=== PATIENT | female | born 1965 | race Caucasian/White ===

== ENCOUNTER 2024-03-03 12:58 | Outpatient (REF) | payer OTHER, SELFPAY ==
[2024-03-03 16:16] LABS: Urine Cytology See Pathology rpt
== END 2024-03-03 12:59 | disposition home or self-care (01) ==
LOC: HO.LNP 12:58
PROVIDERS: PCP Internal Medicine; Visit Provider Nurse Practitioner Family
DX: N20.0 Calculus of kidney (principal); R35.1 Nocturia; R31.29 Other microscopic hematuria; N18.30 Chronic kidney disease, stage 3 unspecified; R06.83 Snoring; F17.200 Nicotine dependence, unspecified, uncomplicated
CPT/HCPCS: 81003; 88112; 99202

== ENCOUNTER 2024-03-03 12:58 | Outpatient (AMB) | payer OTHER, SELFPAY ==
--- NOTE | 2024-03-03 13:00 | MHC.OFFVIS ---
Intake Visit Reasons: hx nephrolithiasis Intake Note: New Patient presents today for initial visit to establish treatment for : kidney stone Urology Medications: none Allergies to Antibiotic: none Blood Thinner: aspirin Electrical Fitter Required: No Accompanied by: Self / Same As Patient Allergies No Known Allergies Allergy (Verified 03/03/24 15:52) Medication List - Last Reconciled 03/03/24 by EULALIO DiazP- apixaban (Eliquis) 5 mg PO BID bupropion HCl SR 150 mg PO BID gabapentin 300 mg PO TID HPI Comments Details: Yane is a pleasant 59-year-old female patient of Dr. Robison. She has a past medical history of cervical radiculopathy, depression, hyperlipidemia, recurrent dislocation of shoulder, nephrolithiasis, stage 3 chronic kidney disease, systolic hypertension, vaginal cancer, and lung nodule. She presents to the office today as a new patient for nephrolithiasis. In discussion with the patient today she reports a longstanding history of nephrolithiasis however never requiring surgical intervention. She reports previously following up with providers through [facility] however would like to establish urology care here. She does report noting ongoing left-sided lateral pain however is unsure if this is related to nephrolithiasis or recent VATS procedure she had. She also reports noting nocturia up to 4 times per night. She reports throughout the day she has no bothersome urinary issues however feels at night she is up every 2 hours to urinate. In office urinalysis results reviewed with the patient today. Microscopic hematuria noted. She does report a longstanding history of nicotine dependence for over 40 years however has switch to vaping more recently. She otherwise denies any known workplace chemical exposure. I discussed reasons for blood in the urine may include but are not limited to kidney stones, cancer in the urinary tract, kidney stone disease or inflammatory conditions of the urinary tract. Discussed workup to include cystoscopy evaluation. She denies urinary urgency, urinary frequency, incontinence, hematuria, dysuria, foul smelling urine, changes to urinary stream, fever, and or chills. She offers no other issues or concerns at this time. Review of Systems Const Reports no additional complaints Eyes Reports no additional complaints ENT Reports no additional complaints Card Reports as per HPI Resp Reports as per HPI GI Reports no additional complaints Reports as per HPI Musc Reports as per HPI Neuro Reports no additional complaints Psych Reports as per HPI Endo Reports no additional complaints Yusuf/Lymph Reports no additional complaints Aller/Immun Reports no additional complaints Physical Exam Const General: cooperative, comfortable, no acute distress, well developed, alert and awake Orientation/consciousness: patient oriented x3 HEENT Head: Yes normal to inspection, Yes normocephalic and Yes atraumatic Ears: hearing grossly normal bilaterally Eyes General: appearance normal, both eyes and all related structures Neck Neck: Yes normal visual inspection and Yes trachea midline Chest Chest palpation & inspection: normal inspection of the chest Resp Effort & Inspection: normal respiratory effort and able to speak in complete sentences Cardio Rate: regular rate GI Inspection: Yes normal to inspection General: Yes no CVA tenderness Back/Spine/Pelvis Back: no CVA tenderness Skin General skin exam: no rashes or lesions noted Neuro General: patient oriented x3 Extrem General: Yes normal to inspection Psych Appearance: grossly normal and well kempt Mental Status: mental status grossly normal Speech and movement: Normal speech and movement present and Clear speech present Affect: normal affect Attitude: cooperative Thought process: Normal thought process present Thought content: Normal thought content present Insight: Fair insight present (Psych) Judgement: Fair judgement present (Psych) Results AMB Urinalysis, Automated UA Leukoctes 70 Shady/uL Last Edit by [employer] on 03/03/24 13:28 UA Nitrite Negative Last Edit by [employer] on 03/03/24 13:28 UA Urobilinogen 0.2 mg/dL Last Edit by [employer] on 03/03/24 13:28 UA Protein 30 mg/dL Last Edit by [employer] on 03/03/24 13:28 UA pH 6.0 Last Edit by [employer] on 03/03/24 13:28 UA Blood 80 Chava/uL Last Edit by [employer] on 03/03/24 13:28 UA Specific [place] 1.020 Last Edit by [employer] on 03/03/24 13:28 UA Ketone Negative Last Edit by [employer] on 03/03/24 13:28 UA Bilirubin 0 mg/dL Last Edit by [employer] on 03/03/24 13:28 UA Glucose 0 mg/dL Last Edit by [employer] on 03/03/24 13:28 Results Reviewed Results Reviewed: Laboratory Last Values Urine pH (Auto) 6.0 03/03/24 13:08 Specific [place] (Auto) 1.020 03/03/24 13:08 Urine Protein (Auto) 30 mg/dL 03/03/24 13:08 Glucose (UA)(Auto) 0 mg/dL 03/03/24 13:08 Urine Ketones (Auto) Negative 03/03/24 13:08 Urine Blood (Auto) 80 Chava/uL 03/03/24 13:08 Urine Nitrite (Auto) Negative 03/03/24 13:08 Urine Bilirubin (Auto) 0 mg/dL 03/03/24 13:08 Urine Urobilinogen (Auto) 0.2 mg/dL 03/03/24 13:08 Leukocyte Esterase (Auto) 70 Shady/uL 03/03/24 13:08 Assessment & Plan Assessment & Plan (1) Nocturia: Code(s): R35.1 - Nocturia Category: Medical (2) Nephrolithiasis: Code(s): N20.0 - Calculus of kidney Category: Medical (3) Microscopic hematuria: Code(s): R31.29 - Other microscopic hematuria Category: Medical (4) Nicotine dependence: Code(s): F17.200 - Nicotine dependence, unspecified, uncomplicated Category: Medical Plan In office urinalysis results reviewed with the patient today; as noted above; will send for urine cytology. Will obtain renal ultrasound for further assessment evaluation Discussed at length potential causes of microscopic hematuria; discussed further workup to include CT urogram as well as in office cystoscopy as patient with a longstanding history of nicotine dependence. Will obtain sleep study for further assessment evaluation as patient reporting nocturia and believes she has been diagnosis sleep apnea in the past. Discussed, educated, and stressed the importance of limiting fluids 2-3 hours prior to bed to decrease episodes of nocturia. Discussed importance of hydration in relation to nephrolithiasis as well as overall health and well-being. Follow-up in 1-3 months with imaging to be completed prior; or sooner with any issues, concerns, and or questions. Orders: Orders AMB Urinalysis Automated Today Z13.9 - Encounter for screening, unspecified Urine Cytology Today Z13.9 - Encounter for screening, unspecified US retroperitoneal comp Today N20.0 - Calculus of kidney RT home sleep study Today R06.83 - Snoring, R35.1 - Nocturia Patient Instructions: The patient had an opportunity to ask questions regarding the treatment plan. All questions were answered. Physical exam, labs, and imaging were discussed and reviewed in detail. As well as risks, benefits, and discussion of treatment choices. No major barriers to understanding were identified. The patient expressed understanding and agreement with the above treatment plan. The patient was made aware they should contact our office by phone for worsening of their current condition, the appearance of new symptoms, or with any questions or concerns. Compliance is encouraged with any medications and follow up testing that is ordered. It is a privilege to be allowed the opportunity to participate in? your urological care.? Again, if you have any questions or concerns If you have any questions or concerns please do not hesitate to contact me. The office is [phone]. This note is constructed using voice recognition software. While every effort has been made to ensure accuracy doorperson or luggage porter errors may have been included. Yours sincerely, JOSSE Diaz Coding Level of Care Code New Pt Level 3 (72627) Diagnoses Nocturia R35.1 Nephrolithiasis N20.0 Microscopic hematuria R31.29 Nicotine dependence F17.200
== END 2024-03-03 13:31 | disposition home or self-care (01) ==
PROVIDERS: PCP Internal Medicine; Visit Provider Nurse Practitioner Family
DX: R35.1 Nocturia (principal); N20.0 Calculus of kidney; R31.29 Other microscopic hematuria; F17.200 Nicotine dependence, unspecified, uncomplicated; Z13.9 Encounter for screening, unspecified
CPT/HCPCS: 99203

== ENCOUNTER 2024-04-15 09:43 | Outpatient (REF) | payer OTHER, SELFPAY ==
--- NOTE | ~2024-04-15 | US_ITS ---
EXAMINATION: US RETROPERITONEAL COMPLETE (RENAL) CLINICAL INFORMATION: Calculus of kidney. COMPARISON: None available. TECHNIQUE: Real-time imaging of the kidneys and bladder. FINDINGS: RIGHT KIDNEY: 6.6 x 3.1 x 2.9 cm (SAG x AP x TRV). The kidney is atrophic in size, contour, and echogenicity. Renal cortical thickness is normal. No calculi or focal parenchymal lesions. No hydronephrosis. LEFT KIDNEY: 9.0 x 5.5 x 4.6 cm (SAG x AP x TRV). The kidney is normal in size, contour, and echogenicity. There is a hypertrophic column of Benedicto. Renal cortical thickness is normal. No calculi or focal parenchymal lesions. No hydronephrosis. BLADDER: Partially distended. Bilateral ureteral jets are demonstrated. Prevoid bladder volume is 84 mL. Postvoid bladder volume was not obtained. US/US retroperitoneal comp IMPRESSION: The right kidney is atrophic. The examination is otherwise unremarkable, without renal mass, calculus or hydronephrosis seen bilaterally. Electronically signed by: Gil Paul MD 05/14/2024 07:51 PM EDT
== END 2024-04-15 09:44 | disposition home or self-care (01) ==
LOC: HO.US 09:43
PROVIDERS: PCP Internal Medicine; Visit Provider Nurse Practitioner Family
DX: N20.0 Calculus of kidney (principal)
CPT/HCPCS: 76770

== ENCOUNTER → 2024-04-28 10:48 | Outpatient (REF) | payer OTHER, SELFPAY | LOC: HO.SL 10:48 | PROVIDERS: PCP Internal Medicine; Visit Provider Nurse Practitioner Family | DX: R35.1 Nocturia (principal); R06.83 Snoring | CPT/HCPCS: 95806 ==

== ENCOUNTER → 2024-04-29 12:46 | Outpatient (BNV) | payer OTHER, SELFPAY | PROVIDERS: PCP Internal Medicine; Visit Provider Internal Medicine | DX: G47.33 Obstructive sleep apnea (adult) (pediatric) (principal) | CPT/HCPCS: 95806 ==

== ENCOUNTER 2024-04-29 15:43 | Outpatient (REF) | payer OTHER, SELFPAY ==
[2024-04-29 16:47] LABS: Urine Cytology See Pathology rpt
== END 2024-04-29 15:44 | disposition home or self-care (01) ==
LOC: HO.LNP 15:43
PROVIDERS: PCP Internal Medicine; Visit Provider Nurse Practitioner Family
DX: R31.29 Other microscopic hematuria (principal); N20.0 Calculus of kidney; R35.1 Nocturia; F17.200 Nicotine dependence, unspecified, uncomplicated
CPT/HCPCS: 51798; 81003; 88112; 99212

== ENCOUNTER 2024-04-29 15:43 | Outpatient (AMB) | payer OTHER, SELFPAY ==
--- NOTE | 2024-04-29 15:48 | MHC.OFFVIS ---
Intake Visit Reasons: 2m/US(set) Intake Note: Patient presents today for follow up visit on: microscopic hematuria, nocturia, and nephrolithiasis Imaging Completed: 04/15/24 Urology Medications: Tamsulosin Allergies to Antibiotic: none Blood Thinner: aspirin PVR: 0ml's Orthotist Required: No Accompanied by: Self / Same As Patient Allergies No Known Allergies Allergy (Verified 04/29/24 18:51) Medication List - Last Reconciled 04/29/24 by RAMBO Diaz- apixaban (Eliquis) 5 mg PO BID bupropion HCl SR 150 mg PO BID gabapentin 300 mg PO TID tamsulosin (Flomax) 0.4 mg PO BEDTIME 30 days HPI Comments Details: Yane is a pleasant 59-year-old female patient of Dr. Robison. She has a past medical history of cervical radiculopathy, depression, hyperlipidemia, recurrent dislocation of shoulder, nephrolithiasis, stage 3 chronic kidney disease, systolic hypertension, vaginal cancer, and lung nodule. She presents to the office today for follow-up of her nephrolithiasis. Of note, patient was seen approximately 2 months ago as a new patient for nephrolithiasis at which time a retroperitoneal ultrasound was ordered for further assessment evaluation. These results were reviewed with the patient today. Right kidney atropic in size however no calculi, lesions, and or hydronephrosis. Left kidney with no lesions, calculi and or hydronephrosis. The bladder is partially distended. Bilateral ureteral jets are demonstrated. Prevoid bladder volume is 84 mL. Postvoid bladder volume was not obtained. She reports since her last office visit here she has had no bothersome urinary issues or concerns. In office urinalysis results reviewed with the patient today. Discussed microscopic hematuria this was also noted on previous in office urinalysis and urine was sent for cytology. These results reviewed with the patient today. 03/24 Negative for high-grade urothelial carcinoma. She does report a longstanding history of nicotine dependence for over 40 years however has since quit given her diagnosis of lung cancer. She otherwise denies any known workplace chemical exposure. I discussed reasons for blood in the urine may include but are not limited to kidney stones, cancer in the urinary tract, kidney stone disease or inflammatory conditions of the urinary tract. Discussed workup to include cystoscopy evaluation. She denies urinary urgency, urinary frequency, incontinence, hematuria, dysuria, foul smelling urine, changes to urinary stream, fever, and or chills. She offers no other issues or concerns at this time. Review of Systems Const Reports no additional complaints Eyes Reports no additional complaints ENT Reports no additional complaints Card Reports as per [facility] Resp Reports as per [facility] GI Reports no additional complaints Reports as per [facility] Musc Reports as per [facility] Neuro Reports no additional complaints Psych Reports as per HPI Endo Reports no additional complaints Yusuf/Lymph Reports no additional complaints Aller/Immun Reports no additional complaints Physical Exam Const General: cooperative, comfortable, no acute distress, well developed, alert and awake Orientation/consciousness: patient oriented x3 HEENT Head: Yes normal to inspection, Yes normocephalic and Yes atraumatic Ears: hearing grossly normal bilaterally Eyes General: appearance normal, both eyes and all related structures Neck Neck: Yes normal visual inspection and Yes trachea midline Chest Chest palpation & inspection: normal inspection of the chest Resp Effort & Inspection: normal respiratory effort and able to speak in complete sentences Cardio Rate: regular rate GI Inspection: Yes normal to inspection General: Yes no CVA tenderness Back/Spine/Pelvis Back: no CVA tenderness Skin General skin exam: no rashes or lesions noted Neuro General: patient oriented x3 Extrem General: Yes normal to inspection Psych Appearance: grossly normal and well kempt Mental Status: mental status grossly normal Speech and movement: Normal speech and movement present and Clear speech present Affect: normal affect Attitude: cooperative Thought process: Normal thought process present Thought content: Normal thought content present Insight: Fair insight present (Psych) Judgement: Fair judgement present (Psych) Office Procedures Post Void Residual Post Residual Void Post Void Residual (PVR): 0 11814-Cjkg Void Residual by ultrasound Results AMB Urinalysis, Automated UA Leukoctes 125 Shady/uL Last Edit by [employer] Medina on 04/29/24 16:07 UA Nitrite Last Edit by [employer] Medina on 04/29/24 16:07 UA Urobilinogen 0.2 mg/dL Last Edit by [employer] Medina on 04/29/24 16:07 UA Protein 30 mg/dL Last Edit by Kari Medina on 04/29/24 16:07 UA pH 6.0 Last Edit by [employer] Medina on 04/29/24 16:07 UA Blood 200 Chava/uL Last Edit by Kari Medina on 04/29/24 16:07 UA Specific [place] 1.025 Last Edit by Kari Medina on 04/29/24 16:07 UA Ketone Negative Last Edit by Kari Medina on 04/29/24 16:07 UA Bilirubin 0 mg/dL Last Edit by Kari Medina on 04/29/24 16:07 UA Glucose 0 mg/dL Last Edit by Kari Medina on 04/29/24 16:07 Results Reviewed Results Reviewed: Laboratory Last Values Urine pH (Auto) 6.0 04/29/24 16:05 Specific [place] (Auto) 1.025 04/29/24 16:05 Urine Protein (Auto) 30 mg/dL 04/29/24 16:05 Glucose (UA)(Auto) 0 mg/dL 04/29/24 16:05 Urine Ketones (Auto) Negative 04/29/24 16:05 Urine Blood (Auto) 200 Chava/uL 04/29/24 16:05 Urine Bilirubin (Auto) 0 mg/dL 04/29/24 16:05 Urine Urobilinogen (Auto) 0.2 mg/dL 04/29/24 16:05 Leukocyte Esterase (Auto) 125 Shady/uL 04/29/24 16:05 Date of Service: 04/15/24 EXAMINATION: US RETROPERITONEAL COMPLETE (RENAL) FINDINGS: RIGHT KIDNEY: 6.6 x 3.1 x 2.9 cm (SAG x AP x TRV). The kidney is atrophic in size, contour, and echogenicity. Renal cortical thickness is normal. No calculi or focal parenchymal lesions. No hydronephrosis. LEFT KIDNEY: 9.0 x 5.5 x 4.6 cm (SAG x AP x TRV). The kidney is normal in size, contour, and echogenicity. There is a hypertrophic column of Benedicto. Renal cortical thickness is normal. No calculi or focal parenchymal lesions. No hydronephrosis. BLADDER: Partially distended. Bilateral ureteral jets are demonstrated. Prevoid bladder volume is 84 mL. Postvoid bladder volume was not obtained. IMPRESSION: The right kidney is atrophic. The examination is otherwise unremarkable, without renal mass, calculus or hydronephrosis seen bilaterally. Assessment & Plan Assessment & Plan (1) Nocturia: Code(s): R35.1 - Nocturia Category: Medical (2) Nephrolithiasis: Code(s): N20.0 - Calculus of kidney Category: Medical (3) Microscopic hematuria: Code(s): R31.29 - Other microscopic hematuria Category: Medical (4) Nicotine dependence: Code(s): F17.200 - Nicotine dependence, unspecified, uncomplicated Category: Medical Plan In office urinalysis results reviewed with the patient today; as noted above; will send for urine cytology. Recent renal imaging results reviewed with the patient today; as noted above. Discussed at length potential causes of microscopic hematuria as well as workup to include CT urogram as well as in office cystoscopy; risks and benefits of these interventions were discussed. Will continue with surveillance monitoring at this time. Previous urine cytology results reviewed with the patient today. Sleep study remains pending Continue Flomax as patient feels this has been helpful. Discussed importance of hydration in relation to nephrolithiasis as well as overall health and well-being. Patient currently denies any bothersome urinary issues or concerns She reports be happy with current voiding parameters. Will obtain renal ultrasound in 6 months Follow-up in 6 months with imaging to be completed prior; or sooner with any issues, concerns, and or questions. Orders: Orders Urine Cytology 04/29/24 R31.29 - Other microscopic hematuria US renal BI 6 Months N20.0 - Calculus of kidney AMB Urinalysis Automated 04/29/24 Z13.9 - Encounter for screening, unspecified AMB Post Void Residual by ultrasound 04/29/24 R35.1 - Nocturia Patient Instructions: The patient had an opportunity to ask questions regarding the treatment plan. All questions were answered. Physical exam, labs, and imaging were discussed and reviewed in detail. As well as risks, benefits, and discussion of treatment choices. No major barriers to understanding were identified. The patient expressed understanding and agreement with the above treatment plan. The patient was made aware they should contact our office by phone for worsening of their current condition, the appearance of new symptoms, or with any questions or concerns. Compliance is encouraged with any medications and follow up testing that is ordered. It is a privilege to be allowed the opportunity to participate in? your urological care.? Again, if you have any questions or concerns If you have any questions or concerns please do not hesitate to contact me. The office is [phone]. This note is constructed using voice recognition software. While every effort has been made to ensure accuracy oncology registrar errors may have been included. Yours sincerely, RAMBO Diaz-BC Coding Level of Care Code Est Pt Level 3 (29636) Diagnoses Nocturia R35.1 Nephrolithiasis N20.0 Microscopic hematuria R31.29 Nicotine dependence F17.200 CPT Codes Post Residual Void - PVR CPT Code: 53782-Mxtu Void Residual by ultrasound ([id number])
== END 2024-04-29 16:29 | disposition home or self-care (01) ==
PROVIDERS: PCP Internal Medicine; Visit Provider Nurse Practitioner Family
DX: R35.1 Nocturia (principal); N20.0 Calculus of kidney; R31.29 Other microscopic hematuria; F17.200 Nicotine dependence, unspecified, uncomplicated
CPT/HCPCS: 99213

== ENCOUNTER 2024-10-14 11:24 | Outpatient (REF) | payer OTHER, SELFPAY ==
--- NOTE | ~2024-10-14 | US_ITS ---
CLINICAL HISTORY: N20.0 - Calculus of kidney US Renal Comparison: 04/15/2024 Findings: Right kidney is atrophic measuring 6.5 cm in length and exhibits cortical thinning. Left kidney normal size and echotexture, 10.2 cm length. No hydronephrosis of either kidney. Normal color Doppler IMPRESSION: No current calculus identified. Chronic atrophy of the right kidney. This document has been electronically signed by: Marquis Barker MD on 10/14/2024 13:32:29
--- OUTSIDE RECORDS SUMMARY | 2024-10-14 12:02 | XMS_ITS | Continuity of Care Document ---
Author Organization [facility] Thor[facility] Address [address] [place], [place] [address]jsesie steven, [address] [place] [address]- Care Team Providers Care Block Sawyer Name Role Phone Ricki BEY, Tiffani Kyle Primary Care Physician Encounter [facility] ACCT R [id number] Date(s): 09/15/24 - 09/22/24 [facility] Thor[facility] Surgery [address] [place] [address] Drive [address] [place], [place] [address] Attending Physician: Not on Staff, Attending MD Encounter Type: Office Visit Allergies, Adverse Reactions, Alerts No Known Allergies Immunizations Given and Recorded Vaccine Date Status Refusal Reason SARS-CoV-2 (COVID-19) mRNA BNT-162b2 vac 05/17/21 Recorded SARS-CoV-2 (COVID-19) mRNA BNT-162b2 vac 04/23/21 Recorded tetanus-diphtheria toxoids (Td) 1 06/21/10 Given 1Admin Note: [employer] vim 07/19/08 Medications aspirin 81 mg oral capsule 1 capsule = 81 mg, By Mouth, Daily, do not exceed 48 capsules in 24 hours, # 90 capsule, 0 Refills,Maintenance, 09/16/23 5:32:00 PM EST, Capsule, [facility], Partial fill upon patient request if the prescription is for a schedule II opioid drug., 157, cm, 09/16/23 14:41:00 EST, Height, 67, kg, 09/16/23 14:41:00 EST, Dry Weight Start Date: 09/16/23 Status: Ordered Quantity: 90.0 Unit: capsule Repeat number: 1 BuPROPion (Eqv-Wellbutrin SR) 150 mg/12 hours oral tablet, extended release 1 tablet, By Mouth, 2 times a day, # 180 tablet, 0 Refills, Maintenance, 08/19/24 10:30:00 AM [facility], 157, cm, 04/20/24 13:25:00 EDT, Height, 70.2, kg, 03/15/24 15:56:00 EDT, Dry Weight Start Date: 08/19/24 Status: Ordered Quantity: 180.0 Unit: tablet Repeat number: 1 Eliquis 5 mg oral tablet 1 tablet, By Mouth, 2 times a day, # 60 tablet, 0 Refills, Maintenance, 08/02/24 8:30:00 AM [facility], 157, cm, 04/20/24 13:25:00 EDT, Height, 70.2, kg, 03/15/24 15:56:00 EDT, Dry Weight Start Date: 08/02/24 Status: Ordered Quantity: 60.0 Unit: tablet Repeat number: 1 fluticasone 50 mcg/inh nasal spray See Instructions, SPRAY 1 SPRAY INTO EACH NOSTRIL TWICE A DAY, # 48 mL, 1 Refills, Maintenance, 08/23/23 6:55:00 [facility] [address], 90, SPRAY 1 SPRAY INTO EACH NOSTRIL TWICE A DAY, 158, cm, 07/03/23 10:20:00 EDT, Height, 66, kg, 06/20/23 7:56:00 EDT, Dry Weight Start Date: 08/23/23 Status: Ordered Quantity: 48.0 Unit: mL Repeat number: 1 gabapentin 800 mg oral tablet 1 tablet, By Mouth, 3 times a day, # 90 tablet, 0 Refills, Maintenance, 08/19/24 2:08:00 PM [facility], 157, cm, 04/20/24 13:25:00 EDT, Height, 70.2, kg, 03/15/24 15:56:00 EDT, Dry Weight Start Date: 08/19/24 Status: Ordered Quantity: 90.0 Unit: tablet Repeat number: 1 rosuvastatin 10 mg oral tablet See Instructions, Take 1 tablet by mouth once daily, # 90 tablet, 1 Refills, Maintenance, 01/13/24 2:31:00 PM EDT, [facility], 158, cm, 01/07/24 14:41:00 EDT, Height, 72.6, kg, 01/07/24 14:41:00 EDT, Dry Weight Start Date: 01/13/24 Status: Ordered Quantity: 90.0 Unit: tablet Repeat number: 1 Problem List Condition Confirmation Course Effective Dates Status H ealth Status Informant Abnormal cervical Papanicolaou smear Confirmed Active Cervical radiculopathy Confirmed Active Stage 3a chronic kidney disease (CKD) Confirmed Active S/P lobectomy of lung Confirmed Active History of lung cancer in adulthood Confirmed Active History of cancer of vagina in adulthood Confirmed Active Hyperlipidemia Confirmed Active Elevated creatine kinase Confirmed Active Renal stone Confirmed Active Left subclavian artery occlusion Confirmed Active Depression, recurrent Confirmed Active Recurrent dislocation of shoulder Confirmed Active Shoulder pain left Confirmed 04/02/06 Active Exogenous obesity Confirmed Active Systolic hypertension Confirmed Active Social History Social History Type Response Smoking Status Former smoker, quit more than 30 days ago entered on: 12/16/23 Sex Sex Representation Female (finding) Patient Care team information Care Team Personnel Name: Lisa Armstrong RN Position: [facility] AMB Nurse Member Role: Primary Care Nurse Name: Aida Ward RN Position: [facility] RN Member Role: Primary Care Nurse Name: Tiffani Robison MD Position: [facility] Physician - Primary Care Member Role: PCP Address: [address] [place], [place] [address] Telecom: Name: Ana Brown RN Position: [facility] RN Member Role: Primary Care Nurse Name: Marie Linton RN Position: [facility] RN Member Role: Primary Care Nurse Care Team Related Persons Name: JACI OCONNOR Name: JACI OCONNOR Name: JACI OCONNOR Name: NOAM CARNES Insurance Providers Guarantor name: MIKAYLA JOYNER Health Plan Information #: 1 Payer: [facility] Member Number: [id number] Policy Number: NA Group Number: [id number] Health Plan Information #: 2 Payer: [facility] Member Number: [id number] Policy Number: NA Group Number: [id number]
--- OUTSIDE RECORDS SUMMARY | 2024-10-14 12:02 | XMS_ITS | Continuity of Care Document ---
Author Organization [facility] CIVIL ESTIMATOR Oncolog y Address [address] [place] [id number]- Care Team Providers Care Soap Drier Tender Name Role Phone Ricki BEY, Tiffani Kyle Primary Care Physician [place] [facility]): 09/08/24 - 10/08/24 [facility] CIVIL ESTIMATOR Oncology [address] [place] [address] Attending Physician: Admtr, Ar8 Admitting Physician: AdmtrRick Referring Physician: Admtr, Ar8 Encounter Type: Triage Allergies, Adverse Reactions, Alerts No Known Allergies [...] 0 Refills,Maintenance, 09/16/23 5:32:00 PM EST, Capsule, [facility], Partial fill upon patient request [...] tablet, 0 Refills, Maintenance, 08/19/24 10:30:00 AM [facility], 157, cm, 04/20/24 13:25:00 EDT, Height, 70.2, kg, 03/15/24 15:56:00 EDT, Dry Weight Start Date: 08/19/24 Status: Ordered Quantity: 180.0 Unit: tablet Repeat number: 1 Eliquis 5 mg oral tablet 1 tablet, By Mouth, 2 times a day, # 60 tablet, 0 Refills, Maintenance, 08/02/24 8:30:00 AM [facility]01, 157, cm, 04/20/24 13:25:00 EDT, Height, 70.2, kg, 03/15/24 15:56:00 EDT, Dry Weight Start Date: 08/02/24 Status: Ordered Quantity: 60.0 Unit: tablet Repeat number: 1 fluticasone 50 mcg/inh nasal spray See Instructions, SPRAY 1 SPRAY INTO EACH NOSTRIL TWICE A DAY, # 48 mL, 1 Refills, Maintenance, 08/23/23 6:55:00 AM [facility] [address], 90, SPRAY 1 SPRAY INTO EACH NOSTRIL TWICE A DAY, 158, cm, 07/03/23 10:20:00 EDT, Height, 66, kg, 06/20/23 7:56:00 EDT, Dry Weight Start Date: 08/23/23 Status: Ordered Quantity: 48.0 Unit: mL Repeat number: 1 gabapentin 800 mg oral tablet 1 tablet, By Mouth, 3 times a day, # 90 tablet, 0 Refills, Maintenance, 08/19/24 2:08:00 PM [facility], 157, cm, 04/20/24 13:25:00 EDT, Height, 70.2, kg, 03/15/24 15:56:00 EDT, Dry Weight Start Date: 08/19/24 Status: Ordered Quantity: 90.0 Unit: tablet Repeat number: 1 ondansetron 4 mg oral tablet, disintegrating 1 tablet, By Mouth, Every 6 hours, PRN NEEDED FOR NAUSEA AND VOMITING, # 20 tablet, 0 Refills, Maintenance, 09/23/24 8:29:00 AM EST, [facility], 157, cm, 09/08/24 10:05:00 EST, Height, 70.2, kg, 03/15/24 15:56:00 EDT, Dry Weight Start Date: 09/23/24 Status: Ordered Quantity: 20.0 Unit: tablet Repeat number: 1 prochlorperazine 10 mg oral tablet See Instructions, TAKE 1 TABLET BY MOUTH EVERY 6 HOURS NEEDED FOR NAUSEA, # 20 tablet, 0 Refills, Maintenance, 09/23/24 8:29:00 AM EST, [facility], 157, cm, 09/08/24 10:05:00 EST, Height, 70.2, kg, 03/15/24 15:56:00 EDT, Dry Weight Start Date: 09/23/24 Status: Ordered Quantity: 20.0 Unit: tablet Repeat number: 1 rosuvastatin 10 mg oral tablet See Instructions, Take 1 tablet by mouth once daily, # 90 tablet, 1 Refills, Maintenance, 01/13/24 2:31:00 PM EDT, [facility], 158, cm, 01/07/24 14:41:00 EDT, [...] on: 12/16/23 Sex Sex Representation Female (finding) CT Abdomen * Event Display: CT Scan Abdomen Authored Date: Patient Care team information Care Team Personnel Name: Lisa Armstrong RN Position: [facility] AMB Nurse Member Role: Primary Care Nurse Name: Aida Ward RN Position: [facility] RN Member Role: Primary Care Nurse Name: Ricki BEY, Tiffani Kyle Position: [facility] Physician - Primary Care Member Role: PCP Address: [address] [place] [address] Telecom: Name: Ana Brown RN Position: [facility] RN Member Role: Primary Care Nurse Name: Marie Linton RN Position: [facility] RN Member Role: Primary Care Nurse Care Team Related Persons Name: JACI OCONNOR Name: JACI OCONNOR Name: JACI OCONNOR Name: NOAM CARNES Insurance Providers [facility] Information #: 1 Payer: [facility] Member Number: NA Policy Number: NA Group Number: NA
--- OUTSIDE RECORDS SUMMARY | 2024-10-14 12:02 | XMS_ITS | Continuity of Care Document ---
Author Organization [facility] Address [address] [facility] [place] [address]- Care Team Providers Care Ring Rolling Machine Operator Name Role Phone Ricki BEY, Tiffani Kyle Primary Care Physician [phone] Encounter 09/09/24 - 09/16/24 [facility] [address] [facility], [address] [place] [address]- Attending Physician: Ada Mckoy MD Admitting Physician: Ada Mckoy MD Referring Physician: Ada Mckoy MD Encounter Type: OutPatient One Time Allergies, Adverse Reactions, Alerts No Known Allergies [...] 0 Refills,Maintenance, 09/16/23 5:32:00 PM EST, Capsule, [facility], Partial fill upon patient [...] tablet, 0 Refills, Maintenance, 08/19/24 10:30:[address] [facility], 157, cm, 04/20/24 13:25:00 EDT, Height, 70.2, kg, 03/15/24 15:56:00 EDT, Dry Weight Start Date: 08/19/24 Status: Ordered Quantity: 180.0 Unit: tablet Repeat number: 1 Eliquis 5 mg oral tablet 1 tablet, By Mouth, 2 times a day, # 60 tablet, 0 Refills, Maintenance, 08/02/24 8:30:00 AM [facility]01, 157, cm, 04/20/24 13:25:00 EDT, Height, 70.2, kg, 03/15/24 15:56:00 EDT, Dry Weight Start Date: 08/02/24 Status: Ordered Quantity: 60.0 Unit: tablet Repeat number: 1 fluticasone 50 mcg/inh nasal spray See Instructions, SPRAY 1 SPRAY INTO EACH NOSTRIL TWICE A DAY, # 48 mL, 1 Refills, Maintenance, 08/23/23 6:55:00 AM [facility] [address], 90, SPRAY 1 SPRAY INTO EACH NOSTRIL TWICE A DAY, 158, cm, 07/03/23 10:20:00 EDT, Height, 66, kg, 06/20/23 7:56:00 EDT, Dry Weight Start Date: 08/23/23 Status: Ordered Quantity: 48.0 Unit: mL Repeat number: 1 gabapentin 800 mg oral tablet 1 tablet, By Mouth, 3 times a day, # 90 tablet, 0 Refills, Maintenance, 08/19/24 2:08:[address] [facility], 157, cm, 04/20/24 13:25:00 EDT, Height, 70.2, kg, 03/15/24 15:56:00 EDT, Dry Weight Start Date: 08/19/24 Status: Ordered Quantity: 90.0 Unit: tablet Repeat number: 1 rosuvastatin 10 mg oral tablet See Instructions, Take 1 tablet by mouth once daily, # 90 tablet, 1 Refills, Maintenance, 01/13/24 2:31:00 PM EDT, [facility], 158, cm, 01/07/24 14:41:00 EDT, [...] obesity Confirmed Active Systolic hypertension Confirmed Active Results Radiology Reports * Exam Date Time Procedure Performing Provider Status 09/09/24 2:[address] Chest W/O Contrast Dejuan Haas; Au th (Verified) Notes: (CT Chest W/O Contrast) Reason For Exam: Lung Cancer Surveillance;Other: RESULT: CT Chest W/O Contrast CT Chest W/O Contrast INDICATION: Lung Cancer Surveillance TECHNIQUE: Helical CT scan of the chest without IV contrast, formatted in 3 planes. Weight-based protocol was performed using automatic exposure control. CTDIvol Body: 11.96 mGy, DLP Body: 405 mGy*cm. COMPARISON: 10/27/2023 FINDINGS: Subeditor view findings, lines and tubes: None. Trachea and airways: Patent without evidence of tracheal or endobronchial lesion. Lungs and pleura: Mild emphysematous changes. Status post left upper lobe lumpectomy. Clustered nodules in the posterior right upper lobe with ill-defined margins, with the largest discrete nodule measuring 4 mm (series 3 images 34 and 35), new from prior and suggesting mild infectious/inflammatoryprocess. A few additional stable perifissural nodules are noted, unchanged from priors and likely benign. No overtly suspicious nodule. No nodular opacity along the surgical margin in the left lung. No effusion or pneumothorax. Mediastinum and chela: No mass or hematoma. No mediastinal or hilar lymphadenopathy. No esophageal abnormality. Normal thyroid. Heart: Heart is normal in size. No pericardial effusion. Aorta: No aortic aneurysm. Pulmonary arteries: Normal caliber. Chest wall soft tissues: No acute abnormality. Diaphragm: Intact. Upper abdomen: No significant upper abdominal findings. No adrenal nodule. Status post cholecystectomy with mild prominence of the biliary tree likely representing postcholecystectomy reservoir effect. Mild right renal atrophy at the edge of the field of view. Bones: Healing fracture of the left sixth and seventh ribs. IMPRESSION: Status post left upper lobectomy with expected postsurgical changes. No evidence of residual, recurrent, or metastatic disease. Small clustered nodules in the posterior right upper lobe, likely a mild infectious/inflammatory process. Correlation with symptoms and attention on follow-up is recommended. I have personally reviewed the images and I agree with this report. WSN: [id number] Ordering Physician: Ada Mckoy Dictated By: Gilberto Mcneal MD Dictated Date/Time: 09/09/24 5:43 pm Reviewed By: Petar Kumari MD Signed By: Petar Kumari MD Signed Date/Time: 09/09/24 5:48 pm Transcribed By: BRIGITTE Transcribed Date/Time: 09/09/24 5:01 pm Social History Social History Type Response Smoking Status Former smoker, quit more than 30 days ago entered on: 12/16/23 Sex Sex Representation Female (finding) Patient Care team information Care Team Personnel Name: Lisa Armstrong RN Position: [facility] AMB Nurse Member Role: Primary Care Nurse Name: Aida Ward RN Position: [facility] RN Member Role: Primary Care Nurse Name: Tiffani Robison MD Position: [facility] Physician - Primary Care Member Role: PCP Address: [address] [place] [address] - Telecom: Name: Ana Brown RN Position: [facility] RN Member Role: Primary Care Nurse Name: Marie Linton RN Position: [facility] RN Member Role: Primary Care Nurse Name: Ada Mckoy MD Position: [facility] Physician - General Surgery Med Service: Cardiothoracic Surgery Member Role: Referring Physician Address: [address] [place] [address] [address] [facility] [place] [address]- Telecom: Care Team Related Persons Name: JACI OCONNOR Name: JACI OCONNOR Name: JACI OCONNOR Name: NOAM CARNES Insurance Providers Guarantor name: MIKAYLA JOYNER [facility] Information #: 1 Payer: [facility] Member Number: [id number] Policy Number: NA Group Number: [id number] Health Plan Information #: 2 Payer: [facility] Member Number: [id number] Policy Number: NA Group Number: NA
--- OUTSIDE RECORDS SUMMARY | 2024-10-14 12:02 | XMS_ITS | Continuity of Care Document ---
Author Organization [facility] Address [address] [place] [address]- Care Team Providers Care Equip Maint Eng Name Role Phone Ricki BEY, Tiffani Kyle Primary Care Physician Encounter [facility] [id number] Date(s): 09/14/24 - 09/21/24 [facility] [address] [place], [place] [address] Encounter Diagnosis COVID-19(Discharge Diagnosis) - 09/14/24 Attending Physician: Kelly Rojo MD Referring Physician: Tiffani Robison MD Encounter Type: Office Visit Allergies, Adverse [...] 0 Refills,Maintenance, 09/16/23 5:32:00 PM EST, Capsule, [facility], Partial fill upon patient request if the [...] tablet, 0 Refills, Maintenance, 08/19/24 10:30:00 AM [facility]01, 157, cm, [...] mL, 1 Refills, Maintenance, 08/23/23 6:55:00 AM [facility] [address], 90, SPRAY 1 SPRAY INTO EACH NOSTRIL TWICE A DAY, 158, cm, 07/03/23 10:20:00 EDT, Height, 66, kg, 06/20/23 7:56:00 EDT, Dry Weight Start Date: 08/23/23 Status: Ordered Quantity: 48.0 Unit: mL Repeat number: 1 gabapentin 800 mg oral tablet 1 tablet, By Mouth, 3 times a day, # 90 tablet, 0 Refills, Maintenance, 08/19/24 2:08:00 PM [facility], 157, cm, 04/20/24 13:25:00 EDT, Height, 70.2, kg, 03/15/24 15:56:00 EDT, Dry Weight Start Date: 08/19/24 Status: Ordered Quantity: 90.0 Unit: tablet Repeat number: 1 rosuvastatin 10 mg oral tablet See Instructions, Take 1 tablet by mouth once daily, # 90 tablet, 1 Refills, Maintenance, 01/13/24 2:31:00 PM EDT, [facility], 158, cm, 01/07/24 14:41:00 EDT, [...] obesity Confirmed Active Systolic hypertension Confirmed Active Diagnosis Diagnosis Type Effective Dates Health Status Clini kasie Service Informant COVID-19 Discharge Diagnosis 09/14/24 Social History Social History Type Response Smoking Status Former smoker, quit more than 30 days ago entered on: 12/16/23 Sex Sex Representation Female (finding) Patient Care team information Care Team Personnel Name: Lisa Armstrong RN Position: [facility] AMB Nurse Member Role: Primary Care Nurse Name: Aida Ward RN Position: [facility] RN Member Role: Primary Care Nurse Name: Tiffani Robison MD Position: [facility] Physician - Primary Care Member Role: PCP Address: [address] [place] [address] Telecom: Name: Ana Brown RN Position: [facility] RN Member Role: Primary Care Nurse Name: Marie Linton RN Position: [facility] RN Member Role: Primary Care Nurse Care Team Related Persons Name: JACI OCONNOR Name: JACI OCONNOR Name: JACI OCONNOR Name: NOAM CARNES Insurance Providers Guarantor name: MIKAYLA JOYNER Health Plan Information #: 1 Payer: [employer] [facility] [employer] [facility] [employer] Member Number: [id number] Policy Number: NA Group Number: [id number] Health Plan Information #: 2 Payer: [facility] Member Number: [id number] Policy Number: NA Group Number: NA
== END 2024-10-14 11:25 | disposition home or self-care (01) ==
LOC: HO.US 11:24
PROVIDERS: PCP Internal Medicine; Visit Provider Nurse Practitioner Family
DX: N20.0 Calculus of kidney (principal)
CPT/HCPCS: 76775

== ENCOUNTER → 2024-10-14 11:25 | Outpatient (BNV) | payer OTHER, SELFPAY | PROVIDERS: PCP Internal Medicine; Visit Provider Radiology Vascular & Interventional Radiology | DX: N26.1 Atrophy of kidney (terminal) (principal) | CPT/HCPCS: 76775 ==

== ENCOUNTER 2024-10-27 10:28 | Outpatient (AMB) | payer OTHER, SELFPAY ==
--- NOTE | 2024-10-27 10:29 | MHC.OFFVIS ---
Intake Visit Reasons: 6M US(set) Intake Note: Patient presents today for follow up visit on: ultrasound and nephrolithiasis Imaging Completed: 10/14/24 Urology Medications: none Allergies to Antibiotic: none Blood Thinner: aspirin Anesthesiologist Assistant Required: No Accompanied by: Self / Same As Patient Allergies No Known Allergies Allergy (Verified 10/27/24 10:42) Medication List - Last Reconciled 10/27/24 by RAMBO Diaz- apixaban (Eliquis) 5 mg PO BID bupropion HCl SR 150 mg PO BID ciprofloxacin HCl 500 mg PO BID gabapentin 300 mg PO TID HPI Comments Details: Yane is a pleasant 59-year-old female patient of Dr. Robison. She has a past medical history of cervical radiculopathy, depression, hyperlipidemia, recurrent dislocation of shoulder, nephrolithiasis, stage 3 chronic kidney disease, systolic hypertension, vaginal cancer, and lung nodule. She presents to the office today for follow-up of her nephrolithiasis. Recent renal imaging results reviewed with the patient today. 10/26 bilateral kidneys with no hydronephrosis and or nephrolithiasis. Right kidney remains atrophic left kidney is normal. When asked she denies any bothersome urinary issues or concerns since her last office visit here. She does have a previous history of microscopic hematuria. Previous urine cytology 03/24 and 04/24 Negative for high-grade urothelial carcinoma. She discusses having had recent surgery for removal of cancerous nodule to her lung and has been recovering well. She does continue to have pain related to fractured ribs she otherwise denies any bothersome urinary issues or concerns. She denies urinary urgency, urinary frequency, incontinence, nocturia, gross/visible hematuria, dysuria, foul smelling urine, changes to urinary stream, flank pain, fever, and or chills. She is happy with her current voiding parameters. In office urinalysis results reviewed with the patient today no microscopic hematuria noted. We discussed importance of adequate hydration relation to longstanding history of nephrolithiasis. She otherwise denies any other issues or concerns at this time. Results - Imaging: Ultrasound in April & current visit shows no kidney stones or urinary tract obstructions; right kidney slightly smaller than left. - Urinalysis: No blood present. - Cytology: Negative findings. Plan Current management involves ongoing surveillance of renal health, focusing on preventing the recurrence of kidney stones. Despite past episodes, no current stones or blood in the urine were detected through recent imaging and urinalysis. An annual ultrasound has been ordered to ensure no developments arise over the next year. The patient understands the significance of maintaining adequate hydration to mitigate stone formation risks. Discussion about recurrent kidney stone concerns was conducted in detail with guidance provided on symptom recognition. Patient was informed and verbally consented to the use of an ambient scribe for clinic note documentation during this visit. Discussion Notes During the visit, I briefed the patient thoroughly regarding nephrolithiasis. I confirmed the continuity of our annual or sooner if needed ultrasound screenings to prevent or address kidney stones, highlighting the likelihood of recurrence in some patients. I expressed the importance of adequate hydration and acknowledged her compliance. The patient was informed on warning signs to monitor that correspond with renal complications, including hematuria recurrence or new calculi development. I instructed her to report any significant symptoms or new discomforts between visits, and I underscored our availability to address such concerns. I confirmed a follow-up arrangement contingent on emerging issues or annually. Review of Systems Const Reports no additional complaints Eyes Reports no additional complaints ENT Reports no additional complaints Card Reports as per HPI Resp Reports as per HPI GI Reports no additional complaints Reports as per HPI Musc Reports as per HPI Neuro Reports no additional complaints Psych Reports as per HPI Endo Reports no additional complaints Yusuf/Lymph Reports no additional complaints Aller/Immun Reports no additional complaints Physical Exam Const General: cooperative, comfortable, no acute distress, well developed, alert and awake Orientation/consciousness: patient oriented x3 HEENT Head: Yes normal to inspection, Yes normocephalic and Yes atraumatic Ears: hearing grossly normal bilaterally Eyes General: appearance normal, both eyes and all related structures Neck Neck: Yes normal visual inspection and Yes trachea midline Chest Chest palpation & inspection: normal inspection of the chest Resp Effort & Inspection: normal respiratory effort and able to speak in complete sentences Cardio Rate: regular rate GI Inspection: Yes normal to inspection General: Yes no CVA tenderness Back/Spine/Pelvis Back: no CVA tenderness Skin General skin exam: no rashes or lesions noted Neuro General: patient oriented x3 Extrem General: Yes normal to inspection Psych Appearance: grossly normal and well kempt Mental Status: mental status grossly normal Speech and movement: Normal speech and movement present and Clear speech present Affect: normal affect Attitude: cooperative Thought process: Normal thought process present Thought content: Normal thought content present Insight: Fair insight present (Psych) Judgement: Fair judgement present (Psych) Results AMB Urinalysis, Automated UA Leukoctes 0 Shady/uL Last Edit by Annabelle Longtiz on 10/27/24 10:42 UA Nitrite Negative Last Edit by Crystal Izquierdo on 10/27/24 10:42 UA Urobilinogen 0.2 mg/dL Last Edit by Crystal Izquierdo on 10/27/24 10:42 UA Protein 30 mg/dL Last Edit by Crystal Izquierdo on 10/27/24 10:42 UA pH 6.0 Last Edit by Crystal Izquierdo on 10/27/24 10:42 UA Blood 0 Chava/uL Last Edit by Crystal Izquierdo on 10/27/24 10:42 UA Specific [place] 1.025 Last Edit by Crystal Izquierdo on 10/27/24 10:42 UA Ketone Negative Last Edit by Crystal Izquierdo on 10/27/24 10:42 UA Bilirubin 0 mg/dL Last Edit by Annabelle Izquierdo on 10/27/24 10:42 UA Glucose 0 mg/dL Last Edit by Crystal Izquierdo on 10/27/24 10:42 Results Reviewed Results Reviewed: Date of Service: 10/14/24 Procedure(s): US renal BI US Renal Comparison: 04/15/2024 Findings: Right kidney is atrophic measuring 6.5 cm in length and exhibits cortical thinning. Left kidney normal size and echotexture, 10.2 cm length. No hydronephrosis of either kidney. Normal color Doppler IMPRESSION: No current calculus identified. Chronic atrophy of the right kidney. Assessment & Plan Assessment & Plan (1) Nicotine dependence: Code(s): F17.200 - Nicotine dependence, unspecified, uncomplicated Category: Medical (2) Microscopic hematuria: Code(s): R31.29 - Other microscopic hematuria Category: Medical (3) Nephrolithiasis: Code(s): N20.0 - Calculus of kidney Category: Medical Plan In office urinalysis results reviewed with the patient today; as noted above. Recent renal imaging results reviewed with the patient today; as noted above. Patient currently denies any bothersome urinary issues or concerns. She reports be happy with current voiding parameters. We discussed: - Continue drinking adequate water daily to prevent kidney stones. - Be vigilant and report any signs of kidney stones or blood in the urine promptly. - Follow up with an ultrasound annually to monitor kidney health. - Contact us if any kidney or bladder related issues arise before the next scheduled follow-up. Will obtain renal ultrasound in 1 year. Follow-up in 1 year with imaging to be completed prior; or sooner with any issues, concerns, and or questions. Orders: Orders AMB Urinalysis Automated Today Z13.9 - Encounter for screening, unspecified US renal BI 1 Year N20.0 - Calculus of kidney Patient Instructions: The patient had an opportunity to ask questions regarding the treatment plan. All questions were answered. Physical exam, labs, and imaging were discussed and reviewed in detail. As well as risks, benefits, and discussion of treatment choices. No major barriers to understanding were identified. The patient expressed understanding and agreement with the above treatment plan. The patient was made aware they should contact our office by phone for worsening of their current condition, the appearance of new symptoms, or with any questions or concerns. Compliance is encouraged with any medications and follow up testing that is ordered. It is a privilege to be allowed the opportunity to participate in? your urological care.? Again, if you have any questions or concerns If you have any questions or concerns please do not hesitate to contact me. The office is [phone]. This note is constructed using voice recognition software. While every effort has been made to ensure accuracy rigger apprentice errors may have been included. Yours sincerely, JOSSE Diaz Coding Level of Care Code Est Pt Level 3 (56053) Diagnoses Nicotine dependence F17.200 Microscopic hematuria R31.29 Nephrolithiasis N20.0
--- OUTSIDE RECORDS SUMMARY | 2024-10-27 12:51 | XMS_ITS | Continuity of Care Document ---
Author Organization [facility] AUTOMATIC COIN MACHINE MECHANIC Oncolog y Address [address] [place] [address]- Care Team Providers Care Senior Medical Director Name Role Phone Ricki BEY, Tiffani Kyle Primary Care Physician [phone] Encounter [facility] Date(s): 09/22/24 - 10/22/24 [facility] AUTOMATIC COIN MACHINE MECHANIC Oncology [address] [place] [id number] Encounter Type: Triage Allergies, Adverse Reactions, Alerts [...] 0 Refills,Maintenance, 09/16/23 5:32:00 PM EST, Capsule, [facility], Partial fill upon patient [...] tablet, 0 Refills, Maintenance, 08/19/24 10:30:00 AM [facility] 2901, 157, cm, 04/20/24 13:25:00 EDT, Height, 70.2, kg, 03/15/24 15:56:00 EDT, Dry Weight Start Date: 08/19/24 Status: Ordered Quantity: 180.0 Unit: tablet Repeat number: 1 Eliquis 5 mg oral tablet 1 tablet, By Mouth, 2 times a day, # 60 tablet, 0 Refills, Maintenance, 08/02/24 8:30:00 AM [facility] 2901, 157, cm, 04/20/24 13:25:00 EDT, Height, 70.2, kg, 03/15/24 15:56:00 EDT, Dry Weight Start Date: 08/02/24 Status: Ordered Quantity: 60.0 Unit: tablet Repeat number: 1 fluticasone 50 mcg/inh nasal spray See Instructions, SPRAY 1 SPRAY INTO EACH NOSTRIL TWICE A DAY, # 48 mL, 1 Refills, Maintenance, 08/23/23 6:55:00 AM [facility] [address], 90, SPRAY 1 SPRAY INTO EACH NOSTRIL TWICE A DAY, 158, cm, 07/03/23 10:20:00 EDT, Height, 66, kg, 06/20/23 7:56:00 EDT, Dry Weight Start Date: 08/23/23 Status: Ordered Quantity: 48.0 Unit: mL Repeat number: 1 gabapentin 800 mg oral tablet 1 tablet, By Mouth, 3 times a day, # 90 tablet, 0 Refills, Maintenance, 08/19/24 2:08:00 PM [facility]01, 157, cm, 04/20/24 13:25:00 EDT, Height, 70.2, kg, 03/15/24 15:56:00 EDT, Dry Weight Start Date: 08/19/24 Status: Ordered Quantity: 90.0 Unit: tablet Repeat number: 1 ondansetron 4 mg oral tablet, disintegrating 1 tablet, By Mouth, Every 6 hours, PRN NEEDED FOR NAUSEA AND VOMITING, # 20 tablet, 0 Refills, Maintenance, 09/23/24 8:29:00 AM EST, [facility], 157, cm, 09/08/24 10:05:00 EST, Height, 70.2, kg, 03/15/24 15:56:00 EDT, Dry Weight Start Date: 09/23/24 Status: Ordered Quantity: 20.0 Unit: tablet Repeat number: 1 prochlorperazine 10 mg oral tablet See Instructions, TAKE 1 TABLET BY MOUTH EVERY 6 HOURS NEEDED FOR NAUSEA, # 20 tablet, 0 Refills, Maintenance, 09/23/24 8:29:00 AM EST, [facility]01, 157, cm, 09/08/24 10:05:00 EST, Height, 70.2, kg, 03/15/24 15:56:00 EDT, Dry Weight Start Date: 09/23/24 Status: Ordered Quantity: 20.0 Unit: tablet Repeat number: 1 rosuvastatin 10 mg oral tablet See Instructions, Take 1 tablet by mouth once daily, # 90 tablet, 1 Refills, Maintenance, 01/13/24 2:31:00 PM EDT, [facility], 158, cm, 01/07/24 14:41:00 [...] Team Personnel Name: Lisa Armstrong RN Position: [facility] [place] Nurse Member Role: Primary Care Nurse Name: Aida Ward RN Position: [facility] RN Member Role: Primary Care Nurse Name: Ricki BEY, Tiffani Kyle Position: [facility] Physician - Primary Care Member Role: PCP Address: [address] [place] [address] Telecom: Name: Ana Brown RN Position: [facility] RN Member Role: Primary Care Nurse Name: Marie Linton RN Position: [facility] RN Member Role: Primary Care Nurse Care Team Related Persons Name: JACI OCONNOR Name: JACI OCONNOR Name: JACI OCONNOR Name: NOAM CARNES Insurance Providers Guarantor name: [facility] Information #: 1 Payer: [facility] Member Number: NA Policy Number: NA Group Number: NA
--- OUTSIDE RECORDS SUMMARY | 2024-10-27 12:51 | XMS_ITS | Continuity of Care Document ---
Author Organization [facility] FIELD MECHANIC/SITE LEAD Oncolog y Address [address] [place] [address]- Care Team Providers Care Medical Record Librarian Name Role Phone Ricki BEY, Tiffani Kyle Primary Care Physician Encounter [facility] Date(s): 09/23/24 - 10/23/24 [facility] FIELD MECHANIC/SITE LEAD Oncology [address] [place] [id number] Encounter Type: Triage Allergies, Adverse Reactions, Alerts [...] 0 Refills,Maintenance, 09/16/23 5:32:00 PM EST, Capsule, [facility]01, Partial fill upon patient [...] tablet, 0 Refills, Maintenance, 08/19/24 10:30:00 AM [facility] 2901, 157, cm, 04/20/24 13:25:00 EDT, Height, 70.2, kg, 03/15/24 15:56:00 EDT, Dry Weight Start Date: 08/19/24 Status: Ordered Quantity: 180.0 Unit: tablet Repeat number: 1 Eliquis 5 mg oral tablet 1 tablet, By Mouth, 2 times a day, # 60 tablet, 0 Refills, Maintenance, 08/02/24 8:30:00 AM [facility] 2901, 157, cm, 04/20/24 13:25:00 EDT, Height, 70.2, kg, 03/15/24 15:56:00 EDT, Dry Weight Start Date: 08/02/24 Status: Ordered Quantity: 60.0 Unit: tablet Repeat number: 1 fluticasone 50 mcg/inh nasal spray See Instructions, SPRAY 1 SPRAY INTO EACH NOSTRIL TWICE A DAY, # 48 mL, 1 Refills, Maintenance, 08/23/23 6:55:00 AM [facility], [facility] [address], 90, SPRAY 1 SPRAY INTO EACH NOSTRIL TWICE A DAY, 158, cm, 07/03/23 10:20:00 EDT, Height, 66, kg, 06/20/23 7:56:00 EDT, Dry Weight Start Date: 08/23/23 Status: Ordered Quantity: 48.0 Unit: mL Repeat number: 1 gabapentin 800 mg oral tablet 1 tablet, By Mouth, 3 times a day, # 90 tablet, 0 Refills, Maintenance, 08/19/24 2:08:00 PM [facility] 2901, 157, cm, 04/20/24 13:25:00 EDT, Height, 70.2, kg, 03/15/24 15:56:00 EDT, Dry Weight Start Date: 08/19/24 Status: Ordered Quantity: 90.0 Unit: tablet Repeat number: 1 ondansetron 4 mg oral tablet, disintegrating 1 tablet, By Mouth, Every 6 hours, PRN NEEDED FOR NAUSEA AND VOMITING, # 20 tablet, 0 Refills, Maintenance, 09/23/24 8:29:00 AM EST, [facility]01, 157, cm, 09/08/24 10:05:00 EST, Height, 70.2, kg, 03/15/24 15:56:00 EDT, Dry Weight Start Date: 09/23/24 Status: Ordered Quantity: 20.0 Unit: tablet Repeat number: 1 prochlorperazine 10 mg oral tablet See Instructions, TAKE 1 TABLET BY MOUTH EVERY 6 HOURS NEEDED FOR NAUSEA, # 20 tablet, 0 Refills, Maintenance, 09/23/24 8:29:00 AM EST, [facility]01, 157, cm, 09/08/24 10:05:00 EST, Height, 70.2, kg, 03/15/24 15:56:00 EDT, Dry Weight Start Date: 09/23/24 Status: Ordered Quantity: 20.0 Unit: tablet Repeat number: 1 rosuvastatin 10 mg oral tablet See Instructions, Take 1 tablet by mouth once daily, # 90 tablet, 1 Refills, Maintenance, 01/13/24 2:31:00 PM EDT, [facility], 158, cm, 01/07/24 14:41:00 EDT, [...] Team Personnel Name: Lisa Armstrong RN Position: [facility] [place] Nurse Member Role: Primary Care Nurse Name: Aida Ward RN Position: [facility] RN Member Role: Primary Care Nurse Name: Ricki BEY, Tiffani Kyle Position: [facility] Physician - Primary Care Member Role: PCP Address: [address] [place] [address] Telecom: Name: Ana Brown RN Position: [facility] RN Member Role: Primary Care Nurse Name: Marie Linton RN Position: [facility] RN Member Role: Primary Care Nurse Care Team Related Persons Name: JACI OCONNOR Name: JACI OCONNOR Name: JACI OCONNOR Name: NOAM CARNES Insurance Providers [facility] Information #: 1 Payer: [facility] Member Number: NA Policy Number: NA Group Number: NA
--- OUTSIDE RECORDS SUMMARY | 2024-10-27 12:51 | XMS_ITS | Continuity of Care Document ---
Author Organization [facility] METAL WEIGHER Oncolog y Address [address] [place] [address]- Care Team Providers Care Home Builder Name Role Phone Ricki BEY, Tiffani Kyle Primary Care Physician En[place] [facility] Date(s): 09/22/24 - 10/22/24 [facility] METAL WEIGHER Oncology [address] [place] [id number] Encounter Type: Triage Allergies, Adverse Reactions, Alerts [...] 0 Refills,Maintenance, 09/16/23 5:32:00 PM EST, Capsule, [facility]01, Partial fill upon patient request [...] tablet, 0 Refills, Maintenance, 08/19/24 10:30:00 AM [facility] 2901, 157, cm, 04/20/24 13:25:00 EDT, Height, 70.2, kg, 03/15/24 15:56:00 EDT, Dry Weight Start Date: 08/19/24 Status: Ordered Quantity: 180.0 Unit: tablet Repeat number: 1 Eliquis 5 mg oral tablet 1 tablet, By Mouth, 2 times a day, # 60 tablet, 0 Refills, Maintenance, 08/02/24 8:30:00 AM [facility] 2901, 157, cm, 04/20/24 13:25:00 EDT, Height, 70.2, kg, 03/15/24 15:56:00 EDT, Dry Weight Start Date: 08/02/24 Status: Ordered Quantity: 60.0 Unit: tablet Repeat number: 1 fluticasone 50 mcg/inh nasal spray See Instructions, SPRAY 1 SPRAY INTO EACH NOSTRIL TWICE A DAY, # 48 mL, 1 Refills, Maintenance, 08/23/23 6:55:00 AM [facility] [address], 90, SPRAY 1 SPRAY INTO EACH NOSTRIL [...] 0 Refills, Maintenance, 09/23/24 8:29:00 AM EST, [facility]01, 157, cm, 09/08/24 10:05:00 EST, Height, 70.2, kg, 03/15/24 15:56:00 EDT, Dry Weight Start Date: 09/23/24 Status: Ordered Quantity: 20.0 Unit: tablet Repeat number: 1 prochlorperazine 10 mg oral tablet See Instructions, TAKE 1 TABLET BY MOUTH EVERY 6 HOURS NEEDED FOR NAUSEA, # 20 tablet, 0 Refills, Maintenance, 09/23/24 8:29:00 AM EST, [facility]01, 157, cm, 09/08/24 10:05:00 EST, Height, 70.2, kg, 03/15/24 15:56:00 EDT, Dry Weight Start Date: 09/23/24 Status: Ordered Quantity: 20.0 Unit: tablet Repeat number: 1 rosuvastatin 10 mg oral tablet See Instructions, Take 1 tablet by mouth once daily, # 90 tablet, 1 Refills, Maintenance, 01/13/24 2:31:00 PM EDT, [facility], 158, cm, 01/07/24 14:41:00 EDT, [...] Team Personnel Name: Lisa Armstrong RN Position: [facility] [place] Nurse Member Role: Primary Care Nurse Name: Aida Ward RN Position: [facility] RN Member Role: Primary Care Nurse Name: Ricki BEY, Tiffani Kyle Position: [facility] Physician - Primary Care Member Role: PCP Address: [address] [place] [address] Telecom: Name: Ana Brown RN Position: [facility] RN Member Role: Primary Care Nurse Name: Marie Linton RN Position: [facility] RN Member Role: Primary Care Nurse Care Team Related Persons Name: JACI OCONNOR Name: JACI OCONNOR Name: JACI OCONNOR Name: NOAM CARNES Insurance Providers Guarantor name: [facility] Information #: 1 Payer: [facility] Member Number: NA Policy Number: NA Group Number: NA
--- OUTSIDE RECORDS SUMMARY | 2024-10-27 12:51 | XMS_ITS | Encounter Summary ---
Author Organization [facility] Address [address] [place] [address] Phone Care Team Providers Care Boot Trimmer Name Role Phone Tiffani Robison MD Primary Care Provider [phone] Encounter Details Date Type Department Care Team (Late st Contact Info) Description 05/09/2023 Documentation Only [facility], [address] [place] [address] Tiffani Robison MD [address] [place] [address] Social History Tobacco Use Types Packs/Day Years Used Date Smoking Tobacco: Never Assessed Comments Unknown Sex and Gender Information Value Date Recorded Sex Assigned at Not on file Legal Sex Female 1:49 PM EDT Gender Identity Not on file Sexual Orientation Not on file documented as of this encounter Plan of Treatment Not on file documented as of this encounter Visit Diagnoses Not on filedocumented in this encounter Care Teams Boot Trimmer Relationship Specialty Start Date End Date Tiffani Robison MD [address] [place] [address] PCP - General Internal Medicine 05/09/23 documented as of this encounter
--- OUTSIDE RECORDS SUMMARY | 2024-10-27 12:51 | XMS_ITS | Clinical Summary ---
Author Organization [facility] Address [address] [place] [address] [place] [phone] Phone Care Team Providers Care E M Assembler Name Role Phone Tiffani Robison MD Primary Care Provider Social History Tobacco Use Types Packs/Day Years Used Date Smoking Tobacco: Never Assessed Comments Unknown Sex and Gender Information Value Date Recorded Sex Assigned at Not on file Legal Sex Female 1:49 PM EDT Gender Identity Not on file Sexual Orientation Not on file Plan of Treatment Health Maintenance Due Date Last Done Comments Breast Cancer Screening 1966 Hepatitis B Vaccine (1 of 3 - 19+ 3-dose series) 1985 Colorectal Cancer Screening: Annual FOBT 2015 Colorectal Cancer Screening: Colonoscopy 2015 Colorectal Cancer Screening: Sigmoidoscopy 2015 Influenza Vaccine (#1) 2024 Pneumococcal Vaccine: Pediat rics (0 to 5 Years) and At-Risk Patients (6 to 64 Years) Aged Out No longer eligible b ased on patient's age to complete this topic Insurance [facility] MEDICAID Care Teams E M Assembler Relationship Specialty Start Date End Date Tiffani Robison MD [address] [place] [address] PCP - General Internal Medicine 05/09/23
--- OUTSIDE RECORDS SUMMARY | 2024-10-27 12:51 | XMS_ITS | Continuity of Care Document ---
Author Organization [facility] Address [address] [place] [address]- Care Team Providers Care Certified Phlebotomy Technician Name Role Phone Ricki BEY, Tiffani Kyle Primary Care Physician [phone] Encounter [facility] Date(s): 09/14/24 - 10/14/24 [facility] [address] [place], [place] [address] Attending Physician: AdmSebastian [id number] Admitting Physician: AdmtrRick Referring Physician: Admtr, Ar8 [...] 0 Refills,Maintenance, 09/16/23 5:32:00 PM EST, Capsule, [facility], Partial fill upon patient [...] tablet, 0 Refills, Maintenance, 08/19/24 10:30:00 AM [facility] 2901, 157, cm, 04/20/24 13:25:00 EDT, Height, 70.2, kg, 03/15/24 15:56:00 EDT, Dry Weight Start Date: 08/19/24 Status: Ordered Quantity: 180.0 Unit: tablet Repeat number: 1 Eliquis 5 mg oral tablet 1 tablet, By Mouth, 2 times a day, # 60 tablet, 0 Refills, Maintenance, 08/02/24 8:30:00 AM [facility] 2901, 157, cm, 04/20/24 13:25:00 EDT, Height, 70.2, kg, 03/15/24 15:56:00 EDT, Dry Weight Start Date: 08/02/24 Status: Ordered Quantity: 60.0 Unit: tablet Repeat number: 1 fluticasone 50 mcg/inh nasal spray See Instructions, SPRAY 1 SPRAY INTO EACH NOSTRIL TWICE A DAY, # 48 mL, 1 Refills, Maintenance, 08/23/23 6:55:00 AM [facility] [address], 90, SPRAY 1 SPRAY INTO EACH NOSTRIL TWICE A DAY, 158, cm, 07/03/23 10:20:00 EDT, Height, 66, kg, 06/20/23 7:56:00 EDT, Dry Weight Start Date: 08/23/23 Status: Ordered Quantity: 48.0 Unit: mL Repeat number: 1 gabapentin 800 mg oral tablet 1 tablet, By Mouth, 3 times a day, # 90 tablet, 0 Refills, Maintenance, 08/19/24 2:08:00 PM [facility]01, 157, cm, 04/20/24 13:25:00 EDT, Height, 70.2, kg, 03/15/24 15:56:00 EDT, Dry Weight Start Date: 08/19/24 Status: Ordered Quantity: 90.0 Unit: tablet Repeat number: 1 ondansetron 4 mg oral tablet, disintegrating 1 tablet, By Mouth, Every 6 hours, PRN NEEDED FOR NAUSEA AND VOMITING, # 20 tablet, 0 Refills, Maintenance, 09/23/24 8:29:00 AM EST, [facility], 157, cm, 09/08/24 10:05:00 EST, Height, 70.2, kg, 03/15/24 15:56:00 EDT, Dry Weight Start Date: 09/23/24 Status: Ordered Quantity: 20.0 Unit: tablet Repeat number: 1 prochlorperazine 10 mg oral tablet See Instructions, TAKE 1 TABLET BY MOUTH EVERY 6 HOURS NEEDED FOR NAUSEA, # 20 tablet, 0 Refills, Maintenance, 09/23/24 8:29:00 AM EST, [facility], 157, cm, 09/08/24 10:05:00 EST, Height, 70.2, kg, 03/15/24 15:56:00 EDT, Dry Weight Start Date: 09/23/24 Status: Ordered Quantity: 20.0 Unit: tablet Repeat number: 1 rosuvastatin 10 mg oral tablet See Instructions, Take 1 tablet by mouth once daily, # 90 tablet, 1 Refills, Maintenance, 01/13/24 2:31:00 PM EDT, [facility], 158, cm, 01/07/24 14:41:00 [...] Team Personnel Name: Lisa Armstrong RN Position: [facility]B Nurse Member Role: Primary Care Nurse Name: Aida Ward RN Position: [facility] RN Member Role: Primary Care Nurse Name: Tiffani Robison MD Position: [facility] Physician - Primary Care Member Role: PCP Address: [address] [place] [address] Telecom: Name: Ana Brown RN Position: [facility] RN Member Role: Primary Care Nurse Name: Marie Linton RN Position: [facility] RN Member Role: Primary Care Nurse Care Team Related Persons Name: JACI OCONNOR Name: JACI OCONNOR Name: JACI OCONNOR Name: NOAM CARNES Insurance Providers [facility] Information #: 1 Payer: [facility] Member Number: NA Policy Number: NA Group Number: NA
== END 2024-10-27 10:52 | disposition home or self-care (01) ==
PROVIDERS: PCP Internal Medicine; Visit Provider Nurse Practitioner Family
DX: F17.200 Nicotine dependence, unspecified, uncomplicated (principal); R31.29 Other microscopic hematuria; N20.0 Calculus of kidney; Z13.9 Encounter for screening, unspecified
CPT/HCPCS: 99213

== ENCOUNTER → 2024-10-27 10:28 | Outpatient (BNVA) | payer OTHER, SELFPAY | PROVIDERS: PCP Internal Medicine; Visit Provider Nurse Practitioner Family | DX: R31.29 Other microscopic hematuria (principal); N20.0 Calculus of kidney; F17.200 Nicotine dependence, unspecified, uncomplicated | CPT/HCPCS: 81003; 99212 ==

== ENCOUNTER 2025-03-28 14:40 | Outpatient (REF) | payer SELFPAY ==
--- OUTSIDE RECORDS SUMMARY | 2025-03-28 15:14 | XMS_ITS | Clinical Summary ---
Author Organization [facility] Address [address] [place], [place] [id number] Phone Care Team Providers Care Product Trainer Name Role Phone Abraham Martins CNP Unavailable [phone] Unknown, Unknown Primary Care Provider Elvis shahid Medications buPROPion (WELLBUTRIN SR) 200 MG SR 12 hr tablet TAKE 1 TABLET BY MOUTH TWICE A DAY 60 tablet 11/03/2017 Active Family History Medical History Relation Comments Diabetes mellitus Daughter 2 CV disease Father 2 Hypertension Father 2 Cancer Maternal Grandmother 2 Relation Status Comments Daughter 1 Daughter 2 Father 1 Alive Father 2 Maternal Grandmother 1 Maternal Grandmother 2 Social History Tobacco Use Types Packs/Day Years Used Date Smoking Tobacco: Never Assessed Education Answer Date Recorded Are you interested in more education? Not on angi e 12/27/2022 Are you concerned about learning? Not on file 12/27/2022 No 12/27/2022 No 12/27/2022 Digital Access Answer Date Recorded No 01/27/2023 No 01/27/2023 Reliable internet access at home? Not on file 01/27/2023 Device with a working camera? Not on file Comments Unknown Sex and Gender Information Value Date Recorded Sex Assigned at Not on file Legal Sex Female 2:05 PM EDT Gender Identity Not on file Sexual Orientation Not on file Last Filed Vital Signs Vital Sign Reading Time Taken Comments Blood Pressure 132/78 01/31/2017 2:54 AM EDT Pulse 112 01/31/2017 2:54 AM EDT Temperature 36.6 C (97.9 F) 01/31/2017 2:54 AM EDT Respiratory Rate - - Oxygen Saturation - - Inhaled Oxygen Concentration - - Weight 83.5 kg (184 lb) 01/31/2017 2:54 AM EDT Height 159.4 cm (5' 2.75 ) 01/31/2017 2:54 AM ED T Body Mass Index 32.85 01/31/2017 2:54 AM EDT Plan of Treatment Health Maintenance Due Date Last Done Comments LIPID PANEL 1966 DEPRESSION SCREENING 1978 SMOKING Hx and SMOKELESS TOBACCO SCREENING 1979 HEPATITIS C SCREENING 02/23/1984 HIV ONE-TIME SCREENING (18-6 5 YEARS) 02/23/1984 PAP SMEAR 1987 MAMMOGRAM 2006 COLOGUARD 2011 COLONOSCOPY 2011 COLORECTAL CANCER SCREENING 2011 FIT TEST 2011 FOBT 2011 SIGMOIDOSCOPY 2011 VIRTUAL COLONOSCOPY 2011 PNEUMOCOCCAL VACCINES (50+ years) (1 of 1 - PCV) 02/23/2016 ZOSTER VACCINES (1 of 2) 02/23/2016 COVID-19 VACCINE (3 - 2023-2 5 season) 2024 05/17/2021, 04/23/2021 Adult Td,Tdap Booster 12/14/2024 12/14/2014 , 06/21/2010 HEPATITIS A VACCINES Aged Out No long er eligible based on patient's age to complete this topic HIB VACCINES Aged Out No longer eligi ble based on patient's age to complete this topic MENINGOCOCCAL VACCINES (ACWY) Aged Out No longer eligible based on patient's age to complete this topic MENINGOCOCCAL VACCINES (B) Aged Out N o longer eligible based on patient's age to complete this topic Medical Devices Not on file Care Teams Product Trainer Relationship Specialty Start Date End Date Unknown, Unknown, [address] [facility] [place] [address] PCP - General 02/14/20 Abraham Martins CNP [address] [facility] [place], [place] [id number] Historical LMR Provider 06/22/17 Additional Source Comments The information contained in this document represents components of the legal health record. It is not the complete legal health record.[facility]
--- OUTSIDE RECORDS SUMMARY | 2025-03-28 15:14 | XMS_ITS | Encounter Summary ---
Author Organization [facility] Address [address] [place] [address] Phone Care Team Providers Care Sole Layer Name Role Phone Tiffani Robison MD Primary Care Provider Encounter Details Date Type Department Care Team (Late st Contact Info) Description 05/09/2023 Documentation Only [facility], [address] [place] [address] Tiffani Robison MD [address] [place] [address] Social History Tobacco Use Types Packs/Day Years [...] on filedocumented in this encounter Care Teams Sole Layer Relationship Specialty Start Date End Date Tiffani Robison MD [address] [place] [address] PCP - General Internal Medicine 05/09/23 documented as of this encounter
[2025-03-28 15:19] LABS: Appearance Urine Cloudy; Glucose Urine UA Negative (Negative); PH 6.0 (5.0-9.0); Specific Gravity - Urine 1.015 (1.005-1.025); UMIC TRIGGER UA YES
== END 2025-03-28 14:41 | disposition home or self-care (01) ==
LOC: HO.LAB 14:40
PROVIDERS: Visit Provider Nurse Practitioner Family
DX: R31.29 Other microscopic hematuria (principal)
CPT/HCPCS: 81001; 87086; 87088; 87186

== ENCOUNTER 2025-04-11 20:10 | Emergency (ER) | payer SELFPAY ==
[2025-04-11] VITALS (12 sets, daily range): BP systolic 60–137; BP diastolic 38–75; PULSE 93–111; RESP 17–22; TEMP 36.9–37.1; O2SAT 91–97; BMI 31.1
--- NOTE | ~2025-04-11 | XR_ITS ---
CLINICAL HISTORY: unexplained shock 1 view chest x-ray Comparison: None provided Findings: No consolidation or effusion. Normal size heart. No acute fracture. IMPRESSION: 1. No acute findings. This document has been electronically signed by: Eduardo Zapata MD on 04/11/2025 22:03:08
--- NOTE | ~2025-04-11 | CT_ITS ---
CLINICAL HISTORY: undifferentiated shock, possible sepsis CT abdomen and pelvis without contrast Comparison: CT/SR - CT CHEST WO IV CON - 04/11/25 23:23 EDT Findings: Chest findings are discussed on the comparison exam. The right kidney is atrophic. Cholecystectomy. Abdominal solid organs otherwise unremarkable. Small amount of fluid in the left paracolic gutter. The descending and sigmoid colon are relatively featureless with slight pericolonic fat stranding. Uterus and ovaries unremarkable. Normal appendix. Mild distal colonic diverticulosis without diverticulitis. Tinajero catheter decompresses urinary bladder. No acute fracture. IMPRESSION: Indeterminate appearance of the descending and sigmoid colon. Possible colitis. No abscesses. This document has been electronically signed by: Eduardo Zapata MD on 04/12/2025 00:35:56
--- NOTE | ~2025-04-11 | CT_ITS ---
CLINICAL HISTORY: undifferentiated shock, possible sepsis CT chest without contrast Comparison: CT/SR - CT ABDOMEN PELVIS WO IV CON - 04/11/25 23:23 EDT Findings: The heart size is normal. The visualized thyroid and mediastinum are unremarkable. Right internal jugular central venous catheter in the SVC. Mild dependent atelectasis at the lung bases. No consolidation or effusion. Abdominal findings are discussed on the comparison exam. No acute fractures. IMPRESSION: Mild dependent atelectasis both lungs. No consolidation. This document has been electronically signed by: Eduardo Zapata MD on 04/12/2025 00:32:29
--- NOTE | ~2025-04-11 | XR_ITS ---
CLINICAL HISTORY: s p R IJ 1 view chest x-ray Comparison: CR - XR CHEST 1V - 04/11/25 21:10 EDT Findings: The lungs are clear. Normal size heart. No acute fracture. IMPRESSION: Right internal jugular central venous catheter in the distal SVC. No pneumothorax. This document has been electronically signed by: Eduardo Zapata MD on 04/11/2025 23:33:28
--- NOTE | 2025-04-11 20:45 | PC.NURSE ---
BP low, provider Rupa Saavedra made aware and at bedside with ultrasound.
--- NOTE | 2025-04-11 20:49 | ED_ITS ---
HPI - Nausea/Vomiting/Diarrhea General Chief complaint: Nausea/Vomiting/Diarrhea Stated complaint: DIARRHEA, WEAKNESS, DIZZINESS Time Seen by Provider: 04/11/25 20:47 History of Present Illness ED Provider: Dylon Green MD HPI Narrative: 60-year-old female here with diarrhea, dizziness. The patient tells me she had 1 day of about 3 episodes of watery stool. About a week ago she was on Macrobid no other antibiotics or other treatment changes recently. She is on apixaban denies any gastrointestinal bleeding. To me she denied any abdominal pain chest pain difficulty breathing cough. She felt generally weak and mildly lightheaded that was how she described dizziness. No focal neurologic symptoms described. Denies rash insect or tick bite dysuria flank or abdominal pain Related Data Home Medications ?Medication ?Instructions ?Recorded ?Confirmed apixaban 5 mg tablet (Eliquis) 5 mg PO BID 03/03/24 bupropion HCl 150 mg tablet,12 hr 150 mg PO BID sustained-release gabapentin 300 mg capsule 300 mg PO TID 03/03/24 Previous Rx's ?Medication ?Instructions ?Recorded nitrofurantoin macrocrystal 100 mg 100 mg PO BID 7 day s #14 caps 03/29/25 capsule Allergies Allergy/AdvReac Type Severity Reaction Status Date / Time No Known Allergies Allergy Verified 04/11/25 20:41 [facility] Social History Social History Smoked in Last 30 Days: No Use of substances other than those prescribed or required for medical reasons: No Advance Directives: No Advance Directives Information Provided: Yes Patient : No Physical Exam 2 Exam: Exam: EXAM: Gen: Alert, drowsy, dry appearing, slightly pale does not look toxic or distressed Head: Atraumatic Eyes: Anicteric, Normal conjunctiva. ENT: Moist mucosa, no pallor. ? Neck: Supple. Skin: ?No observable rash or bruising on exposed or examined skin Respiratory: Breathing comfortably, No distress.Clear to auscultation bilaterally, symmetric chest expansion, No wheeze, rales, ronchi. Cardiovascular: Regular rate and rhythm. No murmurs or rub. Well perfused periphery, warm extremities. No edema. ? Abdominal: No focal tenderness. Soft, no objective distension. No palpable masses or obvious organomegaly. ?No guarding, no rebound tenderness or other peritoneal findings. : No flank tenderness. Neuro: Alert. Gross movement of all extremities intact. ? Psych: Calm. Cooperative. MSK: No grossly visible deformity. Vital signs: See flowsheet Vital Signs: Vital Signs: Last Vital Signs Temp 97.7 F 04/12/25 01:15 Pulse 115 H 04/12/25 01:15 Resp 22 H 04/12/25 01:15 BP 130/64 04/12/25 01:15 Pulse Ox 95 04/12/25 01:15 O2 Del Method Room Air 04/12/25 01:15 BMI result Body Mass Index 31.1 Course Reevaluation(s) Reevaluation #1: 22:00: The patient had already received 2 L of fluid antibiotics and I did a focused sepsis reexamination including IVC ultrasound. The patient's IVC was at this point plethoric and the decision was made to initiate vasopressors. Dylon Green MD Reevaluation #2: Discussed case with Dr. Greer, special effects makeup artist, [facility], [facility], [facility]. He has accepted the patient. We will print and send a disc and also send the images by [employer] to [facility]. Dylon Green MD Medications Administered Discontinued Medications Generic Name Dose Route Start Last Admin Trade Name Freq PRN Reason Stop Dose Admin Ceftriaxone Sodium 2 gm 04/11/25 21:39 04/11/25 22:06 Ceftriaxone Sodium 2 Gm Vial IVPUSH 04/11/25 21:40 2 gm ONCE ONE Administration Lactated Ringer's 1,000 mls @ 999 mls/hr 04/11/25 21:00 04/11/25 22:06 Lr IV 04/11/25 22:00 Infused .Q1H1M BIB Infusion Lactated Ringer's 1,000 mls @ 999 mls/hr 04/11/25 21:00 04/11/25 22:06 Lr IV 04/11/25 22:00 Infused .Q1H1M BIB Infusion Norepinephrine Bitartrate 8 mg in 250 mls @ 0 mls/hr 04/11/25 21:45 04/11/25 23:15 Levophed IVCONT 0.3 mcg/kg/min .Q0M BIB 43.38 mls/hr Protocol Titration Per Protocol Sodium Chloride 1,000 mls @ 999 mls/hr 04/11/25 22:00 04/12/25 00:14 Ns IV 04/11/25 23:00 Infused .Q1H1M BIB Infusion Lactated Ringer's 1,000 mls @ 999 mls/hr 04/11/25 22:15 04/11/25 23:21 Lr IV 04/11/25 23:15 Infused .Q1H1M BIB Infusion Lactated Ringer's 1,000 mls @ 999 mls/hr 04/11/25 22:15 04/11/25 23:22 Lr IV 04/11/25 23:15 Infused .Q1H1M BIB Infusion Sodium Bicarbonate 150 meq/ 1,000 mls @ 25 mls/hr 04/11/25 23:15 04/12/25 00:05 Dextrose IV 25 mls/hr .Q24H BIB Administration Vancomycin HCl 2,000 mg in 500 mls @ 250 mls/hr 04/12/25 00:44 04/12/25 00:49 Vancomycin/Ns IV 04/12/25 02:43 250 mls/hr ONCE ONE Administration Procedures Procedure Narrative Procedure Narrative: EMERGENCY ULTRASOUND INTERPRETATION-Limited Echocardiography This study was ordered, performed, and interpreted by myself. The study reveals: Impression: NORMAL LV FUNCTION, NO RV DYSFUNCTION, NO PERICARDIAL EFFUSION Emergent Cardiac for Indication: Views Used: PLAX, PSSA, A4, SX, IVC Pericardial Effusion/Tamponade Findings: NONE RV Dilation (> LV diam in 4ch apical): NONE Global LV Fxn: NORMAL IVC Dilation and Resp Variation: Initial IVC flat with exaggerated respiratory variation Performed by: MD Peter Images were stored CPT:07535 Septic focus reexamination 2 hours after sepsis recognition (presumption - arrival time) Repeat IVC after 2 L shows plethoric IVC vasopressors started __ EMERGENCY ULTRASOUND INTERPRETATION-Limited Retroperitoneal (Renal) This study was ordered, performed, and interpreted by myself. The study reveals: Impression: NO EVIDENCE OF UROLOGIC OBSTRUCTION Indication: FLANK PAIN Bladder: Nonvisualized bladder Right Kidney: NO HYDRONEPHROSIS Left Kidney: NO HYDRONEPHROSIS Performed by: Dylon Green MD Images were stored CPT: 52417 __ Procedure Note Procedure: Central Venous Catheter Insertion- Right Internal Jugular Indication: Unexplained shock persistent hypotension, severe acidosis Performed by: Dylon Green MD [place] Protocol: a time out was performed and the correct patient and site were verified ? The patient was placed in Trendelenburg. Anesthesia was obtained with local infiltration of 5 ml 1% lidocaine. Hand hygiene was performed prior to procedure. Chlorhexidine used to prep the skin and dried for 2 minutes prior to skin puncture. Traffic was limited during the procedure. Full barrier precaution utilized.? Dynamic ultrasound guidance used and the right internal jugular vein was cannulated. A 7 latvian triple lumen catheter was placed using the Seldinger technique. All lines flushed and mona nonpulsatile dark venous blood appropriately. The line was secured with sutures at 15? cm. A biopatch and dressing was placed over the site. The patient tolerated the procedure well. A post-line CXR was reviewed demonstrating the tip of the catheter in the SVC. ? Post-Procedure Diagnosis: same as indication Complications: none Estimated Blood Loss:? minimal Specimens Removed: no Prosthetic devices/implants: no Quality Supervisor(s): none CPT: 78940; 66945 ? Medical Decision Making Medical Decision Making MDM Narrative: Medical Decision Makin-year-old female on lung cancer in remission, vaginal cancer in remission care at [facility] apixaban, bupropion, gabapentin with 1 day of profuse watery diarrhea arrived with vague symptomatology found to be oliguric, acute kidney failure, acidosis. Persistent hypotension initially felt to be hypovolemic from diarrhea however despite aggressive fluid hydration and after 2 L crystalloid plethoric IVC we transitioned to vasopressors. No fever including rectal. No obvious clinical exam radiologic or other focal evidence of bacterial infection. Given the IVC improvement with crystalloid and persistent hypotension this is of unclear cause at this time. Daughter at bedside who is a nurse denies the possibility of toxic logic ingestion. Right central line placed without complication. Baig scan to exclude focal infection. Recheck CBC at 23:00 resulted slightly lower 7.5 hemoglobin I suspect this is delusional given the 4 L of crystalloid. The lab called me at this time also with a pH 7.16. I will initiate bicarbonate drip. I have called [facility] as we have no ICU beds this patient is critically ill and needs continue IV pressors, bicarbonate drip and urgent nephrology involvement. Preliminary Favored Differential Diagnosis: Diarrhea, hypovolemic shock, septic shock, distributive shock, hemorrhagic shock though no source and no rectal bleeding, acute renal failure, acute obstructive urologic pathology, among additional considered etiologies Testing Interpreted Independently: Point of care ultrasound see reports ECG sinus rhythm. Rate 104, QTC 436. No acute ischemic changes. Repeat chest x-ray reviewed by myself with adequate position of right internal jugular central venous catheter. No pneumothorax or other complications seen. 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 Creatinine clearance 46, BUN at that time 18. The patient per thoracic surgery documentation reports a history of CKD 3 Social Determinants of Health Impacting MDM/Planning: Not Applicable Lab Data MDM Lab Attestation statement: I reviewed the patient's lab results. 04/11/25 22:52 04/11/25 21:02 Labs: Lab Results 04/11/25 04/11/25 04/11/25 Range/Units 21:02 22:52 23:02 WBC 12.6 H 9.6 (4.8-10.8) X10*3/uL RBC 2.86 L 2.44 L (4.20-5.50) X10*6/uL Hgb 8.9 L 7.5 L (12.0-16.0) g/dl Hct 28.0 L 23.7 L (37.0-47.0) % MCV 97.9 97.1 (80.0-98.0) fL MCH 31.1 30.7 (27.0-33.0) pg MCHC 31.8 31.6 (31.0-35.0) g/dl RDW 16.6 H 16.4 H (11.0-16.0) % Plt Count 237 194 (160-400) X10*3/uL MPV 9.3 L 9.5 (9.4-12.3) fL Immature Gran % (Auto) Cancelled Cancelled Neut % (Auto) Cancelled Cancelled Lymph % (Auto) Cancelled Cancelled Barrow % (Auto) Cancelled Cancelled Eos % (Auto) Cancelled Cancelled Baso % (Auto) Cancelled Cancelled Lymph # (Auto) Cancelled Cancelled Barrow # (Auto) Cancelled Cancelled Eos # (Auto) Cancelled Cancelled Baso # (Auto) Cancelled Cancelled Abs Immat Gran (auto) Cancelled Cancelled Absolute Neuts (auto) Cancelled Cancelled Absolute Nucleated RBC 0.000 0.000 (0.0-0.012) X10*3/uL Nucleated RBC % (auto) 0.0 0.0 (0.0-0.2) /100WBC Neutrophils % (Manual) 67 59 (45-73) % Band Neutrophils % 1 L 26 H (3-5) % Lymphocytes % (Manual) 26 4 L (20-40) % Monocytes % (Manual) 6 3 (2-11) % Eosinophils % (Manual) 2 (0-4) % Metamyelocytes % 4 % Myelocytes % 2 % Abs Neuts (Manual) 8.6 H 8.2 (2.0-8.3) X10*3/uL Lymphocytes # (Manual) 3.3 0.4 L (1.2-4.9) X10*3/uL Monocytes # (Manual) 0.8 0.3 (0.1-1.2) X10*3/uL Eosinophils # (Manual) 0.2 (0.0-0.4) X10*3/uL Metamyelocytes # 0.4 X10*3/uL Myelocytes # 0.2 X10*/uL Toxic Granulation PRESENT Toxic Vacuolation PRESENT Dohle Bodies PRESENT Platelet Estimate NORMAL NORMAL (NORMAL) Plt Morphology Comment NORMAL NORMAL RBC Morphology NOTED NOTED Microcytosis 1+ (5-14) /OIF Macrocytosis 1+ (5-14) /OIF Ovalocytes 1+ (5-14) 1+ (5-14) /OIF [place] Cells 1+ (0-2) /OIF Schistocytes 1+ (0-2) /OIF VBG pH 7.16 L* (7.32-7.43) VBG pCO2 26 mmHg VBG pO2 81 mmHg VBG HCO3 9 L (22-26) mmol/L VBG O2 Saturation TNP VBG Base Excess -17.3 mmol/L Sodium 138 (135-145) mmol/L Potassium 4.9 (3.3-5.1) mmol/L Chloride 110 H (96-108) mmol/L Carbon Dioxide 9 L* (22-29) mmol/L Anion Gap 24 H (12-20) BUN 60 H (9-16) mg/dL Creatinine 5.47 H* (0.5-1.4) mg/dL Estim Creat Clear Calc 10.6 Estimated GFR 8 Random Glucose 87 (60-115) mg/dL Lactic Acid 3.3 H* (0.5-2.0) mmol/L Calcium 8.2 L (8.4-10.2) mg/dL Magnesium 2.0 (1.6-2.6) mg/dL Total Bilirubin 0.2 (0.0-1.0) mg/dL AST 126 H (5-31) U/L ALT 81 H (0-31) U/L Alkaline Phosphatase 113 (39-117) U/L Total Protein 5.7 L (6.5-8.0) g/dL Albumin 3.2 L (3.5-5.0) g/dL Procalcitonin 275.05 ng/mL Beta HCG, Quant 6 mIU/mL Influenza Type A (PCR) NEGATIVE (Negative) Influenza Type B (PCR) NEGATIVE (Negative) RSV RNA Qual (PCR) NEGATIVE (Negative) SARS-CoV-2 RNA (RT-PCR) NEGATIVE (Negative) 04/12/25 Range/Units 00:06 WBC (4.8-10.8) X10*3/uL RBC (4.20-5.50) X10*6/uL Hgb (12.0-16.0) g/dl Hct (37.0-47.0) % MCV (80.0-98.0) fL MCH (27.0-33.0) pg MCHC (31.0-35.0) g/dl RDW (11.0-16.0) % Plt Count (160-400) X10*3/uL MPV (9.4-12.3) fL Immature Gran % (Auto) Neut % (Auto) Lymph % (Auto) B[place] % (Auto) Eos % (Auto) Baso % (Auto) Lymph # (Auto) [place] # (Auto) Eos # (Auto) Baso # (Auto) Abs Immat Gran (auto) Absolute Neuts (auto) Absolute Nucleated RBC (0.0-0.012) X10*3/uL Nucleated RBC % (auto) (0.0-0.2) /100WBC Neutrophils % (Manual) (45-73) % Band Neutrophils % (3-5) % Lymphocytes % (Manual) (20-40) % Monocytes % (Manual) (2-11) % Eosinophils % (Manual) (0-4) % Metamyelocytes % % Myelocytes % % Abs Neuts (Manual) (2.0-8.3) X10*3/uL Lymphocytes # (Manual) (1.2-4.9) X10*3/uL Monocytes # (Manual) (0.1-1.2) X10*3/uL Eosinophils # (Manual) (0.0-0.4) X10*3/uL Metamyelocytes # X10*3/uL Myelocytes # X10*/uL Toxic Granulation Toxic Vacuolation Dohle Bodies Platelet Estimate (NORMAL) Plt Morphology Comment RBC Morphology Microcytosis /OIF Macrocytosis /OIF Ovalocytes /OIF Gos[place] Cells /OIF Schistocytes /OIF VBG pH (7.32-7.43) VBG pCO2 mmHg VBG pO2 mmHg VBG HCO3 (22-26) mmol/L VBG O2 Saturation VBG Base Excess mmol/L Sodium (135-145) mmol/L Potassium (3.3-5.1) mmol/L Chloride (96-108) mmol/L Carbon Dioxide (22-29) mmol/L Anion Gap (12-20) BUN (9-16) mg/dL Creatinine (0.5-1.4) mg/dL Estim Creat Clear Calc Estimated GFR Random Glucose (60-115) mg/dL Lactic Acid 2.5 H* (0.5-2.0) mmol/L Calcium (8.4-10.2) mg/dL Magnesium (1.6-2.6) mg/dL Total Bilirubin (0.0-1.0) mg/dL AST (5-31) U/L ALT (0-31) U/L Alkaline Phosphatase (39-117) U/L Total Protein (6.5-8.0) g/dL Albumin (3.5-5.0) g/dL Procalcitonin ng/mL Beta HCG, Quant mIU/mL Influenza Type A (PCR) (Negative) Influenza Type B (PCR) (Negative) RSV RNA Qual (PCR) (Negative) SARS-CoV-2 RNA (RT-PCR) (Negative) Independent Interpretation I performed an independent interpretation of an: EKG and Plain X-Ray Radiology Impression Discussion of test interpretation with radiology: I have reviewed the radiologist's reading. Independent Historian Clinical information obtained from an independent historian. History obtained from or confirmed by: Other (Daughter at bedside) Critical Care Time Critical Care Time Critical Care Time: Yes Total Critical Care Time: 130 Attestation: ED Critical Care: Profoundly ill, metabolically deranged, severe acidosis, acute kidney injury, persistent shock undifferentiated. Authorized and Performed by: Dylon Green MD Total critical care time: Approximately 130 Due to a high probability of clinically significant, life threatening deterioration, the patient required my highest level of preparedness to intervene emergently and I personally spent this critical care time directly and personally managing the patient. This critical care time included obtaining a history; examining the patient; pulse oximetry; ordering and review of studies; arranging urgent treatment with development of a management plan; evaluation of patient's response to treatment; frequent reassessment; and, discussions with other providers. This critical care time was performed to assess and manage the high probability of imminent, life-threatening deterioration that could result in multi-organ failure. It was exclusive of separately billable procedures and treating other patients and teaching time. Discharge Plan Discharge Clinical Impression: Acute renal failure, Dehydration Patient Disposition: [facility] Transfer Details: ICU accepted [facility] daughter where Prescriptions: No Action nitrofurantoin macrocrystal 100 mg capsule 100 mg PO BID 7 Days Qty: 14 0RF Rx Instructions: must administer with a meal/food. bupropion HCl 150 mg tablet sustained-release 12 hr 150 mg PO BID gabapentin 300 mg capsule 300 mg PO TID Eliquis 5 mg tablet 5 mg PO BID Interventions: Acute Care Transfer Worksheet (ED) Last Done: 04/12/25 01:15 Discharge Date/Time: 04/12/25 01:23 Print Language: German
[2025-04-11] MEDS: Lactated Ringers 1,000 ML 999 ML IV ×4 (20:54→22:21)
[2025-04-11 21:14] LABS: Hematocrit 28.0 % (37.0-47.0); Hemoglobin 8.9 g/dl (12.0-16.0); Mean Corpuscular HGB Conc 31.8 g/dl (31.0-35.0); Mean Corpuscular Hemoglobin 31.1 pg (27.0-33.0); Mean Corpuscular Volume 97.9 fL (80.0-98.0); NRBC Abs Auto 0.000 X10*3/uL (0.0-0.012); NRBC Pct Auto 0.0 /100WBC (0.0-0.2); Platelet Count 237 X10*3/uL (160-400); Red Blood Count 2.86 X10*6/uL (4.20-5.50)
[2025-04-11 21:24] LABS: WBC ABN SCTR FOR CBC 1
[2025-04-11 21:26] LABS: White Blood Count 12.6 X10*3/uL (4.8-10.8)
[2025-04-11 21:38] LABS: Band Neutrophils Percent 1 % (3-5); Lymphocytes Absolute Manual 3.3 X10*3/uL (1.2-4.9); Lymphocytes Percent Manual 26 % (20-40); Monocytes Absolute Manual 0.8 X10*3/uL (0.1-1.2); Monocytes Percent Manual 6 % (2-11); Neutrophils Absolute Manual 8.6 X10*3/uL (2.0-8.3); Neutrophils Percent Manual 67 % (45-73)
[2025-04-11 21:41] LABS: Alanine Aminotransferase 81 U/L (0-31); Albumin Level 3.2 g/dL (3.5-5.0); Alkaline Phosphatase 113 U/L (39-117); Anion Gap 24 (12-20); Aspartate Amino Transferase 126 U/L (5-31); Blood Urea Nitrogen 60 mg/dL (9-16); Calcium 8.2 mg/dL (8.4-10.2); Carbon Dioxide 9 mmol/L (22-29); Chloride 110 mmol/L (96-108); Creatinine Clr Calc Pharmacy 10.6; Estimated Glomerular Filt Rate 8; Magnesium 2.0 mg/dL (1.6-2.6); Potassium 4.9 mmol/L (3.3-5.1); Sodium 138 mmol/L (135-145); Total Protein 5.7 g/dL (6.5-8.0)
[2025-04-11 21:43] LABS: Burr Cells 1+ (0-2) /OIF; Ovalocytes 1+ (5-14) /OIF; RBC Morphology NOTED
[2025-04-11 21:50] LABS: Resp Syncy Virus RNA Qual PCR NEGATIVE (Negative); SARS COV2 PCR INHOUSE NEGATIVE (Negative)
--- NOTE | 2025-04-11 22:43 | PC.NURSE ---
provider Rupa Saavedra at the bedside placing central line
[2025-04-11 23:00] LABS: Hematocrit 23.7 % (37.0-47.0); Hemoglobin 7.5 g/dl (12.0-16.0); Mean Corpuscular HGB Conc 31.6 g/dl (31.0-35.0); Mean Corpuscular Hemoglobin 30.7 pg (27.0-33.0); Mean Corpuscular Volume 97.1 fL (80.0-98.0); NRBC Abs Auto 0.000 X10*3/uL (0.0-0.012); NRBC Pct Auto 0.0 /100WBC (0.0-0.2); Platelet Count 194 X10*3/uL (160-400); Red Blood Count 2.44 X10*6/uL (4.20-5.50)
--- NOTE | 2025-04-11 23:02 | ECG_ITS ---
Test Reason : ELECTROLYTE DERANGEMENT Blood Pressure : */* mmHG Vent. Rate : 104 BPM Atrial Rate : 104 BPM P-R Int : 128 ms QRS Dur : 82 ms QT Int : 332 ms P-R-T Axes : 72 51 84 degrees QTcB Int : 436 ms Sinus tachycardia Low voltage QRS Nonspecific ST and T wave abnormality Abnormal ECG No previous ECGs available Referred By: Dylon Green Electronically Signed By: Anthony Jewell
[2025-04-11 23:03] LABS: WBC ABN SCTR FOR CBC 1; White Blood Count 9.6 X10*3/uL (4.8-10.8)
[2025-04-11 23:09] LABS: VBG HCO3 9 mmol/L (22-26)
[2025-04-11 23:09] LABS: Venous Blood Gas Refer to POC result
--- NOTE | 2025-04-11 23:15 | PC.NURSE ---
per provider Rupa Saavedra increase Norepinephrine to 0.3 mcg/kg/min
[2025-04-11 23:29] LABS: Neutrophils Percent Manual 59 % (45-73)
[2025-04-11 23:32] LABS: Band Neutrophils Percent 26 % (3-5); Eosinophils Absolute Manual 0.2 X10*3/uL (0.0-0.4); Eosinophils Percent Manual 2 % (0-4); Lymphocytes Absolute Manual 0.4 X10*3/uL (1.2-4.9); Lymphocytes Percent Manual 4 % (20-40); Metamyelocytes Absolute 0.4 X10*3/uL; Metamyelocytes Percent 4 %; Monocytes Absolute Manual 0.3 X10*3/uL (0.1-1.2); Monocytes Percent Manual 3 % (2-11); Myelocytes Absolute 0.2 X10*/uL; Myelocytes Percent 2 %; Neutrophils Absolute Manual 8.2 X10*3/uL (2.0-8.3)
[2025-04-11 23:33] LABS: RBC Morphology NOTED
[2025-04-11 23:34] LABS: Macrocytosis 1+ (5-14) /OIF
[2025-04-11 23:35] LABS: Microcytosis 1+ (5-14) /OIF; Ovalocytes 1+ (5-14) /OIF
[2025-04-11 23:36] LABS: Dohle Bodies PRESENT; Toxic Granulation PRESENT; Toxic Vacuolation PRESENT
[2025-04-11 23:37] LABS: Schistocytes 1+ (0-2) /OIF
[2025-04-12 00:01] VITALS: BP 123/76; PULSE 116; RESP 20
[2025-04-12] MEDS: Sodium Bicarbonate 8.4% 150 MEQ in Dextrose 5 % 850 ML 25 MEQ IV (00:05)
--- NOTE | 2025-04-12 00:37 | PC.NURSE ---
N2N report given to CRISTIANO Yuan at [facility]
[2025-04-12 00:42] VITALS: BP 134/66; PULSE 113; RESP 20; TEMP 36.5; O2SAT 95
[2025-04-12] MEDS: vancomycin/NS 2,000 MG/500 ML PLAST..BAG 250 MG IV (00:49)
[2025-04-12 00:52] VITALS: BP 130/64; PULSE 115; RESP 22
[2025-04-12 00:57] LABS: Procalcitonin 275.05 ng/mL
[2025-04-12 00:57] LABS: Reflex Lactate? Lactic Acid Added
--- NOTE | 2025-04-12 01:03 | PC.NURSE ---
pt being transferred to [facility] ICU via [facility], approximately 90.6 mL of Levo, 39.8 mL of Vanco, and 22 mL of Sodium Bicarb infused at this time
[2025-04-12 01:15] VITALS: BP 130/64; PULSE 115; RESP 22; TEMP 36.5; O2SAT 95
[2025-04-12 02:09] LABS: Reflex Lactate? Lactic Acid Added
== END 2025-04-12 01:23 | disposition short-term general hospital (02) ==
PROVIDERS: Emergency Provider Emergency Medicine
DX: N17.9 Acute kidney failure, unspecified (principal); B96.89 Other specified bacterial agents as the cause of diseases classified elsewhere; E86.0 Dehydration; I95.9 Hypotension, unspecified; R34 Anuria and oliguria; E87.20 Acidosis, unspecified; R11.2 Nausea with vomiting, unspecified; R42 Dizziness and giddiness; R10.2 Pelvic and perineal pain; E87.8 Other disorders of electrolyte and fluid balance, not elsewhere classified; R00.0 Tachycardia, unspecified; R53.1 Weakness; R19.7 Diarrhea, unspecified; Z03.818 Encounter for observation for suspected exposure to other biological agents ruled out; Z79.899 Other long term (current) drug therapy
CPT/HCPCS: 36415; 36556; 71045; 71250; 74176; 76775; 76937; 80053; 82803; 83605; 83735; 84145; 84702; 85007; 85025; 85027; 87040; 87077; 87186; 87205; 87637; 93005; 93308; 96361; 96365; 96366; 96375; 99285; 99291; 99292; J0696; J3373; J7120

== ENCOUNTER → 2025-04-11 20:59 | Outpatient (BNV) | payer SELFPAY | PROVIDERS: Emergency Provider Emergency Medicine; Visit Provider Radiology Diagnostic Radiology | DX: R18.8 Other ascites (principal); J98.11 Atelectasis; Z95.9 Presence of cardiac and vascular implant and graft, unspecified | CPT/HCPCS: 71045; 71250; 74176 ==

== ENCOUNTER → 2025-04-11 23:02 | Outpatient (BNV) | payer SELFPAY | PROVIDERS: Emergency Provider Emergency Medicine; Visit Provider Internal Medicine Cardiovascular Disease | DX: R00.0 Tachycardia, unspecified (principal) | CPT/HCPCS: 93010 ==

== ENCOUNTER 2025-05-10 10:28 | Inpatient (IN) | payer MEDICAID, SELFPAY ==
[2025-05-10] VITALS (7 sets, daily range): BP systolic 125–145; BP diastolic 60–87; PULSE 98–117; RESP 16–18; TEMP 36.4–36.6; O2SAT 96–100; BMI 24.2
--- NOTE | 2025-05-10 11:02 | ED.GENADULT ---
HPI - General Adult General Chief complaint: Recheck/Abnormal Lab/Rx Stated complaint: Abnormal labs, renal failure Time Seen by Provider: 05/10/25 16:24 Related Data Home Medications ?Medication ?Instructions ?Recorded ?Confirmed apixaban 5 mg tablet (Eliquis) 5 mg PO BID 03/03/24 bupropion HCl 150 mg tablet,12 hr 150 mg PO BID 03/03/24 sustained-release gabapentin 300 mg capsule 300 mg PO TID 03/03/24 Previous Rx's ?Medication ?Instructions ?Recorded nitrofurantoin macrocrystal 100 mg 100 mg PO BID 7 days #14 caps 03/29/25 capsule Allergies Allergy/AdvReac Type Severity Reaction Status Date / Time No Known Allergies Allergy Verified 05/10/25 11:07 [facility] Past Medical History Medical History (Updated 05/10/25 @ 21:24 by Evette Carlos MD) Mood disorder History of cancer of vagina CKD (chronic kidney disease) stage 4, GFR 15-29 ml/min Social History Social History Patient Tobacco Use Status: Tobacco use Unknown Advance Directives: No Advance Directives Information Provided: No Nutrition Risks: No Nutritional Risk Physical Exam ED Vital Signs: Vital Signs - 24 hr 05/10/25 11:02 05/10/25 16:49 05/10/25 16:55 Temperature 97.8 F 97.6 F Pulse Rate 114 H 106 H 98 Respiratory Rate 18 16 Blood Pressure 125/65 145/76 H 142/75 H Pulse Oximetry 99 100 Oxygen Delivery Method Room Air Room Air 05/10/25 16:57 05/10/25 16:58 Temperature Pulse Rate 106 H 117 H Respiratory Rate Blood Pressure 138/87 140/81 H Pulse Oximetry Oxygen Delivery Method BMI result Body Mass Index 24.2 Course Course Course Narrative: This is an RME: Additional HPI, ROS, PE not included below will be deferred to primary provider. RME assessment and note performed by: Bree Carrasco PA-C This is a [id number] who presents to the ER with concerns of abnormal labs that were drawn on 05/05. Pt was seen here at [facility] and was ultimately transferred to [facility] due to sepsis bacteremia where she ended up intubated and received a blood transfusion. Creatinine was 2.8, BUN 27, H/H 7.2/23.1. Pt asymptomatic, feeling ok, no current complaints. Advised charge nurse to bring patient back given complex medical history. Plan: Labs, UA, EKG, further ER eval needed Medications Administered Discontinued Medications Generic Name Dose Route Start Last Admin Trade Name Karly PRN Reason Stop Dose Admin Ceftriaxone Sodium 1 gm 05/10/25 18:42 05/10/25 19:41 Ceftriaxone Sodium 1 Gm Vial IVPUSH 05/10/25 18:43 1 gm ONCE ONE Administration Sodium Chloride 1,000 mls @ 999 mls/hr 05/10/25 17:00 05/10/25 18:31 Ns IV 05/10/25 18:00 Infused .Q1H1M BIB Infusion Medical Decision Making Lab Data 05/10/25 11:30 05/10/25 11:30 Labs: Lab Results 05/10/25 05/10/25 05/10/25 Range/Units 11:30 16:53 16:54 WBC 10.0 (4.8-10.8) X10*3/uL RBC 2.64 L (4.20-5.50) X10*6/uL Hgb 8.0 L (12.0-16.0) g/dl Hct 26.0 L (37.0-47.0) % MCV 98.5 H (80.0-98.0) fL MCH 30.3 (27.0-33.0) pg MCHC 30.8 L (31.0-35.0) g/dl RDW 16.8 H (11.0-16.0) % Plt Count 549 H D (160-400) X10*3/uL MPV 8.5 L (9.4-12.3) fL Immature Gran % (Auto) 1.0 H (0.0-0.4) % Neut % (Auto) 77.4 H (45-73) % Lymph % (Auto) 9.4 L (20-40) % [place] % (Auto) 9.6 (2-11) % Eos % (Auto) 1.6 (0-4) % Baso % (Auto) 1.0 (0-2) % Lymph # (Auto) 0.9 L (1.2-4.9) X10*3/uL [place] # (Auto) 1.0 (0.1-1.2) X10*3/uL Eos # (Auto) 0.2 (0.0-0.4) X10*3/uL Baso # (Auto) 0.1 (0.0-0.2) X10*3/uL Abs Immat Gran (auto) 0.10 H (0.00-0.03) X10*3/uL Absolute Neuts (auto) 7.7 (2.0-8.3) x10*3/uL Absolute Nucleated RBC 0.000 (0.0-0.012) X10*3/uL Nucleated RBC % (auto) 0.0 (0.0-0.2) /100WBC Sodium 140 (135-145) mmol/L Potassium 3.9 D (3.3-5.1) mmol/L Chloride 111 H (96-108) mmol/L Carbon Dioxide 19 L (22-29) mmol/L Anion Gap 14 (12-20) BUN 19 H (9-16) mg/dL Creatinine 2.20 H (0.5-1.4) mg/dL Estim Creat Clear Calc 21.8 Estimated GFR 23 Random Glucose 98 (60-115) mg/dL Lactic Acid (0.5-2.0) mmol/L Calcium 9.5 D (8.4-10.2) mg/dL Magnesium 2.0 (1.6-2.6) mg/dL Total Bilirubin 0.3 (0.0-1.0) mg/dL Direct Bilirubin 0.1 (0.0-0.5) mg/dL AST 23 (5-31) U/L ALT 17 (0-31) U/L Alkaline Phosphatase 181 H (39-117) U/L Troponin I High Sens 4.4 (<3.5-17.0) ng/L Total Protein 7.8 (6.5-8.0) g/dL Albumin 3.6 (3.5-5.0) g/dL Urine Color Yellow Urine Appearance Cloudy Urine pH 6.0 (5.0-9.0) Ur Specific [place] 1.015 (1.005-1.025) Urine Protein 100 (2+) H (Neg-Trace) mg/dL Urine Glucose (UA) Negative (Negative) mg/dL Urine Ketones Negative (Negative) mg/dL Urine Blood Negative (Negative) Urine Nitrite Negative (Negative) Ur Leukocyte Esterase Trace H (Negative) Urine RBC 0-2 (0-2) /HPF Urine WBC 21-50 H (0-5) /HPF Ur Squamous Epith Cells 0-2 (0-2) /HPF Urine Bacteria 4+ (None Seen) Hyaline Casts 0-2 (0-2) /LPF Stool Occult Blood POSITIVE (NEGATIVE) COVID-19 (JACQUELYN) Negative (Negative) COVID-19 Clin Com See Note Influenza Type A (MULU) Negative (Negative) Influenza Type B (MULU) Negative (Negative) Influenza A & B Note See Note 05/10/25 Range/Units 19:49 WBC (4.8-10.8) X10*3/uL RBC (4.20-5.50) X10*6/uL Hgb (12.0-16.0) g/dl Hct (37.0-47.0) % MCV (80.0-98.0) fL MCH (27.0-33.0) pg MCHC (31.0-35.0) g/dl RDW (11.0-16.0) % Plt Count (160-400) X10*3/uL MPV (9.4-12.3) fL Immature Gran % (Auto) (0.0-0.4) % Neut % (Auto) (45-73) % Lymph % (Auto) (20-40) % [place] % (Auto) (2-11) % Eos % (Auto) (0-4) % Baso % (Auto) (0-2) % Lymph # (Auto) (1.2-4.9) X10*3/uL [place] # (Auto) (0.1-1.2) X10*3/uL Eos # (Auto) (0.0-0.4) X10*3/uL Baso # (Auto) (0.0-0.2) X10*3/uL Abs Immat Gran (auto) (0.00-0.03) X10*3/uL Absolute Neuts (auto) (2.0-8.3) x10*3/uL Absolute Nucleated RBC (0.0-0.012) X10*3/uL Nucleated RBC % (auto) (0.0-0.2) /100WBC Sodium (135-145) mmol/L Potassium (3.3-5.1) mmol/L Chloride (96-108) mmol/L Carbon Dioxide (22-29) mmol/L Anion Gap (12-20) BUN (9-16) mg/dL Creatinine (0.5-1.4) mg/dL Estim Creat Clear Calc Estimated GFR Random Glucose (60-115) mg/dL Lactic Acid 0.5 (0.5-2.0) mmol/L Calcium (8.4-10.2) mg/dL Magnesium (1.6-2.6) mg/dL Total Bilirubin (0.0-1.0) mg/dL Direct Bilirubin (0.0-0.5) mg/dL AST (5-31) U/L ALT (0-31) U/L Alkaline Phosphatase (39-117) U/L Troponin I High Sens (<3.5-17.0) ng/L Total Protein (6.5-8.0) g/dL Albumin (3.5-5.0) g/dL Urine Color Urine Appearance Urine pH (5.0-9.0) Ur Specific [place] (1.005-1.025) Urine Protein (Neg-Trace) mg/dL Urine Glucose (UA) (Negative) mg/dL Urine Ketones (Negative) mg/dL Urine Blood (Negative) Urine Nitrite (Negative) Ur Leukocyte Esterase (Negative) Urine RBC (0-2) /HPF Urine WBC (0-5) /HPF Ur Squamous Epith Cells (0-2) /HPF Urine Bacteria (None Seen) Hyaline Casts (0-2) /LPF Stool Occult Blood (NEGATIVE) COVID-19 (JACQUELYN) (Negative) COVID-19 Clin Com Influenza Type A (MULU) (Negative) Influenza Type B (MULU) (Negative) Influenza A & B Note Discharge Plan Discharge Clinical Impression: Urinary tract infection, Acute renal insufficiency Patient Disposition: Admitted As Inpatient
--- NOTE | 2025-05-10 11:08 | ECG_ITS ---
Test Reason : TACHYCARDIA Blood Pressure : */* mmHG Vent. Rate : 113 BPM Atrial Rate : 113 BPM P-R Int : 128 ms QRS Dur : 70 ms QT Int : 338 ms P-R-T Axes : 68 40 64 degrees QTcB Int : 463 ms Sinus tachycardia Otherwise normal ECG When compared with ECG of 11-Apr-2025 23:08, Nonspecific T wave abnormality no longer evident in Inferior leads Nonspecific T wave abnormality no longer evident in Lateral leads Referred By: Bree Carrasco Electronically Signed By: NEHEMIAH BROWN MD
[2025-05-10 11:35] LABS: MANUAL DIFF FLAG NO
[2025-05-10 11:39] LABS: Hematocrit 26.0 % (37.0-47.0); Hemoglobin 8.0 g/dl (12.0-16.0); Imm Gran Abs Auto 0.10 X10*3/uL (0.00-0.03); Imm Gran Pct Auto 1.0 % (0.0-0.4); Lymphocytes Absolute Auto 0.9 X10*3/uL (1.2-4.9); Mean Corpuscular HGB Conc 30.8 g/dl (31.0-35.0); Mean Corpuscular Hemoglobin 30.3 pg (27.0-33.0); Mean Corpuscular Volume 98.5 fL (80.0-98.0); NRBC Abs Auto 0.000 X10*3/uL (0.0-0.012); NRBC Pct Auto 0.0 /100WBC (0.0-0.2); Platelet Count 549 X10*3/uL (160-400); Red Blood Count 2.64 X10*6/uL (4.20-5.50); White Blood Count 10.0 X10*3/uL (4.8-10.8)
[2025-05-10 11:54] LABS: Alanine Aminotransferase 17 U/L (0-31); Albumin Level 3.6 g/dL (3.5-5.0); Alkaline Phosphatase 181 U/L (39-117); Anion Gap 14 (12-20); Aspartate Amino Transferase 23 U/L (5-31); Blood Urea Nitrogen 19 mg/dL (9-16); Calcium 9.5 mg/dL (8.4-10.2); Carbon Dioxide 19 mmol/L (22-29); Chloride 111 mmol/L (96-108); Creatinine Clr Calc Pharmacy 21.8; Estimated Glomerular Filt Rate 23; Magnesium 2.0 mg/dL (1.6-2.6); Potassium 3.9 mmol/L (3.3-5.1); Sodium 140 mmol/L (135-145); Total Protein 7.8 g/dL (6.5-8.0)
[2025-05-10 11:59] LABS: COVID-19 Test Negative (Negative); IDNOW Serial# 55D5AD1C; IDNOW Serial# 58CA691E; Influenza B2 Negative (Negative)
[2025-05-10 12:01] LABS: Troponin-I High Sensitivity 4.4 ng/L (<3.5-17.0)
--- NOTE | 2025-05-10 16:52 | ED.RECABL ---
HPI - Recheck/Abnormal Lab/Rx General Chief Complaint: Recheck/Abnormal Lab/Rx Stated Complaint: Abnormal labs, renal failure Time Seen by Provider: 05/10/25 16:24 History of Present Illness HPI narrative: Patient 60 years old with a history of vaginal cancer history of lung cancer. Currently in remission. Has a history of acute renal insufficiency along with sepsis. Was seen middle of last month. Was sent to the intensive care unit at [facility]. Patient got antibiotics got IV fluid. Was still somewhat confused was getting medication. Patient elected to sign out against medical advice at [facility]. Today had labs redrawn by her primary physician at [facility]. Was noted to have a hemoglobin of 7.2. Was noted to have a creatinine of 2. Patient was sent in for further evaluation. Positive generalized malaise not new since being discharged. No bloody stool. Patient is no longer on Eliquis. Patient has not been on antibiotics. No chest pain no shortness a breath feels weak all over. Not new. Related Data Home Medications ?Medication ?Instructions ?Recorded ?Confirmed apixaban 5 mg tablet (Eliquis) 5 mg PO BID 03/03/24 bupropion HCl 150 mg tablet,12 hr 150 mg PO BID 03/03/24 sustained-release gabapentin 300 mg capsule 300 mg PO TID 03/03/24 Previous Rx's ?Medication ?Instructions ?Recorded nitrofurantoin macrocrystal 100 mg 100 mg PO BID 7 days #14 caps 03/29/25 capsule Allergies Allergy/AdvReac Type Severity Reaction Status Date / Time No Known Allergies Allergy Verified 05/10/25 11:07 Review of Systems Review of Systems: No chest pain or bloody stool No focal weakness No nausea no vomiting Yes all other systems are reviewed and are negative [facility]LY [facility] Past Medical History Attestation statement: The following information was validated with the patient. Medical History (Updated 05/10/25 @ 21:24 by Evette Carlos MD) Mood disorder History of cancer of vagina CKD (chronic kidney disease) stage 4, GFR 15-29 ml/min Social History Social History Patient Tobacco Use Status: Tobacco use Unknown Advance Directives: No Advance Directives Information Provided: No Nutrition Risks: No Nutritional Risk Physical Exam Exam: Exam: Appearance: Alert. Oriented X3. No acute distress. Eyes: Pupils equal, round and reactive to light. ENT: Pharynx normal. Neck: Normal inspection. Neck supple. No lymph nodes noted. No crepitus CVS: Normal heart rate and rhythm. Pulses normal. Normal S1 and S2 Respiratory: No respiratory distress. Breath sounds normal. No Wheezing. No rales Abdomen: Soft and nontender. No rigidity. No distention. good BS x4 Skin: Skin warm and dry. Normal skin color. Normal skin turgor. Extremities: No lower extremity edema. Neurovascular intact to all extremities. No Lacerations. No Rash Neuro: Oriented X 3. No motor deficit. No sensory deficit. Moving all extermities. No slurred speech Vital Signs: Vital Signs: Last Vital Signs Temp 98 F 05/10/25 20:17 Pulse 98 05/10/25 20:17 Resp 16 05/10/25 20:17 BP 125/68 05/10/25 20:17 Pulse Ox 98 05/10/25 20:17 O2 Del Method Room Air 05/10/25 20:17 BMI result Body Mass Index 24.2 Medications Administered Discontinued Medications Generic Name Dose Route Start Last Admin Trade Name Freq PRN Reason Stop Dose Admin Ceftriaxone Sodium 1 gm 05/10/25 18:42 05/10/25 19:41 Ceftriaxone Sodium 1 Gm Vial IVPUSH 05/10/25 18:43 1 gm ONCE ONE Administration Sodium Chloride 1,000 mls @ 999 mls/hr 05/10/25 17:00 05/10/25 18:31 Ns IV 05/10/25 18:00 Infused .Q1H1M BIB Infusion Medical Decision Making Medical Decision Making [facility] Narrative: 60 years old presented today with having generalized malaise weakness. Ongoing since leaving [facility] at [facility]. The daughter was able to get access to patient's lab. Patient's lab at [place] showed a hemoglobin of 6.1. Patient is hemoglobin today at [facility] was 8. Patient's creatinine on discharge was 2. Today it is 2. I did a rectal exam that showed brown stool we sent it off for guaiac. Will check patient's urine for infection. Overall she appears weak. IV fluid was ordered. Will monitor. Orthostatics ordered. I reviewed patient's old chart from [facility]. Apparently patient got IV antibiotic got on pressors got additional IV fluid was in the intensive care unit gradually recover was on the floor she did not like the fact that she needed medication for sedation she subsequently signed out AMA with her daughter. She has been sitting at home for the last 10 days. Had not been on antibiotics. She claims her vaginal cancer is in remission. Has no leg swelling. Has no chest pain or shortness of breath no diaphoresis. No evidence for clot. She only came in because of the abnormal labs. My interpretation of her EKG showed a sinus rhythm heart rate is 110 [place] QRS QTC normal no acute ST segment elevation. The daughter was also able to pull up her old labs from [facility] from April of last year. At that time patient had a normal creatinine of 1.27. Her hemoglobin at that time was 11. Patient is troponin today was negative. COVID flu RSV were all negative. Will give IV fluids. Will monitor carefully. Lab Data 05/10/25 11:30 05/10/25 11:30 Labs: Lab Results 05/10/25 05/10/25 05/10/25 Range/Units 11:30 16:53 16:54 WBC 10.0 (4.8-10.8) X10*3/uL RBC 2.64 L (4.20-5.50) X10*6/uL Hgb 8.0 L (12.0-16.0) g/dl Hct 26.0 L (37.0-47.0) % MCV 98.5 H (80.0-98.0) fL MCH 30.3 (27.0-33.0) pg MCHC 30.8 L (31.0-35.0) g/dl RDW 16.8 H (11.0-16.0) % Plt Count 549 H D (160-400) X10*3/uL MPV 8.5 L (9.4-12.3) fL Immature Gran % (Auto) 1.0 H (0.0-0.4) % Neut % (Auto) 77.4 H (45-73) % Lymph % (Auto) 9.4 L (20-40) % [place] % (Auto) 9.6 (2-11) % Eos % (Auto) 1.6 (0-4) % Baso % (Auto) 1.0 (0-2) % Lymph # (Auto) 0.9 L (1.2-4.9) X10*3/uL [place] # (Auto) 1.0 (0.1-1.2) X10*3/uL Eos # (Auto) 0.2 (0.0-0.4) X10*3/uL Baso # (Auto) 0.1 (0.0-0.2) X10*3/uL Abs Immat Gran (auto) 0.10 H (0.00-0.03) X10*3/uL Absolute Neuts (auto) 7.7 (2.0-8.3) x10*3/uL Absolute Nucleated RBC 0.000 (0.0-0.012) X10*3/uL Nucleated RBC % (auto) 0.0 (0.0-0.2) /100WBC Sodium 140 (135-145) mmol/L Potassium 3.9 D (3.3-5.1) mmol/L Chloride 111 H (96-108) mmol/L Carbon Dioxide 19 L (22-29) mmol/L Anion Gap 14 (12-20) BUN 19 H (9-16) mg/dL Creatinine 2.20 H (0.5-1.4) mg/dL Estim Creat Clear Calc 21.8 Estimated GFR 23 Random Glucose 98 (60-115) mg/dL Lactic Acid (0.5-2.0) mmol/L Calcium 9.5 D (8.4-10.2) mg/dL Magnesium 2.0 (1.6-2.6) mg/dL Total Bilirubin 0.3 (0.0-1.0) mg/dL Direct Bilirubin 0.1 (0.0-0.5) mg/dL AST 23 (5-31) U/L ALT 17 (0-31) U/L Alkaline Phosphatase 181 H (39-117) U/L Troponin I High Sens 4.4 (<3.5-17.0) ng/L Total Protein 7.8 (6.5-8.0) g/dL Albumin 3.6 (3.5-5.0) g/dL Urine Color Yellow Urine Appearance Cloudy Urine pH 6.0 (5.0-9.0) Ur Specific [place] 1.015 (1.005-1.025) Urine Protein 100 (2+) H (Neg-Trace) mg/dL Urine Glucose (UA) Negative (Negative) mg/dL Urine Ketones Negative (Negative) mg/dL Urine Blood Negative (Negative) Urine Nitrite Negative (Negative) Ur Leukocyte Esterase Trace H (Negative) Urine RBC 0-2 (0-2) /HPF Urine WBC 21-50 H (0-5) /HPF Ur Squamous Epith Cells 0-2 (0-2) /HPF Urine Bacteria 4+ (None Seen) Hyaline Casts 0-2 (0-2) /LPF Stool Occult Blood POSITIVE (NEGATIVE) COVID-19 (JACQUELYN) Negative (Negative) COVID-19 Clin Com See Note Influenza Type A (MULU) Negative (Negative) Influenza Type B (MULU) Negative (Negative) Influenza A & B Note See Note 05/10/25 Range/Units 19:49 WBC (4.8-10.8) X10*3/uL RBC (4.20-5.50) X10*6/uL Hgb (12.0-16.0) g/dl Hct (37.0-47.0) % MCV (80.0-98.0) fL MCH (27.0-33.0) pg MCHC (31.0-35.0) g/dl RDW (11.0-16.0) % Plt Count (160-400) X10*3/uL MPV (9.4-12.3) fL Immature Gran % (Auto) (0.0-0.4) % Neut % (Auto) (45-73) % Lymph % (Auto) (20-40) % [place] % (Auto) (2-11) % Eos % (Auto) (0-4) % Baso % (Auto) (0-2) % Lymph # (Auto) (1.2-4.9) X10*3/uL [place] # (Auto) (0.1-1.2) X10*3/uL Eos # (Auto) (0.0-0.4) X10*3/uL Baso # (Auto) (0.0-0.2) X10*3/uL Abs Immat Gran (auto) (0.00-0.03) X10*3/uL Absolute Neuts (auto) (2.0-8.3) x10*3/uL Absolute Nucleated RBC (0.0-0.012) X10*3/uL Nucleated RBC % (auto) (0.0-0.2) /100WBC Sodium (135-145) mmol/L Potassium (3.3-5.1) mmol/L Chloride (96-108) mmol/L Carbon Dioxide (22-29) mmol/L Anion Gap (12-20) BUN (9-16) mg/dL Creatinine (0.5-1.4) mg/dL Estim Creat Clear Calc Estimated GFR Random Glucose (60-115) mg/dL Lactic Acid 0.5 (0.5-2.0) mmol/L Calcium (8.4-10.2) mg/dL Magnesium (1.6-2.6) mg/dL Total Bilirubin (0.0-1.0) mg/dL Direct Bilirubin (0.0-0.5) mg/dL AST (5-31) U/L ALT (0-31) U/L Alkaline Phosphatase (39-117) U/L Troponin I High Sens (<3.5-17.0) ng/L Total Protein (6.5-8.0) g/dL Albumin (3.5-5.0) g/dL Urine Color Urine Appearance Urine pH (5.0-9.0) Ur Specific [place] (1.005-1.025) Urine Protein (Neg-Trace) mg/dL Urine Glucose (UA) (Negative) mg/dL Urine Ketones (Negative) mg/dL Urine Blood (Negative) Urine Nitrite (Negative) Ur Leukocyte Esterase (Negative) Urine RBC (0-2) /HPF Urine WBC (0-5) /HPF Ur Squamous Epith Cells (0-2) /HPF Urine Bacteria (None Seen) Hyaline Casts (0-2) /LPF Stool Occult Blood (NEGATIVE) COVID-19 (JACQUELYN) (Negative) COVID-19 Clin Com Influenza Type A (MULU) (Negative) Influenza Type B (MULU) (Negative) Influenza A & B Note Discharge Plan Discharge Clinical Impression: Urinary tract infection, Acute renal insufficiency Patient Disposition: Admitted As Inpatient
[2025-05-10 17:10] LABS: OBS Int Ctl Valid YES; OBS1 POSITIVE (NEGATIVE)
[2025-05-10 17:14] LABS: Appearance Urine Cloudy; Glucose Urine UA Negative (Negative); PH 6.0 (5.0-9.0); Specific Gravity - Urine 1.015 (1.005-1.025); UMIC TRIGGER UACC YES
[2025-05-10 17:16] LABS: UACC Culture Trigger YES
--- OUTSIDE RECORDS SUMMARY | 2025-05-10 18:13 | XMS_ITS ---
Author Name [facility] Organization Unknown Results Test Name/Text Value Interpretation Date Range Source Hgb Bld-mCnc 6.2 g/dL Critically low 04/27/2025 11.7 - 15.7 [facility] MCHC RBC Auto-mCnc 30.0 g/dL 04/27/2025 30 - 36 [facility] PMV Bld Auto 10.6 fL 04/27/2025 7.5 - 12.5 [facility] RDW RBC Auto-Rto 16.7 % Above high normal 04/27/2025 11.5 - 14.5 [facility] Platelet num Bld Auto 247.0 Thou/uL 04/27/2025 150 - 450 [facility] MCV RBC Auto 98.0 fL 04/27/2025 80 - 100 [facility] MCH RBC Qn Auto 29.4 pg 04/27/2025 27 - [address] RBC num Bld Auto 2.11 Mil/uL Below low normal 04/27/2025 4 - 5.4 HHCCT Hct VFr Bld Auto 20.7 % Below low normal 04/27/2025 35 - 47 H[facility] WBC num Bld Auto 11.3 Thou/uL Above high normal 04/27/2025 4 - 11 [facility] Anion Gap Bld-sCnc 15.0 04/27/2025 4 - 16 H[facility]CT Potassium SerPl-sCnc 3.8 mmol/L 04/27/2025 3.4 - 5 .3 HHCCT Calcium SerPl-mCnc 8.9 mg/dL 04/27/2025 8.7 - 10.5 HHCCT GFR/BSA.pred SerPlBld [id number] 25.0 Below low normal 04/27/2025 59 - HHCCT BUN/Creat SerPl 8.0 Ratio Below low normal 04/27/2025 10 - 2 5 HHCCT Sodium SerPl-sCnc 142.0 mmol/L 04/27/2025 136 - 14 5 HHCCT Creat SerPl-mCnc 2.2 mg/dL Above high normal 04/27/2025 0.4 - 1.1 HHCCT CO2 SerPl-sCnc 17.0 mmol/L Below low normal 04/27/2025 22 - 33 H[facility]CT Glucose SerPl-mCnc 96.0 mg/dL 04/27/2025 65 - 99 HHCCT Chloride SerPl-sCnc 110.0 mmol/L Above high normal 5 98 - 107 H[facility]CT BUN SerPl-mCnc 18.0 mg/dL 04/27/2025 8 - [address] Magnesium SerPl-mCnc 1.7 mg/dL 04/27/2025 1.6 - 2. 7 HHCCT Hct VFr Bld Auto 20.9 % Below low normal 04/26/2025 35 - 47 HHCCT Hgb Bld-mCnc 6.4 g/dL Critically low 04/26/2025 11.7 - 15.7 HHCCT Anion Gap Bld-sCnc 14.0 04/26/2025 4 - 16 HHCCT Creat SerPl-mCnc 2.0 mg/dL Above high normal 04/26/2025 0.4 - 1.1 HHCCT Sodium SerPl-sCnc 142.0 mmol/L 04/26/2025 136 - 14 5 HHCCT Chloride SerPl-sCnc 111.0 mmol/L Above high normal 5 98 - 107 HHCCT Glucose SerPl-mCnc 82.0 mg/dL 04/26/2025 65 - 99 HHCCT Calcium SerPl-mCnc 8.5 mg/dL Below low normal 04/26/2025 8.7 - 10.5 HHCCT BUN/Creat SerPl 10.0 Ratio 04/26/2025 10 - 25 HH CCT BUN SerPl-mCnc 19.0 mg/dL 04/26/2025 8 - [address] GFR/BSA.pred SerPlBld [id number] 28.0 Below low normal 04/26/2025 59 - HHCCT CO2 SerPl-sCnc 17.0 mmol/L Below low normal 04/26/2025 22 - 33 HHCCT Potassium SerPl-sCnc 3.8 mmol/L 04/26/2025 3.4 - 5 .3 HHCCT MCH RBC Qn Auto 29.7 pg 04/26/2025 27 - [address] PMV Bld Auto 10.8 fL 04/26/2025 7.5 - 12.5 H[facility]CT RBC num Bld Auto 2.12 Mil/uL Below low normal 04/26/2025 4 - 5.4 [facility]CT Platelet num Bld Auto 222.0 Thou/uL 04/26/2025 150 - 450 HHCCT Hct VFr Bld Auto 20.6 % Below low normal 04/26/2025 35 - 47 HHCCT RDW RBC Auto-Rto 16.4 % Above high normal 04/26/2025 11.5 - 14.5 HHCCT WBC num Bld Auto 13.0 Thou/uL Above high normal 04/26/2025 4 - 11 HHCCT MCV RBC Auto 97.0 fL 04/26/2025 80 - 100 [facility]CT MCHC RBC Auto-mCnc 30.6 g/dL 04/26/2025 30 - 36 HHCCT Hgb Bld-mCnc 6.3 g/dL Critically low 04/26/2025 11.7 - 15.7 HHCCT POC Glucose 95.0 mg/dL 04/25/2025 65 - 99 [facility] POC Glucose 90.0 mg/dL 04/25/2025 65 - 99 HHCCT Magnesium SerPl-mCnc 1.6 mg/dL 04/25/2025 1.6 - 2. 7 HHCCT Anion Gap Bld-sCnc 13.0 04/25/2025 4 - 16 H[facility]CT BUN/Creat SerPl 11.0 Ratio 04/25/2025 10 - 25 HH CCT Calcium SerPl-mCnc 8.2 mg/dL Below low normal 04/25/2025 8.7 - 10.5 HHCCT GFR/BSA.pred SerPlBld [id number] 30.0 Below low normal 04/25/2025 59 - HHCCT Glucose SerPl-mCnc 89.0 mg/dL 04/25/2025 65 - 99 HHCCT Chloride SerPl-sCnc 110.0 mmol/L Above high normal 98 - 107 HHCCT CO2 SerPl-sCnc 18.0 mmol/L Below low normal 04/25/2025 22 - 33 HHCCT Sodium SerPl-sCnc 141.0 mmol/L 04/25/2025 136 - 14 5 HHCCT Potassium SerPl-sCnc 3.4 mmol/L 04/25/2025 3.4 - 5 .3 HHCCT Creat SerPl-mCnc 1.9 mg/dL Above high normal 04/25/2025 0.4 - 1.1 HHCCT BUN SerPl-mCnc 21.0 mg/dL 04/25/2025 8 - [address] MCV RBC Auto 97.0 fL 04/25/2025 80 - 100 HHCCT Hgb Bld-mCnc 7.0 g/dL Below low normal 04/25/2025 11.7 - 15 .7 HHCCT MCHC RBC Auto-mCnc 30.7 g/dL 04/25/2025 30 - 36 HHCCT MCH RBC Qn Auto 29.7 pg 04/25/2025 27 - [address] Platelet num Bld Auto 219.0 Thou/uL 04/25/2025 150 - 450 HHCCT Hct VFr Bld Auto 22.8 % Below low normal 04/25/2025 35 - 47 HHCCT WBC num Bld Auto 14.7 Thou/uL Above high normal 04/25/2025 4 - 11 HHCCT RBC num Bld Auto 2.36 Mil/uL Below low normal 04/25/2025 4 - 5.4 HHCCT RDW RBC Auto-Rto 16.5 % Above high normal 04/25/2025 11.5 - 14.5 HHCCT PMV Bld Auto 11.6 fL 04/25/2025 7.5 - 12.5 HHCCT POC Glucose 95.0 mg/dL 04/25/2025 65 - 99 HHCCT WBC num/area UrnS HPF >25.0 per hpf Above high normal 2024 0 - 4 HHCCT RBC num/area UrnS HPF 24.0 per hpf Above high normal 025 0 - 4 HHCCT Crystals UrnS Ql Micro Absent 04/25/2025 HHCCT Squamous num/area UrnS HPF 2.0 PER HPF 04/25/2025 HHCCT WBC clumps Ur Ql Auto Present Abnormal 04/25/2025 - CCT Sp Gr Ur Strip 1.012 04/25/2025 1.005 - 1.03 HHCCT Prot Ur Strip-mCnc Moderate (100 mg/dL) Abnormal 04/25/2025 - CCT Ketones Ur Strip-mCnc Negative 04/25/2025 - CCT Color Ur Yellow 04/25/2025 HHCCT Glucose Ur Strip-mCnc 50.0 mg/dL Abnormal 04/25/2025 - HHCCT Bilirub Ur Strip-mCnc Negative 04/25/2025 - CCT Hgb Ur Ql Strip Small Abnormal 04/25/2025 - [facility] CT pH Ur Strip 6.0 04/25/2025 5 - 8 HHCCT Leukocyte esterase Ur Ql Strip Large Abnormal 04/25/2025 - CCT Nitrite Ur Ql Strip Negative 04/25/2025 - CCT Clarity Ur Hazy 04/25/2025 HHCCT POC Glucose 86.0 mg/dL 04/24/2025 65 - 99 HHCCT POC Glucose 111.0 mg/dL Above high normal 04/24/2025 65 - 99 HHCCT POC Glucose 88.0 mg/dL 04/24/2025 65 - 99 HHCCT POC Glucose 128.0 mg/dL Above high normal 04/24/2025 65 - 99 HHCCT POC Glucose 112.0 mg/dL Above high normal 04/23/2025 65 - 99 HHCCT POC Glucose 112.0 mg/dL Above high normal 04/23/2025 65 - 99 HHCCT Chloride SerPl-sCnc 112.0 mmol/L Above high normal 98 - 107 HHCCT GFR/BSA.pred SerPlBld [id number] 28.0 Below low normal 04/23/2025 59 - HHCCT Potassium SerPl-sCnc 3.1 mmol/L Below low normal 04/23/2025 3.4 - 5.3 HHCCT Calcium SerPl-mCnc 7.6 mg/dL Below low normal 04/23/2025 8.7 - 10.5 HHCCT CO2 SerPl-sCnc 18.0 mmol/L Below low normal 04/23/2025 22 - 33 HHCCT BUN SerPl-mCnc 37.0 mg/dL Above high normal 04/23/2025 8 - 2 1 HHCCT Glucose SerPl-mCnc 112.0 mg/dL Above high normal 04/23/2025 65 - 99 HHCCT Creat SerPl-mCnc 2.0 mg/dL Above high normal 04/23/2025 0.4 - 1.1 HHCCT Sodium SerPl-sCnc 141.0 mmol/L 04/23/2025 136 - 14 5 HHCCT Anion Gap Bld-sCnc 11.0 04/23/2025 4 - 16 HHCCT BUN/Creat SerPl 19.0 Ratio 04/23/2025 10 - 25 HH CCT Hct VFr Bld Auto 24.5 % Below low normal 04/23/2025 35 - 47 HHCCT MCHC RBC Auto-mCnc 31.4 g/dL 04/23/2025 30 - 36 HHCCT MCV RBC Auto 95.0 fL 04/23/2025 80 - 100 HHCCT WBC num Bld Auto 13.6 Thou/uL Above high normal 04/23/2025 4 - 11 HHCCT RDW RBC Auto-Rto 16.4 % Above high normal 04/23/2025 11.5 - 14.5 HHCCT Hgb Bld-mCnc 7.7 g/dL Below low normal 04/23/2025 11.7 - 15 .7 HHCCT MCH RBC Qn Auto 30.0 pg 04/23/2025 27 - [address] PMV Bld Auto 12.5 fL 04/23/2025 7.5 - 12.5 HHCCT Platelet num Bld Auto 154.0 Thou/uL 04/23/2025 150 - 450 HHCCT RBC num Bld Auto 2.57 Mil/uL Below low normal 04/23/2025 4 - 5.4 HHCCT POC Glucose 108.0 mg/dL Above high normal 04/23/2025 65 - 99 HHCCT POC Glucose 119.0 mg/dL Above high normal 04/23/2025 65 - 99 HHCCT POC Glucose 107.0 mg/dL Above high normal 04/22/2025 65 - 99 HHCCT POC Glucose 131.0 mg/dL Above high normal 04/22/2025 65 - 99 HHCCT Albumin SerPl-mCnc 2.5 g/dL Below low normal 04/22/2025 3.5 - 5 HHCCT Albumin/Glob SerPl 0.9 Ratio Below low normal 04/22/2025 1 - 1.8 HHCCT Prot SerPl-mCnc 5.4 g/dL Below low normal 04/22/2025 6.3 - 8.3 HHCCT AST SerPl-cCnc 39.0 U/L 04/22/2025 10 - 50 [facility] T Bilirub SerPl-mCnc 0.7 mg/dL 04/22/2025 0.2 - 1 HHCCT ALP SerPl-cCnc 242.0 U/L Above high normal 04/22/2025 32 - 1 22 HHCCT ALT SerPl-cCnc 16.0 U/L 04/22/2025 10 - 50 [facility] T Globulin Ser Calc-mCnc 2.9 g/dL 04/22/2025 1.5 - 3.9 HHCCT Bilirub Direct SerPl-mCnc 0.4 mg/dL Above high normal 04/22/2025 0 - 0.2 HHCCT Sodium SerPl-sCnc 137.0 mmol/L 04/22/2025 136 - 14 5 HHCCT Glucose SerPl-mCnc 115.0 mg/dL Above high normal 04/22/2025 65 - 99 HHCCT Chloride SerPl-sCnc 104.0 mmol/L 04/22/2025 98 - 1 07 HHCCT CO2 SerPl-sCnc 19.0 mmol/L Below low normal 04/22/2025 22 - 33 HHCCT BUN SerPl-mCnc 52.0 mg/dL Above high normal 04/22/2025 8 - 2 1 HHCCT Anion Gap Bld-sCnc 14.0 04/22/2025 4 - 16 HHCCT BUN/Creat SerPl 26.0 Ratio Above high normal 04/22/2025 10 - 25 HHCCT GFR/BSA.pred SerPlBld [id number] 28.0 Below low normal 04/22/2025 59 - HHCCT Calcium SerPl-mCnc 7.9 mg/dL Below low normal 04/22/2025 8.7 - 10.5 HHCCT Creat SerPl-mCnc 2.0 mg/dL Above high normal 04/22/2025 0.4 - 1.1 HHCCT Potassium SerPl-sCnc 3.4 mmol/L 04/22/2025 3.4 - 5 .3 HHCCT Magnesium SerPl-mCnc 1.6 mg/dL 04/22/2025 1.6 - 2. 7 HHCCT RDW RBC Auto-Rto 16.3 % Above high normal 04/22/2025 11.5 - 14.5 HHCCT MCV RBC Auto 94.0 fL 04/22/2025 80 - 100 HHCCT RBC num Bld Auto 2.85 Mil/uL Below low normal 04/22/2025 4 - 5.4 HHCCT Immature Platelet Fraction 7.8 % 04/22/2025 1.2 - 8.6 HHCCT Hct VFr Bld Auto 26.7 % Below low normal 04/22/2025 35 - 47 HHCCT WBC num Bld Auto 14.5 Thou/uL Above high normal 04/22/2025 4 - 11 HHCCT MCHC RBC Auto-mCnc 31.5 g/dL 04/22/2025 30 - 36 HHCCT Platelet num Bld Auto 124.0 Thou/uL Below low normal 025 150 - 450 HHCCT PMV Bld Auto 13.1 fL Above high normal 04/22/2025 7.5 - 12 .5 HHCCT MCH RBC Qn Auto 29.5 pg 04/22/2025 27 - [address] Hgb Bld-mCnc 8.4 g/dL Below low normal 04/22/2025 11.7 - 15 .7 HHCCT POC Glucose 138.0 mg/dL Above high normal 04/22/2025 65 - 99 HHCCT POC Glucose 117.0 mg/dL Above high normal 04/22/2025 65 - 99 HHCCT POC Glucose 155.0 mg/dL Above high normal 04/21/2025 65 - 99 HHCCT POC Glucose 125.0 mg/dL Above high normal 04/21/2025 65 - 99 HHCCT Phosphate SerPl-mCnc 3.1 mg/dL 04/21/2025 2.7 - 4. 5 HHCCT BUN/Creat SerPl 30.0 Ratio Above high normal 04/21/2025 10 - 25 HHCCT Glucose SerPl-mCnc 154.0 mg/dL Above high normal 04/21/2025 65 - 99 HHCCT BUN SerPl-mCnc 67.0 mg/dL Above high normal 04/21/2025 8 - 2 1 HHCCT Creat SerPl-mCnc 2.2 mg/dL Above high normal 04/21/2025 0.4 - 1.1 HHCCT Chloride SerPl-sCnc 106.0 mmol/L 04/21/2025 98 - 1 07 HHCCT Anion Gap Bld-sCnc 13.0 04/21/2025 4 - 16 HHCCT GFR/BSA.pred SerPlBld [id number] 25.0 Below low normal 04/21/2025 59 - HHCCT Potassium SerPl-sCnc 3.3 mmol/L Below low normal 04/21/2025 3.4 - 5.3 HHCCT CO2 SerPl-sCnc 19.0 mmol/L Below low normal 04/21/2025 22 - 33 HHCCT Sodium SerPl-sCnc 138.0 mmol/L 04/21/2025 136 - 14 5 HHCCT Calcium SerPl-mCnc 7.9 mg/dL Below low normal 04/21/2025 8.7 - 10.5 HHCCT POC Glucose 117.0 mg/dL Above high normal 04/21/2025 65 - 99 HHCCT POC Glucose 139.0 mg/dL Above high normal 04/21/2025 65 - 99 HHCCT POC Glucose 161.0 mg/dL Above high normal 04/20/2025 65 - 99 HHCCT Potassium SerPl-sCnc 3.3 mmol/L Below low normal 04/20/2025 3.4 - 5.3 HHCCT Anion Gap Bld-sCnc 18.0 Above high normal 04/20/2025 4 - 16 HHCCT BUN/Creat SerPl 38.0 Ratio Above high normal 04/20/2025 10 - 25 HHCCT Chloride SerPl-sCnc 110.0 mmol/L Above high normal 98 - 107 HHCCT GFR/BSA.pred SerPlBld [id number] 21.0 Below low normal 04/20/2025 59 - HHCCT Sodium SerPl-sCnc 146.0 mmol/L Above high normal 04/20/2025 136 - 145 HHCCT Potassium SerPl-sCnc 3.1 mmol/L Below low normal 04/20/2025 3.4 - 5.3 HHCCT CO2 SerPl-sCnc 18.0 mmol/L Below low normal 04/20/2025 22 - 33 HHCCT Creat SerPl-mCnc 2.6 mg/dL Above high normal 04/20/2025 0.4 - 1.1 HHCCT Calcium SerPl-mCnc 8.0 mg/dL Below low normal 04/20/2025 8.7 - 10.5 HHCCT BUN SerPl-mCnc 98.0 mg/dL Above high normal 04/20/2025 8 - 2 1 HHCCT Glucose SerPl-mCnc 165.0 mg/dL Above high normal 04/20/2025 65 - 99 HHCCT POC Glucose 142.0 mg/dL Above high normal 04/20/2025 65 - 99 HHCCT Sodium Ur-sCnc 85.0 mmol/L 04/20/2025 HH CCT Chloride Ur-sCnc 67.0 mmol/L 04/20/2025 HHCCT Potassium Ur-sCnc 19.0 mmol/L 04/20/2025 HHCCT POC Glucose 198.0 mg/dL Above high normal 04/20/2025 65 - 99 HHCCT BUN/Creat SerPl 39.0 Ratio Above high normal 04/20/2025 10 - 25 HHCCT BUN SerPl-mCnc 114.0 mg/dL Critically high 04/20/2025 8 - 21 HHCCT Calcium SerPl-mCnc 7.8 mg/dL Below low normal 04/20/2025 8.7 - 10.5 HHCCT Glucose SerPl-mCnc 146.0 mg/dL Above high normal 04/20/2025 65 - 99 HHCCT Anion Gap Bld-sCnc 18.0 Above high normal 04/20/2025 4 - 16 HHCCT GFR/BSA.pred SerPlBld [id number] 18.0 Below low normal 04/20/2025 59 - HHCCT CO2 SerPl-sCnc 19.0 mmol/L Below low normal 04/20/2025 22 - 33 HHCCT Sodium SerPl-sCnc 150.0 mmol/L Above high normal 04/20/2025 136 - 145 HHCCT Chloride SerPl-sCnc 113.0 mmol/L Above high normal 98 - 107 HHCCT Creat SerPl-mCnc 2.9 mg/dL Above high normal 04/20/2025 0.4 - 1.1 HHCCT Potassium SerPl-sCnc 3.0 mmol/L Below low normal 04/20/2025 3.4 - 5.3 HHCCT Phosphate SerPl-mCnc 4.2 mg/dL 04/20/2025 2.7 - 4. 5 HHCCT Magnesium SerPl-mCnc 2.1 mg/dL 04/20/2025 1.6 - 2. 7 HHCCT MCHC RBC Auto-mCnc 32.9 g/dL 04/20/2025 30 - 36 HHCCT WBC num Bld Auto 16.7 Thou/uL Above high normal 04/20/2025 4 - 11 HHCCT MCH RBC Qn Auto 29.9 pg 04/20/2025 27 - [address] nRBC/100 WBC Bld Auto-Rto 0.1 /100 WBC 04/20/2025 0 - 0.1 HHCCT nRBC num Bld Auto 0.02 Thou/uL 04/20/2025 0 - 0.02 HHCCT RDW RBC Auto-Rto 15.4 % Above high normal 04/20/2025 11.5 - 14.5 HHCCT RBC num Bld Auto 2.68 Mil/uL Below low normal 04/20/2025 4 - 5.4 HHCCT MCV RBC Auto 91.0 fL 04/20/2025 80 - 100 HHCCT Platelet num Bld Auto 85.0 Thou/uL Below low normal 04/20/20 150 - 450 HHCCT Hgb Bld-mCnc 8.0 g/dL Below low normal 04/20/2025 11.7 - 15 .7 HHCCT Hct VFr Bld Auto 24.3 % Below low normal 04/20/2025 35 - 47 HHCCT PMV Bld Auto 12.8 fL Above high normal 04/20/2025 7.5 - 12 .5 HHCCT Immature Platelet Fraction 5.1 % 04/20/2025 1.2 - 8.6 [facility] Glucose 132.0 mg/dL Above high normal 04/20/2025 65 - 99 [facility] Glucose 150.0 mg/dL Above high normal 04/19/2025 65 - 99 [facility] Glucose 202.0 mg/dL Above high normal 04/19/2025 65 - 99 [facility] Blood Gas PEEP 6.0 04/19/2025 [facility] ISTAT Sample Type Arterial 04/19/2025 [facility] Gas Mode CPAP/PS 04/19/2025 [facility] T ISTAT Arterial FIO2 40.0 04/19/2025 [facility] Arterial PO2 145.0 mmHg Above high normal 04/19/2025 7 5 - 95 [facility] TOTAL RESPIRATION RATE 18.0 04/19/2025 [facility] Base Excess -6 04/19/2025 [facility] Arterial Total CO2 20.0 mmol/L Below low normal 04/19/2025 22 - 28 [facility] Test Positive 04/19/2025 [facility] Arterial HCO3 18.5 mmol/L Below low normal 04/19/2025 22 - 26 [facility] MDRN Aware Yes 04/19/2025 [facility] Blood Gas Draw Site Left radial artery 04/19/2025 [facility] Arterial PCO2 32.8 mmHg 04/19/2025 32 - 45 [facility] Number of Sticks 1.0 04/19/2025 [facility] Delivery System VENTILATOR 04/19/2025 [facility] Blood Gas Pressure Support 5.0 04/19/2025 [facility] O2 Saturation 99.0 % Above high normal 04/19/2025 9 4 - 97 [facility] Arterial pH 7.36 04/19/2025 7.35 - 7.45 [facility] Glucose 263.0 mg/dL Above high normal 04/19/2025 65 - 99 [facility] Hgb A1c MFr Bld 5.7 % Above high normal 04/20/2025 - 5.7 [facility] Est. average glucose Bld gHb Est-mCnc 117.0 mg/dL 04/20/2025 [facility] Lymphocytes/leuk NFr Bld Auto 3.0 % 04/19/2025 [facility] Segmented Neutrophil 95.0 % 04/19/2025 [facility] Monocytes/leuk NFr Bld Auto 2.0 % 04/19/2025 [facility] Neutrophils num Bld Auto 14.2 Thou/uL Above high normal 04/19/2025 2 - 7.5 HHCCT Normocytes Present 04/19/2025 [facility] Polychromasia Bld Ql Smear Occasional 04/19/2025 [facility] Macrocytes Bld Ql Smear Occasional 04/19/2025 [facility] Monocyte, Absolute 0.3 Thou/uL 04/19/2025 0.2 - 1. 5 [facility] Lymphocytes num Bld Auto 0.5 Thou/uL Below low normal 04/19/2025 1.5 - 4.5 HHCCT PMV Bld Auto 12.7 fL Above high normal 04/19/2025 7.5 - 12 .5 [facility]CT Hgb Bld-mCnc 8.2 g/dL Below low normal 04/19/2025 11.7 - 15 .7 [facility] RDW RBC Auto-Rto 15.9 % Above high normal 04/19/2025 11.5 - 14.5 HHCCT nRBC/100 WBC Bld Auto-Rto 0.2 /100 WBC Above high normal 04/19/2025 0 - 0.1 H[facility] MCH RBC Qn Auto 29.9 pg 04/19/2025 27 - [address] MCV RBC Auto 90.0 fL 04/19/2025 80 - 100 H[facility]CT WBC num Bld Auto 14.9 Thou/uL Above high normal 04/19/2025 4 - 11 H[facility]CT nRBC num Bld Auto 0.03 Thou/uL Above high normal 04/19/2025 0 - 0.02 H[facility]CT RBC num Bld Auto 2.74 Mil/uL Below low normal 04/19/2025 4 - 5.4 [facility] Immature Platelet Fraction 5.4 % 04/19/2025 1.2 - 8.6 H[facility] Hct VFr Bld Auto 24.6 % Below low normal 04/19/2025 35 - 47 [facility] Platelet num Bld Auto 56.0 Thou/uL Below low normal 04/19/20 25 150 - 450 H[facility]CT MCHC RBC Auto-mCnc 33.3 g/dL 04/19/2025 30 - 36 H[facility]CT BUN/Creat SerPl 39.0 Ratio Above high normal 04/19/2025 10 - 25 H[facility]CT BUN SerPl-mCnc 132.0 mg/dL Critically high 04/19/2025 8 - 21 HHCCT GFR/BSA.pred SerPlBld [id number]-HgEPgu 15.0 Below low normal 04/19/2025 59 - HHCCT Sodium SerPl-sCnc 148.0 mmol/L Above high normal 04/19/2025 136 - 145 HHCCT Chloride SerPl-sCnc 112.0 mmol/L Above high normal 98 - 107 HHCCT Potassium SerPl-sCnc 3.3 mmol/L Below low normal 04/19/2025 3.4 - 5.3 HHCCT CO2 SerPl-sCnc 17.0 mmol/L Below low normal 04/19/2025 22 - 33 HHCCT Calcium SerPl-mCnc 7.5 mg/dL Below low normal 04/19/2025 8.7 - 10.5 HHCCT Glucose SerPl-mCnc 186.0 mg/dL Above high normal 04/19/2025 65 - 99 HHCCT Creat SerPl-mCnc 3.4 mg/dL Above high normal 04/19/2025 0.4 - 1.1 HHCCT Anion Gap Bld-sCnc 19.0 Above high normal 04/19/2025 4 - 16 HHCCT Phosphate SerPl-mCnc 5.4 mg/dL Above high normal 04/19/2025 2.7 - 4.5 HHCCT Trigl SerPl-mCnc 547.0 mg/dL Above high normal 04/19/2025 - 150 HHCCT Magnesium SerPl-mCnc 2.2 mg/dL 04/19/2025 1.6 - 2. 7 HHC[facility] POC Glucose 159.0 mg/dL Above high normal 04/19/2025 65 - 99 [facility] POC Glucose 140.0 mg/dL Above high normal 04/18/2025 65 - 99 HHCCT BUN SerPl-mCnc 126.0 mg/dL Critically high 04/18/2025 8 - 21 HHCCT BUN/Creat SerPl 34.0 Ratio Above high normal 04/18/2025 10 - 25 HHCCT Chloride SerPl-sCnc 105.0 mmol/L 04/18/2025 98 - 1 07 HHCCT CO2 SerPl-sCnc 19.0 mmol/L Below low normal 04/18/2025 22 - 33 HHCCT Sodium SerPl-sCnc 145.0 mmol/L 04/18/2025 136 - 14 5 HHCCT Anion Gap Bld-sCnc 21.0 Above high normal 04/18/2025 4 - 16 HHCCT GFR/BSA.pred SerPlBld [id number] 14.0 Below low normal 04/18/2025 59 - HHCCT Creat SerPl-mCnc 3.7 mg/dL Above high normal 04/18/2025 0.4 - 1.1 HHCCT Potassium SerPl-sCnc 3.7 mmol/L 04/18/2025 3.4 - 5 .3 HHCCT Calcium SerPl-mCnc 7.5 mg/dL Below low normal 04/18/2025 8.7 - 10.5 HHCCT Glucose SerPl-mCnc 158.0 mg/dL Above high normal 04/18/2025 65 - 99 H[facility] POC Glucose 163.0 mg/dL Above high normal 04/18/2025 65 - 99 H[facility]CT POC Glucose 134.0 mg/dL Above high normal 04/18/2025 65 - 99 HHCCT ALT SerPl-cCnc <5.0 U/L Below low normal 04/18/2025 10 - 50 HHCCT Albumin SerPl-mCnc 2.5 g/dL Below low normal 04/18/2025 3.5 - 5 HHCCT Prot SerPl-mCnc 5.3 g/dL Below low normal 04/18/2025 6.3 - 8.3 HHCCT Bilirub SerPl-mCnc 0.5 mg/dL 04/18/2025 0.2 - 1 HHCCT AST SerPl-cCnc 12.0 U/L 04/18/2025 10 - 50 [facility] T Globulin Ser Calc-mCnc 2.8 g/dL 04/18/2025 1.5 - 3.9 [facility] Bilirub Direct SerPl-mCnc 0.3 mg/dL Above high normal 04/18/2025 0 - 0.2 [facility] Albumin/Glob SerPl 0.9 Ratio Below low normal 04/18/2025 1 - 1.8 [facility] ALP SerPl-cCnc 177.0 U/L Above high normal 04/18/2025 32 - 1 22 [facility] BUN SerPl-mCnc 121.0 mg/dL Critically high 04/18/2025 8 - 21 [facility] BUN/Creat SerPl 31.0 Ratio Above high normal 04/18/2025 10 - 25 [facility] Glucose SerPl-mCnc 132.0 mg/dL Above high normal 04/18/2025 65 - 99 [facility] Chloride SerPl-sCnc 103.0 mmol/L 04/18/2025 98 - 1 07 [facility] Sodium SerPl-sCnc 144.0 mmol/L 04/18/2025 136 - 14 5 [facility] Creat SerPl-mCnc 3.9 mg/dL Above high normal 04/18/2025 0.4 - 1.1 [facility] Potassium SerPl-sCnc 3.7 mmol/L 04/18/2025 3.4 - 5 .3 [facility] Calcium SerPl-mCnc 7.7 mg/dL Below low normal 04/18/2025 8.7 - 10.5 [facility] GFR/BSA.pred SerPlBld [id number] 13.0 Below low normal 04/18/2025 59 - H[facility]CT CO2 SerPl-sCnc 20.0 mmol/L Below low normal 04/18/2025 22 - 33 [facility] Anion Gap Bld-sCnc 21.0 Above high normal 04/18/2025 4 - 16 [facility] Magnesium SerPl-mCnc 2.2 mg/dL 04/18/2025 1.6 - 2. 7 [facility] Hct VFr Bld Auto 28.5 % Below low normal 04/18/2025 35 - 47 [facility] Hgb Bld-mCnc 9.8 g/dL Below low normal 04/18/2025 11.7 - 15 .7 [facility] MCHC RBC Auto-mCnc 34.4 g/dL 04/18/2025 30 - 36 [facility] RDW RBC Auto-Rto 15.7 % Above high normal 04/18/2025 11.5 - 14.5 [facility] MCH RBC Qn Auto 30.3 pg 04/18/2025 27 - [address] WBC num Bld Auto 30.7 Thou/uL Critically high 04/18/2025 4 - 11 [facility] nRBC/100 WBC Bld Auto-Rto 0.1 /100 WBC 04/18/2025 0 - 0.1 [facility] Immature Platelet Fraction 6.0 % 04/18/2025 1.2 - 8.6 [facility] PMV Bld Auto 11.6 fL 04/18/2025 7.5 - 12.5 [facility] RBC num Bld Auto 3.23 Mil/uL Below low normal 04/18/2025 4 - 5.4 [facility] Platelet num Bld Auto 51.0 Thou/uL Below low normal 04/18/20 25 150 - 450 [facility] nRBC num Bld Auto 0.04 Thou/uL Above high normal 04/18/2025 0 - 0.02 [facility] MCV RBC Auto 88.0 fL 04/18/2025 80 - 100 [facility] POC Glucose 138.0 mg/dL Above high normal 04/18/2025 65 - 99 CCT POC Glucose 169.0 mg/dL Above high normal 04/17/2025 65 - 99 CCT Potassium SerPl-sCnc 4.0 mmol/L 04/17/2025 3.4 - 5 .3 [facility] POC Glucose 171.0 mg/dL Above high normal 04/17/2025 65 - 99 [facility] PEEP 8.0 04/17/2025 [facility] T Delivery System VENTILATOR 04/17/2025 [facility] Suman Test NA 04/17/2025 [facility] Base Excess -5 04/17/2025 [facility] ISTAT Arterial PCO2 34.3 mmHg 04/17/2025 32 - 45 [facility] ISTAT Note PC 13.0 04/17/2025 [facility] Blood Gas Mode PCV 04/17/2025 [facility] T ISTAT Arterial pH 7.37 04/17/2025 7.35 - 7.45 [facility] Arterial HCO3 19.7 mmol/L Below low normal 04/17/2025 22 - 26 [facility] TOTAL RESPIRATION RATE 29.0 04/17/2025 [facility] Blood Gas Draw Site ARTERIAL LINE 04/17/2025 [facility] ISTAT O2 Saturation 98.0 % Above high normal 04/17/2025 9 4 - 97 [facility] Respiration Rate 23.0 04/17/2025 [facility] ISTAT Arterial PO2 107.0 mmHg Above high normal 04/17/2025 7 5 - 95 [facility] ISTAT Arterial Total CO2 21.0 mmol/L Below low normal 04/17/2025 22 - 28 [facility] ISTAT Sample Type Arterial 04/17/2025 [facility] Blood Gas Pressure Support 5.0 04/17/2025 [facility] Anion Gap Bld-sCnc 21.0 Above high normal 04/17/2025 4 - 16 [facility] Potassium SerPl-sCnc 3.3 mmol/L Below low normal 04/17/2025 3.4 - 5.3 [facility] BUN SerPl-mCnc 108.0 mg/dL Critically high 04/17/2025 8 - 21 [facility] Chloride SerPl-sCnc 102.0 mmol/L 04/17/2025 98 - 1 07 [facility] Glucose SerPl-mCnc 144.0 mg/dL Above high normal 04/17/2025 65 - 99 [facility] Calcium SerPl-mCnc 7.3 mg/dL Below low normal 04/17/2025 8.7 - 10.5 [facility] Sodium SerPl-sCnc 141.0 mmol/L 04/17/2025 136 - 14 5 [facility] GFR/BSA.pred SerPlBld [id number] 13.0 Below low normal 04/17/2025 59 - [facility]CT Creat SerPl-mCnc 3.9 mg/dL Above high normal 04/17/2025 0.4 - 1.1 [facility] BUN/Creat SerPl 28.0 Ratio Above high normal 04/17/2025 10 - 25 [facility] CO2 SerPl-sCnc 18.0 mmol/L Below low normal 04/17/2025 22 - 33 [facility] Immature Platelet Fraction 6.8 % 04/17/2025 1.2 - 8.6 [facility] RDW RBC Auto-Rto 15.4 % Above high normal 04/17/2025 11.5 - 14.5 [facility] Hgb Bld-mCnc 9.5 g/dL Below low normal 04/17/2025 11.7 - 15 .7 [facility] MCHC RBC Auto-mCnc 33.9 g/dL 04/17/2025 30 - 36 [facility] PMV Bld Auto 11.9 fL 04/17/2025 7.5 - 12.5 [facility] MCV RBC Auto 88.0 fL 04/17/2025 80 - 100 [facility] RBC num Bld Auto 3.19 Mil/uL Below low normal 04/17/2025 4 - 5.4 [facility] nRBC/100 WBC Bld Auto-Rto 0.2 /100 WBC Above high normal 04/17/2025 0 - 0.1 [facility] nRBC num Bld Auto 0.05 Thou/uL Above high normal 04/17/2025 0 - 0.02 [facility] WBC num Bld Auto 23.8 Thou/uL Above high normal 04/17/2025 4 - 11 [facility] Platelet num Bld Auto 40.0 Thou/uL Critically low 04/17/2025 150 - 450 [facility] MCH RBC Qn Auto 29.8 pg 04/17/2025 27 - [address] Hct VFr Bld Auto 28.0 % Below low normal 04/17/2025 35 - 47 [facility] POC Glucose 147.0 mg/dL Above high normal 04/17/2025 65 - 99 [facility] POC Glucose 143.0 mg/dL Above high normal 04/17/2025 65 - 99 [facility] POC Glucose 131.0 mg/dL Above high normal 04/16/2025 65 - 99 [facility] Potassium SerPl-sCnc 4.0 mmol/L 04/16/2025 3.4 - 5 .3 [facility] POC Glucose 122.0 mg/dL Above high normal 04/16/2025 65 - 99 [facility] nRBC num Bld Auto 0.11 Thou/uL Above high normal 04/16/2025 0 - 0.02 [facility] Eosinophil/leuk NFr Bld Auto 0.0 % 04/16/2025 [facility] Imm Granulocytes/leuk NFr Bld Auto 1.6 % 04/16/2025 [facility] Eosinophil num Bld Auto 0.0 Thou/uL 04/16/2025 0 - 0.7 [facility] Neutrophils num Bld Auto 17.96 Thou/uL Above high normal 04/16/2025 2 - 7.5 [facility] Neutrophils/leuk NFr Bld Auto 90.7 % 04/16/2025 [facility] Platelet num Bld Auto 34.0 Thou/uL Critically low 04/16/2025 150 - 450 [facility] Basophils num Bld Auto 0.02 Thou/uL 04/16/2025 0 - 0.2 [facility] MCH RBC Qn Auto 29.9 pg 04/16/2025 27 - [address] nRBC/100 WBC Bld Auto-Rto 0.6 /100 WBC Above high normal 04/16/2025 0 - 0.1 [facility] MCHC RBC Auto-mCnc 34.8 g/dL 04/16/2025 30 - 36 [facility] Monocytes num Bld Auto 1.05 Thou/uL 04/16/2025 0.2 - 1.5 [facility] WBC num Bld Auto 19.8 Thou/uL Above high normal 04/16/2025 4 - 11 [facility] Hct VFr Bld Auto 25.6 % Below low normal 04/16/2025 35 - 47 [facility] Basophils/leuk NFr Bld Auto 0.1 % 04/16/2025 [facility] Monocytes/leuk NFr Bld Auto 5.3 % 04/16/2025 [facility] RBC num Bld Auto 2.98 Mil/uL Below low normal 04/16/2025 4 - 5.4 [facility] RDW RBC Auto-Rto 15.1 % Above high normal 04/16/2025 11.5 - 14.5 [facility] PMV Bld Auto 12.3 fL 04/16/2025 7.5 - 12.5 [facility] Hgb Bld-mCnc 8.9 g/dL Below low normal 04/16/2025 11.7 - 15 .7 [facility] MCV RBC Auto 86.0 fL 04/16/2025 80 - 100 [facility] Lymphocytes/leuk NFr Bld Auto 2.3 % 04/16/2025 [facility] Lymphocytes num Bld Auto 0.46 Thou/uL Below low normal 04/16/2025 1.5 - 4.5 [facility] Imm Granulocytes num Bld Auto 0.32 Thou/uL Above high normal 04/16/2025 0 - 0.1 [facility] Immature Platelet Fraction 5.5 % 04/16/2025 1.2 - 8.6 [facility] POC Glucose 100.0 mg/dL Above high normal 04/16/2025 65 - 99 [facility] 25(OH)D3 SerPl-mCnc 17.0 ng/mL Below low normal 04/16/2025 3 0 - 100 [facility] PTH-Intact SerPl-mCnc 314.0 pg/mL Above high normal 04/16/20 25 15 - 65 [facility] GFR/BSA.pred SerPlBld [id number] 12.0 Below low normal 04/16/2025 59 - HHCCT Glucose SerPl-mCnc 119.0 mg/dL Above high normal 04/16/2025 65 - 99 [facility] Anion Gap Bld-sCnc 20.0 Above high normal 04/16/2025 4 - 16 [facility] Creat SerPl-mCnc 4.1 mg/dL Above high normal 04/16/2025 0.4 - 1.1 [facility]CT Calcium SerPl-mCnc 7.1 mg/dL Below low normal 04/16/2025 8.7 - 10.5 [facility]CT BUN SerPl-mCnc 83.0 mg/dL Above high normal 04/16/2025 8 - 2 1 [facility]CT Potassium SerPl-sCnc 3.2 mmol/L Below low normal 04/16/2025 3.4 - 5.3 [facility]CT BUN/Creat SerPl 20.0 Ratio 04/16/2025 10 - 25 HH CCT CO2 SerPl-sCnc 19.0 mmol/L Below low normal 04/16/2025 22 - 33 [facility]CT Sodium SerPl-sCnc 137.0 mmol/L 04/16/2025 136 - 14 5 [facility]CT Chloride SerPl-sCnc 98.0 mmol/L 04/16/2025 98 - 10 7 [facility] Blood Gas PEEP 6.0 04/16/2025 [facility] T Respiration Rate 26.0 04/16/2025 HH [facility] ISTAT Arterial PCO2 34.2 mmHg 04/16/2025 32 - 45 CCT ISTAT Sample Type Arterial 04/16/2025 H [facility] Tidal Volume 350.0 04/16/2025 [facility] ISTAT Arterial PO2 58.0 mmHg Below low normal 04/16/2025 75 - 95 [facility] Arterial HCO3 20.2 mmol/L Below low normal 04/16/2025 22 - 26 [facility] Minute Ventilation 12.8 04/16/2025 [facility] Delivery System VENTILATOR 04/16/2025 [facility] Blood Gas Draw Site ARTERIAL LINE 04/16/2025 [facility] Base Excess -4 04/16/2025 [facility] Arterial Total CO2 21.0 mmol/L Below low normal 04/16/2025 22 - 28 [facility] Suman Test NA 04/16/2025 [facility] Blood Gas Mode VAC 04/16/2025 [facility] ISTAT O2 Saturation 89.0 % Below low normal 04/16/2025 94 - 97 [facility] TOTAL RESPIRATION RATE 29.0 04/16/2025 [facility] Arterial pH 7.38 04/16/2025 7.35 - 7.45 [facility] POC Glucose 112.0 mg/dL Above high normal 04/16/2025 65 - 99 [facility] Trigl SerPl-mCnc 144.0 mg/dL 04/16/2025 - 150 [facility]CT Magnesium SerPl-mCnc 2.0 mg/dL 04/16/2025 1.6 - 2. 7 [facility] Sodium SerPl-sCnc 136.0 mmol/L 04/16/2025 136 - 14 5 [facility] Glucose SerPl-mCnc 110.0 mg/dL Above high normal 04/16/2025 65 - 99 [facility]CT Chloride SerPl-sCnc 98.0 mmol/L 04/16/2025 98 - 10 7 [facility]CT Potassium SerPl-sCnc 3.7 mmol/L 04/16/2025 3.4 - 5 .3 [facility]CT Calcium SerPl-mCnc 7.0 mg/dL Below low normal 04/16/2025 8.7 - 10.5 [facility]CT BUN SerPl-mCnc 72.0 mg/dL Above high normal 04/16/2025 8 - 2 1 [facility] Creat SerPl-mCnc 4.0 mg/dL Above high normal 04/16/2025 0.4 - 1.1 [facility] Anion Gap Bld-sCnc 19.0 Above high normal 04/16/2025 4 - 16 [facility] BUN/Creat SerPl 18.0 Ratio 04/16/2025 10 - 25 HH CCT GFR/BSA.pred SerPlBld [id number] 12.0 Below low normal 04/16/2025 59 - HHCCT CO2 SerPl-sCnc 19.0 mmol/L Below low normal 04/16/2025 22 - 33 [facility]CT INR PPP 2.1 04/16/2025 [facility]CT Prothrombin time 22.6 seconds Above high normal 04/16/2025 1 0 - 13.5 [facility]CT Anticoagulant NO ANTI COAGULANT MEDS 04/15/2025 [facility] Hgb Bld-mCnc 8.6 g/dL Below low normal 04/16/2025 11.7 - 15 .7 H[facility]CT Hct VFr Bld Auto 24.5 % Below low normal 04/16/2025 35 - 47 [facility] POC Glucose 114.0 mg/dL Above high normal 04/15/2025 65 - 99 [facility] ISTAT Arterial FIO2 40.0 04/15/2025 CCT Tidal Volume 350.0 04/15/2025 [facility] Minute Ventilation 11.5 04/15/2025 [facility] O2 Saturation 99.0 % Above high normal 04/15/2025 9 4 - 97 [facility] Sample Type Arterial 04/15/2025 H [facility] Suman Test Positive 04/15/2025 CCT Blood Gas PEEP 8.0 04/15/2025 [facility] T TOTAL RESPIRATION RATE 33.0 04/15/2025 CCT ISTAT Arterial PO2 119.0 mmHg Above high normal 04/15/2025 7 5 - 95 [facility] ISTAT Arterial PCO2 34.0 mmHg 04/15/2025 32 - 45 CCT ISTAT Arterial Total CO2 22.0 mmol/L 04/15/2025 22 - 28 [facility] ISTAT Arterial HCO3 21.0 mmol/L Below low normal 04/15/2025 22 - 26 [facility] ISTAT Arterial pH 7.4 04/15/2025 7.35 - 7.45 [facility] ISTAT Base Excess -3 04/15/2025 H [facility] Blood Gas Draw Site ARTERIAL LINE 04/15/2025 [facility] Delivery System VENTILATOR 04/15/2025 [facility] Blood Gas Mode VAC 04/15/2025 [facility] T Respiration Rate 30.0 04/15/2025 CCT POC Glucose 125.0 mg/dL Above high normal 04/15/2025 65 - 99 [facility] Fibrinogen PPP-mCnc 725.0 mg/dL Above high normal 04/15/2025 148 - 435 [facility]CT D dimer FEU PPP-mCnc 2330.0 ng/mL DDU Above high normal 04/01 - 230 [facility]CT Magnesium SerPl-mCnc 2.0 mg/dL 04/15/2025 1.6 - 2. 7 [facility]CT Glucose SerPl-mCnc 118.0 mg/dL Above high normal 04/15/2025 65 - 99 [facility]CT Calcium SerPl-mCnc 6.8 mg/dL Critically low 04/15/2025 8.7 - 10.5 H[facility]CT GFR/BSA.pred SerPlBld [id number] 11.0 Below low normal 04/15/2025 59 - HHCCT BUN SerPl-mCnc 65.0 mg/dL Above high normal 04/15/2025 8 - 2 1 [facility]CT Sodium SerPl-sCnc 134.0 mmol/L Below low normal 04/15/2025 1 36 - 145 [facility]CT Potassium SerPl-sCnc 3.3 mmol/L Below low normal 04/15/2025 3.4 - 5.3 H[facility]CT BUN/Creat SerPl 15.0 Ratio 04/15/2025 10 - 25 HH CCT CO2 SerPl-sCnc 22.0 mmol/L 04/15/2025 22 - 33 HH CCT Creat SerPl-mCnc 4.3 mg/dL Above high normal 04/15/2025 0.4 - 1.1 H[facility]CT Chloride SerPl-sCnc 95.0 mmol/L Below low normal 04/15/2025 98 - 107 [facility]CT Anion Gap Bld-sCnc 17.0 Above high normal 04/15/2025 4 - 16 [facility] nRBC/100 WBC Bld Auto-Rto 0.2 /100 WBC Above high normal 04/15/2025 0 - 0.1 H[facility]CT MCH RBC Qn Auto 30.1 pg 04/15/2025 27 - [address] MCV RBC Auto 89.0 fL 04/15/2025 80 - 100 [facility] RBC num Bld Auto 2.29 Mil/uL Below low normal 04/15/2025 4 - 5.4 [facility]CT Platelet num Bld Auto 24.0 Thou/uL Critically low 04/15/2025 150 - 450 [facility] nRBC num Bld Auto 0.04 Thou/uL Above high normal 04/15/2025 0 - 0.02 [facility]CT Immature Platelet Fraction 6.3 % 04/15/2025 1.2 - 8.6 H[facility]CT MCHC RBC Auto-mCnc 34.0 g/dL 04/15/2025 30 - 36 H[facility]CT WBC num Bld Auto 16.3 Thou/uL Above high normal 04/15/2025 4 - 11 H[facility]CT RDW RBC Auto-Rto 15.2 % Above high normal 04/15/2025 11.5 - 14.5 HHCCT PMV Bld Auto 13.2 fL Above high normal 04/15/2025 7.5 - 12 .5 H[facility]CT Hct VFr Bld Auto 20.3 % Below low normal 04/15/2025 35 - 47 [facility]CT Hgb Bld-mCnc 6.9 g/dL Critically low 04/15/2025 11.7 - 15.7 CCT POC Glucose 143.0 mg/dL Above high normal 04/15/2025 65 - 99 CCT Delivery System VENTILATOR 04/15/2025 [facility] ISTAT Arterial pH 7.33 Below low normal 04/15/2025 7.35 - 7.45 [facility] Sample Type Arterial 04/15/2025 [facility] Tidal Volume 350.0 04/15/2025 [facility] Suman Test NA 04/15/2025 [facility] ISTAT Arterial HCO3 22.2 mmol/L 04/15/2025 22 - 26 [facility] I[facility] Base Excess -3 04/15/2025 [facility] Blood Gas PEEP 12.0 04/15/2025 [facility] T TOTAL RESPIRATION RATE 35.0 04/15/2025 [facility] Respiration Rate 30.0 04/15/2025 [facility] Minute Ventilation 10.0 04/15/2025 [facility] Arterial PO2 116.0 mmHg Above high normal 04/15/2025 7 5 - 95 [facility] Blood Gas Draw Site ARTERIAL LINE 04/15/2025 [facility] Arterial Total CO2 24.0 mmol/L 04/15/2025 22 - 28 [facility] Blood Gas Mode VAC 04/15/2025 [facility] T ISTAT O2 Saturation 98.0 % Above high normal 04/15/2025 9 4 - 97 [facility] Arterial PCO2 42.4 mmHg 04/15/2025 32 - 45 H[facility] Vit B12 SerPl-mCnc >2000.0 pg/mL Above high normal 243 - 894 HHT Ferritin SerPl-mCnc 358.0 ug/L 04/15/2025 30 - 400 H[facility] Iron Satn MFr SerPl 7.0 % Below low normal 04/15/2025 20 - 50 [facility]CT UIBC SerPl-mCnc 118.0 ug/dL 04/15/2025 112 - 346 H [facility] Iron SerPl-mCnc 9.0 ug/dL Below low normal 04/15/2025 59 - 1 51 H[facility]CT TIBC SerPl-mCnc 127.0 ug/dL 04/15/2025 100 - 400 H [facility] Folate SerPl-mCnc 3.7 ng/mL Below low normal 04/15/2025 7.2 - [facility]CT Baso Stipl Bld Ql Smear Present 04/15/2025 [facility] Lymphocytes num Bld Auto 0.3 Thou/uL Below low normal 04/15/2025 1.5 - 4.5 [facility] Neutrophils num Bld Auto 14.8 Thou/uL Above high normal 04/15/2025 2 - 7.5 [facility] Monocytes/leuk NFr Bld Auto 6.0 % 04/15/2025 [facility] Lymphocytes/leuk NFr Bld Auto 2.0 % 04/15/2025 [facility] Microcytes Bld Ql Smear Occasional 04/15/2025 [facility] Neuts Band num Bld Manual 2.0 % 04/15/2025 [facility] Segmented Neutrophil 90.0 % 04/15/2025 [facility] Monocyte, Absolute 1.0 Thou/uL 04/15/2025 0.2 - 1. 5 [facility] Helmet Cells Bld Ql Smear Occasional 04/15/2025 [facility] MCH RBC Qn Auto 31.1 pg Above high normal 04/15/2025 27 - 31 [facility] Immature Platelet Fraction 7.5 % 04/15/2025 1.2 - 8.6 [facility]CT Hgb Bld-mCnc 7.4 g/dL Below low normal 04/15/2025 11.7 - 15 .7 H[facility]CT WBC num Bld Auto 16.1 Thou/uL Above high normal 04/15/2025 4 - 11 [facility] RBC num Bld Auto 2.38 Mil/uL Below low normal 04/15/2025 4 - 5.4 HHCCT Hct VFr Bld Auto 21.4 % Below low normal 04/15/2025 35 - 47 H[facility]CT MCV RBC Auto 90.0 fL 04/15/2025 80 - 100 H[facility]CT PMV Bld Auto 12.1 fL 04/15/2025 7.5 - 12.5 [facility]CT nRBC/100 WBC Bld Auto-Rto 0.2 /100 WBC Above high normal 04/15/2025 0 - 0.1 [facility]CT Platelet num Bld Auto 23.0 Thou/uL Critically low 04/15/2025 150 - 450 [facility]CT RDW RBC Auto-Rto 15.7 % Above high normal 04/15/2025 11.5 - 14.5 H[facility]CT MCHC RBC Auto-mCnc 34.6 g/dL 04/15/2025 30 - 36 H[facility]CT nRBC num Bld Auto 0.04 Thou/uL Above high normal 04/15/2025 0 - 0.02 H[facility]CT Retics/100 RBC NFr Auto 0.8 % 04/15/2025 0.7 - 2 H[facility]CT Immature Reticulocyte Fraction 7.8 % 04/15/2025 2.3 - 15.9 HHCCT Hgb Retic Qn Auto 18.6 pg Below low normal 04/15/2025 28 - 35 H[facility]CT Retics num Auto 19.0 Thou/uL Below low normal 04/15/2025 30 - 100 H[facility]CT Phosphate SerPl-mCnc 3.8 mg/dL 04/15/2025 2.7 - 4. 5 H[facility]CT Anion Gap Bld-sCnc 17.0 Above high normal 04/15/2025 4 - 16 H[facility]CT BUN/Creat SerPl 14.0 Ratio 04/15/2025 10 - 25 HH CCT AST SerPl-cCnc 45.0 U/L 04/15/2025 10 - 50 [facility] T Sodium SerPl-sCnc 131.0 mmol/L Below low normal 04/15/2025 1 36 - 145 HHCCT ALP SerPl-cCnc 247.0 U/L Above high normal 04/15/2025 32 - 1 22 HHCCT CO2 SerPl-sCnc 22.0 mmol/L 04/15/2025 22 - 33 HH CCT Bilirub SerPl-mCnc 0.2 mg/dL 04/15/2025 0.2 - 1 HHCCT BUN SerPl-mCnc 60.0 mg/dL Above high normal 04/15/2025 8 - 2 1 HHCCT Prot SerPl-mCnc 5.0 g/dL Below low normal 04/15/2025 6.3 - 8.3 HHCCT GFR/BSA.pred SerPlBld [id number] 11.0 Below low normal 04/15/2025 59 - HHCCT Globulin Ser Calc-mCnc 2.9 g/dL 04/15/2025 1.5 - 3.9 HHCCT Potassium SerPl-sCnc 3.1 mmol/L Below low normal 04/15/2025 3.4 - 5.3 HHCCT ALT SerPl-cCnc 53.0 U/L Above high normal 04/15/2025 10 - 5 0 HHCCT Chloride SerPl-sCnc 92.0 mmol/L Below low normal 04/15/2025 98 - 107 H[facility]CT Calcium SerPl-mCnc 6.9 mg/dL Critically low 04/15/2025 8.7 - 10.5 HHCCT Albumin SerPl-mCnc 2.1 g/dL Below low normal 04/15/2025 3.5 - 5 H[facility]CT Albumin/Glob SerPl 0.7 Ratio Below low normal 04/15/2025 1 - 1.8 HHCCT Glucose SerPl-mCnc 158.0 mg/dL Above high normal 04/15/2025 65 - 99 CCT Creat SerPl-mCnc 4.3 mg/dL Above high normal 04/15/2025 0.4 - 1.1 HHCCT Magnesium SerPl-mCnc 2.0 mg/dL 04/15/2025 1.6 - 2. 7 CCT POC Glucose 181.0 mg/dL Above high normal 04/15/2025 65 - 99 CCT TOTAL RESPIRATION RATE 32.0 04/15/2025 CCT Tidal Volume 350.0 04/15/2025 [facility] Respiration Rate 30.0 04/15/2025 CCT ISTAT Sample Type Arterial 04/15/2025 [facility] ISTAT Base Excess -7 04/15/2025 [facility] ISTAT Arterial pH 7.29 Below low normal 04/15/2025 7.35 - 7.45 [facility] Delivery System VENTILATOR 04/15/2025 [facility] Minute Ventilation 9.3 04/15/2025 [facility] Blood Gas PEEP 12.0 04/15/2025 [facility] T Blood Gas Draw Site ARTERIAL LINE 04/15/2025 [facility] Suman Test NA 04/15/2025 [facility] ISTAT Arterial PCO2 40.2 mmHg 04/15/2025 32 - 45 [facility] Blood Gas Mode VAC 04/15/2025 [facility] T ISTAT O2 Saturation 97.0 % 04/15/2025 94 - 97 [facility] I[facility] Arterial PO2 102.0 mmHg Above high normal 04/15/2025 7 5 - 95 CCT ISTAT Arterial HCO3 19.2 mmol/L Below low normal 04/15/2025 22 - 26 CCT ISTAT Arterial Total CO2 20.0 mmol/L Below low normal 04/15/2025 22 - 28 [facility]CT Sodium SerPl-sCnc 131.0 mmol/L Below low normal 04/15/2025 1 36 - 145 H[facility]CT Potassium SerPl-sCnc 3.6 mmol/L 04/15/2025 3.4 - 5 .3 CCT Anion Gap Bld-sCnc 18.0 Above high normal 04/15/2025 4 - 16 [facility]CT Chloride SerPl-sCnc 93.0 mmol/L Below low normal 04/15/2025 98 - 107 H[facility]CT CO2 SerPl-sCnc 20.0 mmol/L Below low normal 04/15/2025 22 - 33 H[facility]CT GFR/BSA.pred SerPlBld [id number] 11.0 Below low normal 04/15/2025 59 - HHCCT Glucose SerPl-mCnc 182.0 mg/dL Above high normal 04/15/2025 65 - 99 H[facility]CT Calcium SerPl-mCnc 6.9 mg/dL Critically low 04/15/2025 8.7 - 10.5 H[facility]CT Creat SerPl-mCnc 4.4 mg/dL Above high normal 04/15/2025 0.4 - 1.1 H[facility]CT BUN/Creat SerPl 13.0 Ratio 04/15/2025 10 - 25 HH CCT BUN SerPl-mCnc 58.0 mg/dL Above high normal 04/15/2025 8 - 2 1 H[facility]CT POC Glucose 188.0 mg/dL Above high normal 04/14/2025 65 - 99 H[facility]CT Prothrombin time 28.3 seconds Above high normal 04/14/2025 1 0 - 13.5 HHCCT INR PPP 2.6 04/14/2025 [facility] Anticoagulant OTHER AGENT OR UNKNOWN 04/14/2025 [facility] Blood Gas Draw Site ARTERIAL LINE 04/15/2025 [facility] Tidal Volume 350.0 04/15/2025 [facility] TOTAL RESPIRATION RATE 32.0 04/15/2025 [facility] I[facility] Arterial pH 7.28 Below low normal 04/15/2025 7.35 - 7.45 CCT ISTAT Sample Type Arterial 04/15/2025 [facility] Arterial PO2 95.0 mmHg 04/15/2025 75 - 95 [facility] Delivery System VENTILATOR 04/15/2025 [facility] ISTAT Base Excess -8 04/15/2025 [facility] Blood Gas Mode VAC 04/15/2025 [facility] T ISTAT O2 Saturation 96.0 % 04/15/2025 94 - 97 [facility] Arterial FIO2 80.0 04/15/2025 CCT Suman Test Positive 04/15/2025 [facility] Blood Gas PEEP 12.0 04/15/2025 [facility] T ISTAT Arterial Total CO2 19.0 mmol/L Below low normal 04/15/2025 22 - 28 [facility] Arterial HCO3 17.6 mmol/L Below low normal 04/15/2025 22 - 26 [facility] Respiration Rate 30.0 04/15/2025 [facility] Minute Ventilation 12.9 04/15/2025 [facility] ISTAT Arterial PCO2 37.2 mmHg 04/15/2025 32 - 45 [facility] Haptoglob SerPl-mCnc 264.0 mg/dL Above high normal 30 - 200 [facility] LDH SerPl L to P-cCnc 773.0 U/L Above high normal 04/14/2025 120 - 260 [facility] POC Glucose 129.0 mg/dL Above high normal 04/14/2025 65 - 99 [facility] ISTAT Arterial Total CO2 20.0 mmol/L Below low normal 04/14/2025 22 - 28 [facility] Blood Gas Draw Site Right radial artery 04/14/2025 [facility] Arterial pH 7.23 Below low normal 04/14/2025 7.35 - 7.45 [facility] Delivery System VENTILATOR 04/14/2025 [facility] Tidal Volume 350.0 04/14/2025 [facility] Arterial PCO2 44.9 mmHg 04/14/2025 32 - 45 [facility] Blood Gas PEEP 10.0 04/14/2025 [facility] T Number of Sticks 1.0 04/14/2025 [facility] ISTAT Arterial FIO2 80.0 04/14/2025 [facility] Suman Test Positive 04/14/2025 [facility] TOTAL RESPIRATION RATE 30.0 04/14/2025 [facility] ISTAT Base Excess -8 04/14/2025 [facility] Blood Gas Mode VAC 04/14/2025 [facility] ISTAT Sample Type Arterial 04/14/2025 [facility] Minute Ventilation 10.0 04/14/2025 [facility] Arterial PO2 102.0 mmHg Above high normal 04/14/2025 7 5 - 95 [facility] Respiration Rate 30.0 04/14/2025 [facility] ISTAT Arterial HCO3 18.9 mmol/L Below low normal 04/14/2025 22 - 26 CCT ISTAT O2 Saturation 97.0 % 04/14/2025 94 - 97 [facility] O2 Saturation 98.0 % Above high normal 04/14/2025 9 4 - 97 [facility] Blood Gas PEEP 10.0 04/14/2025 [facility] T ISTAT Base Excess -11 04/14/2025 H [facility] ISTAT Arterial PO2 127.0 mmHg Above high normal 04/14/2025 7 5 - 95 [facility] Sample Type Arterial 04/14/2025 [facility] Arterial PCO2 47.0 mmHg Above high normal 04/14/2025 3 2 - 45 [facility] Number of Sticks 1.0 04/14/2025 [facility] ISTAT Arterial Total CO2 19.0 mmol/L Below low normal 04/14/2025 22 - 28 [facility] Respiration Rate 24.0 04/14/2025 [facility] Blood Gas Draw Site Right radial artery 04/14/2025 [facility] Tidal Volume 350.0 04/14/2025 [facility] Minute Ventilation 8.2 04/14/2025 [facility] TOTAL RESPIRATION RATE 28.0 04/14/2025 [facility] Suman Test Positive 04/14/2025 [facility] ISTAT Arterial FIO2 90.0 04/14/2025 [facility] ISTAT Arterial HCO3 17.1 mmol/L Below low normal 04/14/2025 22 - [facility] Blood Gas Mode VAC 04/14/2025 [facility] T Delivery System VENTILATOR 04/14/2025 [facility] ISTAT Arterial pH 7.17 Below low normal 04/14/2025 7.35 - 7.45 [facility] Delta 18.0 Above high normal 04/14/2025 - 3 [facility] Troponin T SerPl-mCnc 147.0 ng/L Critically high 04/14/2025 - 15 [facility] POC Glucose 97.0 mg/dL 04/14/2025 65 - 99 [facility] ISTAT Arterial HCO3 16.5 mmol/L Below low normal 04/14/2025 22 - 26 [facility] TOTAL RESPIRATION RATE 24.0 04/14/2025 [facility] Blood Gas PEEP 6.0 04/14/2025 [facility] T MDRN Aware Yes 04/14/2025 [facility] Number of Sticks 1.0 04/14/2025 CCT Delivery System VENTILATOR 04/14/2025 [facility] ISTAT Arterial PO2 63.0 mmHg Below low normal 04/14/2025 75 - 95 [facility] Arterial FIO2 70.0 04/14/2025 [facility] Minute Ventilation 8.6 04/14/2025 [facility] ISTAT Base Excess -12 04/14/2025 [facility] ISTAT O2 Saturation 84.0 % Below low normal 04/14/2025 94 - 97 [facility] Arterial pH 7.14 Below low normal 04/14/2025 7.35 - 7.45 [facility] Arterial PCO2 48.3 mmHg Above high normal 04/14/2025 3 2 - 45 [facility] Respiration Rate 22.0 04/14/2025 [facility] ISTAT Arterial Total CO2 18.0 mmol/L Below low normal 04/14/2025 22 - 28 [facility] Suman Test Positive 04/14/2025 [facility] Sample Type Arterial 04/14/2025 [facility] Blood Gas Mode VAC 04/14/2025 [facility] T Blood Gas Draw Site Right radial artery 04/14/2025 [facility] Tidal Volume 400.0 04/14/2025 [facility] Lipase SerPl-cCnc 10.0 U/L Below low normal 04/14/2025 13 - 60 CCT Hgb Bld-mCnc 7.7 g/dL Below low normal 04/14/2025 11.7 - 15 .7 CCT WBC num Bld Auto 13.8 Thou/uL Above high normal 04/14/2025 4 - 11 [facility] nRBC/100 WBC Bld Auto-Rto 0.2 /100 WBC Above high normal 04/14/2025 0 - 0.1 [facility] nRBC num Bld Auto 0.03 Thou/uL Above high normal 04/14/2025 0 - 0.02 [facility] PMV Bld Auto 11.7 fL 04/14/2025 7.5 - 12.5 CCT RBC num Bld Auto 2.54 Mil/uL Below low normal 04/14/2025 4 - 5.4 [facility] RDW RBC Auto-Rto 16.0 % Above high normal 04/14/2025 11.5 - 14.5 [facility] Hct VFr Bld Auto 23.8 % Below low normal 04/14/2025 35 - 47 [facility] MCV RBC Auto 94.0 fL 04/14/2025 80 - 100 [facility] Platelet num Bld Auto 48.0 Thou/uL Critically low 04/14/2025 150 - 450 [facility] Immature Platelet Fraction 4.6 % 04/14/2025 1.2 - 8.6 [facility] MCH RBC Qn Auto 30.3 pg 04/14/2025 27 - [address] MCHC RBC Auto-mCnc 32.4 g/dL 04/14/2025 30 - 36 [facility] ALP SerPl-cCnc 260.0 U/L Above high normal 04/14/2025 32 - 1 22 [facility] Chloride SerPl-sCnc 92.0 mmol/L Below low normal 04/14/2025 98 - 107 [facility] Bilirub SerPl-mCnc 0.2 mg/dL 04/14/2025 0.2 - 1 [facility] Sodium SerPl-sCnc 127.0 mmol/L Below low normal 04/14/2025 1 36 - 145 [facility] CO2 SerPl-sCnc 17.0 mmol/L Below low normal 04/14/2025 22 - 33 [facility] ALT SerPl-cCnc 62.0 U/L Above high normal 04/14/2025 10 - 5 0 [facility] BUN SerPl-mCnc 60.0 mg/dL Above high normal 04/14/2025 8 - 2 1 [facility] AST SerPl-cCnc 61.0 U/L Above high normal 04/14/2025 10 - 5 0 [facility] Globulin Ser Calc-mCnc 2.6 g/dL 04/14/2025 1.5 - 3.9 [facility] Glucose SerPl-mCnc 99.0 mg/dL 04/14/2025 65 - 99 [facility] Potassium SerPl-sCnc 3.9 mmol/L 04/14/2025 3.4 - 5 .3 [facility] Albumin/Glob SerPl 0.8 Ratio Below low normal 04/14/2025 1 - 1.8 [facility] Albumin SerPl-mCnc 2.2 g/dL Below low normal 04/14/2025 3.5 - 5 [facility] Calcium SerPl-mCnc 6.8 mg/dL Critically low 04/14/2025 8.7 - 10.5 [facility] GFR/BSA.pred SerPlBld SEE-[id number] 10.0 Below low normal 04/14/2025 59 - HHCCT Creat SerPl-mCnc 4.6 mg/dL Above high normal 04/14/2025 0.4 - 1.1 [facility] Prot SerPl-mCnc 4.8 g/dL Below low normal 04/14/2025 6.3 - 8.3 [facility] BUN/Creat SerPl 13.0 Ratio 04/14/2025 10 - 25 HH CCT Anion Gap Bld-sCnc 18.0 Above high normal 04/14/2025 4 - 16 [facility] Magnesium SerPl-mCnc 1.9 mg/dL 04/14/2025 1.6 - 2. 7 [facility] Phosphate SerPl-mCnc 4.1 mg/dL 04/14/2025 2.7 - 4. 5 [facility] POC Glucose 104.0 mg/dL Above high normal 04/14/2025 65 - 99 [facility] MCV RBC Auto 95.0 fL 04/14/2025 80 - 100 [facility] WBC num Bld Auto 9.0 Thou/uL 04/14/2025 4 - 11 [facility] Lymphocytes num Bld Auto 0.5 Thou/uL Below low normal 04/14/2025 1.5 - 4.5 [facility] Hgb Bld-mCnc 7.9 g/dL Below low normal 04/14/2025 11.7 - 15 .7 H[facility] Hct VFr Bld Auto 24.5 % Below low normal 04/14/2025 35 - 47 [facility] PMV Bld Auto 10.9 fL 04/14/2025 7.5 - 12.5 [facility] Monocyte, Absolute 0.2 Thou/uL 04/14/2025 0.2 - 1. 5 [facility] Segmented Neutrophil 61.0 % 04/14/2025 [facility] MCH RBC Qn Auto 30.5 pg 04/14/2025 27 - [address] Myelocytes/leuk NFr Bld Manual 2.0 % 04/14/2025 [facility] Platelet num Bld Auto 64.0 Thou/uL Below low normal 04/14/20 25 150 - 450 [facility] Neutrophils num Bld Auto 7.9 Thou/uL Above high normal 04/14/2025 2 - 7.5 [facility] Monocytes/leuk NFr Bld Auto 2.0 % 04/14/2025 [facility] MCHC RBC Auto-mCnc 32.2 g/dL 04/14/2025 30 - 36 [facility]CT Metamyelocytes num Bld Manual 0.2 Thou/uL Above high normal 04/14/2025 - CCT Neuts Band num Bld Manual 27.0 % 04/14/2025 [facility] RBC num Bld Auto 2.59 Mil/uL Below low normal 04/14/2025 4 - 5.4 [facility] Myelocytes num Bld Manual 0.2 Thou/uL Above high normal 04/14/2025 - CCT RDW RBC Auto-Rto 16.2 % Above high normal 04/14/2025 11.5 - 14.5 [facility] Metamyelocytes/leuk NFr Bld Manual 2.0 % 04/14/2025 [facility] Lymphocytes/leuk NFr Bld Auto 6.0 % 04/14/2025 [facility] Phosphate SerPl-mCnc 4.5 mg/dL 04/14/2025 2.7 - 4. 5 [facility] BUN SerPl-mCnc 63.0 mg/dL Above high normal 04/14/2025 8 - 2 1 [facility]CT Potassium SerPl-sCnc 3.7 mmol/L 04/14/2025 3.4 - 5 .3 H[facility]CT BUN/Creat SerPl 13.0 Ratio 04/14/2025 10 - 25 HH CCT CO2 SerPl-sCnc 16.0 mmol/L Below low normal 04/14/2025 22 - 33 [facility] Anion Gap Bld-sCnc 18.0 Above high normal 04/14/2025 4 - 16 H[facility]CT Glucose SerPl-mCnc 89.0 mg/dL 04/14/2025 65 - 99 H[facility]CT Creat SerPl-mCnc 4.8 mg/dL Above high normal 04/14/2025 0.4 - 1.1 H[facility]CT Calcium SerPl-mCnc 6.5 mg/dL Critically low 04/14/2025 8.7 - 10.5 H[facility]CT GFR/BSA.pred SerPlBld [id number] 10.0 Below low normal 04/14/2025 59 - HHCCT Chloride SerPl-sCnc 94.0 mmol/L Below low normal 04/14/2025 98 - 107 [facility] Sodium SerPl-sCnc 128.0 mmol/L Below low normal 04/14/2025 1 36 - 145 [facility] Magnesium SerPl-mCnc 1.6 mg/dL 04/14/2025 1.6 - 2. 7 [facility] Delta NO CHANGE 04/14/2025 - 3 [facility] Troponin T SerPl-mCnc 165.0 ng/L Critically high 04/14/2025 - 15 [facility] Lactate SerPl-sCnc 1.4 mmol/L 04/14/2025 0.5 - 1.9 [facility] Tidal Volume 400.0 04/14/2025 [facility] Number of Sticks 1.0 04/14/2025 CCT Delivery System VENTILATOR 04/14/2025 CCT ISTAT Arterial FIO2 100.0 04/14/2025 [facility] Arterial PCO2 40.5 mmHg 04/14/2025 32 - 45 CCT ISTAT Arterial HCO3 15.0 mmol/L Below low normal 04/14/2025 22 - 26 CCT TOTAL RESPIRATION RATE 26.0 04/14/2025 [facility] Base Excess -13 04/14/2025 [facility] Blood Gas Draw Site Right radial artery 04/14/2025 [facility] Arterial pH 7.18 Below low normal 04/14/2025 7.35 - 7.45 CCT Respiration Rate 22.0 04/14/2025 CCT Suman Test Positive 04/14/2025 [facility] I[facility] Sample Type Arterial 04/14/2025 [facility] Minute Ventilation 9.2 04/14/2025 [facility] Blood Gas Mode VAC 04/14/2025 [facility] T Blood Gas PEEP 6.0 04/14/2025 [facility] T ISTAT Arterial PO2 185.0 mmHg Above high normal 04/14/2025 7 5 - 95 CCT ISTAT Arterial Total CO2 16.0 mmol/L Below low normal 04/14/2025 22 - 28 [facility] MDRN Aware Yes 04/14/2025 CCT ISTAT O2 Saturation 99.0 % Above high normal 04/14/2025 9 4 - 97 [facility] S pneum Ag Ur Ql Presumptive Negative 04/14/2025 - CCT L pneumo Ag Spec Ql Presumptive Negative 04/14/2025 - [facility] Glucose 102.0 mg/dL Above high normal 04/13/2025 65 - 99 CCT Troponin T SerPl-mCnc 165.0 ng/L Critically high 04/13/2025 - 15 [facility] Delta NO PREVIOUS RESULT 04/13/2025 - 3 [facility] Lactate SerPl-sCnc 2.0 mmol/L Above high normal 04/13/2025 0 .5 - 1.9 CCT POC Glucose 145.0 mg/dL Above high normal 04/13/2025 65 - 99 [facility] ISTAT Base Excess -13 04/13/2025 [facility] Respiration Rate 22.0 04/13/2025 CCT ISTAT Arterial PCO2 38.3 mmHg 04/13/2025 32 - 45 [facility] Tidal Volume 400.0 04/13/2025 [facility] Blood Gas Draw Site Right radial artery 04/13/2025 [facility] Minute Ventilation 8.1 04/13/2025 [facility] ISTAT O2 Saturation 95.0 % 04/13/2025 94 - 97 [facility] I[facility] Sample Type Arterial 04/13/2025 [facility] TOTAL RESPIRATION RATE 24.0 04/13/2025 [facility] ISTAT Arterial pH 7.19 Below low normal 04/13/2025 7.35 - 7.45 [facility] ISTAT Arterial PO2 95.0 mmHg 04/13/2025 75 - 95 [facility] Blood Gas Mode VAC 04/13/2025 [facility] T ISTAT Arterial Total CO2 16.0 mmol/L Below low normal 04/13/2025 22 - 28 [facility] Delivery System VENTILATOR 04/13/2025 [facility] Suman Test Positive 04/13/2025 [facility] Blood Gas PEEP 6.0 04/13/2025 [facility] T ISTAT Arterial HCO3 14.7 mmol/L Below low normal 04/13/2025 22 - 26 [facility] Glucose 153.0 mg/dL Above high normal 04/13/2025 65 - 99 [facility] Blood Gas Mode VAC 04/13/2025 [facility] T ISTAT Base Excess -11 04/13/2025 [facility] Blood Gas Draw Site Right radial artery 04/13/2025 [facility] Blood Gas PEEP 6.0 04/13/2025 [facility] T ISTAT Arterial FIO2 100.0 04/13/2025 [facility] I[facility] Sample Type Arterial 04/13/2025 H [facility] Respiration Rate 18.0 04/13/2025 [facility] ISTAT Arterial Total CO2 18.0 mmol/L Below low normal 04/13/2025 22 - [facility] Arterial pH 7.19 Below low normal 04/13/2025 7.35 - 7.45 [facility] TOTAL RESPIRATION RATE 18.0 04/13/2025 [facility] Minute Ventilation 6.4 04/13/2025 [facility] ISTAT Arterial HCO3 16.9 mmol/L Below low normal 04/13/2025 22 - 26 [facility] Tidal Volume 400.0 04/13/2025 [facility] ISTAT Arterial PCO2 44.2 mmHg 04/13/2025 32 - 45 [facility] Arterial PO2 326.0 mmHg Above high normal 04/13/2025 7 5 - 95 [facility] Delivery System VENTILATOR 04/13/2025 CCT Suman Test NA 04/13/2025 [facility] O2 Saturation 100.0 % Above high normal 04/13/2025 9 4 - 97 [facility] Monocyte, Absolute 0.5 Thou/uL 04/13/2025 0.2 - 1. 5 [facility] [place] Cells Bld Ql Smear Present 04/13/2025 [facility] Lymphocytes num Bld Auto 0.8 Thou/uL Below low normal 04/13/2025 1.5 - 4.5 [facility] Macrocytes Bld Ql Smear Occasional 04/13/2025 [facility] Lymphocytes/leuk NFr Bld Auto 5.0 % 04/13/2025 [facility] Neutrophils num Bld Auto 15.0 Thou/uL Above high normal 04/13/2025 2 - 7.5 [facility] Segmented Neutrophil 87.0 % 04/13/2025 [facility] Helmet Cells Bld Ql Smear Occasional 04/13/2025 [facility] Monocytes/leuk NFr Bld Auto 3.0 % 04/13/2025 [facility] Neuts Band num Bld Manual 5.0 % 04/13/2025 [facility] Hgb Bld-mCnc 8.1 g/dL Below low normal 04/13/2025 11.7 - 15 .7 [facility] PMV Bld Auto 10.1 fL 04/13/2025 7.5 - 12.5 [facility] WBC num Bld Auto 16.3 Thou/uL Above high normal 04/13/2025 4 - 11 [facility] nRBC num Bld Auto 0.02 Thou/uL 04/13/2025 0 - 0.02 [facility] Platelet num Bld Auto 113.0 Thou/uL Below low normal 025 150 - 450 [facility] MCHC RBC Auto-mCnc 32.0 g/dL 04/13/2025 30 - 36 [facility] Hct VFr Bld Auto 25.3 % Below low normal 04/13/2025 35 - 47 [facility] nRBC/100 WBC Bld Auto-Rto 0.1 /100 WBC 04/13/2025 0 - 0.1 [facility] RDW RBC Auto-Rto 16.6 % Above high normal 04/13/2025 11.5 - 14.5 [facility] RBC num Bld Auto 2.63 Mil/uL Below low normal 04/13/2025 4 - 5.4 [facility] MCV RBC Auto 96.0 fL 04/13/2025 80 - 100 [facility] MCH RBC Qn Auto 30.8 pg 04/13/2025 27 - [address] Trigl SerPl-mCnc 407.0 mg/dL Above high normal 04/13/2025 - 150 [facility] Phosphate SerPl-mCnc 4.4 mg/dL 04/13/2025 2.7 - 4. 5 [facility] Magnesium SerPl-mCnc 1.7 mg/dL 04/13/2025 1.6 - 2. 7 [facility] BUN SerPl-mCnc 62.0 mg/dL Above high normal 04/13/2025 8 - 2 1 [facility] Anion Gap Bld-sCnc 19.0 Above high normal 04/13/2025 4 - 16 [facility] Chloride SerPl-sCnc 98.0 mmol/L 04/13/2025 98 - 10 7 [facility] Calcium SerPl-mCnc 6.6 mg/dL Critically low 04/13/2025 8.7 - 10.5 [facility] Glucose SerPl-mCnc 132.0 mg/dL Above high normal 04/13/2025 65 - 99 [facility] Potassium SerPl-sCnc 4.4 mmol/L 04/13/2025 3.4 - 5 .3 [facility] CO2 SerPl-sCnc 14.0 mmol/L Below low normal 04/13/2025 22 - 33 [facility] Creat SerPl-mCnc 4.7 mg/dL Above high normal 04/13/2025 0.4 - 1.1 [facility] Sodium SerPl-sCnc 131.0 mmol/L Below low normal 04/13/2025 1 36 - 145 H[facility]CT GFR/BSA.pred SerPlBld TFR-FKN-BnXWsh 10.0 Below low normal 04/13/2025 59 - H[facility]CT BUN/Creat SerPl 13.0 Ratio 04/13/2025 10 - 25 HH CCT POC Glucose 107.0 mg/dL Above high normal 04/13/2025 65 - 99 H[facility]CT POC Glucose 66.0 mg/dL 04/13/2025 65 - 99 [facility] Ca-I SerPl-mCnc 0.8 mmol/L Below low normal 04/13/2025 1.17 - 1.33 H[facility]CT EAEC Damián plas aggR+aatA St JACQUELYN+non-prb Not Detected 04/13/2025 - CCT Cryptosp DNA XXX Ql PCR Not Detected 04/13/2025 - CCT Shigella sp+EIEC ipaH St JACQUELYN+non-probe Not Detected 04/13/2025 - CCT Campy sp DNA.diarrhea Stl Ql PCR Not Detected 04/13/2025 - CCT Yersinia DNA XXX PCR Not Detected 04/13/2025 - CCT EPEC eae gene Stl Ql JACQUELYN+non-probe Detected Abnormal 04/13/2025 - CCT V cholerae DNA XXX Ql PCR Not Detected 04/13/2025 - [facility] E histolyt DNA XXX Ql PCR Not Detected 04/13/2025 - [facility] G lamblia DNA XXX Ql PCR Not Detected 04/13/2025 - [facility] RV RNA XXX Ql PCR Not Detected 04/13/2025 - [facility] C cayetanensis DNA XXX Ql PCR Not Detected 04/13/2025 - [facility] Salmonella DNA XXX Ql PCR Not Detected 04/13/2025 - [facility] P shigelloides DNA Stl Ql PCR Not Detected 04/13/2025 - [facility] Sapovirus RNA XXX Ql PCR Not Detected 04/13/2025 - [facility] Norovirus RNA XXX Ql PCR Norovirus is no longer tested by the [facility] panel due to low specificity and a high false positive rate. Order the Norovirus PCR specifically if clinically indicated. 04/13/2025 [facility] ETEC ltA+st1a+st1b tox St JACQUELYN+non-probe Not Detected 04/13/2025 - [facility] EC stx1+stx2 genes Stl Ql JACQUELYN+non-probe Not Detected 04/13/2025 - [facility] HAdV DNA XXX Ql PCR Not Detected 04/13/2025 - [facility] HAstV RNA XXX Ql PCR Not Detected 04/13/2025 - [facility] Vibrio DNA XXX PCR Not Detected 04/13/2025 - [facility] C dif Tox gens Stl Ql PCR Presumptive Negative 04/13/2025 - [facility] POC Glucose 63.0 mg/dL Below low normal 04/13/2025 65 - 99 CCT ISTAT O2 Saturation 93.0 % Below low normal 04/13/2025 94 - 97 CCT ISTAT Arterial PCO2 30.2 mmHg Below low normal 04/13/2025 32 - 45 CCT ISTAT Base Excess -9 04/13/2025 H [facility] ISTAT Sample Type Arterial 04/13/2025 H [facility] ISTAT Arterial HCO3 15.7 mmol/L Below low normal 04/13/2025 22 - 26 [facility] Blood Gas Draw Site Right radial artery 04/13/2025 [facility] ISTAT Arterial FIO2 75.0 04/13/2025 CCT ISTAT Arterial Total CO2 17.0 mmol/L Below low normal 04/13/2025 22 - 28 [facility] ISTAT Arterial pH 7.32 Below low normal 04/13/2025 7.35 - 7.45 [facility] Delivery System High Flow NC 04/13/2025 CCT Liter Flow 25.0 04/13/2025 [facility] Number of Sticks 1.0 04/13/2025 CCT Suman Test Positive 04/13/2025 [facility] MDRN Aware Yes 04/13/2025 [facility] ISTAT Arterial PO2 73.0 mmHg Below low normal 04/13/2025 75 - 95 [facility] Delivery System ROOM AIR 04/13/[address] [facility] [address] Blood Gas Draw Site VENOUS 04/13/2025 [facility] ISTAT Venous PO2 35.0 mmHg 04/13/2025 0 - 60 HH CCT Suman Test NA 04/13/2025 [facility] ISTAT Base Excess -10 04/13/2025 [facility] VENOUS PCO2 33.9 mmHg Below low normal 04/13/2025 35 - 50 [facility] ISTAT Venous TCO2 17.0 mmol/L Below low normal 04/13/2025 23 - 29 [facility] ISTAT Sample Type VENOUS 04/13/2025 [facility] ISTAT Venous pH 7.28 Below low normal 04/13/2025 7.33 - 7.43 [facility] MDRN Aware Yes 04/13/2025 [facility] Venous O2 Saturation, POC 61.0 % 04/13/2025 60 - 75 CCT ISTAT Venous HCO3 15.9 mmol/L Below low normal 04/13/2025 23 - 28 [facility] I[facility] Venous FIO2 21.0 04/13/2025 [facility] GFR/BSA.pred SerPlBld NAR-TFW-MqTMss 10.0 Below low normal 04/13/2025 59 - [facility]CT Sodium SerPl-sCnc 136.0 mmol/L 04/13/2025 136 - 14 5 [facility] Creat SerPl-mCnc 4.7 mg/dL Above high normal 04/13/2025 0.4 - 1.1 [facility] Anion Gap Bld-sCnc 20.0 Above high normal 04/13/2025 4 - 16 [facility]CT Potassium SerPl-sCnc 4.0 mmol/L 04/13/2025 3.4 - 5 .3 [facility]CT BUN/Creat SerPl 13.0 Ratio 04/13/2025 10 - 25 HH CCT Glucose SerPl-mCnc 85.0 mg/dL 04/13/2025 65 - 99 [facility] Chloride SerPl-sCnc 101.0 mmol/L 04/13/2025 98 - 1 07 [facility] BUN SerPl-mCnc 60.0 mg/dL Above high normal 04/13/2025 8 - 2 1 [facility] Calcium SerPl-mCnc 6.6 mg/dL Critically low 04/13/2025 8.7 - 10.5 [facility]CT CO2 SerPl-sCnc 15.0 mmol/L Below low normal 04/13/2025 22 - 33 [facility] ISTAT VENOUS PCO2 31.6 mmHg Below low normal 04/12/2025 35 - 50 H[facility]CT Suman Test NA 04/12/2025 [facility] ISTAT Venous PO2 30.0 mmHg 04/12/2025 0 - 60 HH CCT Venous O2 Saturation, POC 45.0 % Below low normal 04/12/2025 60 - 75 [facility] ISTAT Sample Type VENOUS 04/12/2025 H [facility] ISTAT Base Excess -15 04/12/2025 [facility] Blood Gas Draw Site VENOUS 04/12/2025 [facility] ISTAT Venous HCO3 12.0 mmol/L Below low normal 04/12/2025 23 - 28 [facility] Delivery System Nasal can 04/12/[address] [facility] [address] Liter Flow 1.0 04/12/2025 H[facility]CT ISTAT Venous pH 7.19 Below low normal 04/12/2025 7.33 - 7.43 [facility] ISTAT Venous TCO2 13.0 mmol/L Below low normal 04/12/2025 23 - 29 H[facility]CT WBC num/area UrnS HPF >25.0 per hpf Above high normal 2024 0 - 4 [facility] Bacteria UrnS Ql Micro Present Abnormal 04/12/2025 - CCT WBC clumps Ur Ql Auto Present Abnormal 04/12/2025 - CCT RBC num/area UrnS HPF >25.0 per hpf Above high normal 2024 0 - 4 [facility] Squamous num/area UrnS HPF 1.0 PER HPF 04/12/2025 [facility] Crystals UrnS Ql Micro Absent 04/12/2025 [facility] Glucose Ur Strip-mCnc Negative 04/12/2025 - [facility] Bilirub Ur Strip-mCnc Negative 04/12/2025 - [facility] Leukocyte esterase Ur Ql Strip Large Abnormal 04/12/2025 - [facility] pH Ur Strip 7.0 04/12/2025 5 - 8 [facility] Prot Ur Strip-mCnc Large (>=500 mg/dL) Abnormal 04/12/2025 - CCT Hgb Ur Ql Strip Moderate Abnormal 04/12/2025 - [facility] CT Ketones Ur Strip-mCnc Negative 04/12/2025 - [facility] Sp Gr Ur Strip 1.011 04/12/2025 1.005 - 1.03 [facility] Clarity Ur Cloudy 04/12/2025 H[facility] Nitrite Ur Ql Strip Negative 04/12/2025 - [facility] Color Ur Dark yellow 04/12/2025 [facility] Troponin T SerPl-mCnc 78.0 ng/L Critically high 04/12/2025 - [facility] Delta 9.0 Above high normal 04/12/2025 - 3 H HCCT Vancomycin SerPl-mCnc 43.0 mg/L 04/12/2025 HHCCT Time of last dose Information not given 04/12/2025 H[facility] Delta NO PREVIOUS RESULT 04/12/2025 - 3 [facility] Troponin T SerPl-mCnc 69.0 ng/L Critically high 04/12/2025 - 15 [facility] ISTAT Venous HCO3 10.7 mmol/L Below low normal 04/12/2025 23 - 28 H[facility]CT MDRN Aware Yes 04/12/2025 H[facility]CT Suman Test NA 04/12/2025 HHCCT Venous O2 Saturation, POC 51.0 % Below low normal 04/12/2025 60 - 75 [facility]CT ISTAT Venous TCO2 12.0 mmol/L Below low normal 04/12/2025 23 - 29 [facility] ISTAT Venous FIO2 21.0 04/12/2025 H [facility] ISTAT Venous PO2 34.0 mmHg 04/12/2025 0 - 60 HH CCT ISTAT Venous pH 7.16 Below low normal 04/12/2025 7.33 - 7.43 [facility] Delivery System ROOM AIR 04/12/[address] ISTAT Sample Type VENOUS 04/12/2025 H [facility] ISTAT VENOUS PCO2 30.4 mmHg Below low normal 04/12/2025 35 - 50 [facility]CT Blood Gas Draw Site VENOUS 04/12/2025 H[facility]CT ISTAT Base Excess -17 04/12/2025 H [facility]CT Result Not Detected 04/12/2025 - [facility]CT BUN/Creat SerPl 11.0 Ratio 04/12/2025 10 - 25 HH CCT Calcium SerPl-mCnc 7.3 mg/dL Below low normal 04/12/2025 8.7 - 10.5 H[facility]CT Anion Gap Bld-sCnc 20.0 Above high normal 04/12/2025 4 - 16 H[facility]CT BUN SerPl-mCnc 46.0 mg/dL Above high normal 04/12/2025 8 - 2 1 H[facility]CT Prot SerPl-mCnc 5.3 g/dL Below low normal 04/12/2025 6.3 - 8.3 HHCCT ALT SerPl-cCnc 69.0 U/L Above high normal 04/12/2025 10 - 5 0 HHCCT ALP SerPl-cCnc 141.0 U/L Above high normal 04/12/2025 32 - 1 22 H[facility]CT CO2 SerPl-sCnc 11.0 mmol/L Below low normal 04/12/2025 22 - 33 H[facility]CT Potassium SerPl-sCnc 4.2 mmol/L 04/12/2025 3.4 - 5 .3 H[facility]CT Albumin SerPl-mCnc 2.9 g/dL Below low normal 04/12/2025 3.5 - 5 HHCCT GFR/BSA.pred SerPlBld QNU-[id number]-WeKZfe 11.0 Below low normal 04/12/2025 59 - HHCCT Glucose SerPl-mCnc 81.0 mg/dL 04/12/2025 65 - 99 HHCCT AST SerPl-cCnc 119.0 U/L Above high normal 04/12/2025 10 - 5 0 H[facility]CT Chloride SerPl-sCnc 103.0 mmol/L 04/12/2025 98 - 1 07 H[facility]CT Sodium SerPl-sCnc 134.0 mmol/L Below low normal 04/12/2025 1 36 - 145 H[facility]CT Albumin/Glob SerPl 1.2 Ratio 04/12/2025 1 - 1.8 HHCCT Bilirub SerPl-mCnc 0.2 mg/dL 04/12/2025 0.2 - 1 [facility]CT Globulin Ser Calc-mCnc 2.4 g/dL 04/12/2025 1.5 - 3.9 H[facility]CT Creat SerPl-mCnc 4.3 mg/dL Above high normal 04/12/2025 0.4 - 1.1 HHCCT Phosphate SerPl-mCnc 4.0 mg/dL 04/12/2025 2.7 - 4. 5 H[facility]CT Magnesium SerPl-mCnc 1.6 mg/dL 04/12/2025 1.6 - 2. 7 H[facility]CT Lactate SerPl-sCnc 2.0 mmol/L Above high normal 04/12/2025 0 .5 - 1.9 HHCCT MCV RBC Auto 96.0 fL 04/12/2025 80 - 100 H[facility]CT MCHC RBC Auto-mCnc 31.3 g/dL 04/12/2025 30 - 36 H[facility]CT MCH RBC Qn Auto 30.2 pg 04/12/2025 27 - [address] PMV Bld Auto 9.6 fL 04/12/2025 7.5 - 12.5 HHCCT Hgb Bld-mCnc 8.3 g/dL Below low normal 04/12/2025 11.7 - 15 .7 H[facility]CT RBC num Bld Auto 2.75 Mil/uL Below low normal 04/12/2025 4 - 5.4 HHCCT RDW RBC Auto-Rto 16.4 % Above high normal 04/12/2025 11.5 - 14.5 HHCCT Hct VFr Bld Auto 26.5 % Below low normal 04/12/2025 35 - 47 HHCCT WBC num Bld Auto 7.9 Thou/uL 04/12/2025 4 - 11 H[facility]CT Platelet num Bld Auto 207.0 Thou/uL 04/12/2025 150 - 450 H[facility]CT Encounters Encounter Type Encounter Reason Primary Diagnosis Location Date [facility] 04/16/2025 [facility] 04/15/2025 Inpatient Acidosis, unspecified Acidosis, unspecified [facility] III 04/12/2025 Ambulatory [facility] 04/12/2025 [facility] 04/12/2025 Ambulatory [facility] 04/12/2025 Care Team Organization Name Specialty Phone Email Start Date End [facility] 04/22/2025 [facility] III 04/15/2025 [facility]YM III [facility] MURPHY Primary Care 04/12/2025 [facility] 04/12/2025
--- OUTSIDE RECORDS SUMMARY | 2025-05-10 18:13 | XMS_ITS | Clinical Summary ---
Author Organization [facility] Address [address] [place], [place] [id number] Phone Care Team Providers Care Open Claims Representative Name Role Phone Abraham Martins CNP Unavailable [phone] Unknown, Unknown Primary Care Provider Elvis shahid [...] Adult Td,Tdap Booster 12/14/2024 12/14/2014 , 06/21/2010 INFLUENZA VACCINE (#1) 2025 HEPATITIS A VACCINES Aged Out No long [...] Medical Devices Not on file Care Teams Open Claims Representative Relationship Specialty Start Date End Date Unknown, Unknown, [address] [facility], [address] [place] [address] PCP - General 02/14/20 Abraham Martins CNP [address] [place] [address], [address] [place] [address] Historical LMR Provider 06/22/17 Additional Source Comments The information contained in this document represents components of the legal health record. It is not the complete legal health record.[facility]
--- NOTE | 2025-05-10 19:58 | PC.NURSE ---
labs drawn by diesel maintenance technician, daughter at bedside, medicated per OCT. Pt resting, respirations even and unlabored.
--- NOTE | 2025-05-10 20:28 | PM.IMHP ---
History of Present Illness Date of Service: 05/10/25 Attending physician on admission: Maury Cosby Chief Complaint: abnormal labs Patient is a 60-year-old female with a past medical history significant for history of vaginal cancer in remission, CKD, mood disorder and recent admission at [facility] ICU for OTTO and urosepsis. The patient left AMA about 2 weeks ago after receiving pressors and IV fluids and downgrading in the hospital. She was receiving IV antibiotics but was not prescribed any oral antibiotics when she left against medical advice. The patient followed up with her primary care doctor this week and was recommended to report to the emergency department due to abnormal labs. Her creatinine is still very elevated at 2.8, hemoglobin 7.2, hematocrit 23.1. On discharge from [facility] the patient did have a hemoglobin of 6.2 and creatinine was 2. Her baseline creatinine about 1 year ago was 1.2. The patient reports some generalized weakness and shortness of breath. No urinary symptoms or abdominal pain. No obvious melena or hematochezia. Review of Systems Constitutional: Constitutional: Denies body ache(s), Denies chills, Denies fatigue, Denies fever(s) and Denies headache(s) Eyes: Eyes: Denies change in vision ENT: Denies headache(s), Denies nasal congestion and Denies sore throat Cardiovascular: Cardiovascular: Denies chest pain, Denies rapid heart rate, Denies leg edema, Denies lightheadedness and Reports dyspnea Respiratory: Respiratory: Denies chest congestion, Denies cough, Reports dyspnea and Denies wheezing Gastrointestinal: Gastrointestinal: Denies abdominal pain, Denies nausea and Denies vomiting Genitourinary: Genitourinary: Denies dysuria and Denies urinary urgency Musculoskeletal: Musculoskeletal: Denies back pain and Denies myalgias Integumentary/Breasts: Skin/Breast: Denies rash Neurologic: Denies confusion and Denies headache(s) Psychiatric: Psychiatric: Denies confusion Endocrine: Endocrine: Denies fatigue Hematologic/Lymphatic: Hematologic/Lymphatic: Denies easy bleeding and Denies easy bruising Allergic/Immunologic: Allergic/Immunologic: Denies wheezing [facility] Medical History Mood disorder History of cancer of vagina CKD (chronic kidney disease) stage 4, GFR 15-29 ml/min Functional capacity: independent ambulation Social History Patient Tobacco Use Status: Tobacco use Unknown Advance Directives: No Advance Directives Information Provided: No Nutrition Risks: No Nutritional Risk Meds Allergies Allergy/AdvReac Type Severity Reaction Status Date / Time No Known Allergies Allergy Verified 05/10/25 11:07 Active Medications: Current Medications Acetaminophen (Acetaminophen 325 Mg Tablet) 975 mg PO Q6H PRN PRN Reason: Pain, Mild 1-3,fever,headache Calcium Carbonate (Calcium Carbonate 750 Mg Tab.Chew) 750 mg PO Q4H PRN PRN Reason: Heartburn Magnesium Hydroxide (Milk Of Magnesia 30 Ml Oral.Susp) 30 ml PO DAILY PRN PRN Reason: Constipation Melatonin (Melatonin 3 Mg Tablet) 6 mg PO BEDTIME PRN PRN Reason: Insomnia Ondansetron HCl (Ondansetron Hcl 4 Mg/2 Ml Vial) 4 mg IVPUSH Q8H PRN PRN Reason: Nausea and Vomiting Oxycodone HCl (Oxycodone Hcl Immed Release 5 Mg Tablet) 5 mg PO Q6H PRN PRN Reason: Pain, Severe (Pain Scale 7-10) Sodium Chloride (0.9 % Sodium Chloride Flush 3 Ml Syringe) 3 ml IVFLUSH QSHIFT [facility] Tramadol HCl (Tramadol Hcl 50 Mg Tablet) 50 mg PO Q6H PRN PRN Reason: Pain, Moderate(Pain Scale 4-6) Home Medications ?Medication ?Instructions ?Recorded ?Confirmed ?Last Taken ?Type apixaban 5 mg tablet (Eliquis) 5 mg PO BID 03/03/24 Unknown History bupropion HCl 150 mg tablet,12 hr 150 mg PO BID 03/03/24 Unknown History sustained-release gabapentin 300 mg capsule 300 mg PO TID 03/03/24 Unknown History Physical Exam Vital Signs and Narrative: Vital Signs: Last Vital Signs Temp 98 F 05/10/25 20:17 Pulse 98 05/10/25 20:17 Resp 16 05/10/25 20:17 BP 125/68 05/10/25 20:17 Pulse Ox 98 05/10/25 20:17 O2 Del Method Room Air 05/10/25 20:17 BMI result Body Mass Index 24.2 General: AOx3, no acute distress Resp: CTA bilaterally CVS: S1, S2, RRR GI: +BS, NT, no distention Skin: Warm, dry Neuro: Cranial nerves II-XII grossly intact bilaterally. Motor grossly intact bilaterally Extremities: No pitting edema Psych: Appropriate affect Const: General: No confusion Orientation/consciousness: No confusion Neuro: General: No confusion Results Labs 05/10/25 11:30 05/10/25 11:30 Labs: Laboratory Results - last 24 hr 05/10/25 05/10/25 05/10/25 11:30 16:53 16:54 MCV 98.5 H MCH 30.3 MCHC 30.8 L RDW 16.8 H Plt Count 549 H D MPV 8.5 L Immature Gran % (Auto) 1.0 H Neut % (Auto) 77.4 H Lymph % (Auto) 9.4 L [place] % (Auto) 9.6 Eos % (Auto) 1.6 Baso % (Auto) 1.0 Lymph # (Auto) 0.9 L [place] # (Auto) 1.0 Eos # (Auto) 0.2 Baso # (Auto) 0.1 Abs Immat Gran (auto) 0.10 H Absolute Neuts (auto) 7.7 Absolute Nucleated RBC 0.000 Nucleated RBC % (auto) 0.0 Anion Gap 14 Estim Creat Clear Calc 21.8 Estimated GFR 23 Random Glucose 98 Lactic Acid Calcium 9.5 D Magnesium 2.0 Total Bilirubin 0.3 Direct Bilirubin 0.1 AST 23 ALT 17 Alkaline Phosphatase 181 H Total Protein 7.8 Albumin 3.6 Urine Color Yellow Urine Appearance Cloudy Urine pH 6.0 Ur Specific [place] 1.015 Urine Protein 100 (2+) H Urine Glucose (UA) Negative Urine Ketones Negative Urine Blood Negative Urine Nitrite Negative Ur Leukocyte Esterase Trace H Urine RBC 0-2 Urine WBC 21-50 H Ur Squamous Epith Cells 0-2 Urine Bacteria 4+ Hyaline Casts 0-2 Stool Occult Blood POSITIVE COVID-19 (JACQUELYN) Negative COVID-19 Clin Com See Note Influenza Type A (MULU) Negative Influenza Type B (MULU) Negative Influenza A & B Note See Note 05/10/25 19:49 MCV MCH MCHC RDW Plt Count MPV Immature Gran % (Auto) Neut % (Auto) Lymph % (Auto) [place] % (Auto) Eos % (Auto) Baso % (Auto) Lymph # (Auto) [place] # (Auto) Eos # (Auto) Baso # (Auto) Abs Immat Gran (auto) Absolute Neuts (auto) Absolute Nucleated RBC Nucleated RBC % (auto) Anion Gap Estim Creat Clear Calc Estimated GFR Random Glucose Lactic Acid 0.5 Calcium Magnesium Total Bilirubin Direct Bilirubin AST ALT Alkaline Phosphatase Total Protein Albumin Urine Color Urine Appearance Urine pH Ur Specific [place] Urine Protein Urine Glucose (UA) Urine Ketones Urine Blood Urine Nitrite Ur Leukocyte Esterase Urine RBC Urine WBC Ur Squamous Epith Cells Urine Bacteria Hyaline Casts Stool Occult Blood COVID-19 (JACQUELYN) COVID-19 Clin Com Influenza Type A (MULU) Influenza Type B (MULU) Influenza A & B Note Assessment and Plan (1) UTI (urinary tract infection): Status: Acute (2) Acute kidney injury superimposed on CKD: Status: Acute (3) GI bleed: Status: Acute (4) Anemia: Status: Acute (5) Hyperchloremic metabolic acidosis: Status: Acute (6) Nicotine dependence: Status: Acute Plan Patient is a 60-year-old female with a past medical history significant for history of vaginal cancer in remission, CKD, mood disorder and recent admission at [facility] ICU for OTTO and urosepsis. Reported to ED by PCP due to abnormal labs including creatinine and hemoglobin. UTI - WBC 10.0, tachycardic, afebrile, no tachypnea, lactic acid normal, no sepsis, blood cultures x2 pending - UA positive, culture pending - started on ceftriaxone in ED, continue pending urine culture - given 1 L IV fluids, blood pressure maintaining - monitor CBC and BMP OTTO on CKD - creatinine 2.2, was 6 recently - baseline creatinine 1 year ago was 1.2 - given 1 L IV fluids in ED - monitor BMP - avoid nephrotoxins when possible GI bleed/anemia - hemoglobin 8.0, hematocrit 26.0, MCV 98.5 - guaiac-positive - check iron, B12, folate - GI consult - no need for blood transfusion at this time, continue to monitor CBC Hyperchloremic metabolic acidosis - bicarb 19, chloride 111 - patient given 1 L IV fluids in ED - monitor BMP Mood disorder - continue home meds Tobacco use disorder - smoking cessation encouraged - patient declines nicotine patch Full code VTE prophylaxis: Pneumoboots pending GI evaluation due to positive guaiac Patient with UTI complicated by OTTO on CKD and GI bleed, requiring admission for at least 2 midnight stay for IV antibiotics, monitoring and specialist consultation. Quality Stroke Does the patient have a stroke diagnosis?: No VTE Prior VTE?: No VTE Risk Level:: Medical - moderate - high VTE Device Contraindication: N/A - Device Ordered VTE Drug Contraindication: Treatment Not Indicated
--- NOTE | 2025-05-10 21:46 | MHC.EDTECH ---
Called [facility] service entered routine consult for AM [id number]
--- NOTE | 2025-05-10 22:31 | PHA.MEDREC ---
Pharmacy Consult ? Medication Reconciliation Pharmacy has completed the medication reconciliation.Med rec complete, spoke to patient and compared with pharmacy claim history
[2025-05-10] MEDS: 0.9 % Sodium Chloride Flush 3 ML SYRINGE IVFLUSH (23:54)
[2025-05-11 03:37] VITALS: BP 117/60; PULSE 98; RESP 16; TEMP 36.3; O2SAT 97
[2025-05-11 06:41] LABS: MANUAL DIFF FLAG NO
[2025-05-11 06:49] LABS: Hematocrit 22.5 % (37.0-47.0); Hemoglobin 7.1 g/dl (12.0-16.0); Imm Gran Abs Auto 0.07 X10*3/uL (0.00-0.03); Imm Gran Pct Auto 0.8 % (0.0-0.4); Lymphocytes Absolute Auto 0.9 X10*3/uL (1.2-4.9); Mean Corpuscular HGB Conc 31.6 g/dl (31.0-35.0); Mean Corpuscular Hemoglobin 30.5 pg (27.0-33.0); Mean Corpuscular Volume 96.6 fL (80.0-98.0); NRBC Abs Auto 0.000 X10*3/uL (0.0-0.012); NRBC Pct Auto 0.0 /100WBC (0.0-0.2); Platelet Count 477 X10*3/uL (160-400); Red Blood Count 2.33 X10*6/uL (4.20-5.50); White Blood Count 8.6 X10*3/uL (4.8-10.8)
[2025-05-11 06:53] VITALS: BP 117/67; PULSE 101; RESP 16; TEMP 35.9; O2SAT 98
[2025-05-11 07:07] LABS: Anion Gap 14 (12-20); Blood Urea Nitrogen 19 mg/dL (9-16); Calcium 9.1 mg/dL (8.4-10.2); Carbon Dioxide 18 mmol/L (22-29); Chloride 114 mmol/L (96-108); Creatinine Clr Calc Pharmacy 21.8; Estimated Glomerular Filt Rate 23; Iron 58 mcg/dL (30-160); Percent Iron Saturation 27 % (15-50); Potassium 3.6 mmol/L (3.3-5.1); Sodium 142 mmol/L (135-145); Total Iron Binding Capacity 212 mcg/dL (228-428); Unsaturated Iron Binding 154 ug/dL
--- NOTE | 2025-05-11 07:08 | PM.GICN ---
History of Present Illness Data of Consult Service Date: 05/11/25 Primary Care Provider: Tiffani Robison MD HPI Reason for consult: anemia 60 yr old f with hx of cervical radiculopathy, depression, hyperlipidemia, recurrent dislocation of shoulder, nephrolithiasis, stage 3 chronic kidney disease, systolic hypertension, vaginal cancer, and lung nodule who I m seeing for anemia assessment The patient saw her primary care doctor this week and was recommended to report to the emergency department due to abnormal labs. She was found to have hemoglobin 7.2, hematocrit 23.1 and raised creatinine, iron sat and folate/b12 were nml. She does admit to generalized weakness and shortness of breath but denies chest pain, cough, melena, rectal bleeding, epistaxis, hematuria. denies taking nsaids. of note had admission for sepsis a month ago and had CT with indeterminate colitis. HGB at that time was around 9 g/dl. Review of Systems Review of Systems: Constitutional : No Weight loss, No Fever, No Chills ENT/Mouth : No sore throat, No Rhinorrhea Eyes: No Swelling, No Redness Cardiovascular : No Chest Pain, No SOB, No Edema Respiratory : No Cough, No Sputum, No Wheezing Gastrointestinal : see HPI Genitourinary : NO Dysuria, No Urinary Frequency, No Hematuria, No Urgency Musculoskeletal : no joint pain, No Myalgias, No Joint Swelling Skin : No Skin Lesions, No rash Neuro : No Weakness, No Numbness, No Dizziness, No Headache Psych : No Anxiety/Panic, No Depression Heme/Lymph: No Bruising, No Lymphadenopathy Endocrine : No Polyuria, No Polydipsia All other systems reviewed and are negative. [facility] Past Medical History Medical History Mood disorder History of cancer of vagina CKD (chronic kidney disease) stage 4, GFR 15-29 ml/min Family History Pertinent family history: denies FH of CRC Social History Social History Household Members: Family Housing: House Do you presently have visiting nurse or other home services: No Patient Tobacco Use Status: Tobacco use Unknown Currently Displaying Signs/Symptoms of Drug Intoxication Withdrawal: No Have you been hit, kicked, punched, or otherwise hurt by someone within the past year? If so, by whom?: No Do you feel safe in your current relationship?: No Current Relationship Is there a partner from a previous relationship who is making you feel unsafe now?: No Are you made to feel afraid or neglected: No Advance Directives: No Advance Directives Information Provided: No Do you have a plan to hurt others: No Plan Recently lost weight without trying: Yes How much weight loss: 14-23 pounds Eating poorly because of decreased appetite: Yes Nutrition screen score: 5 Nutrition Risks: No Nutritional Risk Patient : No : No Poor oral hygiene: No service: No Meds Allergies Allergy/AdvReac Type Severity Reaction Status Date / Time No Known Allergies Allergy Verified 05/10/25 11:07 Active Medications: Current Medications Acetaminophen (Acetaminophen 325 Mg Tablet) 975 mg PO Q6H PRN PRN Reason: Pain, Mild 1-3,fever,headache Calcium Carbonate (Calcium Carbonate 750 Mg Tab.Chew) 750 mg PO Q4H PRN PRN Reason: Heartburn Ceftriaxone Sodium (Ceftriaxone Sodium 1 Gm Vial) 1 gm IVPUSH Q24H [facility] Magnesium Hydroxide (Milk Of Magnesia 30 Ml Oral.Susp) 30 ml PO DAILY PRN PRN Reason: Constipation Melatonin (Melatonin 3 Mg Tablet) 6 mg PO BEDTIME PRN PRN Reason: Insomnia Ondansetron HCl (Ondansetron Hcl 4 Mg/2 Ml Vial) 4 mg IVPUSH Q8H PRN PRN Reason: Nausea and Vomiting Oxycodone HCl (Oxycodone Hcl Immed Release 5 Mg Tablet) 5 mg PO Q6H PRN PRN Reason: Pain, Severe (Pain Scale 7-10) Sodium Chloride (0.9 % Sodium Chloride Flush 3 Ml Syringe) [facility] Last Admin: 05/10/25 23:54 Dose: 3 ml Tramadol HCl (Tramadol Hcl 50 Mg Tablet) 50 mg PO Q6H PRN PRN Reason: Pain, Moderate(Pain Scale 4-6) Home Medications ?Medication ?Instructions ?Recorded ?Confirmed ?Last Taken ?Type bupropion HCl 150 mg tablet,12 hr 150 mg PO BID 03/03/24 05/10/25 05/09/25 History sustained-release ascorbic acid (vitamin C) 500 mg 1,000 mg PO DAILY 05/10/25 05/10/25 05/09/25 History tablet ferrous sulfate 137 mg (45 mg 137 mg PO DAILY 05/10/25 05/10/25 05/09/25 History iron) tablet,extended release (Slow Fe) folic acid 400 mcg tablet 0.4 mg PO DAILY 05/10/25 05/10/25 05/09/25 History gabapentin 800 mg tablet 800 mg PO TID 05/10/25 05/10/25 05/09/25 History rosuvastatin 10 mg tablet 10 mg PO DAILY 05/10/25 05/10/25 05/02/25 History Physical Exam Exam: Exam: EXAM: GENERAL: The patient is relaxed VITAL SIGNS:see workflow HEENT: Nonicteric sclerae, PERRLA, EOMI. Oropharynx clear. Moist mucous membranes. Conjunctivae appear pale, No thyroid mass. CHEST: Chest wall is nontender. HEART: Regular rate and rhythm without murmurs. LUNGS: Clear to auscultation bilaterally. ABDOMEN: Soft, positive bowel sounds, nontender, no organomegaly.no flank tenderness SKIN: No rash, no excessive bruising, petechiae, or purpura. NEUROLOGIC: Cranial nerves II-XII intact without motor/sensory deficit. Psych: normal affect Vital Signs: Vital Signs: Last Vital Signs Temp 96.7 F L 05/11/25 06:53 Pulse 101 H 05/11/25 06:53 Resp 16 05/11/25 06:53 BP 117/67 05/11/25 06:53 Pulse Ox 98 05/11/25 06:53 O2 Del Method Room Air 05/11/25 06:53 BMI result Body Mass Index 24.2 Results Labs 05/11/25 06:09 05/11/25 06:08 Labs: Short CBC 05/10/25 05/11/25 Range/Units 11:30 06:09 WBC 10.0 8.6 (4.8-10.8) X10*3/uL Hgb 8.0 L 7.1 L (12.0-16.0) g/dl Hct 26.0 L 22.5 L (37.0-47.0) % Plt Count 549 H D 477 H (160-400) X10*3/uL BMP 05/10/25 05/11/25 11:30 06:08 Sodium 140 142 Potassium 3.9 D 3.6 Chloride 111 H 114 H Carbon Dioxide 19 L 18 L BUN 19 H 19 H Creatinine 2.20 H 2.20 H Calcium 9.5 D 9.1 Liver Function 05/10/25 Range/Units 11:30 Total Bilirubin 0.3 (0.0-1.0) mg/dL Direct Bilirubin 0.1 (0.0-0.5) mg/dL AST 23 (5-31) U/L ALT 17 (0-31) U/L Alkaline Phosphatase 181 H (39-117) U/L Albumin 3.6 (3.5-5.0) g/dL Urine 05/10/25 Range/Units 16:54 Urine Color Yellow Urine Appearance Cloudy Urine pH 6.0 (5.0-9.0) Ur Specific [place] 1.015 (1.005-1.025) Urine Protein 100 (2+) H (Neg-Trace) mg/dL Urine Glucose (UA) Negative (Negative) mg/dL Assessment and Plan (1) Acute on chronic anemia: Status: Acute Plan 1/ Normocytic anemia, no overt GI bleeding, never had colonoscopy or EGD. Uncertain etiology but need to r/o neoplasia mass, malabsorption, also has CKD which maybe playing a role PLAN: 1/ clear today, prep tonight 2/ EGD and colo tomorrow for further investigation 3/ trend HGB and tranfuse if HGB< 7 g/dl 4/ ok to use low dose PPI for the moment Procedures Date of Service Date of Service: 05/11/25
[2025-05-11 07:42] LABS: Folate 9.9 ng/mL (> or = 4.0); Vitamin B12 1181 pg/mL (200-900)
--- NOTE | 2025-05-11 09:52 | MHC.CM.PN ---
Patient lives at home w/ father and son. Functionally independent. Denies use of services or DME. PCP Tiffani Robison MD Reports she has an HCP naming her daughter, Mc, as HCA. Copy requested. Reports she does not have insurance. Financial services referral sent via email. DP: Goal is home self care. Daughter to transport. CM will continue to follow.
--- NOTE | 2025-05-11 10:31 | HO.PM.IMPN ---
Subjective Subjective Date of Service: 05/11/25 Interval History: Pt seen examined resting comfortably in bed Reports she feels well without any acute medical complaints Denies lightheadedness or dizziness No hematochezia or melena Denies nausea, vomiting, abdominal pain No diarrhea No polyuria or dysuria Review of Systems Review of Systems: Yes all other systems are reviewed and are negative Physical Exam Exam: Exam: General: AOx3, no acute distress Resp: CTA bilaterally CVS: S1, S2, RRR GI: soft, NT, no distention Skin: Warm, dry Neuro: Cranial nerves II-XII grossly intact bilaterally. Motor grossly intact bilaterally Extremities: No edema Psych: Appropriate affect Vital Signs: Vital Signs: Last Vital Signs Temp 96.7 F L 05/11/25 06:53 Pulse 101 H 05/11/25 06:53 Resp 16 05/11/25 06:53 BP 117/67 05/11/25 06:53 Pulse Ox 98 05/11/25 06:53 O2 Del Method Room Air 05/11/25 06:53 BMI result Body Mass Index 24.2 Objective Data Active Medications Acetaminophen (Acetaminophen 325 Mg Tablet) 975 mg PO Q6H PRN PRN Reason: Pain, Mild 1-3,fever,headache Calcium Carbonate (Calcium Carbonate 750 Mg Tab.Chew) 750 mg PO Q4H PRN PRN Reason: Heartburn Ceftriaxone Sodium (Ceftriaxone Sodium 1 Gm Vial) 1 gm IVPUSH Q24H [facility] Magnesium Hydroxide (Milk Of Magnesia 30 Ml Oral.Susp) 30 ml PO DAILY PRN PRN Reason: Constipation Melatonin (Melatonin 3 Mg Tablet) 6 mg PO BEDTIME PRN PRN Reason: Insomnia Ondansetron HCl (Ondansetron Hcl 4 Mg/2 Ml Vial) 4 mg IVPUSH Q8H PRN PRN Reason: Nausea and Vomiting Oxycodone HCl (Oxycodone Hcl Immed Release 5 Mg Tablet) 5 mg PO Q6H PRN PRN Reason: Pain, Severe (Pain Scale 7-10) Sodium Chloride (0.9 % Sodium Chloride Flush 3 Ml Syringe) 3 ml IVFLUSH QSHIFT [facility] Last Admin: 05/11/25 09:20 Dose: Not Given Documented By: POOJA Non-Admin Reason: Previously Administered Tramadol HCl (Tramadol Hcl 50 Mg Tablet) 50 mg PO Q6H PRN PRN Reason: Pain, Moderate(Pain Scale 4-6) Labs 05/11/25 06:09 05/11/25 06:08 Labs: Laboratory Results - last 24 hr 05/10/25 05/10/25 05/10/25 11:30 16:53 16:54 MCV 98.5 H MCH 30.3 MCHC 30.8 L RDW 16.8 H Plt Count 549 H D MPV 8.5 L Immature Gran % (Auto) 1.0 H Neut % (Auto) 77.4 H Lymph % (Auto) 9.4 L [place] % (Auto) 9.6 Eos % (Auto) 1.6 Baso % (Auto) 1.0 Lymph # (Auto) 0.9 L [place] # (Auto) 1.0 Eos # (Auto) 0.2 Baso # (Auto) 0.1 Abs Immat Gran (auto) 0.10 H Absolute Neuts (auto) 7.7 Absolute Nucleated RBC 0.000 Nucleated RBC % (auto) 0.0 Anion Gap 14 Estim Creat Clear Calc 21.8 Estimated GFR 23 Random Glucose 98 Lactic Acid Calcium 9.5 D Magnesium 2.0 Iron TIBC % Saturation Unsat Iron Binding Total Bilirubin 0.3 Direct Bilirubin 0.1 AST 23 ALT 17 Alkaline Phosphatase 181 H Total Protein 7.8 Albumin 3.6 Vitamin B12 Folate Urine Color Yellow Urine Appearance Cloudy Urine pH 6.0 Ur Specific [place] 1.015 Urine Protein 100 (2+) H Urine Glucose (UA) Negative Urine Ketones Negative Urine Blood Negative Urine Nitrite Negative Ur Leukocyte Esterase Trace H Urine RBC 0-2 Urine WBC 21-50 H Ur Squamous Epith Cells 0-2 Urine Bacteria 4+ Hyaline Casts 0-2 Stool Occult Blood POSITIVE COVID-19 (JACQUELYN) Negative COVID-19 Clin Com See Note Influenza Type A (MULU) Negative Influenza Type B (MULU) Negative Influenza A & B Note See Note 05/10/25 05/11/25 05/11/25 19:49 06:08 06:09 MCV 96.6 MCH 30.5 MCHC 31.6 RDW 16.5 H Plt Count 477 H MPV 8.8 L Immature Gran % (Auto) 0.8 H Neut % (Auto) 74.6 H Lymph % (Auto) 10.2 L [place] % (Auto) 11.6 H Eos % (Auto) 1.9 Baso % (Auto) 0.9 Lymph # (Auto) 0.9 L [place] # (Auto) 1.0 Eos # (Auto) 0.2 Baso # (Auto) 0.1 Abs Immat Gran (auto) 0.07 H Absolute Neuts (auto) 6.4 Absolute Nucleated RBC 0.000 Nucleated RBC % (auto) 0.0 Anion Gap 14 Estim Creat Clear Calc 21.8 Estimated GFR 23 Random Glucose 97 Lactic Acid 0.5 Calcium 9.1 Magnesium Iron 58 TIBC 212 L % Saturation 27 Unsat Iron Binding 154 Total Bilirubin Direct Bilirubin AST ALT Alkaline Phosphatase Total Protein Albumin Vitamin B12 1181 H Folate 9.9 Urine Color Urine Appearance Urine pH Ur Specific [place] Urine Protein Urine Glucose (UA) Urine Ketones Urine Blood Urine Nitrite Ur Leukocyte Esterase Urine RBC Urine WBC Ur Squamous Epith Cells Urine Bacteria Hyaline Casts Stool Occult Blood COVID-19 (JACQUELYN) COVID-19 Clin Com Influenza Type A (MULU) Influenza Type B (MULU) Influenza A & B Note Assessment and Plan (1) Acute on chronic anemia: Status: Acute Assessment and Plan: Patient is a 60-year-old female with a past medical history significant for history of vaginal cancer in remission, CKD, mood disorder and recent admission at [facility] ICU for OTTO and urosepsis. Reported to ED by PCP due to abnormal labs including creatinine and hemoglobin. Acute on chronic anemia - hemoglobin slight drop overnight, 8.0-->7.1 - guaiac-positive - concerning for GI bleed - iron, B12, & folate unremarkable - GI consulted, plan on EGD/colonoscopy tomorrow - clear liquid diet for now, bowel prep@6:00 - monitor CBC Question of UTI - did not complete full course of abx for previous UTI w/ mchugh sensitive E coli - no sepsis: tachycardia chronic, no white count; lactic acid WNL - UA equivocal, culture pending - continue empiric ceftriaxone, day 2 - given 1 L IV fluids, blood pressure maintaining - monitor CBC and BMP CKD3 - creatinine stable at 2.2, at new baseline - creatinine 2.0 when discharged from [facility] last month - monitor BMP - avoid nephrotoxins when possible Hyperchloremic metabolic acidosis - bicarb 19, chloride 111, around baseline - patient given 1 L IV fluids in ED - monitor BMP Mood disorder - continue home meds Tobacco use disorder - smoking cessation encouraged - patient declines nicotine patch Full code VTE prophylaxis: Pneumoboots pending GI evaluation due to positive guaiac Pt requires continued hospitalization for monitoring and workup for acute on chronic anemia concerning for possible GI bleed. Quality Stroke Does the patient have a stroke diagnosis?: No VTE Prior VTE?: No VTE Risk Level:: Medical - moderate - high VTE Device Contraindication: N/A - Device Ordered VTE Drug Contraindication: Treatment Not Indicated
[2025-05-11] MEDS: Ferrous Sulfate 324 MG TABLET.DR PO (10:46)
[2025-05-11] MEDS: buPROPion HCl XL 300 MG TAB.ER.24H PO (10:46)
[2025-05-11] MEDS: 0.9 % Sodium Chloride Flush 3 ML SYRINGE IVFLUSH ×2 (14:45→19:36)
[2025-05-11 15:53] VITALS: BP 132/63; PULSE 92; RESP 18; TEMP 36.8; O2SAT 98
[2025-05-11] MEDS: PEG 3350/Na Sulf,Bicarb,Cl/KCL 4,000 ML SOLN.RECON 4000 ML PO (17:18)
[2025-05-11 19:37] VITALS: BP 128/61; PULSE 93; RESP 18; TEMP 37.2; O2SAT 97
[2025-05-12] VITALS (8 sets, daily range): BP systolic 90–143; BP diastolic 45–71; PULSE 88–110; RESP 14–16; TEMP 36.1–37.1; O2SAT 95–100
[2025-05-12 05:54] LABS: MANUAL DIFF FLAG NO
[2025-05-12 06:06] LABS: Hematocrit 24.0 % (37.0-47.0); Hemoglobin 7.2 g/dl (12.0-16.0); Imm Gran Abs Auto 0.05 X10*3/uL (0.00-0.03); Imm Gran Pct Auto 0.7 % (0.0-0.4); Lymphocytes Absolute Auto 1.0 X10*3/uL (1.2-4.9); Mean Corpuscular HGB Conc 30.0 g/dl (31.0-35.0); Mean Corpuscular Hemoglobin 29.4 pg (27.0-33.0); Mean Corpuscular Volume 98.0 fL (80.0-98.0); NRBC Abs Auto 0.000 X10*3/uL (0.0-0.012); NRBC Pct Auto 0.0 /100WBC (0.0-0.2); Platelet Count 418 X10*3/uL (160-400); Red Blood Count 2.45 X10*6/uL (4.20-5.50); White Blood Count 7.6 X10*3/uL (4.8-10.8)
[2025-05-12 06:16] LABS: Anion Gap 13 (12-20); Blood Urea Nitrogen 14 mg/dL (9-16); Calcium 8.9 mg/dL (8.4-10.2); Carbon Dioxide 19 mmol/L (22-29); Chloride 112 mmol/L (96-108); Creatinine Clr Calc Pharmacy 22.7; Estimated Glomerular Filt Rate 24; Potassium 3.3 mmol/L (3.3-5.1); Sodium 141 mmol/L (135-145)
--- NOTE | 2025-05-12 08:03 | P.CDIM_ITS ---
PROVIDER RESPONSE TEXT: To clarify, the appropriate diagnosis supported by the clinical indicators: Chronic QUERY TEXT: PHYSICIAN'S DOCUMENTATION REQUEST Date of Query: 05/12/2025 07:32 AM EDT Patient Name: Yane Fong Admit Date: 05/11/2025 Dear Ena DAVILA, A review of the medical record indicates additional documentation may be needed. Please review below and update the documentation accordingly. Clinical Indicators: Progress note 05/11/25 - hyperchloremic metabolic acidosis IV fluids in Ed Monitor BMP Clarify which of the following accurately represents the acuity of the metabolic acidosis: Possible options might include: Acute Chronic Other specified Other (explain) Clinically unable to determine (explain) Thank you, Aruna Blood, CCS, CDIS Use of terms such as suspected, likely, concern for, or probable (associated with a specific diagnosis that is being evaluated, monitored, or treated as if it exists) are acceptable and can be coded in the inpatient setting, when documented at the time of discharge. Please use your independent medical judgment in providing your response. THIS QUERY IS PART OF THE PERMANENT MEDICAL RECORD
[2025-05-12] MEDS: buPROPion HCl XL 300 MG TAB.ER.24H PO (08:06)
[2025-05-12] MEDS: Ferrous Sulfate 324 MG TABLET.DR PO (08:06)
[2025-05-12] MEDS: 0.9 % Sodium Chloride Flush 3 ML SYRINGE IVFLUSH (08:08)
[2025-05-12] MEDS: Dextrose 5 % and Lactated Ring 1,000 ML 80 ML IVCONT (09:10)
--- NOTE | 2025-05-12 11:29 | HO.ANESPROP2 ---
Documented by User: Nevaeh Mckinley NP 05/11/25 11:59 HPI - Anesthesia Eval Consult details Narrative: 60 yr old female for upper endoscopy, colonoscopy Admitted 04/2025 to [facility] for OTTO, urosepsis, left AMA. No CP/SOB with light walking PMFSH Active Problems Active Problems: All Active Problems (Updated 05/10/25 @ 21:24 by Evette Carlos MD) Acute renal insufficiency (Acute) Urinary tract infection (Acute) Hyperchloremic metabolic acidosis (Acute) Anemia (Acute) GI bleed (Acute) Acute kidney injury superimposed on CKD (Acute) UTI (urinary tract infection) (Acute) Mood disorder (Acute) History of cancer of vagina (Acute) CKD (chronic kidney disease) stage 4, GFR 15-29 ml/min (Acute) Nicotine dependence (Acute) Microscopic hematuria (Acute) Nocturia (Acute) Nephrolithiasis (Acute) Past Medical History Medical History Mood disorder History of cancer of vagina CKD (chronic kidney disease) stage 4, GFR 15-29 ml/min Functional capacity: independent ambulation Family History Family history of problems with anesthesia: No Surgical History History of Problems with Anesthesia: No Social History Social History Household Members: Family Housing: House Do you presently have visiting nurse or other home services: No Patient Tobacco Use Status: Never used Tobacco Use of substances other than those prescribed or required for medical reasons: No Currently Displaying Signs/Symptoms of Drug Intoxication Withdrawal: No Have you been hit, kicked, punched, or otherwise hurt by someone within the past year? If so, by whom?: No Do you feel safe in your current relationship?: No Current Relationship Is there a partner from a previous relationship who is making you feel unsafe now?: No Are you made to feel afraid or neglected: No Advance Directives: No Advance Directives Information Provided: No Do you have a plan to hurt others: No Plan Recently lost weight without trying: Yes How much weight loss: 14-23 pounds Eating poorly because of decreased appetite: Yes Nutrition screen score: 5 Nutrition Risks: No Nutritional Risk Patient : No : No Poor oral hygiene: No service: No Meds Allergies Allergy/AdvReac Type Severity Reaction Status Date / Time No Known Allergies Allergy Verified 05/10/25 11:07 Active Medications: Current Medications Acetaminophen (Acetaminophen 325 Mg Tablet) 975 mg PO Q6H PRN PRN Reason: Pain, Mild 1-3,fever,headache Calcium Carbonate (Calcium Carbonate 750 Mg Tab.Chew) 750 mg PO Q4H PRN PRN Reason: Heartburn Ceftriaxone Sodium (Ceftriaxone Sodium 1 Gm Vial) 1 gm IVPUSH Q24H [facility] Magnesium Hydroxide (Milk Of Magnesia 30 Ml Oral.Susp) 30 ml PO DAILY PRN PRN Reason: Constipation Melatonin (Melatonin 3 Mg Tablet) 6 mg PO BEDTIME PRN PRN Reason: Insomnia Ondansetron HCl (Ondansetron Hcl 4 Mg/2 Ml Vial) 4 mg IVPUSH Q8H PRN PRN Reason: Nausea and Vomiting Oxycodone HCl (Oxycodone Hcl Immed Release 5 Mg Tablet) 5 mg PO Q6H PRN PRN Reason: Pain, Severe (Pain Scale 7-10) Sodium Chloride (0.9 % Sodium Chloride Flush 3 Ml Syringe) [address] [facility] Last Admin: 05/11/25 09:20 Dose: Not Given Tramadol HCl (Tramadol Hcl 50 Mg Tablet) 50 mg PO Q6H PRN PRN Reason: Pain, Moderate(Pain Scale 4-6) Home Medications ?Medication ?Instructions ?Recorded ?Confirmed ?Last Taken ?Type bupropion HCl 150 mg tablet,12 hr 150 mg PO BID 03/03/24 05/10/25 05/09/25 History sustained-release ascorbic acid (vitamin C) 500 mg 1,000 mg PO DAILY 05/10/25 05/10/25 05/09/25 History tablet ferrous sulfate 137 mg (45 mg 137 mg PO DAILY 05/10/25 05/10/25 05/09/25 History iron) tablet,extended release (Slow Fe) folic acid 400 mcg tablet 0.4 mg PO DAILY 05/10/25 05/10/25 05/09/25 History gabapentin 800 mg tablet 800 mg PO TID 05/10/25 05/10/25 05/09/25 History rosuvastatin 10 mg tablet 10 mg PO DAILY 05/10/25 05/10/25 05/02/25 History Exam Height,Weight and Vital Signs: Height 5 ft 2 in Weight 60 kg Last Vital Signs Temp 96.7 F L 05/11/25 06:53 Pulse 101 H 05/11/25 06:53 Resp 16 05/11/25 06:53 BP 117/67 05/11/25 06:53 Pulse Ox 98 05/11/25 06:53 O2 Del Method Room Air 05/11/25 06:53 Pertinent Lab Results Pertinent Lab Results: Laboratory Tests 05/10/25 05/10/25 05/10/25 11:30 16:53 16:54 WBC 10.0 RBC 2.64 L Hgb 8.0 L Hct 26.0 L MCV 98.5 H MCH 30.3 MCHC 30.8 L RDW 16.8 H Plt Count 549 H D MPV 8.5 L Immature Gran % (Auto) 1.0 H Neut % (Auto) 77.4 H Lymph % (Auto) 9.4 L [place] % (Auto) 9.6 Eos % (Auto) 1.6 Baso % (Auto) 1.0 Lymph # (Auto) 0.9 L [place] # (Auto) 1.0 Eos # (Auto) 0.2 Baso # (Auto) 0.1 Abs Immat Gran (auto) 0.10 H Absolute Neuts (auto) 7.7 Absolute Nucleated RBC 0.000 Nucleated RBC % (auto) 0.0 Sodium 140 Potassium 3.9 D Chloride 111 H Carbon Dioxide 19 L Anion Gap 14 BUN 19 H Creatinine 2.20 H Estim Creat Clear Calc 21.8 Estimated GFR 23 Random Glucose 98 Lactic Acid Calcium 9.5 D Magnesium 2.0 Iron TIBC % Saturation Unsat Iron Binding Total Bilirubin 0.3 Direct Bilirubin 0.1 AST 23 ALT 17 Alkaline Phosphatase 181 H Troponin I High Sens 4.4 Total Protein 7.8 Albumin 3.6 Vitamin B12 Folate Urine Color Yellow Urine Appearance Cloudy Urine pH 6.0 Ur Specific [place] 1.015 Urine Protein 100 (2+) H Urine Glucose (UA) Negative Urine Ketones Negative Urine Blood Negative Urine Nitrite Negative Ur Leukocyte Esterase Trace H Urine RBC 0-2 Urine WBC 21-50 H Ur Squamous Epith Cells 0-2 Urine Bacteria 4+ Hyaline Casts 0-2 Stool Occult Blood POSITIVE COVID-19 (JACQUELYN) Negative COVID-19 Clin Com See Note Influenza Type A (MULU) Negative Influenza Type B (MULU) Negative Influenza A & B Note See Note 05/10/25 05/11/25 05/11/25 19:49 06:08 06:09 WBC 8.6 RBC 2.33 L Hgb 7.1 L Hct 22.5 L MCV 96.6 MCH 30.5 MCHC 31.6 RDW 16.5 H Plt Count 477 H MPV 8.8 L Immature Gran % (Auto) 0.8 H Neut % (Auto) 74.6 H Lymph % (Auto) 10.2 L [place] % (Auto) 11.6 H Eos % (Auto) 1.9 Baso % (Auto) 0.9 Lymph # (Auto) 0.9 L [place] # (Auto) 1.0 Eos # (Auto) 0.2 Baso # (Auto) 0.1 Abs Immat Gran (auto) 0.07 H Absolute Neuts (auto) 6.4 Absolute Nucleated RBC 0.000 Nucleated RBC % (auto) 0.0 Sodium 142 Potassium 3.6 Chloride 114 H Carbon Dioxide 18 L Anion Gap 14 BUN 19 H Creatinine 2.20 H Estim Creat Clear Calc 21.8 Estimated GFR 23 Random Glucose 97 Lactic Acid 0.5 Calcium 9.1 Magnesium Iron 58 TIBC 212 L % Saturation 27 Unsat Iron Binding 154 Total Bilirubin Direct Bilirubin AST ALT Alkaline Phosphatase Troponin I High Sens Total Protein Albumin Vitamin B12 1181 H Folate 9.9 Urine Color Urine Appearance Urine pH Ur Specific [place] Urine Protein Urine Glucose (UA) Urine Ketones Urine Blood Urine Nitrite Ur Leukocyte Esterase Urine RBC Urine WBC Ur Squamous Epith Cells Urine Bacteria Hyaline Casts Stool Occult Blood COVID-19 (JACQUELYN) COVID-19 Clin Com Influenza Type A (MULU) Influenza Type B (MULU) Influenza A & B Note Narrative Narrative: EKG 05/10/25 Vent. Rate : 113 BPM Atrial Rate : 113 BPM P-R Int : 128 ms QRS Dur : 70 ms QT Int : 338 ms P-R-T Axes : 68 40 64 degrees QTcB Int : 463 ms Sinus tachycardia Otherwise normal ECG When compared with ECG of 11-Apr-2025 23:08, Nonspecific T wave abnormality no longer evident in Inferior leads Nonspecific T wave abnormality no longer evident in Lateral leads Airway Mallampati Class: II TM Dist: >3cm Neck ROM: Full Denture: Upper Loose/Missing/Broken Teeth: No Heart: RRR Lungs: CTAB Assessment and Plan Final Anesthetic Review Family History of Problems with Anesthesia: No History of Problems with Anesthesia: No Documented by User: Tami Sanz DO 05/12/25 11:31 PMFSH Past Medical History Medical History Mood disorder History of cancer of vagina CKD (chronic kidney disease) stage 4, GFR 15-29 ml/min Family History Family history of problems with anesthesia: No Surgical History History of Problems with Anesthesia: No Social History Social History Household Members: Family Housing: House Do you presently have visiting nurse or other home services: No Patient Tobacco Use Status: Never used Tobacco Use of substances other than those prescribed or required for medical reasons: No Currently Displaying Signs/Symptoms of Drug Intoxication Withdrawal: No Have you been hit, kicked, punched, or otherwise hurt by someone within the past year? If so, by whom?: No Do you feel safe in your current relationship?: No Current Relationship Is there a partner from a previous relationship who is making you feel unsafe now?: No Are you made to feel afraid or neglected: No Advance Directives: No Advance Directives Information Provided: No Do you have a plan to hurt others: No Plan Recently lost weight without trying: Yes How much weight loss: 14-23 pounds Eating poorly because of decreased appetite: Yes Nutrition screen score: 5 Nutrition Risks: No Nutritional Risk Patient : No : No Poor oral hygiene: No service: No Meds Allergies Allergy/AdvReac Type Severity Reaction Status Date / Time No Known Allergies Allergy Verified 05/10/25 11:07 Home Medications ?Medication ?Instructions ?Recorded ?Confirmed ?Last Taken ?Type bupropion HCl 150 mg tablet,12 hr 150 mg PO BID 03/03/24 05/10/25 05/09/25 History sustained-release ascorbic acid (vitamin C) 500 mg 1,000 mg PO DAILY 05/10/25 05/10/25 05/09/25 History tablet ferrous sulfate 137 mg (45 mg 137 mg PO DAILY 05/10/25 05/10/25 05/09/25 History iron) tablet,extended release (Slow Fe) folic acid 400 mcg tablet 0.4 mg PO DAILY 05/10/25 05/10/25 05/09/25 History gabapentin 800 mg tablet 800 mg PO TID 05/10/25 05/10/25 05/09/25 History rosuvastatin 10 mg tablet 10 mg PO DAILY 05/10/25 05/10/25 05/02/25 History Exam Exam Date and Time: 05/12/25 1130 Height,Weight and Vital Signs: Height 5 ft 2 in Weight 60 kg Last Vital Signs Temp 96.7 F L 05/11/25 06:53 Pulse 101 H 05/11/25 06:53 Resp 16 05/11/25 06:53 BP 117/67 05/11/25 06:53 Pulse Ox 98 05/11/25 06:53 O2 Del Method Room Air 05/11/25 06:53 Vital Signs Temperature 97.8 F 05/10/25 11:02 Pulse Rate 114 H 05/10/25 11:02 Respiratory Rate 18 05/10/25 11:02 Blood Pressure 125/65 05/10/25 11:02 Pulse Oximetry 99 05/10/25 11:02 Oxygen Delivery Method Room Air 05/10/25 11:02 Temperature 97.9 F 05/12/25 11:12 Pulse Rate 97 05/12/25 11:12 Respiratory Rate 16 05/12/25 11:12 Blood Pressure 120/50 L 05/12/25 11:12 Pulse Oximetry 100 05/12/25 11:12 Oxygen Delivery Method Room Air 05/12/25 11:12 Airway Mallampati Class: II TM Dist: <=3cm Neck ROM: Full Loose/Missing/Broken Teeth: Yes (poor dentition - broken #8) Heart: S1S2 Assessment and Plan Assessment Anesthesia Assessment: Anesthesia Plan Discussed and Chart Reviewed Final Anesthetic Review Family History of Problems with Anesthesia: No History of Problems with Anesthesia: No NPO: Yes ASA Class: III Final Preanesthetic Review: No Changes in Pt Med Stat, Meds/Allgs Chart Reviewed, Consent Obtained/Reviewed and Anes Risks/Benef Reviewed Patient Risk: Intermediate Procedure Risk: Low Anesthetic Plan Anesthetic Plan: MAC: and Agree w/ Assess. and Plan Disposition: Standard PACU
--- NOTE | 2025-05-12 11:40 | P.PNGI_ITS ---
Subjective Subjective Date of Service: 05/12/25 Interval History: no abdominal pain HGB stable no sob or chest pain no rectal bleeding or melena Critical Care Time (minutes): 0 Physical Exam 2 Exam: Exam: EXAM: GENERAL: The patient is relaxed VITAL SIGNS:see workflow HEENT: Nonicteric sclerae, PERRLA, EOMI. Oropharynx clear. Moist mucous membranes. Conjunctivae appear pale . No thyroid mass. CHEST: Chest wall is nontender. HEART: Regular rate and rhythm without murmurs. LUNGS: Clear to auscultation bilaterally. ABDOMEN: Soft, positive bowel sounds, nontender, no organomegaly.no flank tenderness SKIN: No rash, no excessive bruising, petechiae, or purpura. NEUROLOGIC: Cranial nerves II-XII intact without motor/sensory deficit. Psych: normal affect Vital Signs: Vital Signs: Last Vital Signs Temp 97.9 F 05/12/25 11:12 Pulse 97 05/12/25 11:12 Resp 16 05/12/25 11:12 BP 120/50 L 05/12/25 11:12 Pulse Ox 100 05/12/25 11:12 O2 Del Method Room Air 05/12/25 11:12 BMI result Body Mass Index 24.2 Objective Data Labs 05/12/25 05:32 05/12/25 05:32 Labs: Laboratory Results - last 24 hr 05/11/25 05/12/25 10:59 05:32 WBC 7.6 RBC 2.45 L Hgb 7.2 L Hct 24.0 L MCV 98.0 MCH 29.4 MCHC 30.0 L RDW 16.5 H Plt Count 418 H MPV 8.8 L Immature Gran % (Auto) 0.7 H Neut % (Auto) 71.6 Lymph % (Auto) 12.9 L [place] % (Auto) 12.2 H Eos % (Auto) 1.6 Baso % (Auto) 1.0 Lymph # (Auto) 1.0 L [place] # (Auto) 0.9 Eos # (Auto) 0.1 Baso # (Auto) 0.1 Abs Immat Gran (auto) 0.05 H Absolute Neuts (auto) 5.5 Absolute Nucleated RBC 0.000 Nucleated RBC % (auto) 0.0 Sodium 141 Potassium 3.3 Chloride 112 H Carbon Dioxide 19 L Anion Gap 13 BUN 14 Creatinine 2.11 H Estim Creat Clear Calc 22.7 Estimated GFR 24 Random Glucose 96 Calcium 8.9 Blood Type O Positive Antibody Screen NEGATIVE Microbiology Microbiology Results: Microbiology 05/10/25 17:22 Urine clean catch - Clean Catch Midstream Urine Culture - Preliminary Enterobacter cloacae complex 05/10/25 19:49 Blood - Venous Blood Culture - Preliminary No growth after 24 hours. 05/10/25 19:49 Blood - Venous Blood Culture - Preliminary No growth after 24 hours. Procedures Date of Service Date of Service: 05/12/25 Progress Note: A&P Assessment and plan (1) Acute on chronic anemia: Status: Acute Plan 1/ Acute on chronic anemia, multifactorial recent sepsis, and CKD, cant exclude GI lesion PLAN: 1/ EGD and colo today for further assessment 2/ can cont with PPI Time Spent With Patient Time: Total time managing care of this patient today ____ minutes. Quality Stroke Does the patient have a stroke diagnosis?: No VTE Prior VTE?: No VTE Risk Level:: Medical - moderate - high VTE Device Contraindication: N/A - Device Ordered VTE Drug Contraindication: Treatment Not Indicated
--- NOTE | 2025-05-12 12:58 | HO.OPN-COLON ---
Colonoscopy Operative Note Operative Note Date of Service: 05/12/25 Narrative: Operative Information Procedure Description: EGD, Colonoscopy Indication: Anemia Anesthesia: MAC FLEXIBLE TRANSORAL UPPER GASTROINTESTINAL ENDOSCOPY AND COLONOSCOPY PROCEDURE NOTE UPPER ENDOSCOPY Consent: Indications for the procedure and potential complications of bleeding, perforation, reaction to medications and missed diagnosis were discussed with the patient and informed consent was obtained. Instrument: Olympus GIF H 190 J mid size upper endoscope Monitoring: Vital signs and clinical assessment, continuous EKG monitoring, Pulse oximetry, Carbon Dioxide monitoring and blood pressure monitoring were done throughout the procedure. Procedure: The patient was placed in the left lateral decubitis position and pre-procedure medications were administered and a bite block was placed. The endoscope was inserted into the mouth and advanced under direct vision to the third part of duodenum. A careful inspection was made as the upper endoscope was withdrawn including a retroflexed examination of the proximal stomach; Findings and interventions are described below. Findings: Larynx:normal Esophagus: GE junction at 38 cm, diaphragm hiatus at 38 cm, possible short segment barretts, bx taken Stomach: patchy erythema and granularity. Biopsies were obtained. Grade 2 flap valve on retroflexed examination of the cardia. Duodenum: bulbar duodenitis - bx taken Intervention: Biopsies as noted above, COLONOSCOPY Instrument: Olympus variable stiffness pediatric scope 190L Colonoscopy Monitoring: Vital signs and clinical assessment, continuous EKG monitoring, Pulse oximetry, Carbon Dioxide monitoring and blood pressure monitoring were done throughout the procedure. Colon withdrawal time was 12 minutes. Procedure: The patient was placed in the left lateral decubitis position and pre-procedure medications were administered. After a digital rectal examination of the ano-rectum, the video colonoscope was inserted into the rectum and advanced through the colon to the cecum/TI. The colonoscope was slowly withdrawn in a retrograde panoramic fashion and the colon mucosa was carefully examined including a retroflexed view of the rectum. Findings and interventions are described below. Procedure Difficulty:moderate Findings: Terminal Ileum-normal Cecum:normal Ascending Colon: normal Transverse Colon -normal Descending Colon:normal Sigmoid Colon: moderate diverticulosis, x 3 shallow ulcerations noted in distal sigmoid with some slough which appeared to be healing, possibly ischemic Rectum: Retroflexion with small internal hemorrhoids, grade I Anorectum - normal Colon preparation: [place] Bowel Preparation Scale Right colon; 2 Transverse colon: 2 Left colon; 1-2 (0 = Unprepared colon segment with mucosa not seen due to solid stool that cannot be cleared. 1 = Portion of mucosa of the colon segment seen, but other areas of the colon segment not well seen due to staining, residual stool and/or opaque liquid. 2 = Minor amount of residual staining, small fragments of stool and/or opaque liquid, but mucosa of colon segment seen well. 3 = Entire mucosa of colon segment seen well with no residual staining, small fragments of stool or opaque liquid) Impression and Post Procedure Diagnosis: Endoscopy Findings: possible barretts gastritis duodenitis Colonoscopy Findings: diverticulosis internal hemorrhoids suspected ischemic ulcerations with healing Plan: Await Pathology results Repeat Colonoscopy in 5 years due to fair prep on left or earlier if clinically indicated High fiber diet leaflet avoid straining at stool, epsom salts and sitz bath, anusol supps or cream avoid constipation Above findings were reviewed with the patient and relevant handouts were provided if indicated.
[2025-05-12] MEDS: Lactated Ringers 1,000 ML 100 ML IVCONT ×2 (13:35→23:13)
--- NOTE | 2025-05-12 15:38 | P.PNIM_ITS ---
Subjective Subjective Date of Service: 05/12/25 Interval History: Pt seen and evaluated where she is resting comfortably in bed Denies any acute medical complaints No lightheadedness or dizziness Denies melena or hematochezia No fatigue No nausea, vomiting, diarrhea, or abdominal pain Review of Systems Review of Systems: Yes all other systems are reviewed and are negative Physical Exam 2 Exam: Exam: General: AOx3, no acute distress Resp: CTA bilaterally CVS: S1, S2, RRR GI: +BS, NT, no distention Skin: Warm, dry Neuro: Cranial nerves II-XII grossly intact bilaterally. Motor grossly intact bilaterally Extremities: No edema Psych: Appropriate affect Vital Signs: Vital Signs: Last Vital Signs Temp 97.6 F 05/12/25 13:38 Pulse 95 05/12/25 13:38 Resp 14 05/12/25 13:38 BP 127/71 05/12/25 13:38 Pulse Ox 95 05/12/25 13:38 O2 Del Method Room Air 05/12/25 13:38 BMI result Body Mass Index 24.2 Objective Data Active Medications Acetaminophen (Acetaminophen 325 Mg Tablet) 975 mg PO Q6H PRN PRN Reason: Pain, Mild 1-3,fever,headache Ascorbic Acid (Ascorbic Acid 500 Mg Tablet) 1,000 mg PO DAILY COUNTS INCLUDE 234 BEDS AT THE [facility] Last Admin: 05/12/25 08:06 Dose: 1,000 mg Documented By: LEE ANN Atorvastatin Calcium (Atorvastatin Calcium 40 Mg Tablet) 40 mg PO DAILY COUNTS INCLUDE 234 BEDS AT THE [facility] Last Admin: 05/12/25 08:06 Dose: 40 mg Documented By: LEE ANN Bupropion HCl (Bupropion Hcl Xl 300 Mg Tab.Er.24h) 300 mg PO DAILY COUNTS INCLUDE 234 BEDS AT THE [facility] Last Admin: 05/12/25 08:06 Dose: 300 mg Documented By: LEE ANN Calcium Carbonate (Calcium Carbonate 750 Mg Tab.Chew) 750 mg PO Q4H PRN PRN Reason: Heartburn Ferrous Sulfate (Ferrous Sulfate 324 Mg Tablet.) 324 mg PO DAILY COUNTS INCLUDE 234 BEDS AT THE [facility] Last Admin: 05/12/25 08:06 Dose: 324 mg Documented By: LEE ANN Gabapentin (Gabapentin 400 Mg Capsule) 800 mg PO TID COUNTS INCLUDE 234 BEDS AT THE [facility] Last Admin: 05/12/25 14:09 Dose: 800 mg Documented By: LEE ANN Dextrose/Lactated Ringer's (D5lr) 1,000 mls @ 80 mls/hr IVCONT .[id number] COUNTS INCLUDE 234 BEDS AT THE [facility] Stop: 05/12/25 21:29 Last Admin: 05/12/25 09:10 Dose: 80 mls/hr Documented By: LEE ANN Lactated Ringer's (Lr) 1,000 mls @ 100 mls/hr IVCONT .Q10H COUNTS INCLUDE 234 BEDS AT THE [facility] Last Admin: 05/12/25 13:35 Dose: 100 mls/hr Documented By: LEE ANN Levofloxacin (Levofloxacin 250 Mg Tablet) 250 mg PO Q24H COUNTS INCLUDE 234 BEDS AT THE [facility] Stop: 05/17/25 07:59 Last Admin: 05/12/25 09:09 Dose: 250 mg Documented By: LEE ANN Magnesium Hydroxide (Milk Of Magnesia 30 Ml Oral.Susp) 30 ml PO DAILY PRN PRN Reason: Constipation Melatonin (Melatonin 3 Mg Tablet) 6 mg PO BEDTIME PRN PRN Reason: Insomnia Ondansetron HCl (Ondansetron Hcl 4 Mg/2 Ml Vial) 4 mg IVPUSH Q8H PRN PRN Reason: Nausea and Vomiting Oxycodone HCl (Oxycodone Hcl Immed Release 5 Mg Tablet) 5 mg PO Q6H PRN PRN Reason: Pain, Severe (Pain Scale 7-10) Sodium Chloride (0.9 % Sodium Chloride Flush 3 Ml Syringe) 3 ml IVFLUSH QSHIFT COUNTS INCLUDE 234 BEDS AT THE [facility] Last Admin: 05/12/25 14:09 Dose: Not Given Documented By: LEE ANN Non-Admin Reason: IV Running Tramadol HCl (Tramadol Hcl 50 Mg Tablet) 50 mg PO Q6H PRN PRN Reason: Pain, Moderate(Pain Scale 4-6) Labs 05/12/25 05:32 05/12/25 05:32 Labs: Laboratory Results - last 24 hr 05/12/25 05:32 MCV 98.0 MCH 29.4 MCHC 30.0 L RDW 16.5 H Plt Count 418 H MPV 8.8 L Immature Gran % (Auto) 0.7 H Neut % (Auto) 71.6 Lymph % (Auto) 12.9 L [place] % (Auto) 12.2 H Eos % (Auto) 1.6 Baso % (Auto) 1.0 Lymph # (Auto) 1.0 L [place] # (Auto) 0.9 Eos # (Auto) 0.1 Baso # (Auto) 0.1 Abs Immat Gran (auto) 0.05 H Absolute Neuts (auto) 5.5 Absolute Nucleated RBC 0.000 Nucleated RBC % (auto) 0.0 Anion Gap 13 Estim Creat Clear Calc 22.7 Estimated GFR 24 Random Glucose 96 Calcium 8.9 Microbiology Microbiology Results: Microbiology 05/10/25 17:22 Urine Culture - Preliminary Urine clean catch - Clean Catch Midstream Enterobacter cloacae complex 05/10/25 19:49 Blood Culture - Preliminary Blood - Venous No growth after 24 hours. 05/10/25 19:49 Blood Culture - Preliminary Blood - Venous No growth after 24 hours. Assessment and Plan (1) Acute on chronic anemia: Status: Acute Plan Patient is a 60-year-old female with a past medical history significant for history of vaginal cancer in remission, CKD, mood disorder and recent admission at [facility] ICU for OTTO and urosepsis. Reported to ED by PCP due to abnormal labs including creatinine and hemoglobin. Acute on chronic anemia - hemoglobin stable but low: 8.0-->7.1 --> 7.2 - guaiac-positive - concerning for possible GI bleed - iron, B12, & folate unremarkable - GI consulted, plan on EGD/colonoscopy later today - NPO, completed bowel prep last night - monitor CBC Question of UTI - did not complete full course of abx for previous UTI w/ mchugh sensitive E coli - no sepsis: tachycardia chronic, no white count; lactic acid WNL - culture growing Enterobacter cloacae complex - empirically treated with ceftriaxone, switch to cipro x5 days, started 05/12 - given 1 L IV fluids, blood pressure maintaining - monitor CBC and BMP CKD3 - creatinine stable at 2.2, at new baseline - creatinine 2.0 when discharged from [facility] last month - monitor BMP - avoid nephrotoxins when possible Chronic hyperchloremic metabolic acidosis - at baseline Mood disorder - continue home meds Tobacco use disorder - smoking cessation encouraged - patient declines nicotine patch Full code VTE prophylaxis: Pneumoboots pending GI evaluation due to positive guaiac Pt requires continued hospitalization for monitoring and workup for acute on chronic anemia concerning for possible GI bleed. Quality Stroke Does the patient have a stroke diagnosis?: No VTE Prior VTE?: No VTE Risk Level:: Medical - moderate - high VTE Device Contraindication: N/A - Device Ordered VTE Drug Contraindication: Treatment Not Indicated
[2025-05-13] VITALS (10 sets, daily range): BP systolic 114–138; BP diastolic 55–73; PULSE 94–105; RESP 16–18; TEMP 36–37.1; O2SAT 97–99
[2025-05-13 05:55] LABS: MANUAL DIFF FLAG NO
[2025-05-13 06:12] LABS: Anion Gap 12 (12-20); Blood Urea Nitrogen 15 mg/dL (9-16); Calcium 8.4 mg/dL (8.4-10.2); Carbon Dioxide 19 mmol/L (22-29); Chloride 113 mmol/L (96-108); Creatinine Clr Calc Pharmacy 22.7; Estimated Glomerular Filt Rate 24; Potassium 3.2 mmol/L (3.3-5.1); Sodium 141 mmol/L (135-145)
[2025-05-13 06:17] LABS: Imm Gran Abs Auto 0.06 X10*3/uL (0.00-0.03); Imm Gran Pct Auto 0.7 % (0.0-0.4); Lymphocytes Absolute Auto 1.0 X10*3/uL (1.2-4.9); Mean Corpuscular HGB Conc 30.2 g/dl (31.0-35.0); Mean Corpuscular Hemoglobin 29.5 pg (27.0-33.0); Mean Corpuscular Volume 97.6 fL (80.0-98.0); NRBC Abs Auto 0.000 X10*3/uL (0.0-0.012); NRBC Pct Auto 0.0 /100WBC (0.0-0.2); Platelet Count 356 X10*3/uL (160-400); Red Blood Count 2.07 X10*6/uL (4.20-5.50); White Blood Count 8.7 X10*3/uL (4.8-10.8)
[2025-05-13 06:31] LABS: Ferritin 244 ng/mL (10-250)
[2025-05-13 06:32] LABS: Hemoglobin 6.1 g/dl (12.0-16.0)
[2025-05-13 06:33] LABS: Hematocrit 20.2 % (37.0-47.0)
[2025-05-13 07:14] LABS: MANUAL DIFF FLAG NO
[2025-05-13 07:19] LABS: Imm Gran Abs Auto 0.08 X10*3/uL (0.00-0.03); Imm Gran Pct Auto 0.9 % (0.0-0.4); Lymphocytes Absolute Auto 1.1 X10*3/uL (1.2-4.9); Mean Corpuscular HGB Conc 32.1 g/dl (31.0-35.0); Mean Corpuscular Hemoglobin 30.7 pg (27.0-33.0); Mean Corpuscular Volume 95.5 fL (80.0-98.0); NRBC Abs Auto 0.000 X10*3/uL (0.0-0.012); NRBC Pct Auto 0.0 /100WBC (0.0-0.2); Platelet Count 309 X10*3/uL (160-400); Red Blood Count 1.99 X10*6/uL (4.20-5.50); White Blood Count 8.7 X10*3/uL (4.8-10.8)
[2025-05-13 07:30] LABS: Hemoglobin 6.1 g/dl (12.0-16.0)
[2025-05-13 07:31] LABS: Hematocrit 19.0 % (37.0-47.0)
[2025-05-13 08:59] LABS: Reticulocytes Absolute 0.051 X10*6/uL (0.026-0.095)
[2025-05-13] MEDS: buPROPion HCl XL 300 MG TAB.ER.24H PO (09:04)
[2025-05-13] MEDS: Ferrous Sulfate 324 MG TABLET.DR PO (09:04)
[2025-05-13] MEDS: Potassium Chloride Packet 20 MEQ PACKET 40 MEQ PO (09:04)
--- NOTE | 2025-05-13 09:21 | PM.HEMONCCN ---
Subjective - Subjective Chief complaint: Weakness Patient: new to practice Consult date: 05/13/25 Primary Care Provider: Tiffani Robison MD Gun Repair Clerk Utilized?: No - South African Speaking HPI - Consult Narrative Reason for consult: Anemia Narrative: Yane Fong is a 60 year old female with past medical history significant for vaginal cancer in 2021, lung cancer in 2022, recent admission for sepsis and acute kidney injury at [facility]. She presented to the hospital at the direction of her PCP because of worsening anemia. She developed urosepsis and acute kidney injury in April 2025, she presented to [facility] with a serum creatinine of 5.47 and hemoglobin of 8.9 gram/dL. She has been told of anemia in the past. Patient underwent left lower lobectomy 2 years ago for lung cancer. She was treated in 2021 with chemo RT consisting of cisplatin, both cancers were treated at [facility]. Patient underwent EGD/colonoscopy on 05/12/2025 which revealed gastritis, possible Calle's, duodenitis. Diverticulosis with internal hemorrhoids, ischemic ulcerations that are healing. Patient feels weak but denies any acute complaints such as chest pain or shortness of breath. Her daughter was at the bedside. Review of Systems - Constitutional Reports as per HPI - Neurologic Denies confusion, Denies headache(s) Oncology Screenings - ECOG Performance Status ECOG Performance Status: 2 [facility] Medical History: Medical History (Last Updated 05/13/25 @ 17:46 by Deisy Gray MD) CKD (chronic kidney disease) stage 4, GFR 15-29 ml/min History of cancer of vagina Lung cancer Mood disorder Functional capacity: independent ambulation Social History: Social History (Last Reviewed 05/10/25 @ 16:56 by Evette Carlos MD) Living Situation History: Household Members: Family Housing: House Do you presently have visiting nurse or other home services: No Tobacco History: Patient Tobacco Use Status: Never used Tobacco Occupation Assessmet: service: No Home Medications and Allergies Current Medications: Current Medications Acetaminophen (Acetaminophen 325 Mg Tablet) 975 mg PO Q6H PRN PRN Reason: Pain, Mild 1-3,fever,headache Ascorbic Acid (Ascorbic Acid 500 Mg Tablet) 1,000 mg PO DAILY [facility] Last Admin: 05/13/25 09:04 Dose: 1,000 mg Atorvastatin Calcium (Atorvastatin Calcium 40 Mg Tablet) 40 mg PO DAILY [facility] Last Admin: 05/13/25 09:04 Dose: 40 mg Bupropion HCl (Bupropion Hcl Xl 300 Mg Tab.Er.24h) 300 mg PO DAILY [facility] Last Admin: 05/13/25 09:04 Dose: 300 mg Calcium Carbonate (Calcium Carbonate 750 Mg Tab.Chew) 750 mg PO Q4H PRN PRN Reason: Heartburn Ferrous Sulfate (Ferrous Sulfate 324 Mg Tablet.Dr) 324 mg PO DAILY [facility] Last Admin: 05/13/25 09:04 Dose: 324 mg Gabapentin (Gabapentin 400 Mg Capsule) 800 mg PO TID [facility] Last Admin: 05/13/25 09:04 Dose: 800 mg Lactated Ringer's (Lr) 1,000 mls @ 100 mls/hr IVCONT .Q10H [facility] Last Admin: 05/12/25 23:13 Dose: 100 mls/hr Levofloxacin (Levofloxacin 250 Mg Tablet) 250 mg PO Q24H [facility] Stop: 05/17/25 07:59 Last Admin: 05/13/25 09:04 Dose: 250 mg Magnesium Hydroxide (Milk Of Magnesia 30 Ml Oral.Susp) 30 ml PO DAILY PRN PRN Reason: Constipation Melatonin (Melatonin 3 Mg Tablet) 6 mg PO BEDTIME PRN PRN Reason: Insomnia Last Admin: 05/12/25 19:22 Dose: 6 mg Ondansetron HCl (Ondansetron Hcl 4 Mg/2 Ml Vial) 4 mg IVPUSH Q8H PRN PRN Reason: Nausea and Vomiting Oxycodone HCl (Oxycodone Hcl Immed Release 5 Mg Tablet) 5 mg PO Q6H PRN PRN Reason: Pain, Severe (Pain Scale 7-10) Sodium Chloride (0.9 % Sodium Chloride Flush 3 Ml Syringe) 3 ml IVFLUSH QSHIFT [facility] Last Admin: 05/13/25 09:08 Dose: Not Given Tramadol HCl (Tramadol Hcl 50 Mg Tablet) 50 mg PO Q6H PRN PRN Reason: Pain, Moderate(Pain Scale 4-6) Last Admin: 05/12/25 19:22 Dose: 50 mg Home Medications ?Medication ?Instructions ?Recorded ?Confirmed ?Type bupropion HCl 150 mg tablet,12 hr 150 mg PO BID 03/03/24 05/10/25 History sustained-release ascorbic acid (vitamin C) 500 mg 1,000 mg PO DAILY 05/10/25 05/10/25 History tablet ferrous sulfate 137 mg (45 mg 137 mg PO DAILY 05/10/25 05/10/25 History iron) tablet,extended release (Slow Fe) folic acid 400 mcg tablet 0.4 mg PO DAILY 05/10/25 05/10/25 History gabapentin 800 mg tablet 800 mg PO TID 05/10/25 05/10/25 History rosuvastatin 10 mg tablet 10 mg PO DAILY 05/10/25 05/10/25 History Allergies Allergy/AdvReac Type Severity Reaction Status Date / Time No Known Allergies Allergy Verified 05/10/25 11:07 Physical Exam Vital signs: Vital Signs Temp 98.4 F 05/13/25 07:10 Pulse 94 05/13/25 07:10 Resp 16 05/13/25 07:10 BP 123/63 05/13/25 07:10 Pulse Ox 97 05/13/25 07:10 O2 Del Method Room Air 05/13/25 07:10 Intake & Output 05/12/25 05/13/25 05/13/25 18:59 06:59 18:59 Intake Total 2083.333 / 2083.333 Balance 2083.333 / 2083.333 Intake: Intake, Oral Amount 120 / 120 Intake, IV Amount 1963.333 / 1963.333 Dextrose 5 % and Lactated Ring 1000 / 1000 1,000 ml @ 80 mls/hr IVCONT . [id number] BIB Rx#:[id number] Lactated Ringers 1,000 ml @ 100 963.333 / 963.333 mls/hr IVCONT .Q10H BIB Rx#: [id number] Other: NPO Yes Dinner % Eaten 25% Number of Unmeasured Voids 3 1 Number of Bowel Movements 0 Urine Bathroom Urine Color Yellow Weight 60 kg - Constitutional Present: no acute distress, chronically ill appearing - Routine HEENT Exam Head: Present: normal inspection Eye: Present: EOMI, conjunctivae pale - Routine Neck Exam Present: supple. Absent: lymphadenopathy - Routine Respiratory Exam Present: CTAB. Absent: wheezes - Routine Cardiovascular Exam Cardiovascular: Present: S1, S2 - Routine Abdominal Exam Present: soft - Routine Extremities Exam Present: normal inspection - Routine Skin Exam Present: intact - Routine Neurological Exam Present: alert, oriented X3 Hem/Onc Consult Result - Labs CBC & Chem 7: 05/13/25 06:57 05/13/25 05:01 Labs: Short CBC 05/13/25 05/13/25 Range/Units 05:01 06:57 WBC 8.7 8.7 (4.8-10.8) X10*3/uL Hgb 6.1 L* 6.1 L* (12.0-16.0) g/dl Hct 20.2 L* 19.0 L* (37.0-47.0) % Plt Count 356 309 (160-400) X10*3/uL BMP 05/13/25 05:01 Sodium 141 Potassium 3.2 L Chloride 113 H Carbon Dioxide 19 L BUN 15 Creatinine 2.11 H Calcium 8.4 Assessment and Plan Patient Active problem list reviewed?: Yes (1) Anemia Status: Acute Assessment and plan: 1. This is a 60-year-old woman with past medical history significant for vaginal cancer status post chemo RT in 2021, left lower lobectomy in 2022 for lung cancer who is presenting with acute worsening of chronic anemia. She was admitted for urosepsis and acute kidney injury in April 2025 to [facility] ICU where she was intubated and had a prolonged hospital course. Patient underwent EGD/colonoscopy which revealed gastritis/duodenitis and healing ischemic ulcerations but no evidence of acute bleed. Her anemia is related to kidney disease and possibly occult blood loss. No hematinic deficiencies, no evidence of hemolysis. Agree with blood transfusion. She would benefit from BARBARA therapy for kidney disease. Further management can be done upon discharge. Thank you for the consultation. - Time Spent With Patient Time Spent with Patient (in minutes): 20 Additional Coding: - Additional E/M codes Complex E/M visit Add On: CPT G2211
--- NOTE | 2025-05-13 11:18 | MHC.CM.PN ---
PER MD ROUNDS, PT NOT MEDICALLY CLEARED, PLAN FOR RBC TRANSFUSION X 2, AND NEPHRO CONSULT DCP: HOME VIA FAMILY TRANSPORT
--- NOTE | 2025-05-13 11:29 | P.CONNP_ITS ---
History of Present Illness Reason for Consult Consult date: 05/13/25 Chief Complaint Chief complaint: UTI, GI bleed History of Present Illness Narrative: 60 y/o female with CKD of unknown etiology, creatinine 1.2 1 year ago. She also has a history of vaginal cancer in remission, mood disorder. She presented 05/10 from PCP's recommendation due to abnormal labs including elevated creatinine around 2.2. Patient was at a hospital in [place] for about 2.5 weeks for OTTO/urosepsis, at that time creatinine was about 6, reporedly creatinien about 2 upon discharge. patient with hgb below 7, receiving blood transfusion today. EGD/colonoscopy yesterday with ischemic ulcerations with healing, internal hemorrhoids, possible ontiveros's, gastritis and duodenitis. patient reports she feels well and denies concerns/complaints. Says she feels fine but came in to the hospital at the direction of her PCP due to abnormal blood work results. She denies complaints/concerns. Review of Systems Review of Systems Yes all other systems are reviewed and are negative PMFSH Past Medical History Medical History Mood disorder History of cancer of vagina CKD (chronic kidney disease) stage 4, GFR 15-29 ml/min Social History Social History Household Members: Family Housing: House Do you presently have visiting nurse or other home services: No Patient Tobacco Use Status: Never used Tobacco Use of substances other than those prescribed or required for medical reasons: No Currently Displaying Signs/Symptoms of Drug Intoxication Withdrawal: No Have you been hit, kicked, punched, or otherwise hurt by someone within the past year? If so, by whom?: No Do you feel safe in your current relationship?: No Current Relationship Is there a partner from a previous relationship who is making you feel unsafe now?: No Are you made to feel afraid or neglected: No Advance Directives: No Advance Directives Information Provided: No Do you have a plan to hurt others: No Plan Recently lost weight without trying: Yes How much weight loss: 14-23 pounds Eating poorly because of decreased appetite: Yes Nutrition screen score: 5 Nutrition Risks: No Nutritional Risk Patient : No : No Poor oral hygiene: No service: No Meds Allergies Allergy/AdvReac Type Severity Reaction Status Date / Time No Known Allergies Allergy Verified 05/10/25 11:07 Active Medications: Current Medications Acetaminophen (Acetaminophen 325 Mg Tablet) 975 mg PO Q6H PRN PRN Reason: Pain, Mild 1-3,fever,headache Ascorbic Acid (Ascorbic Acid 500 Mg Tablet) 1,000 mg PO DAILY [facility] Last Admin: 05/13/25 09:04 Dose: 1,000 mg Atorvastatin Calcium (Atorvastatin Calcium 40 Mg Tablet) 40 mg PO DAILY [facility] Last Admin: 05/13/25 09:04 Dose: 40 mg Bupropion HCl (Bupropion Hcl Xl 300 Mg Tab.Er.24h) 300 mg PO DAILY [facility] Last Admin: 05/13/25 09:04 Dose: 300 mg Calcium Carbonate (Calcium Carbonate 750 Mg Tab.Chew) 750 mg PO Q4H PRN PRN Reason: Heartburn Ferrous Sulfate (Ferrous Sulfate 324 Mg Tablet.Dr) 324 mg PO DAILY [facility] Last Admin: 05/13/25 09:04 Dose: 324 mg Gabapentin (Gabapentin 400 Mg Capsule) 800 mg PO TID [facility] Last Admin: 05/13/25 09:04 Dose: 800 mg Lactated Ringer's (Lr) 1,000 mls @ 100 mls/hr IVCONT .Q10H [facility] Last Infusion: 05/13/25 09:59 Dose: Infused Levofloxacin (Levofloxacin 250 Mg Tablet) 250 mg PO Q24H [facility] Stop: 05/17/25 07:59 Last Admin: 05/13/25 09:04 Dose: 250 mg Magnesium Hydroxide (Milk Of Magnesia 30 Ml Oral.Susp) 30 ml PO DAILY PRN PRN Reason: Constipation Melatonin (Melatonin 3 Mg Tablet) 6 mg PO BEDTIME PRN PRN Reason: Insomnia Last Admin: 05/12/25 19:22 Dose: 6 mg Ondansetron HCl (Ondansetron Hcl 4 Mg/2 Ml Vial) 4 mg IVPUSH Q8H PRN PRN Reason: Nausea and Vomiting Oxycodone HCl (Oxycodone Hcl Immed Release 5 Mg Tablet) 5 mg PO Q6H PRN PRN Reason: Pain, Severe (Pain Scale 7-10) Sodium Chloride (0.9 % Sodium Chloride Flush 3 Ml Syringe) 3 ml IVFLUSH QSHIFT [facility] Last Admin: 05/13/25 09:08 Dose: Not Given Tramadol HCl (Tramadol Hcl 50 Mg Tablet) 50 mg PO Q6H PRN PRN Reason: Pain, Moderate(Pain Scale 4-6) Last Admin: 05/12/25 19:22 Dose: 50 mg Home Medications ?Medication ?Instructions ?Recorded ?Confirmed ?Last Taken ?Type bupropion HCl 150 mg tablet,12 hr 150 mg PO BID 05/10/25 05/09/25 History sustained-release ascorbic acid (vitamin C) 500 mg 1,000 mg PO DAILY 05/2605/10/25 05/09/25 History tablet ferrous sulfate 137 mg (45 mg 137 mg PO DAILY 05/10/25 05/10/25 05/09/25 History iron) tablet,extended release (Slow Fe) folic acid 400 mcg tablet 0.4 mg PO DAILY 05/10/2505/2605/09/25 History gabapentin 800 mg tablet 800 mg PO TID 05/10/2505/1005/09/25 History rosuvastatin 10 mg tablet 10 mg PO DAILY 05/10/2505/2605/02/25 History Physical Exam Vital Signs: Last Vital Signs Temp 98.1 F 05/13/25 10:52 Pulse 99 05/13/25 10:52 Resp 18 05/13/25 10:52 BP 118/59 L 05/13/25 10:52 Pulse Ox 97 05/13/25 07:10 O2 Del Method Room Air 05/13/25 07:10 BMI result Body Mass Index 24.2 Const General: no acute distress, alert and awake Resp Effort & Inspection: normal respiratory effort and able to speak in complete sentences Auscultation: clear to auscultation bilaterally Cardio Rate: regular rate Rhythm: regular rhythm Heart sounds: S1 normal heart sound present and S2 normal heart sound present GI Palpation (GI): Soft to palpation and nontender General: Yes no CVA tenderness Back/Spine/Pelvis Back: no CVA tenderness Skin Rashes: no rashes Extrem General: No edema Results Lab Results 05/13/25 06:57 05/13/25 05:01 Lab results: Chemistry 05/10/25 05/11/25 05/12/25 11:30 06:08 05:32 Sodium 140 142 141 Potassium 3.9 D 3.6 3.3 Carbon Dioxide 19 L 18 L 19 L BUN 19 H 19 H 14 Creatinine 2.20 H 2.20 H 2.11 H Calcium 9.5 D 9.1 8.9 05/13/25 05:01 Sodium 141 Potassium 3.2 L Carbon Dioxide 19 L BUN 15 Creatinine 2.11 H Calcium 8.4 Hematology 05/10/25 05/11/25 05/12/25 11:30 06:09 05:32 WBC 10.0 8.6 7.6 Hgb 8.0 L 7.1 L 7.2 L Plt Count 549 H D 477 H 418 H 05/13/25 05/13/25 05:01 06:57 WBC 8.7 8.7 Hgb 6.1 L* 6.1 L* Plt Count 356 309 Urinalysis 05/10/25 16:54 Urine Color Yellow Urine Appearance Cloudy Urine pH 6.0 Ur Specific [place] 1.015 Urine Protein 100 (2+) H Urine Glucose (UA) Negative Urine Ketones Negative Urine Blood Negative Urine Nitrite Negative Ur Leukocyte Esterase Trace H Urine RBC 0-2 Urine WBC 21-50 H Ur Squamous Epith Cells 0-2 Hyaline Casts 0-2 Assessment and Plan (1) Acute kidney injury superimposed on CKD: Status: Acute Plan OTTO on CKD likely residual ATN from previous injury from recent hospitalization given creatinine remains fairly stable from that time. she only has one functioning kidney so creatinine likely will not return to normal, though may gradually improve further over time Will quantify urine protein, check hepatitis panel, anca, serum/urine immunofixations given anemia (though blood loss anemia is contributing as well) HIV, hepatitis panel discussed with patient avoiding nsaids, hydrating well, smoking cessation. Given creatinine remains stable, will sign off. Will arrange outpatient follow up in nephrology clinic. Discussed [facility] patient the importance of ongoing renal care and follow up as outpatient. Discussed with Dr Hicks. Procedures Date of Service Date of Service: 05/13/25
[2025-05-13] MEDS: 0.9 % Sodium Chloride Flush 3 ML SYRINGE IVFLUSH (15:03)
--- NOTE | 2025-05-13 16:42 | P.DS_ITS ---
DS: Providers Provider Date of Service: 05/13/25 Date of admission: 05/10/25 20:11 Date of discharge: 05/13/25 Primary care physician: Tiffani Robison MD Consults: 05/10/25 20:25 Consult to Gastroenterology Routine Consulting Provider: Amadeo Hurst Reason for consultation: +guiac, anemia Has provider been notified: No 05/13/25 07:22 Consult to Hematology / Oncology Routine Consulting Provider: [facility] Oncology/Hematology Reason for consultation: Worsening acute on chronic anemia; neg for GIB Consult to Nephrology Routine Consulting Provider: [facility] Reason for consultation: CKD4 of unclear etiology; cr 1.2 baseline 1 year ago DS: Diagnosis Discharge Diagnosis (1) Acute kidney injury superimposed on CKD: Status: Acute DS: Summary Hospital Course Hospital Course: From admission HPI: Date of Service: 05/10/25 Attending physician on admission: Maury Cosby Chief Complaint: abnormal labs Patient is a 60-year-old female with a past medical history significant for history of vaginal cancer in remission, CKD, mood disorder and recent admission at [facility] ICU for OTTO and urosepsis. The patient left AMA about 2 weeks ago after receiving pressors and IV fluids and downgrading in the hospital. She was receiving IV antibiotics but was not prescribed any oral antibiotics when she left against medical advice. The patient followed up with her primary care doctor this week and was recommended to report to the emergency department due to abnormal labs. Her creatinine is still very elevated at 2.8, hemoglobin 7.2, hematocrit 23.1. On discharge from [facility] the patient did have a hemoglobin of 6.2 and creatinine was 2. Her baseline creatinine about 1 year ago was 1.2. The patient reports some generalized weakness and shortness of breath. No urinary symptoms or abdominal pain. No obvious melena or hematochezia. Hospital course: Pt admitted to the hospital for acute on chronic anemia with concerns of GI bleed. Was seen and evaluated by GI who performed EGD and colonoscopy on 05/12 which found possible ischemic ulcerations with healing, internal hemorrhoids, possible Calle's, gastritis, and duodenitis. No active bleeding noted. Recommendation was for a high-fiber diet, avoiding straining with bowel movements, Epson salts and Sitz baths, Anusol suppositories or cream, and avoiding constipation. Follow up with Dr. Hurst in GI in 1-2 weeks for pathology/biopsy results, and repeat colonoscopy in 5 years. Pt was also noted to have acute on chronic anemia with hemoglobin dropping to 6.1 earlier today. Pt was transfused 2 units of PRBCs and seen by both Hematology and Nephrology. Hematology thought anemia likely secondary to CKD 4. Nephrology thought OTTO on CKD likely residual ATN from previous injury from recent hospitalization. Labs were ordered, including urine protein, hepatitis panel, ANCA, serum/urine immunofixations, and HIV. Pt should follow up with Neurology for further management and lab results. Additional workup noted that pt continue to test positive for UTI and was started on levofloxacin based on sensitivities. Pt herself had no acute medical complaints and only came to the hospital at the recommendation of her PCP. She expressed desire to leave the hospital after transfusion, and given that pt has no signs of active bleeding will be discharged home. She should take levofloxacin 250 mg daily for the next 3 days. Pt is strongly encouraged to quit smoking. She should resume all of her other home medications. Time Attestation Discharge Coordination Time (in mins): 35 Quality: Safe Use of Opioids Does Pt have an Active Cancer Diagnosis on the Problem List?: No Quality: Stroke Does the patient have a stroke diagnosis?: No Physical Exam Exam: Exam: General: AOx3, no acute distress Resp: CTA bilaterally CVS: S1, S2, RRR GI: +BS, NT, no distention Skin: Warm, dry Neuro: Cranial nerves II-XII grossly intact bilaterally. Motor grossly intact bilaterally Extremities: No edema Psych: Appropriate affect Vital Signs: Vital Signs: Last Vital Signs Temp 98.4 F 05/13/25 15:16 Pulse 104 H 05/13/25 15:16 Resp 16 05/13/25 15:16 BP 115/55 L 05/13/25 15:16 Pulse Ox 97 05/13/25 07:10 O2 Del Method Room Air 05/13/25 07:10 BMI result Body Mass Index 24.2 DS: Data Data Completed and Pending Pending studies at discharge: Pending at discharge 05/12/25 12:32 Surgical [PTH] Routine Labs on day of discharge: Laboratory Results - last 24 hr 05/11/25 05/13/25 05/13/25 10:59 05:01 06:57 WBC 8.7 8.7 RBC 2.07 L 1.99 L Hgb 6.1 L* 6.1 L* Hct 20.2 L* 19.0 L* MCV 97.6 95.5 MCH 29.5 30.7 MCHC 30.2 L 32.1 RDW 16.6 H 16.8 H Plt Count 356 309 MPV 8.8 L 8.4 L Immature Gran % (Auto) 0.7 H 0.9 H Neut % (Auto) 73.6 H 72.2 Lymph % (Auto) 11.8 L 12.9 L [place] % (Auto) 11.7 H 11.7 H Eos % (Auto) 1.5 1.5 Baso % (Auto) 0.7 0.8 Lymph # (Auto) 1.0 L 1.1 L [place] # (Auto) 1.0 1.0 Eos # (Auto) 0.1 0.1 Baso # (Auto) 0.1 0.1 Abs Immat Gran (auto) 0.06 H 0.08 H Absolute Neuts (auto) 6.4 6.3 Absolute Nucleated RBC 0.000 0.000 Nucleated RBC % (auto) 0.0 0.0 Smear Path Review SEE NOTE Absolute Retic 0.051 Percent Retic 2.5 H Immature Retic Fraction 23.3 H Retic Hgb Equivalent 31.7 Sodium 141 Potassium 3.2 L Chloride 113 H Carbon Dioxide 19 L Anion Gap 12 BUN 15 Creatinine 2.11 H Estim Creat Clear Calc 22.7 Estimated GFR 24 Random Glucose 98 Calcium 8.4 Ferritin 244 Lactate Dehydrogenase 191 Blood Type O Positive Antibody Screen NEGATIVE Crossmatch See Detail Preliminary micro results at discharge 05/10/25 19:49 Blood Culture - Preliminary Blood - Venous No growth after 48 hours. 05/10/25 19:49 Blood Culture - Preliminary Blood - Venous No growth after 48 hours. Discharge Plan Discharge Anticipated Discharge Date/Time: 05/13/25 16:28 Patient Disposition: Home, Self-Care Discharge Diagnosis: Acute on chronic anemia Referrals: Sravan Hicks MD [Physician, Critical Care ([facility])] - 1 Week Referral Note: CKD4, anemia of chronic disease Tiffani Robison MD [Primary Care Provider, Internal Medicine] - 1 Week Amadeo Hurst MD [Physician, Gastroenterology] - 1 Week Referral Note: Inpatient EGD and colonoscopy Discharge Medications: New levofloxacin 250 mg Tablet 250 mg PO Q24H Qty: 3 0RF Rx Instructions: Take one tablet daily for the next three days, ending on 05/16 Continued gabapentin 800 mg Tablet 800 mg PO TID rosuvastatin 10 mg Tablet 10 mg PO DAILY ascorbic acid (vitamin C) 500 mg Tablet 1,000 mg PO DAILY folic acid 400 mcg Tablet 0.4 mg PO DAILY Slow Fe 137 mg (45 mg iron) Tablet Extended Release 137 mg PO DAILY bupropion HCl 150 mg tablet sustained-release 12 hr 150 mg PO BID Discharge Orders: Discharge Order (Routine); Ordered 05/13/25 Ordered By: Ena Mcginnis Activity on Discharge: As tolerated Stand Alone Forms: Patient Portal Discharge page Print Language: Stateless Care Plan Goals: See below Health Concerns: Acute on chronic anemia OTTO on CKD4 Acute blood loss anemia UTI Plan of Treatment: You were admitted to the hospital for acute on chronic anemia with concerns for a possible GI bleed. You were seen and evaluated by GI who performed an EGD and colonoscopy that was negative for acute bleeding, but showed internal hemorrhoids, ischemic ulcerations with healing, possible Calle's, gastritis, and duodenitis. Worsening anemia likely secondary to chronic kidney disease. Your also were noted to have positive UTI and started on levofloxacin based on sensitivities. You also had an acute drop in your H&H which require transfusion of 2 units of PRBCs. -- take levofloxacin 250 mg once daily for the next 3 days, ending 05/16 -- GI recommendations are for high-fiber diet, avoiding straining with bowel movements; Epson salts, Sitz baths, and Anusol suppositories or cream as necessary -- follow up with Dr. Hurst and GI 1-2 weeks for pathology/biopsy results -- repeat colonoscopy in 5 years -- follow up with Dr. Hicks and Nephrology for kidney monitoring, laboratory results, and monitoring of anemia -- you were strongly encouraged to quit smoking Assessment: See dishcarge summary
== END 2025-05-13 17:45 | disposition home or self-care (01) | DRG 463 ==
LOC: HO.ED 16:24 → HO.EDOVER 20:17 → HO.S3 21:54
PROVIDERS: Hospitalist; Internal Medicine; Internal Medicine Gastroenterology; Physician Assistant Medical; Admitting Provider Physician Assistant; Emergency Provider Emergency Medicine Emergency Medical Services; PCP Internal Medicine; Visit Provider Student in an Organized Health Care Education/Training Program
PROC: 0DB98ZX Excision of Duodenum, Via Natural or Artificial Opening Endoscopic, Diagnostic (ICD-10-PCS; principal; 2025-05-12 13:20)
DX: N39.0 Urinary tract infection, site not specified (principal); N17.0 Acute kidney failure with tubular necrosis; K57.31 Diverticulosis of large intestine without perforation or abscess with bleeding; K63.3 Ulcer of intestine; K29.71 Gastritis, unspecified, with bleeding; E87.22 Chronic metabolic acidosis; D63.1 Anemia in chronic kidney disease; D62 Acute posthemorrhagic anemia; K22.70 Barrett's esophagus without dysplasia; K29.81 Duodenitis with bleeding; K64.8 Other hemorrhoids; E87.8 Other disorders of electrolyte and fluid balance, not elsewhere classified; Z20.822 Contact with and (suspected) exposure to COVID-19; Z85.118 Personal history of other malignant neoplasm of bronchus and lung; Z85.44 Personal history of malignant neoplasm of other female genital organs; T36.96XA Underdosing of unspecified systemic antibiotic, initial encounter; Z87.440 Personal history of urinary (tract) infections; Z79.899 Other long term (current) drug therapy
CPT/HCPCS: 36415; 80048; 80076; 81001; 82272; 82607; 82728; 82746; 83540; 83605; 83615; 83735; 84484; 85025; 85045; 86850; 86900; 86901; 86923; 87040; 87086; 87088; 87186; 87502; 87635; 88305; 88313; 88342; 93005; 99285; J0696; J2704; J7120; P9016

== ENCOUNTER → 2025-05-10 11:08 | Outpatient (BNV) | payer MEDICAID, SELFPAY | PROVIDERS: PCP Internal Medicine; Visit Provider Internal Medicine Cardiovascular Disease | DX: R00.0 Tachycardia, unspecified (principal) | CPT/HCPCS: 93010 ==

== ENCOUNTER → 2025-05-10 20:11 | Outpatient (BNV) | payer MEDICAID, SELFPAY | PROVIDERS: Admitting Provider Physician Assistant; Emergency Provider Emergency Medicine Emergency Medical Services; PCP Internal Medicine; Visit Provider Student in an Organized Health Care Education/Training Program | DX: D64.9 Anemia, unspecified (principal) | CPT/HCPCS: 99223; 99233 ==

== ENCOUNTER → 2025-05-10 20:11 | Outpatient (BNV) | payer MEDICAID, SELFPAY | PROVIDERS: Admitting Provider Physician Assistant; Emergency Provider Emergency Medicine Emergency Medical Services; PCP Internal Medicine; Visit Provider Internal Medicine Gastroenterology | DX: D64.9 Anemia, unspecified (principal) | CPT/HCPCS: 99223 ==

== ENCOUNTER → 2025-05-10 20:11 | Outpatient (BNV) | payer MEDICAID, SELFPAY | PROVIDERS: Admitting Provider Physician Assistant; Emergency Provider Emergency Medicine Emergency Medical Services; PCP Internal Medicine; Visit Provider Internal Medicine | DX: D64.9 Anemia, unspecified (principal) | CPT/HCPCS: 99222 ==

== ENCOUNTER → 2025-05-10 20:11 | Outpatient (BNV) | payer MEDICAID, SELFPAY | PROVIDERS: Admitting Provider Physician Assistant; Emergency Provider Emergency Medicine Emergency Medical Services; PCP Internal Medicine; Visit Provider Nurse Practitioner Family | DX: N17.9 Acute kidney failure, unspecified (principal); N18.9 Chronic kidney disease, unspecified | CPT/HCPCS: 99222 ==

== ENCOUNTER 2025-05-30 13:20 | Outpatient (AMB) | payer MEDICAID, SELFPAY ==
[2025-05-30 13:27] VITALS: BP 92/54; PULSE 117; O2SAT 97; BMI 25.1
--- NOTE | 2025-05-30 13:27 | HO.NEPHOV_ITS ---
Vital Signs 05/30/25 13:27 05/30/25 13:42 05/30/25 13:42 Height 5 ft 2 in Weight 137 lb BMI 25.1 BP 92/54 L 90/60 90/60 Blood Pressure Location Rt brachial Rt brachial Rt brachial Position Sitting Sitting Standing Pulse 117 H Pulse Source Pulse Oximeter Pulse Oximetry (%) 97 Oxygen Delivery Method Room Air Intake Visit Reasons: C Discharge F/U Avionics Test Technician Required: No Accompanied by: Self / Same As Patient Allergies No Known Allergies Allergy (Verified 05/30/25 13:29) Medication List - Last Reconciled 05/30/25 by Zander Montano MD ascorbic acid (vitamin C) 1,000 mg PO DAILY ferrous sulfate ER (Slow Fe) 137 mg PO DAILY fluconazole 150 mg PO TID folic acid 0.4 mg PO DAILY gabapentin 800 mg PO TID levofloxacin 250 mg PO Q24H metronidazole 500 mg PO BID rosuvastatin 10 mg PO DAILY HPI Comments Details: - The patient is a 60-year-old female he is here for follow-up regarding CKD She was seen during recent hospitalization for OTTO. - in April , creatinine initially at 5, improved to 2.1 . - History of vaginal cancer treated with chemotherapy in 2021 lung cancer with lobectomy in 2022. - Severe anemia investigated with endoscopy, under hematology and gastroenterology care. - Chronic atrophy of right kidney, right kidney 6.5 cm, left kidney 10.2 cm. - Low blood pressure, recent reading 92/54 mmHg, history of normal BP. - Hip pain managed with gabapentin for two years. [facility] Medical History (Updated 05/21/25 @ 00:01 by Genaro Hogan) Lung cancer Hyperchloremic metabolic acidosis Anemia Mood disorder History of cancer of vagina CKD (chronic kidney disease) stage 4, GFR 15-29 ml/min Nicotine dependence Social History Household Members: Family Housing: House Do you presently have visiting nurse or other home services: No Patient Tobacco Use Status: Never used Tobacco service: No Physical Exam Vital Signs: Last Vital Signs Pulse 117 H 05/30/25 13:27 BP 90/60 05/30/25 13:42 Pulse Ox 97 05/30/25 13:27 Oxygen Delivery Method Room Air 05/30/25 13:27 BMI result Body Mass Index 25.1 Blood pressure 90/60 right upper extremity no orthostatic change. Physical Exam General: Awake. Comfortable. HENT: Neck supple. Mucosa moist. Pulmonary: Lungs aeration equal. No rales. Cardiology: Heart S1-S2 heard. No gallop. Abdomen: Soft. Non tender. Bowel sounds normal. Neurologic: No involuntary movements. No myoclonus. Extremities: No edema. No rash. Blood pressure 90/60 Results Reviewed Results Reviewed: 05/19/25 Cr 2.44 HgB 10.9 Nephrology Results: Hgb, (12.0-16.0) 6.1 g/dl L* 05/13/25 WBC, (4.8-10.8) 8.7 X10*3/uL 05/13/25 Plt Count, (160-400) 309 X10*3/uL 05/13/25 Sodium, (135-145) 141 mmol/L 05/13/25 Potassium, (3.3-5.1) 3.2 mmol/L L 05/13/25 Chloride, (96-108) 113 mmol/L H 05/13/25 Carbon Dioxide, (22-29) 19 mmol/L L 05/13/25 BUN, (9-16) 15 mg/dL 05/13/25 Creatinine, (0.5-1.4) 2.11 mg/dL H 05/13/25 Calcium, (8.4-10.2) 8.4 mg/dL 05/13/25 Urine Protein, (Neg-Trace) 100 (2+) mg/dL H 05/10/25 Renal US 10/14/24 Assessment & Plan Assessment & Plan (1) CKD (chronic kidney disease) stage 4, GFR 15-29 ml/min: Code(s): N18.4 - Chronic kidney disease, stage 4 (severe) Category: Medical Plan Acute Kidney Injury OTTO resolved creatinine decreased from 5 to 2.1. Underlying CKD with a recent creatinine of 2.4 EGFR has been 2923 mL/minute Chronic Atrophy Of Right Kidney Exact etiology is unclear. No history of nephrolithiasis. Workup initiated for CKD including basic serologies. Low Blood Pressure Asymptomatic - Monitor blood pressure regularly. - Increase fluid intake to address hypotension. Severe anemia. Being worked up by GI and Hematology - encouraged to increase fluid intake - Avoid taking NSAIDs like Aleve, Advil, and Motrin. - Monitor your blood pressure regularly and report any significant changes. Orders: Orders Parathyroid Hormone Intact 4 Weeks N18.4 - Chronic kidney disease, stage 4 (severe) UA and rflx microscopic 4 Weeks N18.4 - Chronic kidney disease, stage 4 (severe) Complete Blood Count no Diff 4 Weeks N18.4 - Chronic kidney disease, stage 4 (severe) TALA Reflex Titer and Pattern 4 Weeks N18.4 - Chronic kidney disease, stage 4 (severe) Neutrophil Cytoplasma Ab 4 Weeks N18.4 - Chronic kidney disease, stage 4 (severe) Anti Glomerular Basement Memb 4 Weeks N18.4 - Chronic kidney disease, stage 4 (severe) Complement C4 4 Weeks N18.4 - Chronic kidney disease, stage 4 (severe) Phospholipase A2 Receptor Pnl 4 Weeks N18.4 - Chronic kidney disease, stage 4 (severe) Basic Metabolic Panel 4 Weeks N18.4 - Chronic kidney disease, stage 4 (severe) Creatinine Urine 4 Weeks N18.4 - Chronic kidney disease, stage 4 (severe) Total Protein Urine Random 4 Weeks N18.4 - Chronic kidney disease, stage 4 (severe) Complement C3 4 Weeks N18.4 - Chronic kidney disease, stage 4 (severe) Protein Electrophoresis, Serum 4 Weeks N18.4 - Chronic kidney disease, stage 4 (severe) Coding Level of Care Code Est Pt Level 4 (61907) Diagnoses CKD (chronic kidney disease) stage 4, GFR 15-29 ml/min N18.4
[2025-05-30 13:42] VITALS: BP 90/60
--- OUTSIDE RECORDS SUMMARY | 2025-05-30 14:49 | XMS_ITS | Clinical Summary ---
Author Organization [facility] Address [address] [place], [place] [id number] Phone Care Team Providers Care Microchip Specialist Name Role Phone Abraham Martins CNP Unavailable [phone] Unknown, Unknown Primary Care Provider Elvis shahid [...] 02/23/2016 ZOSTER VACCINES (1 of 2) 02/23/2016 Adult Td,Tdap Booster 12/14/2024 12/14/2014 , 06/21/2010 INFLUENZA VACCINE (#1) 2025 COVID-19 VACCINE (3 - 2024-2 6 season) 2025 05/17/2021, 04/23/2021 HEPATITIS A VACCINES Aged Out No long [...] Medical Devices Not on file Care Teams Microchip Specialist Relationship Specialty Start Date End Date Unknown, Unknown, [address] [facility], [address] [place] [address] PCP - General 02/14/20 Abraham Martins CNP [address] [place] [address], [address] [place] [address] Historical LMR Provider 06/22/17 Additional Source Comments The information contained in this document represents components of the legal health record. It is not the complete legal health record.[facility]
== END 2025-05-30 13:47 | disposition home or self-care (01) ==
LOC: HO.HKA 13:20
PROVIDERS: PCP Internal Medicine; Visit Provider Internal Medicine Hypertension Specialist
DX: N18.4 Chronic kidney disease, stage 4 (severe) (principal)
CPT/HCPCS: 99214

== ENCOUNTER → 2025-05-30 13:20 | Outpatient (BNVA) | payer OTHER, SELFPAY | PROVIDERS: PCP Internal Medicine; Visit Provider Internal Medicine Hypertension Specialist | DX: N18.4 Chronic kidney disease, stage 4 (severe) (principal) | CPT/HCPCS: 99212 ==

== ENCOUNTER 2025-06-30 14:51 | Outpatient (REF) | payer OTHER, SELFPAY ==
--- OUTSIDE RECORDS SUMMARY | 2025-06-30 17:44 | XMS_ITS | Clinical Summary ---
Author Organization [facility] Address [address] [place] [id number] Care Team Providers Care Clinical Engineer Name Role Phone Tiffani Robison MD Primary Care Provider + [phone] Allergies No known active allergies Medications buPROPion (WELLBUTRIN SR) 150 MG 12 hr tablet Take 1 tablet (150 mg total) by mouth 2 (two) times a day. 4 Active ondansetron (ZOFRAN-ODT) 4 MG disintegrating tablet Take 1 tablet (4 mg total) by mouth 4 times daily (every 6 hours) as needed for nausea or vomiting. 5 Active proCHLORPERAZINE (COMPAZINE) 10 MG tablet Take 1 tablet (10 mg total) by mouth 4 times daily (every 6 hours) as needed for nausea or vomiting. 5 Active rosuvastatin (CRESTOR) 10 MG tablet Take 1 tablet (10 mg total) by mouth daily. Active Fexofenadine HCl (SCOT ALLERGY PO) Take 1 tablet by mouth daily. Active Pseudoephedrine HCl (SUDAFED PO) Take 1 tablet by mouth daily as needed. Active gabapentin (NEURONTIN) 300 MG capsuleIndications: Shock (HCC) Take 1 capsule (300 mg total) by mouth 2 (two) times a day. 60 capsule 5 Active folic acid (FOLVITE) 1 MG tabletIndications:S hock (HCC) Take 1 tablet (1 mg total) by mouth daily. 5 Active cholecalciferol (CHOLECALCIFEROL) 25 MCG (1000 UT) tabletIndications:S hock (HCC) Take 2 tablets (2,000 Units total) by mouth daily. Active Active Problems Problem Noted Date Diagnosed Date Anemia 04/27/2025 Assessment & Plan (04/27/2025 2:04 PM EDT): Chronic Now acute on chronic anemia Unclear what is etiology Hemoglobin is down to 6.2 Patient is refusing blood transfusion She is refusing further workup Explained to patient in detail about the consequences of worsening anemia She says she understands but she wants to take the risk and then she wants to go home Hypokalemia 04/21/2025 Assessment & Plan (04/23/2025 11:02 AM EDT): Repleted will repeat labs in a.m. Assessment & Plan (04/22/2025 5:02 PM EDT): Present on admission Replete aggressively Assessment & Plan (04/21/2025 3:24 PM EDT): Replaced Monitor Hypomagnesemia 04/21/2025 Assessment & Plan (04/22/2025 5:02 PM EDT): Present on admission Replete aggressively Assessment & Plan (04/21/2025 3:24 PM EDT): Replaced Resolved Thrombocytopenia 04/21/2025 Assessment & Plan (04/27/2025 2:04 PM EDT): Present on admission Mostly secondary to bone marrow suppression in the context of infection Assessment & Plan (04/24/2025 10:37 AM EDT): Platelets appears to be stable no active bleeding Assessment & Plan (04/23/2025 11:02 AM EDT): No active bleeding continue to monitor Assessment & Plan (04/22/2025 5:02 PM EDT): Present on admission Most likely secondary to sepsis Monitor Assessment & Plan (04/21/2025 3:24 PM EDT): Due to sepsis Resolved Shock 04/12/2025 Assessment & Plan (04/27/2025 2:04 PM EDT): Present on admission Septic shock Required 5 L normal sign bolus and then Levophed Due to E. coli bacteremia Critical illness with multiorgan dysfunction in the form of several electrolyte derangements, OTTO, thrombocytopenia, hypoalbuminemia, metabolic acidosis, metabolic encephalopathy, acute hypoxic respiratory failure requiring intubation Patient received and completed antibiotic course as per ID recommendations Repeat blood cultures from 04/12 no growth so far Patient was spiking fevers so ID recommended to start ceftriaxone but right now patient is refusing IV antibiotics She is refusing further workup CT thorax has also been refused Last fever was on 04/25 Assessment & Plan (04/24/2025 10:37 AM EDT): Septic shock resolved Secondary to E. coli bacteremia 3 out of 4 blood cultures bottles were positive for E. coli, repeat blood cultures are negative till date Her blood pressure is stable and is normotensive currently She has recurrent fever she spiked 102 temperature overnight We will repeat blood cultures 04/24/2025, Legionella and strep antigens negative MRSA PCR negative Renal ultrasound shows atrophic right kidney with compensatory hypertrophy of the left kidney no sonographic evidence of renal stones or hydronephrosis unremarkable bladder If she continues to spike consider CT scan Assessment & Plan (04/23/2025 11:02 AM EDT): Patient has E. coli bacteremia, completed antibiotics as per ID recommendations, repeat blood cultures does not show any growth till date, continues to spike temperatures monitor Tmax and WBC Assessment & Plan (04/22/2025 5:02 PM EDT): Present on admission Septic shock Required 5 L normal sign bolus and then Levophed Due to E. coli bacteremia Critical illness with multiorgan dysfunction in the form of several electrolyte derangements, OTTO, thrombocytopenia, hypoalbuminemia, metabolic acidosis, metabolic encephalopathy, acute hypoxic respiratory failure requiring intubation Patient received and completed antibiotic course as per ID recommendations Repeat blood cultures from 04/12 no growth so far Patient is spiking fevers again we will continue to monitor Assessment & Plan (04/21/2025 3:24 PM EDT): POA Required 5 L normal saline as well as Levophed at outside hospital Due to E. coli bacteremia 04/11 Critical illness further complicated by multiorgan failure with thrombocytopenia, hypoalbuminemia, severe electrolyte derangements, metabolic acidosis CT shows large due to sepsis Patient extubated 04/19 Day 8 of antibiotics (Rocephin converted to cefazolin) Repeat blood cultures 04/12 negative OTTO (acute kidney injury) 04/12/2025 Assessment & Plan (04/27/2025 2:04 PM EDT): Present on admission Baseline creatinine 1.3 Creatinine at presentation 4.6 Creatinine now back to baseline Monitor Assessment & Plan (04/24/2025 10:37 AM EDT): Monitor BUN and creatinine repeat labs in a.m. Assessment & Plan (04/23/2025 11:02 AM EDT): Appears to be stable avoid nephrotoxic agents trending down Assessment & Plan (04/22/2025 5:02 PM EDT): Present on admission Baseline creatinine 1.3 Creatinine at presentation 4.6 Creatinine now back to baseline Monitor Assessment & Plan (04/21/2025 3:24 PM EDT): Baseline creatinine 1.3 Admission creatinine 4.6 Resolved Lactic acidemia 04/12/2025 Assessment & Plan (04/22/2025 5:02 PM EDT): Present on admission Resolved Assessment & Plan (04/21/2025 3:24 PM EDT): POA Resolved Metabolic acidosis 04/12/2025 Assessment & Plan (04/22/2025 5:02 PM EDT): Metabolic acidosis is still persisting Monitor Appreciate nephrology recommendations Assessment & Plan (04/21/2025 3:24 PM EDT): Persists Transaminitis 04/12/2025 Assessment & Plan (04/23/2025 11:02 AM EDT): Present on admission likely secondary to shock liver improved Assessment & Plan (04/22/2025 5:02 PM EDT): Present on admission Most likely secondary to shock liver Improved Assessment & Plan (04/21/2025 3:24 PM EDT): Likely due to septic shock Improving Encounters Date Type Department Care Team Description 04/15/2025 Orders Only [facility] Infectious Disease [address] [phone] Provider, MD Gary 04/13/2025 4:07 AM EDT Anesthesia Event [facility] ICU [address] [place] [phone] Ron Duque MD 04/12/2025 1:20 PM EDT Ancillary Procedure [facility] [address] [place] [phone] Provider, File Room 04/12/2025 1:20 PM EDT Ancillary Procedure [facility] [address] [place] [phone] Provider, File Room 04/12/2025 1:15 PM EDT Ancillary Procedure [facility] [address] [place] [phone] Provider, File Room 04/12/2025 1:15 PM EDT Ancillary Procedure [facility] [address] [place] [phone] Provider, File Room 04/12/2025 6:40 AM EDT Ancillary Procedure [facility] [address] [place] [phone] Provider, File Room 04/12/2025 2:21 AM EDT - 04/27/2025 4:45 PM EDT Hospital Encounter [facility] E [address] [place] [phone] Cristina Greer MD Hemdan, Ali M, MD Khudayar, Humnah, MD Nyanin, Adwoa, MD Pratt, Timothy M, DO Chikoti, Shailaja, MD Madhusudana, MD Payam Whitlock Manjot, MD Metabolic acidosis (Primary Dx); Shock (HCC) Discharge Disposition: Left Against Medical Advice/ AMA 04/12/2025 12:50 AM EDT Ancillary Procedure [facility] [address] [facility] [place] [phone] Provider, File Room 04/12/2025 12:45 AM EDT Ancillary Procedure [facility] [address] [facility] [place] [phone] Provider, File Room 04/12/2025 12:45 AM EDT Ancillary Procedure [facility] [address] [facility] [place] [phone] Provider, File Room 04/12/2025 Travel 04/11/2025 Orders Only [facility] [address] [place] [place] [phone] Provider, File Room from Last 3 Months Social History Tobacco Use Types Packs/Day Years Used Date Smoking Tobacco: Former Cigarettes Tobacco Cessation:Counseling Given: Not Answered [facility] Utilities Answer Date Recorded In the past 12 months has [employer], gas, oil, or water abeo threatened to shut off services in your home? No 04/13/2025 AUDIT-C Answer Date Recorded Q1: How often do you have a drink containing alc ohol? Monthly or less 04/12/2025 Q2: How many drinks containi ng alcohol do you have on a typical day when you are drinking? 1 or 2 04/12/2025 Q3: How often do you have si x or more drinks on one occasion? Never 04/12/2025 Overall Financial Resource Strain (CARDIA) Answe r Date Recorded How hard is it for you to pa y for the very basics like food, housing, medical care, and heating? Not hard at all 04/13/2025 Hunger Vital Sign Answer Date Recorded Within the past 12 months, y ou worried that your food would run out before you got the money to buy more. Never true 04/13/20 25 Within the past 12 months, t he food you bought just didn't last and you didn't have money to get more. Never true 04/13/2025 PRAPARE - Transportation Answer Date Re corded In the past 12 months, has l ack of transportation kept you from medical appointments or from getting medications? No 04/01 In the past 12 months, has l ack of transportation kept you from meetings, work, or from getting things needed for daily living? No 04/13/2025 Housing Stability Vital Sign Answer Yuan e Recorded In the last 12 months, was t here a time when you were not able to pay the mortgage or rent on time? No 04/13/2025 In the past 12 months, how m any times have you moved where you were living? 0 04/13/2025 At any time in the past 12 m [facility], were you homeless or living in a half-way (including now)? No 04/13/2025 Comments Unknown Sex and Gender Information Value Date Recorded Sex Assigned at Female 04/12/2025 9:07 AM EDT Legal Sex Female 11:29 PM EDT Gender Identity Female 04/12/2025 9:07 AM EDT Sexual Orientation Heterosexual (straight) 04/12 9:07 AM EDT Last Filed Vital Signs Vital Sign Reading Time Taken Comments Blood Pressure 100/67 04/27/2025 3:00 PM EDT Pulse 105 04/27/2025 3:00 PM EDT Temperature 36.6 C (97.9 F) 04/27/2025 3:00 PM EDT Respiratory Rate 20 04/27/2025 3:00 PM EDT Oxygen Saturation 98% 04/27/2025 3:00 PM EDT Inhaled Oxygen Concentration - - Weight 65.6 kg (144 lb 9.6 oz) 04/27/2025 6:00 A M EDT Height 157.5 cm (5' 2 ) 04/12/2025 2:33 AM EDT Body Mass Index 26.45 04/12/2025 2:33 AM EDT Plan of Treatment Health Maintenance Due Date Last Done Comments Hepatitis C Virus Screening 1966 HIV Screening 1979 DTaP/Tdap/Td Vaccines (1 - Tdap) 1985 Hepatitis B Vaccines (1 of 3 - 19+ 3-dose series) 1985 Pap Smear (Ages 21-65) 1987 Mammogram 2006 Colonoscopy 2011 Pneumococcal Vaccines 50+ (1 of 1 - PCV) 02/23/2016 Zoster (Shingles) Vaccine (1 of 2) 02/23/2016 Influenza Vaccine 04/01/2025 COVID-19 Vaccine (3 - season) 2025, 04/23/2021 RSV Vaccine 50 years and old er and Patients (1 - 1-dose 75+ series) 2041 Procedures Procedure Name Priority Date/Time Associated Diagnosis Comments LAB RESULT 04/28/2025 9:23 AM EDT BLOOD/BLOOD PRODUCTS-SCAN 04/28/2025 9:18 AM EDT MAGNESIUM Routine 04/27/2025 6:19 AM EDT BASIC METABOLIC PANEL Routine 04/27/2025 6:19 AM EDT COMPLETE BLOOD COUNT, WITHOUT DIFFERENTIAL Routine 04/27/2025 6:19 AM EDT POCT OCCULT BLOOD, STOOL, DIAGNOSTIC (CHARGE) Routine 04/26/2025 11:30 AM EDT TYPE AND SCREEN Routine 04/26/2025 10:47 AM EDT PREPARE RBC'S Routine 04/26/2025 10:32 AM EDT HEMOGLOBIN AND HEMATOCRIT Routine 04/26/2025 9:41 AM EDT BASIC METABOLIC PANEL Routine 04/26/2025 6:16 AM EDT COMPLETE BLOOD COUNT, WITHOUT DIFFERENTIAL Routine 04/26/2025 6:16 AM EDT URINE CULTURE Routine 04/25/2025 2:35 PM EDT POCT GLUCOSE, FINGERSTICK (CHARGE) Routine 04/25/2025 11:53 AM EDT POCT GLUCOSE, FINGERSTICK (CHARGE) Routine 04/25/2025 6:12 AM EDT MAGNESIUM Routine 04/25/2025 6:05 AM EDT BASIC METABOLIC PANEL Routine 04/25/2025 6:05 AM EDT COMPLETE BLOOD COUNT, WITHOUT DIFFERENTIAL Routine 04/25/2025 6:05 AM EDT POCT GLUCOSE, FINGERSTICK (CHARGE) Routine 04/25/2025 12:24 AM EDT URINALYSIS WITH REFLEX TO MICROSCOPIC Routine 04/24/2025 11:37 PM EDT POCT GLUCOSE, FINGERSTICK (CHARGE) Routine 04/24/2025 3:56 PM EDT POCT GLUCOSE, FINGERSTICK (CHARGE) Routine 04/24/2025 11:39 AM EDT BLOOD CULTURE (HOSP LAB) Routine 025 10:55 AM EDT BLOOD CULTURE (HOSP LAB) Routine 025 10:45 AM EDT POCT GLUCOSE, FINGERSTICK (CHARGE) Routine 04/24/2025 5:43 AM EDT POCT GLUCOSE, FINGERSTICK (CHARGE) Routine 04/23/2025 11:40 PM EDT POCT GLUCOSE, FINGERSTICK (CHARGE) Routine 04/23/2025 4:24 PM EDT POCT GLUCOSE, FINGERSTICK (CHARGE) Routine 04/23/2025 11:37 AM EDT COMPLETE BLOOD COUNT, WITHOUT DIFFERENTIAL Routine 04/23/2025 6:40 AM EDT BASIC METABOLIC PANEL Routine 04/23/2025 6:40 AM EDT POCT GLUCOSE, FINGERSTICK (CHARGE) Routine 04/23/2025 6:26 AM EDT POCT GLUCOSE, FINGERSTICK (CHARGE) Routine 04/22/2025 11:15 PM EDT POCT GLUCOSE, FINGERSTICK (CHARGE) Routine 04/22/2025 5:58 PM EDT US RENAL Routine 04/22/2025 5:55 PM EDT POCT GLUCOSE, FINGERSTICK (CHARGE) Routine 04/22/2025 12:01 PM EDT MAGNESIUM Routine 04/22/2025 6:43 AM EDT HEPATIC FUNCTION PANEL Routine 6:43 AM EDT COMPLETE BLOOD COUNT, WITHOUT DIFFERENTIAL Routine 04/22/2025 6:43 AM EDT BASIC METABOLIC PANEL Routine 04/22/2025 6:43 AM EDT POCT GLUCOSE, FINGERSTICK (CHARGE) Routine 04/22/2025 6:06 AM EDT POCT GLUCOSE, FINGERSTICK (CHARGE) Routine 04/21/2025 11:58 PM EDT POCT GLUCOSE, FINGERSTICK (CHARGE) Routine 04/21/2025 6:13 PM EDT POCT GLUCOSE, FINGERSTICK (CHARGE) Routine 04/21/2025 11:21 AM EDT PHOSPHORUS Routine 04/21/2025 10:50 AM EDT BASIC METABOLIC PANEL Routine 04/21/2025 10:50 AM EDT POCT GLUCOSE, FINGERSTICK (CHARGE) Routine 04/21/2025 6:00 AM EDT POCT GLUCOSE, FINGERSTICK (CHARGE) Routine 04/20/2025 11:44 PM EDT POCT GLUCOSE, FINGERSTICK (CHARGE) Routine 04/20/2025 5:44 PM EDT US VENOUS DUPLEX ARM-LEFT Routine 04/20/2025 3:12 PM EDT POTASSIUM Routine 04/20/2025 2:43 PM EDT BASIC METABOLIC PANEL Routine 04/20/2025 2:04 PM EDT POCT GLUCOSE, FINGERSTICK (CHARGE) Routine 04/20/2025 11:51 AM EDT CHLORIDE, URINE, RANDOM Routine 04/20/20 25 10:54 AM EDT POTASSIUM, URINE, RANDOM Routine 025 10:54 AM EDT SODIUM, URINE, RANDOM Routine 04/20/2025 10:54 AM EDT POCT GLUCOSE, FINGERSTICK (CHARGE) Routine 04/20/2025 6:08 AM EDT PHOSPHORUS Routine 04/20/2025 4:51 AM EDT MAGNESIUM Routine 04/20/2025 4:51 AM EDT BASIC METABOLIC PANEL Routine 04/20/2025 4:51 AM EDT COMPLETE BLOOD COUNT, WITHOUT DIFFERENTIAL Routine 04/20/2025 4:51 AM EDT POCT GLUCOSE, FINGERSTICK (CHARGE) Routine 04/19/2025 11:59 PM EDT POCT GLUCOSE, FINGERSTICK (CHARGE) Routine 04/19/2025 5:42 PM EDT ECG 12-LEAD Routine 04/19/2025 1:31 PM EDT EXTUBATION Routine 04/19/2025 12:17 PM EDT POCT GLUCOSE, FINGERSTICK (CHARGE) Routine 04/19/2025 11:45 AM EDT XR CHEST 1 VIEW-PORTABLE STAT 025 8:50 AM EDT ISTAT ARTERIAL BLOOD GAS (ABG) (NO CHARGE) Routine 04/19/2025 6:39 AM EDT POCT GLUCOSE, FINGERSTICK (CHARGE) Routine 04/19/2025 6:09 AM EDT HEMOGLOBIN A1C WITH ESTIMATED AVERAGE GLUCOSE Routine 04/19/2025 4:04 AM EDT COMPLETE BLOOD COUNT, WITH DIFFERENTIAL Routine 04/19/2025 3:59 AM EDT PHOSPHORUS Routine 04/19/2025 3:59 AM EDT MAGNESIUM Routine 04/19/2025 3:59 AM EDT BASIC METABOLIC PANEL Routine 04/19/2025 3:59 AM EDT TRIGLYCERIDES Routine 04/19/2025 3:59 AM EDT POCT GLUCOSE, FINGERSTICK (CHARGE) Routine 04/18/2025 11:51 PM EDT POCT GLUCOSE, FINGERSTICK (CHARGE) Routine 04/18/2025 5:54 PM EDT BASIC METABOLIC PANEL Routine 04/18/2025 2:47 PM EDT POCT GLUCOSE, FINGERSTICK (CHARGE) Routine 04/18/2025 12:06 PM EDT POCT GLUCOSE, FINGERSTICK (CHARGE) Routine 04/18/2025 6:15 AM EDT COMPLETE BLOOD COUNT, WITHOUT DIFFERENTIAL Routine 04/18/2025 5:24 AM EDT HEPATIC FUNCTION PANEL Routine 5:24 AM EDT MAGNESIUM Routine 04/18/2025 5:24 AM EDT BASIC METABOLIC PANEL Routine 04/18/2025 5:24 AM EDT POCT GLUCOSE, FINGERSTICK (CHARGE) Routine 04/18/2025 12:01 AM EDT XR CHEST 1 VIEW-PORTABLE Routine 025 11:52 PM EDT POCT GLUCOSE, FINGERSTICK (CHARGE) Routine 04/17/2025 5:50 PM EDT POTASSIUM Routine 04/17/2025 4:18 PM EDT XR CHEST 1 VIEW-PORTABLE Routine 025 11:43 AM EDT POCT GLUCOSE, FINGERSTICK (CHARGE) Routine 04/17/2025 11:42 AM EDT ISTAT ARTERIAL BLOOD GAS (ABG) (NO CHARGE) Routine 04/17/2025 10:55 AM EDT BASIC METABOLIC PANEL Routine 04/17/2025 8:34 AM EDT COMPLETE BLOOD COUNT, WITHOUT DIFFERENTIAL Routine 04/17/2025 8:34 AM EDT POCT GLUCOSE, FINGERSTICK (CHARGE) Routine 04/17/2025 6:05 AM EDT POCT GLUCOSE, FINGERSTICK (CHARGE) Routine 04/17/2025 12:08 AM EDT POCT GLUCOSE, FINGERSTICK (CHARGE) Routine 04/16/2025 5:35 PM EDT POTASSIUM Routine 04/16/2025 5:07 PM EDT POCT GLUCOSE, FINGERSTICK (CHARGE) Routine 04/16/2025 12:07 PM EDT COMPLETE BLOOD COUNT, WITH DIFFERENTIAL Routine 04/16/2025 11:06 AM EDT POCT GLUCOSE, FINGERSTICK (CHARGE) Routine 04/16/2025 5:52 AM EDT BASIC METABOLIC PANEL Routine 04/16/2025 5:49 AM EDT PTH, INTACT Routine 04/16/2025 5:49 AM EDT VITAMIN D, 25-HYDROXY Routine 04/16/2025 5:49 AM EDT ISTAT ARTERIAL BLOOD GAS (ABG) (NO CHARGE) Routine 04/16/2025 5:10 AM EDT POCT GLUCOSE, FINGERSTICK (CHARGE) Routine 04/16/2025 12:10 AM EDT TRIGLYCERIDES Routine 04/15/2025 11:52 PM EDT HEMOGLOBIN AND HEMATOCRIT Routine 04/15/2025 7:28 PM EDT MAGNESIUM Routine 04/15/2025 7:28 PM EDT BASIC METABOLIC PANEL Routine 04/15/2025 7:28 PM EDT PROTIME-INR Routine 04/15/2025 7:28 PM EDT POCT GLUCOSE, FINGERSTICK (CHARGE) Routine 04/15/2025 6:27 PM EDT ECG 12-LEAD STAT 04/15/2025 4:10 PM EDT TRANSFUSE RED BLOOD CELLS Routine 04/15/2025 3:30 PM EDT ISTAT ARTERIAL BLOOD GAS (ABG) (NO CHARGE) Routine 04/15/2025 3:28 PM EDT LAB RESULT Routine 04/15/2025 2:28 PM EDT TYPE AND SCREEN Routine 04/15/2025 1:24 PM EDT PREPARE RBC'S Routine 04/15/2025 1:11 PM EDT POCT GLUCOSE, FINGERSTICK (CHARGE) Routine 04/15/2025 12:01 PM EDT COMPLETE BLOOD COUNT, WITHOUT DIFFERENTIAL Routine 04/15/2025 11:56 AM EDT HIGH SENSITIVITY D-DIMER Routine 025 11:56 AM EDT FIBRINOGEN LEVEL Routine 04/15/2025 11:5 6 AM EDT MAGNESIUM Routine 04/15/2025 11:56 AM EDT BASIC METABOLIC PANEL Routine 04/15/2025 11:56 AM EDT POCT GLUCOSE, FINGERSTICK (CHARGE) Routine 04/15/2025 6:08 AM EDT ISTAT ARTERIAL BLOOD GAS (ABG) (NO CHARGE) Routine 04/15/2025 5:55 AM EDT ABO CONFIRMATION Routine 04/15/2025 4:50 AM EDT COMPREHENSIVE METABOLIC PANEL Routine 04/15/2025 4:50 AM EDT COMPLETE BLOOD COUNT, WITH DIFFERENTIAL Routine 04/15/2025 4:50 AM EDT PHOSPHORUS Routine 04/15/2025 4:50 AM EDT MAGNESIUM Routine 04/15/2025 4:50 AM EDT FERRITIN Routine 04/15/2025 4:50 AM EDT IRON AND TOTAL IRON BINDING CAPACITY Routine 04/15/2025 4:50 AM EDT RETICULOCYTE COUNT Routine 04/15/2025 4: 50 AM EDT FOLATE LEVEL Routine 04/15/2025 4:50 AM EDT VITAMIN B12 Routine 04/15/2025 4:50 AM EDT POCT GLUCOSE, FINGERSTICK (CHARGE) Routine 04/15/2025 12:10 AM EDT ISTAT ARTERIAL BLOOD GAS (ABG) (NO CHARGE) Routine 04/14/2025 9:02 PM EDT BASIC METABOLIC PANEL Routine 04/14/2025 8:54 PM EDT POCT GLUCOSE, FINGERSTICK (CHARGE) Routine 04/14/2025 6:08 PM EDT PROTIME-INR Routine 04/14/2025 5:27 PM EDT ISTAT ARTERIAL BLOOD GAS (ABG) (NO CHARGE) Routine 04/14/2025 4:40 PM EDT ECG 12-LEAD STAT 04/14/2025 2:14 PM EDT HAPTOGLOBIN Routine 04/14/2025 12:04 PM EDT LACTATE DEHYDROGENASE (LDH) Routine 04/14/2025 12:04 PM EDT POCT GLUCOSE, FINGERSTICK (CHARGE) Routine 04/14/2025 11:43 AM EDT ISTAT ARTERIAL BLOOD GAS (ABG) (NO CHARGE) Routine 04/14/2025 11:33 AM EDT ISTAT ARTERIAL BLOOD GAS (ABG) (NO CHARGE) Routine 04/14/2025 8:40 AM EDT XR CHEST 1 VIEW-PORTABLE Routine 025 8:12 AM EDT RESPIRATORY CULTURE (AEROBIC AND GRAM STAIN) Routine 04/14/2025 8:02 AM EDT HIGH SENSITIVITY TROPONIN T CARD 04/14/2025 7:22 AM EDT POCT GLUCOSE, FINGERSTICK (CHARGE) Routine 04/14/2025 5:53 AM EDT ISTAT ARTERIAL BLOOD GAS (ABG) (NO CHARGE) Routine 04/14/2025 4:38 AM EDT LIPASE Routine 04/14/2025 4:15 AM EDT PHOSPHORUS Routine 04/14/2025 4:15 AM EDT MAGNESIUM Routine 04/14/2025 4:15 AM EDT COMPREHENSIVE METABOLIC PANEL Routine 04/14/2025 4:15 AM EDT COMPLETE BLOOD COUNT, WITHOUT DIFFERENTIAL Routine 04/14/2025 4:15 AM EDT POCT GLUCOSE, FINGERSTICK (CHARGE) Routine 04/14/2025 12:11 AM EDT PHOSPHORUS Routine 04/13/2025 11:53 PM EDT MAGNESIUM Routine 04/13/2025 11:53 PM EDT BASIC METABOLIC PANEL Routine 04/13/2025 11:53 PM EDT COMPLETE BLOOD COUNT, WITH DIFFERENTIAL Routine 04/13/2025 11:53 PM EDT LACTIC ACID, PLASMA Routine 04/13/2025 1 1:53 PM EDT HIGH SENSITIVITY TROPONIN T CARD 04/13/2025 11:53 PM EDT ISTAT ARTERIAL BLOOD GAS (ABG) (NO CHARGE) Routine 04/13/2025 10:12 PM EDT LEGIONELLA AND STREPTOCOCCUS PNEUMONIAE ANTIGEN, URINE Routine 04/13/2025 6:44 PM EDT POCT GLUCOSE, FINGERSTICK (CHARGE) Routine 04/13/2025 6:08 PM EDT HIGH SENSITIVITY TROPONIN T CARD 04/13/2025 5:57 PM EDT LACTIC ACID, PLASMA Routine 04/13/2025 5 :[address] CHEST/ABDOMEN+PELVIS W/O CONTRAST W/PO Routine 04/13/2025 3:54 PM EDT ECHOCARDIOGRAM (TTE) COMPREHENSIVE (CONTRAST PRN) Routine 04/13/2025 3:20 PM EDT POCT GLUCOSE, FINGERSTICK (CHARGE) Routine 04/13/2025 12:16 PM EDT ISTAT ARTERIAL BLOOD GAS (ABG) (NO CHARGE) Routine 04/13/2025 12:14 PM EDT ENDOTRACHEAL TUBE ADJUSTMENT Routine 04/13/2025 10:54 AM EDT XR CHEST 1 VIEW-PORTABLE Routine 025 10:09 AM EDT ISTAT ARTERIAL BLOOD GAS (ABG) (NO CHARGE) Routine 04/13/2025 6:00 AM EDT POCT GLUCOSE, FINGERSTICK (CHARGE) Routine 04/13/2025 6:00 AM EDT TRIGLYCERIDES Routine 04/13/2025 4:50 AM EDT COMPLETE BLOOD COUNT, WITH DIFFERENTIAL Routine 04/13/2025 4:50 AM EDT PHOSPHORUS Routine 04/13/2025 4:50 AM EDT MAGNESIUM Routine 04/13/2025 4:50 AM EDT BASIC METABOLIC PANEL Routine 04/13/2025 4:50 AM EDT XR CHEST 1 VIEW-PORTABLE STAT 025 4:50 AM EDT ANES INTUBATION Routine 04/13/2025 4:21 AM EDT XR CHEST 1 VIEW-PORTABLE Routine 025 2:36 AM EDT POCT GLUCOSE, FINGERSTICK (CHARGE) Routine 04/13/2025 1:01 AM EDT POCT GLUCOSE, FINGERSTICK (CHARGE) Routine 04/13/2025 12:30 AM EDT CALCIUM, IONIZED Routine 04/13/2025 12:2 3 AM EDT C. DIFFICILE TOXIN AND NAP1 PCR WITH REFLEX TO C. DIFF AG/TOXIN EIA Routine 04/13/2025 12:20 AM EDT GASTROINTESTINAL EXPANDED JACQUELYN PANEL STAT 04/13/2025 12:20 AM EDT POCT GLUCOSE, FINGERSTICK (CHARGE) Routine 04/13/2025 12:04 AM EDT ISTAT ARTERIAL BLOOD GAS (ABG) (NO CHARGE) Routine 04/12/2025 11:17 PM EDT ISTAT VENOUS BLOOD GAS (VBG) (NO CHARGE) Routine 04/12/2025 8:29 PM EDT BASIC METABOLIC PANEL Routine 04/12/2025 7:59 PM EDT US RENAL Routine 04/12/2025 4:22 PM EDT CR CHEST ARCHIVE FOR REFERENCE ONLY Routine 04/12/2025 1:12 PM EDT CR CHEST ARCHIVE FOR REFERENCE ONLY Routine 04/12/2025 1:[address] CHEST ARCHIVE FOR REFERENCE ONLY Routine 04/12/2025 1:[address] ABDOMEN ARCHIVE FOR REFERENCE ONLY Routine 04/12/2025 1:11 PM EDT URINE CULTURE Routine 04/12/2025 12:15 PM EDT ISTAT VENOUS BLOOD GAS (VBG) (NO CHARGE) Routine 04/12/2025 8:53 AM EDT CR CHEST ARCHIVE FOR REFERENCE ONLY Routine 04/12/2025 6:35 AM EDT URINALYSIS WITH REFLEX TO MICROSCOPIC Routine 04/12/2025 5:21 AM EDT HIGH SENSITIVITY TROPONIN T CARD 04/12/2025 5:12 AM EDT VANCOMYCIN LEVEL-RANDOM Timed 04/12/20 25 5:12 AM EDT BLOOD CULTURE (HOSP LAB) Routine 025 4:03 AM EDT BLOOD CULTURE (HOSP LAB) Routine 025 4:03 AM EDT HIGH SENSITIVITY TROPONIN T CARD 04/12/2025 3:19 AM EDT ISTAT VENOUS BLOOD GAS (VBG) (NO CHARGE) Routine 04/12/2025 3:03 AM EDT PHOSPHORUS Routine 04/12/2025 2:55 AM EDT MAGNESIUM Routine 04/12/2025 2:55 AM EDT LACTIC ACID, PLASMA Routine 04/12/2025 2 :55 AM EDT COMPREHENSIVE METABOLIC PANEL Routine 04/12/2025 2:55 AM EDT COMPLETE BLOOD COUNT, WITHOUT DIFFERENTIAL Routine 04/12/2025 2:55 AM EDT NASAL MRSA SCREEN, PCR Routine 2:[address] CHEST ARCHIVE FOR REFERENCE ONLY Routine 04/12/2025 12:[address] ABDOMEN ARCHIVE FOR REFERENCE ONLY Routine 04/12/2025 12:43 AM EDT CR CHEST ARCHIVE FOR REFERENCE ONLY Routine 04/12/2025 12:42 AM EDT from Last 3 Months Results * LAB RESULT (04/28/2025 9:23 AM EDT) Only the most recent of2 resultswithin the time period is included. Narrative 04/28/2025 9:23 AM EDT Ordered by an unspecified provider. us Generic Provider HX AMB PROCEDURES Final Result * BLOOD/BLOOD PRODUCTS-SCAN (04/28/2025 9:18 AM EDT) Narrative 04/28/2025 9:18 AM EDT Ordered by an unspecified provider. us Generic Provider HX AMB PROCEDURES Final Result * (ABNORMAL) Complete Blood Count WITHOUT Differential - in AM (04/27/2025 6:19 AM EDT) Only the most recent of11 resultswithin the time period is included. White Blood Cell Count 11.3(H) 4.0 - 11.0 Thou/uL 04/27/2025 7:13 AM EDT [facility] Platelet Count 247 150 - 450 Thou/uL 04/27/2025 7:13 AM T [facility] Hemoglobin 6.2(LL) 11.7 - 15.7 g/dL 04/27/2025 7:13 AM [facility] Hematocrit 20.7(L) 35.0 - 47.0 % 04/27/2025 7:13 AM EDT [facility] Red Blood Cell Count 2.11(L) 4.00 - 5.40 Mil/uL 04/27/2025 7:13 AM [facility] MCV 98 80 - 100 fL 04/27/2025 7:13 AM [facility] MCH 29.4 27.0 - 31.0 pg 04/27/2025 7:13 AM [facility] MCHC 30.0 30.0 - 36.0 g/dL 04/27/2025 7:13 AM [facility] RDW 16.7(H) 11.5 - 14.5 % 04/27/2025 7:13 AM [facility] MPV 10.6 7.5 - 12.5 fL 04/27/2025 7:13 AM [facility] Blood Blood specimen / Unknown 04/27/2025 6:19 AM EDT 04/27/2025 6:35 AM EDT Rodrigo Hare MD LAB BLOOD ORDERABLES Final Resul t [facility] [address] [place] [address], [facility] [address] [place] [address] * Magnesium (AM) (04/27/2025 6:19 AM EDT) Only the most recent of13 resultswithin the time period is included. Magnesium 1.7 1.6 - 2.7 mg/dL 04/27/2025 7:02 AM EDT [facility] Blood Blood specimen / Unknown 04/27/2025 6:19 AM EDT 04/27/2025 6:35 AM EDT Rodrigo Hare MD LAB BLOOD ORDERABLES Final Resul t [facility] [address] [facility] [place] [address], [facility] [address] [facility] [place] [address] * (ABNORMAL) Basic Metabolic Panel (AM) (04/27/2025 6:19 AM EDT) Only the most recent of19 resultswithin the time period is included. Glucose 96 65 - 99 mg/dL 04/27/2025 7:02 AM [facility] Comment:Fasting: <100 mg/dL, Non-Fasting: <200 mg/dL (ADA 2005) Blood Urea Nitrogen (BUN) 18 8 - 21 mg/dL 04/27/2025 7:02 AM [facility] Creatinine 2.2(H) 0.4 - 1.1 mg/dL 04/27/2025 7:02 AM [facility] eGFR 25(L) >59 04/27/2025 7:02 AM [facility] Comment:CKD-EPI (2020) in mL /min/1.73 sq meters. Sodium 142 136 - 145 mmol/L 04/27/2025 7:02 AM [facility] Potassium 3.8 3.4 - 5.3 mmol/L 04/27/2025 7:02 AM [facility] Chloride 110(H) 98 - 107 mmol/L 04/27/2025 7:02 AM [facility] CO2 17(L) 22 - 33 mmol/L 04/27/2025 7:02 AM [facility] Anion Gap 15 4 - 16 04/27/2025 7:02 AM [facility] Calcium 8.9 8.7 - 10.5 mg/dL 04/27/2025 7:02 AM [facility] BUN/Creatinine Ratio 8(L) 10.0 - 25.0 Ratio 04/27/2025 7:02 AM EDT [facility] Blood Blood specimen / Unknown 04/27/2025 6:19 AM EDT 04/27/2025 6:35 AM EDT us Rodrigo Hare MD LAB BLOOD ORDERABLES Final Resul t [facility] [address] [facility] [place] [address], [facility] [address] [facility] [place] [address] * POCT Occult Blood, Stool (04/26/2025 11:30 AM EDT) Occult Blood, Stool #1 Negative Negative Lot Number [id number] Therapeutic Massage Technician Pass Pass Stool 04/26/2025 11:3 0 AM EDT us Rodrigo Hare MD POINT OF CARE TEST ORDERABLES Fi nal Result * Type and Screen (04/26/2025 10:47 AM EDT) Only the most recent of2 resultswithin the time period is included. ABO/Rh O POSITIVE 04/26/2025 11:33 AM EDT [facility] Antibody Screen NEGATIVE 04/26/2025 11:33 AM EDT [facility] Specimen Expiration 04/29/2025 04/26/2025 11:00 AM EDT [facility] Unit Number [id number] 04/26/2025 11:35 AM EDT [facility] Blood Component Type LEUKOREDUCED RED CELLS 04/26/2025 11:35 AM EDT [facility] Unit Division 00 04/26/2025 11:35 AM EDT [facility] Unit Status REL FROM ALLOC 12:50 PM EDT [facility] Transfusion Status OK TO TRANSFUSE 04/26/2025 11:35 AM EDT [facility] Crossmatch Result Electronically Compatible 04/26/2025 11:35 AM EDT [facility] Blood Blood specimen / Unknown 04/26/2025 10:47 AM EDT 04/26/2025 10:52 AM EDT Comment:Blood us Rodrigo Hare MD BLOOD BANK TEST ORDERABLES Final Result Performing Organization Address [facility] de Phone Number HOSPITAL LAB See Below [facility] [address] [place] [address] [address] [place] [address] * Prepare RBC's:Prepare in: Units; Number of Units: 1; Transfusion Indications: Hemoglobin less than 7 gm/dl or HCT less than 21% (04/26/2025 10:32 AM EDT) Only the most recent of2 resultswithin the time period is included. Units Ordered 1 04/26/2025 10:32 AM EDT [facility] Blood Bank Comment Refer to the most recent Type and Screen for any Available Units 04/26/2025 11:34 AM EDT [facility] 04/26/2025 10:3 2 AM EDT 04/26/2025 11:34 AM EDT us Rodrigo Hare MD BLOOD BANK PRODUCT ORDERABLES Fi nal Result Performing Organization Address [facility] Co de Phone Number [facility] [address] [place], [place] [address] [place] [address], [facility] [address] [place] [address].[address] [place] [address] * (ABNORMAL) Hemoglobin and Hematocrit (04/26/2025 9:41 AM EDT) Only the most recent of2 resultswithin the time period is included. Hematocrit 20.9(L) 35.0 - 47.0 % 04/26/2025 10:30 AM EDT [facility] Hemoglobin 6.4(LL) 11.7 - 15.7 g/dL 04/26/2025 10:30 AM EDT [facility] Blood Blood specimen / Unknown 04/26/2025 9:41 AM EDT 04/26/2025 9:45 AM EDT Rodrigo Hare MD LAB BLOOD ORDERABLES Final Resul t [facility] [address] [place] [address], [facility] [address] [place] [address] * Urine Culture (04/25/2025 2:35 PM EDT) Only the most recent of2 resultswithin the time period is included. Culture Sterile or less than 1000 col/mL 04/27/2025 2:53 AM EDT [facility] Urine Urine specimen obtained by clean catch procedure / Unknown 04/25/2025 2:35 PM EDT 04/25/2025 9:19 PM EDT Comment:Urine Rodrigo Hare MD MICROBIOLOGY - GENERAL ORDERABLE S Final Result [facility] [address] [place] [address], * POCT Glucose, Fingerstick (04/25/2025 11:53 AM EDT) Only the most recent of53 resultswithin the time period is included. POC Glucose 95 65 - 99 mg/dL 04/25/2025 11:54 AM EDT [facility] Blood specimen / Unknown 04/25/2025 11:53 AM EDT 04/25/2025 11:54 AM EDT Cristina Greer MD POINT OF CARE TEST ORDERABLES F inal Result [facility] [address] [place] [address], [place] * (ABNORMAL) Urinalysis with Reflex to Microscopic (04/24/2025 11:37 PM EDT) Only the most recent of2 resultswithin the time period is included. Color Yellow 04/25/2025 12:13 AM [facility] Clarity Hazy 04/25/2025 12:13 AM [facility] Specific [place] 1.012 1.005 - 1.030 04/25/2025 12:13 AM [facility] pH 6.0 5.0 - 8.0 04/25/2025 12:13 AM [facility] Leukocyte Esterase Large(A) Negative 04/25/2025 12:13 AM [facility] Nitrite Negative Negative 04/25/2025 12:13 AM [facility] Protein Moderate (100 mg/dL)(A) Negative mg/dL 04/25/2025 12:13 AM [facility] Glucose 50(A) NEG^Negative mg/dL 04/25/2025 12:13 AM [facility] Ketones Negative Negative mg/dL 04/25/2025 12:13 AM [facility] Blood Small(A) Negative 04/25/2025 12:13 AM [facility] Bilirubin Negative Negative 04/25/2025 12:13 AM [facility] WBC >25(H) 0 - 4 per hpf 04/25/2025 12:13 AM [facility] RBC 24(H) 0 - 4 per hpf 04/25/2025 12:13 AM [facility] WBC Clumps Present(A) Negative 04/25/2025 12:13 AM [facility] Squamous Epithelial Cells 2 PER HPF 04/25/2025 12:13 AM [facility] Crystals Absent 04/25/2025 12:13 AM [facility] Urine Urine specimen / Unknown 04/24/2025 11:37 PM EDT 04/24/2025 11:54 PM EDT Amadou Badillo MD URINE ORDERABLES Final R esult [facility] [address] [place] [address], [facility] [address] [place] [address] * Blood Culture (04/24/2025 10:55 AM EDT) Only the most recent of4 resultswithin the time period is included. Culture Sterile after 5 days 04/29/2025 7:33 AM EDT [facility] Blood Blood specimen / Unknown 04/24/2025 10:55 AM EDT 04/24/2025 10:58 AM EDT Comment:Blood us Lorene Chaudhry MD LAB BLOOD ORDERABLES Fin al Result [facility] [address] [place] [address], [place] * US Renal (04/22/2025 5:55 PM EDT) Only the most recent of2 resultswithin the time period is included. Anatomical Region Laterality Modality Abdomen Ultrasound 04/22/2025 5:56 PM EDT Impressions 04/22/2025 5:59 PM EDT Atrophic right kidney with compensatory hypertrophy of the left kidney. No sonographic evidence of renal stones. No hydronephrosis. Unremarkable bladder. Left ureteral jets visualized. Narrative 04/22/2025 5:59 PM EDT PROCEDURE: US RENAL ([id number]) EXAM DATE: 04/22/2025 5:31 PM CLINICAL HISTORY: Spiking fevers again, came with E. Coli bacteremia, rule out renal abscess or obstructive uropathy TECHNIQUE: Real-time limited ultrasound of the retroperitoneum with image documentation. COMPARISON: April 13, 2025 FINDINGS: Right kidney: Atrophic at 6.7 cm with increased echogenicity. No stones. No solid mass. No hydronephrosis. Left kidney: 12.7 cm. No stones. No solid mass. No hydronephrosis. Bladder: Prevoid bladder volume is measured at 170 cc. Left ureteral jet is visualized. Procedure Note Flavio Gupta MD - 04/22/2025 PROCEDURE: US RENAL ([id number]) EXAM DATE: 04/22/2025 5:31 PM CLINICAL HISTORY: Spiking fevers again, came with E. Coli bacteremia, rule out renalabscess or obstructive uropathy TECHNIQUE: Real-time limited ultrasound of the retroperitoneum with imagedocumentation. COMPARISON: April 13, 2025 FINDINGS: Right kidney: Atrophic at 6.7 cm with increased echogenicity. Nostones. No solid mass. No hydronephrosis. Left kidney: 12.7 cm. No stones. No solid mass. No hydronephrosis. Bladder: Prevoid bladder volume is measured at 170 cc. Left ureteral jetis visualized. IMPRESSION: Atrophic right kidney with compensatory hypertrophy of the left kidney. No sonographic evidence of renal stones. No hydronephrosis. Unremarkable bladder. Left ureteral jets visualized. us Laila Borrego MD IMG US ORDERABLES Final Resu lt * (ABNORMAL) HEPATIC FUNCTION PANEL (04/22/2025 6:43 AM EDT) Only the most recent of2 resultswithin the time period is included. Alkaline Phosphatase 242(H) 32 - 122 U/L 04/22/2025 7:44 AM [facility] Aspartate Aminotrans (AST) 39 10 - 50 U/L 04/22/2025 7:44 AM [facility] Alanine Aminotrans (ALT) 16 10 - 50 U/L 04/22/2025 7:44 AM [facility] Bilirubin, Total 0.7 0.2 - 1.0 mg/dL 04/22/2025 7:44 AM [facility] Protein, Total 5.4(L) 6.3 - 8.3 g/dL 04/22/2025 7:44 AM [facility] Albumin 2.5(L) 3.5 - 5.0 g/dL 04/22/2025 7:44 AM [facility] Bilirubin, Direct 0.4(H) 0.0 - 0.2 mg/dL 04/22/2025 7:44 AM [facility] Globulin 2.9 1.5 - 3.9 g/dL 04/22/2025 7:44 AM EDT [facility] Albumin/Globulin Ratio 0.9(L) 1.0 - 1.8 Ratio 04/22/2025 7:44 AM EDT [facility] Blood Blood specimen / Unknown 04/22/2025 6:43 AM EDT 04/22/2025 7:18 AM EDT Kapil Eduardo DO LAB BLOOD ORDERABLES Final Re sult [facility] [address] [place] [address] [address] [place] [address], [facility] [address] [place] [address] [address] [place] [address] * Phosphorus (Add-On) (04/21/2025 10:50 AM EDT) Only the most recent of8 resultswithin the time period is included. Phosphorus 3.1 2.7 - 4.5 mg/dL 04/21/2025 11:33 AM EDT [facility] Blood Blood specimen / Unknown 04/21/2025 10:50 AM EDT 04/21/2025 10:55 AM EDT Jeanne Thakkar MD LAB BLOOD ORDERABLES Final Resul t Performing Organization Address [facility] Co de Phone Number [facility] [address] [place] [address] [address] [place] [address], [facility] [address] [place] [address] [address] [place] [address] * US Venous Duplex Arm - Left (04/20/2025 3:12 PM EDT) Anatomical Region Laterality Modality Vascular Left Ultrasound 04/20/2025 3:14 PM EDT Impressions 04/20/2025 3:16 PM EDT No evidence of deep venous thrombosis within the left upper extremity. 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 COMPARISONS: None TECHNIQUE: Duplex scan of the left arm performed utilizing, 2D grayscale imaging, doppler spectral analysis and color flow doppler with compression where possible. FINDINGS: The left deep venous system of the upper extremity is normal. The left IJ, subclavian, axillary, cephalic, brachial, and basilic veins are all patent with normal compressibility and waveforms. The right subclavian vein also demonstrated normal patency. The right IJ was not evaluated secondary to overlying bandage. Procedure Note Jad Cotter MD - 04/20/2025 EXAM: US VENOUS DUPLEX ARM-LEFT on 04/20/2025 2:41 PM CLINICAL HISTORY: History of unprovoked left subclavian DVT 8 months ago that was anincidental finding with questionable adherance to Eliquis treatment.. COMPARISONS: None TECHNIQUE: Duplex scan of the left arm performed utilizing, 2D grayscaleimaging, doppler spectral analysis and color flow doppler with compressionwhere possible. FINDINGS: The left deep venous system of the upper extremity is normal. The left IJ,subclavian, axillary, cephalic, brachial, and basilic veins are all patentwith normal compressibility and waveforms. The right subclavian vein alsodemonstrated normal patency. The right IJ was not evaluated secondary to overlying bandage. IMPRESSION: No evidence of deep venous thrombosis within the left upper extremity. Amrit Moran PA-C IMG US ORDERABLES Final Res ult * (ABNORMAL) Potassium (04/20/2025 2:43 PM EDT) Only the most recent of3 resultswithin the time period is included. Potassium 3.3(L) 3.4 - 5.3 mmol/L 04/20/2025 3:02 PM EDT [facility] Blood Blood specimen / Unknown 04/20/2025 2:43 PM EDT 04/20/2025 2:45 PM EDT Melita Kenny MD LAB BLOOD ORDERABLES Final Re sult Performing Organization Address City/[facility]/ZIP Co de Phone Number [facility] [address] [place] [address], [facility] [address] [facility] [place] [address] * SODIUM, URINE, RANDOM (04/20/2025 10:54 AM EDT) Sodium, Urine Random 85 mmol/L 04/20/2025 11:10 AM EDT [facility] Comment:Reference range not established for random specimen. Urine Urine specimen / Unknown 04/20/2025 10:54 AM EDT 04/20/2025 11:00 AM EDT Rani Quintanilla MD URINE ORDERABLES Final Resul t Performing Organization Address [facility] Co de Phone Number [facility] [address] [facility] [address] [address] [place] [address], [facility] [address] [facility] [address] [place] [address] * Potassium, Random Urine (04/20/2025 10:54 AM EDT) Potassium, Urine (Random) 19 mmol/L 04/20/2025 11:10 AM EDT [facility] Comment:Reference range not established for random specimen. Urine Urine specimen / Unknown 04/20/2025 10:54 AM EDT 04/20/2025 11:00 AM EDT Rani Quintanilla MD URINE ORDERABLES Final Resul t Performing Organization Address City/[facility]/ZIP Co de Phone Number [facility] [address] [place] [address], [facility] [address] [facility] [address] [place] [address] * Chloride, Urine, Random (04/20/2025 10:54 AM EDT) Chloride, Urine, Random 67 mmol/L 04/20/2025 11:10 AM EDT [facility] Comment:Reference range not established for random specimen. Urine Urine specimen / Unknown 04/20/2025 10:54 AM EDT 04/20/2025 11:00 AM EDT Rani Quintanilla MD URINE ORDERABLES Final Resul t [facility] [address] [facility] [place] [address], [facility] [address] [facility] [address] [place] [address] * ECG 12 lead (04/19/2025 1:31 PM EDT) Only the most recent of3 resultswithin the time period is included. Ventricular rate 79 BPM EKG [facility] Atrial rate 79 BPM EKG [facility] P-R interval 130 ms EKG [facility] QRS duration 82 ms EKG [facility] Q-T interval 396 ms EKG [facility] QTC calculation (Bazett) 454 ms EKG [facility] P axis 57 degrees EKG [facility] R axis 54 degrees EKG [facility] T axis 70 degrees EKG [facility] 04/19/2025 1:31 PM EDT Narrative EKG [facility] - 04/19/2025 4:35 PM EDT Normal sinus rhythm Nonspecific T wave abnormality Abnormal ECG When compared with ECG of 15-Apr-2025 16:10, Sinus rhythm has replaced Atrial fibrillation Vent. rate has decreased by 59 bpm Confirmed by MD Hu Kevin ([id number]) on 04/19/2025 4:35:08 PM Procedure Note Carlos Hu MD - 04/19/2025 Normal sinus rhythm Nonspecific T wave abnormality Abnormal ECG When compared with ECG of 15-Apr-2025 16:10, Sinus rhythm has replaced Atrial fibrillation Vent. rate has decreased by 59 bpm Confirmed by MD Hu Kevin ([id number]) on 04/19/2025 4:35:08 PM Melita Kenny MD ECG ORDERABLES Final Result EKG [facility] * XR Chest 1 view-Portable (04/19/2025 8:50 AM EDT) Only the most recent of7 resultswithin the time period is included. Anatomical Region Laterality Modality Chest Computed Radiogr aphy 04/19/2025 9:09 AM EDT Impressions 04/19/2025 9:25 AM EDT Consolidation of the left lung base, and trace left pleural effusion similar to prior. Support apparatus as above. Narrative 04/19/2025 9:25 AM EDT EXAM: XR CHEST 1 VIEW-PORTABLE on 04/19/2025 8:22 AM CLINICAL HISTORY: Reevaluate pleural edema. COMPARISONS: Chest radiograph 04/17/2025, 04/14/2025 TECHNIQUE: Portable AP radiograph of the chest. FINDINGS: Endotracheal tube terminates 3.5 cm above the akira. Right IJ line tip is over the lower SVC. The lungs are adequately expanded. Trace left pleural effusion is not significantly changed from prior. Focal opacity seen at the left lung base similar to most recent prior. No pneumothorax. Cardiac mediastinal silhouette is within normal limits. No acute osseous abnormalities. Procedure Note Jad Cotter MD - 04/19/2025 EXAM: XR CHEST 1 VIEW-PORTABLE on 04/19/2025 8:22 AM CLINICAL HISTORY: Reevaluate pleural edema. COMPARISONS: Chest radiograph 04/17/2025, 04/14/2025 TECHNIQUE: Portable AP radiograph of the chest. FINDINGS: Endotracheal tube terminates 3.5 cm above the akira. Right IJ line tip isover the lower SVC. The lungs are adequately expanded. Trace left pleural effusion is notsignificantly changed from prior. Focal opacity seen at the left lung basesimilar to most recent prior. No pneumothorax. Cardiac mediastinalsilhouette is within normal limits. No acute osseous abnormalities. IMPRESSION: Consolidation of the left lung base, and trace left pleural effusionsimilar to prior. Support apparatus as above. Amrit Moran PA-C IMG DIAGNOSTIC IMAGING ORDE CADY Final Result * (ABNORMAL) ISTAT Arterial Blood Gas (ABG) (04/19/2025 6:39 AM EDT) Only the most recent of14 resultswithin the time period is included. PH Arterial, I-STAT 7.36 7.35 - 7.45 04/19/2025 6:43 AM [facility] PCO2 Arterial, I-STAT 32.8 32.0 - 45.0 mmHg 04/19/2025 6:43 AM [facility] PO2 Arterial, I-STAT 145(H) 75 - 95 mmHg 04/19/2025 6:43 AM [facility] HCO3 Arterial, I-STAT 18.5(L) 22.0 - 26.0 mmol/L 04/19/2025 6:43 AM [facility] TCO2 Arterial Calc, I-STAT 20(L) 22 - 28 mmol/L 04/19/2025 6:43 AM [facility] Base Excess, I-STAT -6 mmol/L 04/19/2025 6:43 AM [facility] Comment:Reference Range: Neg ative 2 to Positive 3 SO2, I-STAT 99.0(H) 94.0 - 97.0 % 04/19/2025 6:43 AM [facility] FIO2 Arterial 40.00 04/19/2025 6:43 AM [facility] Sample Type, I-STAT Arterial 04/19/2025 6:43 AM [facility] Blood Gas Draw Site, I-STAT Left radial artery 04/19/2025 6:43 AM [facility] Suman's Test, I-STAT Positive 04/19/2025 6:43 AM [facility] Delivery System, I-STAT VENTILATOR 04/19/2025 6:43 AM [facility] Blood Gas Mode, I-STAT CPAP/PS 04/19/2025 6:43 AM [facility] Blood Gas Pressure Support, I-STAT 5 04/19/2025 6:43 AM [facility] Blood Gas PEEP, I-STAT 6 04/19/2025 6:43 AM [facility] MDRN Aware, I-STAT Yes 04/19/2025 6:43 AM EDT [facility] Number of Sticks, I-STAT 1 04/19/2025 6:43 AM EDT [facility] Total Respiration Rate, I-STAT 18 04/19/2025 6:43 AM EDT [facility] Blood specimen / Unknown 04/19/2025 6:39 AM EDT 04/19/2025 6:43 AM EDT us Melita Kenny MD POCT ORDERABLES - DEVICE Altagracia l Result [facility] [address] [place] [address], * (ABNORMAL) Hemoglobin A1c with Estimated Average Glucose (Add-On) (04/19/2025 4:04 AM EDT) Hemoglobin A1C 5.7(H) <5.7 % 04/19/2025 8:01 PM EDT [facility] Comment: A1c% Interpretation 5.7 - 6.0 Increase risk of diabetes 6.1 - 6.4 Higher risk of diabetes > or = 6.5 Consistent with diabetes Diabetes Care, 33(Supp 1):S1-S61, 2009 Estimated Average Glucose 117 mg/dL 04/19/2025 8:01 PM EDT [facility] Blood Blood specimen / Unknown 04/19/2025 4:04 AM EDT 04/19/2025 12:04 PM EDT us Melita Kenny MD LAB BLOOD ORDERABLES Final Re sult [address] [address], [address] [id number] * (ABNORMAL) Complete Blood Count WITH Differential - in AM (04/19/2025 3:59 AM EDT) Only the most recent of5 resultswithin the time period is included. White Blood Cell Count 14.9(H) 4.0 - 11.0 Thou/uL 04/19/2025 4:58 AM [facility] Platelet Count 56(L) 150 - 450 Thou/uL 04/19/2025 4:58 AM [facility] Comment:Test results chelsea kirk Hemoglobin 8.2(L) 11.7 - 15.7 g/dL 04/19/2025 4:58 AM [facility] Hematocrit 24.6(L) 35.0 - 47.0 % 04/19/2025 4:58 AM [facility] Red Blood Cell Count 2.74(L) 4.00 - 5.40 Mil/uL 04/19/2025 4:58 AM [facility] MCV 90 80 - 100 fL 04/19/2025 4:58 AM [facility] MCH 29.9 27.0 - 31.0 pg 04/19/2025 4:58 AM [facility] MCHC 33.3 30.0 - 36.0 g/dL 04/19/2025 4:58 AM [facility] RDW 15.9(H) 11.5 - 14.5 % 04/19/2025 4:58 AM [facility] MPV 12.7(H) 7.5 - 12.5 fL 04/19/2025 4:58 AM [facility] nRBC 0.2(H) 0.0 - 0.1 /100 WBC 04/19/2025 4:58 AM [facility] nRBC, Absolute 0.03(H) 0.00 - 0.02 Thou/uL 04/19/2025 4:58 AM [facility] Immature Platelet Fraction 5.4 1.2 - 8.6 % 04/19/2025 4:58 AM [facility] Neutrophils Man 95 % 4:59 AM [facility] Lymphocytes Man 3 % 4:59 AM [facility] Monocytes Man 2 % 04/19/2025 4:59 AM [facility] Abs Neutrophils Count (ANC) 14.2(H) 2.0 - 7.5 Thou/uL 04/19/2025 4:59 AM EDT [facility] Abs Lymphocytes Man 0.5(L) 1.5 - 4.5 Thou/uL 04/19/2025 4:59 AM EDT [facility] Abs Monocytes Man 0.3 0.2 - 1.5 Thou/uL 04/19/2025 4:59 AM EDT [facility] Normocytic Present 04/19/2025 4:59 AM EDT [facility] Macrocytes Occasional 04/19/2025 4:59 AM EDT [facility] Polychromasia Occasional 04/19/2025 4:59 AM EDT [facility] Blood Blood specimen / Unknown 04/19/2025 3:59 AM EDT 04/19/2025 4:26 AM EDT Amrit DAVILA-C LAB BLOOD ORDERABLES Final Result Performing Organization Address City/[facility]/ZIP Co de Phone Number [facility] [address] [facility] [address] [place] [address], [facility] [address] [facility] [address] [place] [address] * (ABNORMAL) Triglycerides (04/19/2025 3:59 AM EDT) Only the most recent of3 resultswithin the time period is included. Triglycerides 547(H) <150 mg/dL 04/19/2025 4:47 AM EDT [facility] Blood Blood specimen / Unknown 04/19/2025 3:59 AM EDT 04/19/2025 4:26 AM EDT Heri DAVILA-C LAB BLOOD ORDERABLES Final R esult [facility] [address] [facility] [address] [place] [address], [facility] [address] [facility] [address] [place] [address] * (ABNORMAL) Vitamin D 25 Hydroxy (04/16/2025 5:49 AM EDT) Vitamin D, 25-Hydroxy 17(L) 30 - 100 ng/mL 04/16/2025 1:20 PM EDT [facility] Blood Blood specimen / Unknown 04/16/2025 5:49 AM EDT 04/16/2025 6:00 AM EDT us Jeanne Thakkar MD LAB BLOOD ORDERABLES Final Resul t Performing Organization Address City/[facility] [place] [address], [place] [address] * (ABNORMAL) PTH, Intact (04/16/2025 5:49 AM EDT) Pathologist [facility] PTH, Intact 314(H) 15 - 65 pg/mL 04/16/2025 1:08 PM EDT [facility] Blood Blood specimen / Unknown 04/16/2025 5:49 AM EDT 04/16/2025 5:59 AM EDT us Jeanne Thakkar MD LAB BLOOD ORDERABLES Final Resul t Performing Organization Address [facility] [place] [address], [place] [address] * (ABNORMAL) PROTIME-INR (04/15/2025 7:28 PM EDT) Only the most recent of2 resultswithin the time period is included. Anticoagulant NO ANTI COAGULANT MEDS 04/15/2025 2:35 PM EDT [facility] Prothrombin Time (PT) 22.6(H) 10.0 - 13.5 seconds 04/15/2025 8:05 PM EDT [facility] INR 2.1 04/15/2025 8:05 PM EDT [facility] Comment:INR Therapeutic Rang es: Standard dose anticoagulant 2.0 to 3.0, High dose anticoagulant 2.5-3.5. Blood Blood specimen / Unknown 04/15/2025 7:28 PM EDT 04/15/2025 8:05 PM EDT [facility] BLOOD ORDERABLES Fi nal Result Performing Organization Address City/[facility]/ZIP Co de Phone Number [facility] [address] [facility] [address] [place] [address], [facility] [address] [facility] [address] [place] [address] * Transfuse RBC's: (04/15/2025 6:13 PM EDT) formerly [facility] Melody RN ADVICE BLOOD TRANSFUSION ORDER CHEY Final Result * (ABNORMAL) High Sensitivity D-Dimer (04/15/2025 11:56 AM EDT) Pathologist [facility] High Sensitivity D-Dimer 2,330(H) <230 ng/mL DDU 04/15/2025 1:08 PM EDT [facility] Comment: The threshold for exclusion of venous thromboembolism (VTE) is 230 ng/mL DDU (D Dimer Units). The Normal Range for D-Dimer is <244 ng/mL DDU (D Dimer Units). Studies, however, indicate a higher threshold is more appropriate for patients >50 y. This threshold is calculated by multiplying age by 5. Example: The estimated age adjusted VTE threshold for a 60 year old is 60 x 5 = 300 ng/mL DDU. Note: 1 DDU = 2 FEU (Fibrinogen Equivalent Units) Blood Blood specimen / Unknown 04/15/2025 11:56 AM EDT 04/15/2025 12:15 PM EDT formerly [facility] Melody RN ADVICE LAB BLOOD ORDERABLES Fi nal Result Performing Organization Address City/[facility]/ZIP Co de Phone Number [facility] [address] [facility] [address] [place] [address], [facility] [address] [facility] [address] [place] [address] * (ABNORMAL) Fibrinogen Level (04/15/2025 11:56 AM EDT) Fibrinogen 725(H) 148 - 435 mg/dL 04/15/2025 1:16 PM EDT [facility] Blood Blood specimen / Unknown 04/15/2025 11:56 AM EDT 04/15/2025 12:15 PM EDT Patti Melody APRN LAB BLOOD ORDERABLES Fi nal Result Performing Organization Address City/[facility]/ZIP Co de Phone Number [facility] [address] [facility] [address] [place] [address], [facility] [address] [facility] [address] [place] [address] * (ABNORMAL) Iron and Total Iron Binding Capacity (04/15/2025 4:50 AM EDT) Iron 9(L) 59 - 151 ug/dL 04/15/2025 11:27 AM EDT [facility] UIBC 118 112 - 346 ug/dL 04/15/2025 11:27 AM EDT [facility] Total Iron Binding Capacity 127 100 - 400 ug/dL 04/15/2025 11:27 AM EDT [facility] Iron Sat 7(L) 20 - 50 % 04/15/2025 11:27 AM EDT [facility] Blood Blood specimen / Unknown 04/15/2025 4:50 AM EDT 04/15/2025 5:07 AM EDT Manju Rodriguez MD LAB BLOOD ORDERABLES Final Re sult Performing Organization Address City/[facility]/ZIP Co de Phone Number [address] [address], [address] [address] * ABO Confirmation (04/15/2025 4:50 AM EDT) ABO/Rh O POSITIVE 04/15/2025 2:21 PM EDT [facility] Blood specimen / Unknown 04/15/2025 4:50 AM EDT 04/15/2025 1:34 PM EDT Cristina Greer MD BLOOD BANK TEST ORDERABLES Altagracia l Result Performing Organization Address [facility] Co de Phone Number [facility] [address] [facility] [address] [place] [address], [facility] [address] [place] [address] [address] [place] [address] * (ABNORMAL) RETICULOCYTE COUNT (04/15/2025 4:50 AM EDT) Reticulocyte Count 0.8 0.7 - 2.0 % 04/15/2025 5:50 AM EDT [facility] Reticulocyte, Absolute 19.0(L) 30.0 - 100.0 Thou/uL 04/15/2025 5:50 AM EDT [facility] Retic Hemoglobin Content 18.60(L) 28 - 35 pg 04/15/2025 5:50 AM EDT [facility] Immature Reticulocyte Fraction 7.8 2.3 - 15.9 % 04/15/2025 5:50 AM EDT [facility] Blood Blood specimen / Unknown 04/15/2025 4:50 AM EDT 04/15/2025 5:07 AM EDT Manju Rodriguez MD LAB BLOOD ORDERABLES Final Re sult Performing Organization Address [facility] Co de Phone Number [facility] [address] [place] [address].[address] [place] [address], [facility] [address] [place] [address] [address] [place] [address] * (ABNORMAL) Folate Level (04/15/2025 4:50 AM EDT) Folate, Serum 3.7(L) >7.2 ng/mL 04/15/2025 11:26 AM EDT [facility] Blood Blood specimen / Unknown 04/15/2025 4:50 AM EDT 04/15/2025 5:07 AM EDT Manju Rodriguez MD LAB BLOOD ORDERABLES Final Re sult Performing Organization Address City/[facility]/ZIP Co de Phone Number [address] [address], [address] [address] * FERRITIN (04/15/2025 4:50 AM EDT) Ferritin 358 30 - 400 ug/L 04/15/2025 11:27 AM EDT [facility] Blood Blood specimen / Unknown 04/15/2025 4:50 AM EDT 04/15/2025 5:07 AM EDT us Manju Rodriguez MD LAB BLOOD ORDERABLES Final Re sult Performing Organization Address [facility] [place] [address], [place] [address] * (ABNORMAL) VITAMIN B12 (04/15/2025 4:50 AM EDT) Pathologist [facility] Vitamin B12 >2,000(H) 243 - 894 pg/mL 04/15/2025 11:31 AM EDT [facility] Blood Blood specimen / Unknown 04/15/2025 4:50 AM EDT 04/15/2025 5:08 AM EDT us Manju Rodriguez MD LAB BLOOD ORDERABLES Final Re sult Performing Organization Address [facility] [place] [address], [place] [address] * (ABNORMAL) Comprehensive Metabolic Panel (04/15/2025 4:50 AM EDT) Only the most recent of3 resultswithin the time period is included. Glucose 158(H) 65 - 99 mg/dL 04/15/2025 5:30 AM EDT [facility] Comment:Fasting: <100 mg/dL, Non-Fasting: <200 mg/dL (ADA 2004) Blood Urea Nitrogen (BUN) 60(H) 8 - 21 mg/dL 04/15/2025 5:30 AM [facility] Creatinine 4.3(H) 0.4 - 1.1 mg/dL 04/15/2025 5:30 AM [facility] eGFR 11(L) >59 04/15/2025 5:30 AM [facility] Comment:CKD-EPI (2020) in mL /min/1.73 sq meters. Sodium 131(L) 136 - 145 mmol/L 04/15/2025 5:30 AM [facility] Potassium 3.1(L) 3.4 - 5.3 mmol/L 04/15/2025 5:30 AM [facility] Chloride 92(L) 98 - 107 mmol/L 04/15/2025 5:30 AM [facility] CO2 22 22 - 33 mmol/L 04/15/2025 5:30 AM [facility] Calcium 6.9(LL) 8.7 - 10.5 mg/dL 04/15/2025 5:30 AM [facility] Alkaline Phosphatase 247(H) 32 - 122 U/L 04/15/2025 5:30 AM [facility] Aspartate Aminotrans (AST) 45 10 - 50 U/L 04/15/2025 5:30 AM [facility] Alanine Aminotrans (ALT) 53(H) 10 - 50 U/L 04/15/2025 5:30 AM [facility] Bilirubin, Total 0.2 0.2 - 1.0 mg/dL 04/15/2025 5:30 AM [facility] Protein, Total 5.0(L) 6.3 - 8.3 g/dL 04/15/2025 5:30 AM [facility] Albumin 2.1(L) 3.5 - 5.0 g/dL 04/15/2025 5:30 AM [facility] BUN/Creatinine Ratio 14 10.0 - 25.0 Ratio 04/15/2025 5:30 AM [facility] Globulin 2.9 1.5 - 3.9 g/dL 04/15/2025 5:30 AM [facility] Albumin/Globulin Ratio 0.7(L) 1.0 - 1.8 Ratio 04/15/2025 5:30 AM EDT [facility] Anion Gap 17(H) 4 - 16 04/15/2025 5:30 AM EDT [facility] Blood Blood specimen / Unknown 04/15/2025 4:50 AM EDT 04/15/2025 5:07 AM EDT [facility] LAB BLOOD ORDERABLES Final Result Performing Organization Address City/[facility]/ZIP Co de Phone Number [facility] [address] [facility] [address] [place] [address], [facility] [address] [facility] [address] [place] [address] * (ABNORMAL) LACTATE DEHYDROGENASE (LDH) (04/14/2025 12:04 PM EDT) Lactate Dehydrogenase (LDH) 773(H) 120 - 260 U/L 04/14/2025 1:01 PM EDT [facility] Blood Blood specimen / Unknown 04/14/2025 12:04 PM EDT 04/14/2025 12:11 PM EDT [facility] Final Result Performing Organization Address City/[facility] Co de Phone Number [facility] [address] [place] [address] [address] [place] [address], [facility] [address] [facility] [address] [place] [address] * (ABNORMAL) HAPTOGLOBIN (04/14/2025 12:04 PM EDT) Haptoglobin 264(H) 30 - 200 mg/dL 04/14/2025 9:22 PM EDT [facility] Comment:Specimen hemolyzed. Results may be artifactually elevated. Blood Blood specimen / Unknown 04/14/2025 12:04 PM EDT 04/14/2025 12:11 PM EDT [facility] BLOOD ORDERABLES Final Result [facility] [address] [place] [address], [address] [address] * Respiratory Culture (aerobic and gram stain) (04/14/2025 8:02 AM EDT) Gram stain suggestive of Few neutrophils No squamous cells No organisms seen 04/14/2025 4:38 PM EDT [facility] Culture Mixed normal amador 04/15/2025 2:13 PM EDT [facility] Sputum Specimen from trachea / Unknown 04/14/2025 8:02 AM EDT 04/14/2025 8:51 AM EDT Comment:Sputum Marcelina Gimenez RN ADVICE MICROBIOLOGY - GENERAL ORD ERABLES Final Result Performing Organization Address [facility]/ZIP Co de Phone Number [facility] [address] [place] [address], * (ABNORMAL) High Sensitivity Troponin T (Once) (04/14/2025 7:22 AM EDT) Only the most recent of5 resultswithin the time period is included. Pathologist [facility] High Sensitivity Troponin T 147(HH) <15 ng/L 04/14/2025 8:01 AM EDT [facility] Comment:Recurring Critical R esult. Previously phoned. Delta (Change) 18(H) <3 04/14/2025 8:01 AM EDT [facility] Comment:Decreased Blood Blood specimen / Unknown 04/14/2025 7:22 AM EDT 04/14/2025 7:31 AM EDT Melia Borjas APRN LAB BLOOD ORDERABLES Final Result [facility] [address] [facility] [address] [place] [address], [facility] [address] [facility] [address] [place] [address] * (ABNORMAL) Lipase (04/14/2025 4:15 AM EDT) Lipase 10(L) 13 - 60 U/L 04/14/2025 6:45 AM EDT [facility] Blood Blood specimen / Unknown 04/14/2025 4:15 AM EDT 04/14/2025 6:35 AM EDT Amrit DAVILA-Gail LAB BLOOD ORDERABLES Final Result [facility] [address] [facility] [address] [place] [address], [facility] [address] [place] [address] [address] [place] [address] * Lactic Acid, Plasma (STAT) (04/13/2025 11:53 PM EDT) Only the most recent of3 resultswithin the time period is included. Lactic Acid 1.4 0.5 - 1.9 mmol/L 04/14/2025 12:18 AM EDT [facility] Blood Blood specimen / Unknown 04/13/2025 11:53 PM EDT 04/13/2025 11:54 PM EDT Melia Borjas APRN LAB BLOOD ORDERABLES Final Result Performing Organization Address City/[facility] Co de Phone Number [facility] [address] [place] [address] [address] [place] [address], [facility] [address] [place] [address] [address] [place] [address] * Legionella & Streptococcus Pneumoniae Antigen, Urine (04/13/2025 6:44 PM EDT) Legionella Antigen EIA, Urine Presumptive Negative Presumptive Negative 04/14/2025 8:47 AM EDT [facility] Comment: Presumptive Negative for L.pneumophila Ag in Urine, suggesting no recent or current infection. Infection due to Legionella cannot be ruled out since other serogroups and species may casue disease, Ag may not be present in Urine in early infection and the level of antigen present may be below the detection lilmit of the test. Streptococcal Antigen, Urine Presumptive Negative Presumptive Negative 04/14/2025 8:47 AM EDT [facility] Comment:Presumptive Negative for Pneumococcal Pneumonia, suggesting no recent or current Pneumococcal Infection. Infection due to S.pneumoniae cannot be ruled out since the antigen level present in the specimen may be below the detection limit of the test. Urine Urine specimen / Unknown 04/13/2025 6:44 PM EDT 04/13/2025 6:51 PM EDT us Amrit Moran PA-C URINE ORDERABLES Final Resu lt [facility] [address] [place] [address], [place] * CT Chest/abdomen+pelvis w/o contrast w/po (04/13/2025 3:54 PM EDT) Anatomical Region Laterality Modality Chest, Abdomen, Pelvis Computed Tomography 04/13/2025 4:47 PM EDT Impressions 04/13/2025 4:56 PM EDT 1. Increased streaky, hazy, and groundglass opacities throughout both lungs compared to the previous study, which could be due to infectious/inflammatory changes, edema, or a combination. 2. Interval development of moderate bilateral pleural effusions. 3. Thickening of the colonic wall, extending from the cecum to the distal sigmoid region, concerning for colitis, appearing increased compared to the previous study. No evidence of associated bowel obstruction. 4. Punctate calcification in the region of the distal common bile duct, which could be due to choledocholithiasis or calcification in the adjacent pancreas or vessels. Consider MRI/MRCP, if clinically appropriate. Narrative 04/13/2025 4:56 PM EDT STUDY: CT CHEST/ABDOMEN+PELVIS W/O CONTRAST W/PO INDICATION: Worsening abdominal pain and septic shock COMPARISON: 04/11/2025 TECHNIQUE: CT scan was performed of the chest, abdomen, and pelvis without administration of contrast. Iterative reconstruction was employed to reduce patient radiation exposure. FINDINGS: CHEST: An endotracheal tube is seen and appears appropriately positioned with tip approximately 3 cm from the akira. An enteric tube is seen with tip in the region of the gastric fundus. A right IJ central line is seen with tip in the lower SVC. Aortic calcifications are seen without evidence of aneurysm or rupture. The heart is not enlarged. There is a trace pericardial effusion. The mediastinum and hilar regions are suboptimally evaluated without intravenous contrast, but no definite pathologically enlarged mediastinal or hilar lymph nodes are seen. There are increased streaky, hazy, and groundglass opacities throughout both lungs compared to the previous study, which could be due to infectious/inflammatory changes, edema, or a combination. There has also been interval development of moderate bilateral pleural effusions. No pneumothorax is identified. Mild degenerative changes are seen in the spine, but no acute osseous abnormality is identified. ABDOMEN/PELVIS: Again seen is atrophy of the right kidney and apparent compensatory hypertrophy of the left kidney. No hydronephrosis or obstructing calculi are identified. Cholecystectomy clips are noted. There is mild prominence of the intrahepatic and common bile ducts, which may be seen after cholecystectomy. A punctate 2 mm calcification is seen in the region of the distal common bile duct, which could be due to choledocholithiasis or an adjacent vascular or pancreatic calcification, but this appears similar compared to the previous study. The noncontrast appearances of the liver, spleen, adrenal glands, and pancreas are otherwise unremarkable. There is thickening of the colonic wall, extending from the cecum to the distal sigmoid region, concerning for colitis, appearing increased compared to the previous study. There is no evidence of associated bowel obstruction. A rectal tube is noted. A small amount of free fluid is seen. No free air or drainable fluid collection is identified. There is diffuse subcutaneous fluid/stranding, compatible with anasarca. A catheter is noted in the bladder, which is decompressed. Degenerative changes are seen in the spine, but no acute osseous abnormality is identified. Procedure Note Kym Nuñez MD - 04/13/2025 STUDY: CT CHEST/ABDOMEN+PELVIS W/O CONTRAST W/PO INDICATION: Worsening abdominal pain and septic shock COMPARISON: 04/11/2025 TECHNIQUE: CT scan was performed of the chest, abdomen, and pelvis withoutadministration of contrast. Iterative reconstruction was employed toreduce patient radiation exposure. FINDINGS: CHEST: An endotracheal tube is seen and appears appropriately positioned with tipapproximately 3 cm from the akira. An enteric tube is seen with tip inthe region of the gastric fundus. A right IJ central line is seen with tipin the lower SVC. Aortic calcifications are seen without evidence of aneurysm or rupture. The heart is not enlarged. There is a trace pericardial effusion. The mediastinum and hilar regions are suboptimally evaluated withoutintravenous contrast, but no definite pathologically enlarged mediastinalor hilar lymph nodes are seen. There are increased streaky, hazy, and groundglass opacities throughoutboth lungs compared to the previous study, which could be due toinfectious/inflammatory changes, edema, or a combination. There has also been interval development of moderate bilateral pleuraleffusions. No pneumothorax is identified. Mild degenerative changes are seen in the spine, but no acute osseousabnormality is identified. ABDOMEN/PELVIS: Again seen is atrophy of the right kidney and apparent compensatoryhypertrophy of the left kidney. No hydronephrosis or obstructing calculiare identified. Cholecystectomy clips are noted. There is mild prominenceof the intrahepatic and common bile ducts, which may be seen after cholecystectomy. A punctate 2 mmcalcification is seen in the region of the distal common bile duct, whichcould be due to choledocholithiasis or an adjacent vascular or pancreaticcalcification, but this appears similar compared to the previous study. The noncontrast appearances of the liver, spleen, adrenal glands, andpancreas are otherwise unremarkable. There is thickening of the colonic wall, extending from the cecum to thedistal sigmoid region, concerning for colitis, appearing increasedcompared to the previous study. There is no evidence of associated bowelobstruction. A rectal tube is noted. A small amount of free fluid is seen. No free air or drainable fluidcollection is identified. There is diffuse subcutaneous fluid/stranding,compatible with anasarca. A catheter is noted in the bladder, which is decompressed. Degenerative changes are seen in the spine, but no acute osseousabnormality is identified. IMPRESSION: 1. Increased streaky, hazy, and groundglass opacities throughout bothlungs compared to the previous study, which could be due toinfectious/inflammatory changes, edema, or a combination. 2. Interval development of moderate bilateral pleural effusions. 3. Thickening of the colonic wall, extending from the cecum to the distalsigmoid region, concerning for colitis, appearing increased compared tothe previous study. No evidence of associated bowel obstruction. 4. Punctate calcification in the region of the distal common bile duct,which could be due to choledocholithiasis or calcification in the adjacentpancreas or vessels. Consider MRI/MRCP, if clinically appropriate. us Amrit Moran PA-C IMG CT ORDERABLES Final Res ult * ECHOCARDIOGRAM COMPREHENSIVE WITH CONTRAST (04/13/2025 3:20 PM EDT) LV Diastolic Volume 97 mL LV Systolic Volume 57 mL IVS (F:0.6-0.9, M:0.6-1.0) 0.8 cm IVS Mean (F:0.6-0.9, M:0.6-1.0) 0.8 cm LVIDD (F:3.8-5.2, M:4.2-5.8) 4.9 cm LVIDD Mean (F:3.8-5.2, M:4.2-5.8) 4.9 cm LVIDS (F:2.2-3.5, M:2.5-4.0) 3.8 cm LVIDS (F:2.2-3.5, M:2.5-4.0) 3.8 cm LVOT diameter 2.0 cm LVOT diameter mean 2.0 cm LVOT mn grad mean 2.0 mmHg LVOT VTI MEAN 14.9 cm LVOT mn grad 2.0 mmHg LVOT VTI 14.9 cm LVOT peak lee 0.9 m/s LVOT peak lee mean 0.9 m/s PW (F:0.6-0.9, M:0.6-1.0) 0.9 cm PW Mean (F:0.6-0.9, M:0.6-1.0) 0.9 cm MV E' Lateral Velocity 8.94 cm/s MV E' Lateral Velocity Mean 8.94 cm/s MV E' Septal Velocity 8.32 cm/s MV E' Septal Velocity Mean 8.32 cm/s LA sup-inf (apical 2-ch view) 5.38 cm LA volume 49.3 mL RA area 12.9 cm2 RA 2D Volume 30.0 mL AV mean gradient 3.0 mmHg Ao VTI 19.0 cm Ao peak lee 1.2 m/s Sinuses of Valsalva 3.1 cm Sinuses of Valsalva Mean 3.1 cm Ascending aorta 3.2 cm Ascending aorta mean 3.2 cm Inferior Vena Cava Diameter 2.4 cm Inferior Vena Cava Diameter Mean 2.4 cm E wave decelartion time 308 ms E wave decelartion time mean 308 ms MV stenosis pressure 1/2 time mean 90 ms MV stenosis pressure 1/2 time 90 ms MV Peak A-Wave 58.1 cm/s MV Peak A-Wave Mean 58.1 cm/s MV Peak E-Wave 35.8 cm/s MV Peak E-Wave Mean 35.8 cm/s MV mean gradient mean 1.0 mmHg MV VTI MEAN 16.9 cm MV mean gradient 1.0 mmHg MV VTI 16.9 cm MV peak gradient 1.0 mmHg RVID d 3.0 cm RVID d Mean 3.0 cm RV Free wall pk S' 12.2 cm/s RV Free wall pk S' Mean 12.2 cm/s Tapse 1.8 cm Tapse Mean 1.8 cm TR Peak Lee 2.6 m/s Heart Rate 90 bpm BP Systolic 89 mmHg BP Diastolic 64 mmHg Height 62.00 inches Weight 162.00 lbs LV Mass Index (F:43-95, M:49-115) 81.2 g/m2 LA Volume Index (16-34) 28.2 mL/m2 LV Diastolic Volume Index (F:29-61, M:35-75) 55.5 mL/m2 LV Systolic Volume Index (F:8-24, M:11-31) 32.6 mL/m2 E/E' ratio 4.00 AV peak gradient 5.8 mmHg LVOT stroke volume 47 mL LVOT area 3.1 cm2 E/A ratio 0.62 MV valve area by continuity eq 2.8 cm2 MV valve area p 1/2 method 2.44 cm2 AV LVOT peak gradient 3.2 mmHg Dimensionless Index 0.78 SVI 26 mL/m2 AV area by cont VTI 2.5 cm2 Ascending aorta Index 1.8 cm/m2 Sinuses of Valsalva Index 1.8 cm/m2 Valve area - Index 1.4 cm2/m2 LV mass 141.9 g Marie BP EF (55-75) 41 % LA Volume Index 17.2 mL/m2 E/E' Average 4.2 E/E' Septal 4.3 E/E' Lateral 4.0 LVOT SI 26.77 mL/m2 LV RWT 0.37 Left Ventricular Cardiac Index 2.4 L/min/m2 Left Ventricular Cardiac Output 4.2 L/min BSA 1.75 m2 TR Peak Gradient 27 mmHg Anatomical Region Laterality Modality Heart Ultrasound Narrative 04/13/2025 4:09 PM EDT Left ventricular systolic function is mildly decreased. The quantitative EF by 2D Marie biplane is 41%. Right ventricular systolic function is normal. There is mild mitral regurgitation. There is mild to moderate tricuspid regurgitation. There is no previous study for comparison in our system. Technical Details Lumason contrast was used during the study. Overall the study quality was fair. The study was technically difficult due to patient's clinical status and body habitus. Left Ventricle The left ventricle is normal in size. Wall thickness is normal. Left ventricular systolic function is mildly decreased. The quantitative EF by 2D Marie biplane is 41%. There is global hypokinesis without regional variation. Diastolic function is normal. Stroke volume is decreased. Right Ventricle The right ventricle is normal in size. Right ventricular systolic function is normal. Left Atrium Left atrial size is normal. Right Atrium Right atrial size is normal. IVC is not seen or not well seen. Mitral Valve There is mild mitral regurgitation.There is no mitral valve stenosis. Tricuspid Valve The tricuspid valve is structurally normal. There is mild to moderate tricuspid regurgitation. The estimated right ventricular systolic pressure is 27 mmHg plus right atrial pressure. The right atrial pressure could not be obtained. Aortic Valve The aortic valve is tricuspid. There is no aortic regurgitation or stenosis. Pulmonic Valve There is trace pulmonic regurgitation. Ascending Aorta The aortic root and ascending aorta are normal in dimension. Pericardium There is no pericardial effusion. Prior Study There is no previous study for comparison in our system. Wall Scoring Baseline Score Index: 2.00 The left ventricular wall motion is globally hypokinetic. us Amrit Moran PA-C CV ECHO ORDERABLES Final Re sult * ANES INTUBATION (04/13/2025 4:21 AM EDT) Rno Meza MD - 04/13/2025 4:21 AM EDT Ron Duque MD 04/13/2025 4:22 AM Anesthesia Procedure Note - Intubation Patient Name: Yane Fong : 1965 Patient location: ICU Procedure indications: airway protection Procedure diagnosis: Respiratory failure Procedure Start Time: 04/13/2025 4:10 AM Procedure End Time: 04/13/2025 7:11 AM Performed by: Anesthesiologist Ron Duque MD Chart Verification ID band applied and present Patient ID verified via arm band. H&P verified: Yes Consents confirmed: operative, informed and anesthesia Airway: airway not difficult Preanesthetic Checklist monitors and equipment checked. Patient's pre-procedure mental status: combative and somnolent The patient was not sedated prior to procedure. Airway not difficult - Procedure Details Intubation route: oral Intubation method: video laryngoscopy GS 3 Number of attempts: 1 Patient status for intubation: unresponsive and RSI Patient position: supine Preoxygenation: BVM Quality of BVM: moderate Tube size: 8.0 mm Tube: standard - cuffed, cuff inflated and minimal leak test Ventilation between attempts via BVM Cricoid pressure not applied or not required Cord visualization: Grade IIb Placement confirmation method: chest rise and ETCO2 monitor Breath sounds: equal bilaterally and absent over the epigastrium ETT to lip: 24 cm Dentition: same as baseline Complications: no complications Ron Duque MD [place] ANESTHESIA Final Result * (ABNORMAL) Calcium, Ionized (04/13/2025 12:23 AM EDT) Calcium, Ionized 0.80(L) 1.17 - 1.33 mmol/L 04/13/2025 11:33 AM EDT [facility] Comment:Estimated result due to low pH. Measured pH of specimen is less than or equal to 7.20. Blood Blood specimen / Unknown 04/13/2025 12:23 AM EDT 04/13/2025 12:28 AM EDT Jad Jaimes PA-C LAB BLOOD ORDERABLES Fi nal Result [address] [address], [address] [address] * (ABNORMAL) GI PCR Panel (04/13/2025 12:20 AM EDT) Campylobacter Not Detected Not Detected 04/13/2025 7:11 PM [facility] Plesiomonas shigelloides Not Detected Not Detected 04/13/2025 7:11 PM [facility] Salmonella Not Detected Not Detected 04/13/2025 7:11 PM [facility] Yersinia enterocolitica Not Detected Not Detected 04/13/2025 7:11 PM [facility] Vibrio Not Detected Not Detected 04/13/2025 7:11 PM [facility] Vibrio cholerae Not Detected Not Detected 04/13/2025 7:11 PM [facility] Adenovirus F 40/41 Not Detected Not Detected 04/13/2025 7:11 PM [facility] Astrovirus Not Detected Not Detected 04/13/2025 7:11 PM [facility] Rotavirus A Not Detected Not Detected 04/13/2025 7:11 PM [facility] Sapovirus Not Detected Not Detected 04/13/2025 7:11 PM [facility] Cryptosporidium Not Detected Not Detected 04/13/2025 7:11 PM [facility] Cyclospora cayetanensis Not Detected Not Detected 04/13/2025 7:11 PM [facility] Entamoeba histolytica Not Detected Not Detected 04/13/2025 7:11 PM [facility] Giardia lamblia Not Detected Not Detected 04/13/2025 7:11 PM [facility] Enterotoxigenic E.coli (ETEC) Not Detected Not Detected 04/13/2025 7:11 PM [facility] Enteropathogenic E.coli (EPEC) Detected(A) Not Detected 04/13/2025 7:11 PM [facility] Shiga toxin producing E.coli (STEC) stx1/stx2 Not Detected Not Detected 04/13/2025 7:11 PM [facility] Shigella/Enteroinva sive E.coli (EIEC) Not Detected Not Detected 04/13/2025 7:11 PM EDT [facility] Enteroaggregative E.coli (EAEC) Not Detected Not Detected 04/13/2025 7:11 PM EDT [facility] Norovirus GI/GII Norovirus is no longer tested by the GIPCR panel due to low specificity and a high false positive rate. Order the Norovirus PCR specifically if clinically indicated. 04/13/2025 7:11 PM EDT [facility] Stool Stool specimen / Unknown 04/13/2025 12:20 AM EDT 04/13/2025 12:30 AM EDT Jad Jaimes PA-C MICROBIOLOGY - GENERAL ORDERABLES Final Result Performing Organization Address City/[facility]/ZIP Co de Phone Number [facility] [address] [place] [address], * C. difficile Toxin and NAP1 PCR with reflex to C. diff Ag/Toxin EIA (04/13/2025 12:20 AM EDT) Pathologist [facility] C. difficile Toxin Gene Negative Negative 04/13/2025 11:41 AM EDT [facility] Comment:Performed by the Xpe rt C. difficile/Epi Assay NAP1 Presumptive Negative Presumptive Negative 04/13/2025 11:41 AM EDT [facility] Comment:Performed by the Xpe rt C. difficile/Epi Assay Stool Stool specimen / Unknown 04/13/2025 12:20 AM EDT 04/13/2025 12:29 AM EDT Amrit Moran PA-C MICROBIOLOGY - GENERAL ORDE RABLES Final Result Performing Organization Address City/[facility]/ZIP Co de Phone Number [facility] [address] [place] [address], * (ABNORMAL) ISTAT Venous Blood Gas (VBG) (04/12/2025 8:29 PM EDT) Only the most recent of3 resultswithin the time period is included. PH Venous, I-STAT 7.28(L) 7.33 - 7.43 04/12/2025 8:32 PM EDT [facility] PCO2 Venous, I-STAT 33.9(L) 35.0 - 50.0 mmHg 04/12/2025 8:32 PM EDT [facility] PO2 Venous, I-STAT 35 0 - 60 mmHg 04/12/2025 8:32 PM EDT [facility] HCO3 Venous, I-STAT 15.9(L) 23.0 - 28.0 mmol/L 04/12/2025 8:32 PM EDT [facility] TCO2 Venous Calc, I-STAT 17(L) 23 - 29 mmol/L 04/12/2025 8:32 PM EDT [facility] Base Excess, I-STAT -10 mmol/L 04/12/2025 8:32 PM EDT [facility] Comment:Reference Range: Neg ative 2 to Positive 3 SO2 Venous, I-STAT 61 60 - 75 % 04/12/2025 8:32 PM EDT [facility] FIO2 Venous 21.00 04/12/2025 8:32 PM EDT [facility] Sample Type, I-STAT VENOUS 04/12/2025 8:32 PM EDT [facility] Blood Gas Draw Site, I-STAT VENOUS 04/12/2025 8:32 PM EDT [facility] Delivery System, I-STAT ROOM AIR 04/12/2025 8:32 PM EDT [facility] Suman's Test, I-STAT NA 04/12/2025 8:32 PM EDT [facility] MDRN Aware, I-STAT Yes 04/12/2025 8:32 PM EDT [facility] Blood specimen / Unknown 04/12/2025 8:29 PM EDT 04/12/2025 8:32 PM EDT us Sebastián Mtz MD POCT ORDERABLES - DEVICE Final R esult [facility] [address] [place] [address], [place] * CR Chest Archive for Reference only (04/12/2025 1:12 PM EDT) Only the most recent of4 resultswithin the time period is included. Narrative [place] - 04/12/2025 1:12 PM EDT This study has been auto finalized and does not contain a result. us File Room Provider IMG DIGITIZE FILMS Final Resu lt Performing Organization Address [facility] de Phone Number [place] [phone] * CT Chest Archive for Reference Only (04/12/2025 1:12 PM EDT) Only the most recent of2 resultswithin the time period is included. Narrative [place] - 04/12/2025 1:12 PM EDT This study has been auto finalized and does not contain a result. us File Room Provider IMG DIGITIZE FILMS Final Resu lt Performing Organization Address [facility] de Phone Number [place] [phone] * CT Abdomen Archive for Reference Only (04/12/2025 1:11 PM EDT) Only the most recent of2 resultswithin the time period is included. Narrative [place] - 04/12/2025 1:11 PM EDT This study has been auto finalized and does not contain a result. us File Room Provider IMG DIGITIZE FILMS Final Resu lt Performing Organization Address [facility] de Phone Number [place] [phone] * Vancomycin Level, Random (04/12/2025 5:12 AM EDT) Vancomycin, Random 43 mg/L 04/12/2025 5:52 AM EDT [facility] Comment:No reference range e stablished for random levels. Time of Last Dose Information not given 04/12/2025 5:07 AM EDT [facility] Blood Blood specimen / Unknown 04/12/2025 5:12 AM EDT 04/12/2025 5:29 AM EDT us Jad Jaimes PA-C LAB BLOOD ORDERABLES Fi nal Result [facility] [address] [facility] [address] [place] [address], [facility] [address] [facility] [address] [place] [id number] * Nasal MRSA Screen, PCR (04/12/2025 2:55 AM EDT) MRSA Result Not Detected Not Detected 11:10 AM EDT [facility] Comment:Performed by the Xpe rt MRSA NxG Assay Swab, Anterior Nares Specimen from nose / Unknown 04/12/2025 2:55 AM EDT 04/12/2025 3:19 AM EDT Jad Jaimes PA-C MICROBIOLOGY - GENERAL ORDERABLES Final Result [facility] [address] [place] [address], from Last 3 Months Advance Directives * Full Code (Latest Code Status on File) Date Activated Date Inactivated Comments 04/12/2025 2:27 AM Healthcare Agents on File Name Relationship Healthcare Agent [facility] Communication [place] Adult child 1. Health Care Representativ e Care Teams Clinical Engineer Relationship Specialty Start Date End Date Tiffani Robison MD [address] [place] [id number] PCP - General Internal Medicine 04/12/25
--- OUTSIDE RECORDS SUMMARY | 2025-06-30 17:44 | XMS_ITS | Encounter Summary ---
Author Organization [facility] Address [address] [place] [address] Phone Care Team Providers Care Change Management Analyst Name Role Phone Tiffani Robison MD Primary Care Provider Encounter Details Date Type Department Care Team (Late st Contact Info) Description 05/09/2023 Documentation Only [facility], [address] [place] [address] Tiffani Robison MD [address] [place] [id number] Social History Tobacco Use Types Packs/Day Years [...] on filedocumented in this encounter Care Teams Change Management Analyst Relationship Specialty Start Date End Date Tiffani Robison MD [address] [place] [address] PCP - General Internal Medicine 05/09/23 documented as of this encounter
--- OUTSIDE RECORDS SUMMARY | 2025-06-30 17:44 | XMS_ITS | Clinical Summary ---
Author Organization [facility] Address [address] [place], [place] [id number] Phone Care Team Providers Care Energy Systems Laboratory Director Name Role Phone Abraham Martins CNP Unavailable [phone] Unknown, Unknown Primary Care Provider Elvis shahid [...] - 2024-2 6 season) 2025 05/17/2021, 04/23/2021 RSV VACCINE (1 - 1-dose 75+ series) 2041 HEPATITIS A VACCINES Aged Out No long [...] Medical Devices Not on file Care Teams Energy Systems Laboratory Director Relationship Specialty Start Date End Date Unknown, Unknown, [address] [facility], [address] [place] [address] PCP - General 02/14/20 Abraham Martins CNP [address] [place] [address], [address] [place] [address] Historical LMR Provider 06/22/17 Additional Source Comments The information contained in this document represents components of the legal health record. It is not the complete legal health record.[facility]
--- OUTSIDE RECORDS SUMMARY | 2025-06-30 17:45 | XMS_ITS | Clinical Summary ---
Author Organization [facility] Address [address] [place] [address] [place] [phone] Phone Care Team Providers Care Sound Designer Name Role Phone Tiffani Robison MD Primary [...] (1 of 3 - 19+ 3-dose series) 02/22 Colorectal Cancer Screening: Annual FOBT 2015 Colorectal Cancer Screening: Colonoscopy 2015 Colorectal Cancer Screening: Sigmoidoscopy 2015 Pneumococcal Vaccine: 50+ Years (1 of 1 - PCV) 016 Influenza Vaccine (#1) 2025 Insurance [facility] Medicaid Care Teams Sound Designer Relationship Specialty Start Date End Date Tiffani Robison MD [address] [place] [address] PCP - General Internal Medicine 05/09/23
[2025-06-30 17:47] LABS: Appearance Urine Clear; Glucose Urine UA Negative (Negative); PH 6.5 (5.0-9.0); Specific Gravity - Urine 1.015 (1.005-1.025); UMIC TRIGGER UA YES
[2025-06-30 17:49] LABS: Hematocrit 36.2 % (37.0-47.0); Hemoglobin 11.5 g/dl (12.0-16.0); Mean Corpuscular HGB Conc 31.8 g/dl (31.0-35.0); Mean Corpuscular Hemoglobin 30.6 pg (27.0-33.0); Mean Corpuscular Volume 96.3 fL (80.0-98.0); NRBC Abs Auto 0.000 X10*3/uL (0.0-0.012); NRBC Pct Auto 0.0 /100WBC (0.0-0.2); Platelet Count 356 X10*3/uL (160-400); Red Blood Count 3.76 X10*6/uL (4.20-5.50); White Blood Count 7.8 X10*3/uL (4.8-10.8)
[2025-06-30 17:57] LABS: Parathyroid Hormone Intact 56.5 pg/mL (8.7-77.1)
[2025-06-30 18:02] LABS: Anion Gap 11 (12-20); Blood Urea Nitrogen 30 mg/dL (9-16); Calcium 9.6 mg/dL (8.4-10.2); Carbon Dioxide 24 mmol/L (22-29); Chloride 109 mmol/L (96-108); Estimated Glomerular Filt Rate 24; Potassium 4.3 mmol/L (3.3-5.1); Sodium 140 mmol/L (135-145)
[2025-06-30 18:26] LABS: Total Protein Urine Random 22 mg/dL (<12)
[2025-07-01 23:28] LABS: Anti Glomerular Basement Memb <1.0 AI
[2025-07-04 21:13] LABS: Prot Elec - Albumin 3.9 g/dL (3.8-4.8); Prot Elec - Alpha1 0.3 g/dL (0.2-0.3); Prot Elec - Alpha2 0.8 g/dL (0.5-0.9); Prot Elec - Beta 1 0.4 g/dL (0.4-0.6); Prot Elec - Beta 2 0.3 g/dL (0.2-0.5); Prot Elec - Gamma 1.2 g/dL (0.8-1.7); Prot Elec - Total Protein 7.1 g/dL (6.1-8.1)
[2025-07-07 11:03] LABS: C-ANCA Titer 1:20 titer (<1:20); Neutrophil Cyto Ab Screen C-ANCA POS (NEGATIVE)
[2025-07-09 14:38] LABS: Phospholipase A2 IgG ELISA <4 RU/mL; Phospholipase A2 IgG IFA NEGATIVE (NEGATIVE)
[2025-07-11 12:43] LABS: Anti Nuclear Antibody Pattern Nuclear, Speckled; Anti Nuclear Antibody Screen POSITIVE (NEGATIVE); Anti Nuclear Antibody Titer 1:160 titer
== END 2025-06-30 14:52 | disposition home or self-care (01) ==
LOC: HO.WFDLDS 14:51
PROVIDERS: Visit Provider Internal Medicine Hypertension Specialist
DX: Z01.84 Encounter for antibody response examination (principal); N18.4 Chronic kidney disease, stage 4 (severe)
CPT/HCPCS: 36415; 80048; 81001; 82570; 83520; 83970; 84156; 84165; 85027; 86036; 86037; 86038; 86039; 86160; 86255

== ENCOUNTER 2025-07-05 13:03 | Outpatient (AMB) | payer MEDICAID, SELFPAY ==
[2025-07-05 13:13] VITALS: BP 118/64; PULSE 113; O2SAT 98; BMI 25.1
--- NOTE | 2025-07-05 13:13 | HO.NEPHOV ---
Vital Signs 07/05/25 13:13 Height 5 ft 2 in Weight 137 lb BMI 25.1 BP 118/64 Blood Pressure Location Rt brachial Position Sitting Pulse 113 H Pulse Source Pulse Oximeter Pulse Oximetry (%) 98 Oxygen Delivery Method Room Air Intake Visit Reasons: 5 wks f/u w/ labs Warp Dyeing Vat Tender Required: No Accompanied by: Self / Same As Patient Allergies No Known Allergies Allergy (Verified 07/05/25 13:15) Medication List - Last Reconciled 07/05/25 by Zander Montano MD ascorbic acid (vitamin C) 1,000 mg PO DAILY bupropion HCl SR 150 mg PO BID ferrous sulfate ER (Slow Fe) 137 mg PO DAILY folic acid 0.4 mg PO DAILY gabapentin 800 mg PO TID rosuvastatin 10 mg PO DAILY HPI Comments Details: - The patient is a 60-year-old female he is here for follow-up regarding CKD She was seen during recent hospitalization for OTTO. - in April , creatinine initially at 5, improved to 2.1 . - History of vaginal cancer treated with chemotherapy in 2021 lung cancer with lobectomy in 2022. - Severe anemia investigated with endoscopy, under hematology and gastroenterology care. - Chronic atrophy of right kidney, right kidney 6.5 cm, left kidney 10.2 cm. - Low blood pressure, recent reading 92/54 mmHg, history of normal BP. - Hip pain managed with gabapentin for two years. 07/05/2025. The patient is a 60-year-old female presenting with a follow-up on kidney function and management of anemia. The patient has a history of urinary tract infections for which she was prescribed antibiotics, including levofloxacin and metronidazole, in May. She has completed the course of these medications. The patient reports experiencing lightheadedness upon standing, which persists despite efforts to maintain adequate fluid intake. The patient has experienced significant weight loss, approximately 40 pounds since April, reducing from 170 pounds to 130 pounds. This weight loss has been ongoing prior to the current visit. The patient's kidney function remains stable compared to previous assessments, with no deterioration noted. Her hemoglobin level has improved to 11.5 g/dL from a previous low of 6.1 g/dL in May, following a blood transfusion. [facility] Medical History (Updated 05/21/25 @ 00:01 by Genaro Hogan) Lung cancer Hyperchloremic metabolic acidosis Anemia Mood disorder History of cancer of vagina CKD (chronic kidney disease) stage 4, GFR 15-29 ml/min Nicotine dependence Social History Household Members: Family Housing: House Do you presently have visiting nurse or other home services: No Patient Tobacco Use Status: Never used Tobacco service: No Physical Exam Vital Signs: Last Vital Signs Pulse 113 H 07/05/25 13:13 BP 118/64 07/05/25 13:13 Pulse Ox 98 07/05/25 13:13 Oxygen Delivery Method Room Air 07/05/25 13:13 BMI result Body Mass Index 25.1 Blood pressure 90/60 right upper extremity no orthostatic change. Physical Exam General: Awake. Comfortable. HENT: Neck supple. Mucosa moist. Pulmonary: Lungs aeration equal. No rales. Cardiology: Heart S1-S2 heard. No gallop. Abdomen: Soft. Non tender. Bowel sounds normal. Neurologic: No involuntary movements. No myoclonus. Extremities: No edema. No rash. Blood pressure 90/60 Results Reviewed Nephrology Results: Hgb, (12.0-16.0) 11.5 g/dl L Δ 06/30/25 WBC, (4.8-10.8) 7.8 X10*3/uL 06/30/25 Plt Count, (160-400) 356 X10*3/uL 06/30/25 Sodium, (135-145) 140 mmol/L 06/30/25 Potassium, (3.3-5.1) 4.3 mmol/L Δ 06/30/25 Chloride, (96-108) 109 mmol/L H 06/30/25 Carbon Dioxide, (22-29) 24 mmol/L 06/30/25 BUN, (9-16) 30 mg/dL H 06/30/25 Creatinine, (0.5-1.4) 2.12 mg/dL H 06/30/25 Calcium, (8.4-10.2) 9.6 mg/dL Δ 06/30/25 PTH Intact, (8.7-77.1) 56.5 pg/mL 06/30/25 Urine Protein, (Neg-Trace) Trace mg/dL 06/30/25 Urine Creatinine 79.84 mg/dL 06/30/25 Renal US 10/14/24 Assessment & Plan Assessment & Plan (1) CKD (chronic kidney disease) stage 4, GFR 15-29 ml/min: Code(s): N18.4 - Chronic kidney disease, stage 4 (severe) Category: Medical Plan Acute Kidney Injury OTTO resolved creatinine decreased from 5 to 2.1. Underlying CKD with a recent creatinine of 2.4 EGFR has been around 29 mL/minute Chronic Atrophy Of Right Kidney Exact etiology is unclear. No history of nephrolithiasis. Workup in progress. TALA was negative. She is positive for C ANCA UA did not reveal any significant pneumonia RBCs. Urine protein creatinine ratio was 0.275. Recheck renal function and urine protein excretion along with urine in the next few months and we will consider a kidney biopsy based on clinical course Low Blood Pressure Asymptomatic - Monitor blood pressure regularly. - Increase fluid intake to address hypotension. Severe anemia. Being worked up by GI and Hematology s/p Transfusion Orders: Orders Ferritin 3 Months N18.4 - Chronic kidney disease, stage 4 (severe) Basic Metabolic Panel 3 Months N18.4 - Chronic kidney disease, stage 4 (severe) Creatinine Urine 3 Months N18.4 - Chronic kidney disease, stage 4 (severe) IRON PROFILE 3 Months N18.4 - Chronic kidney disease, stage 4 (severe) Complete Blood Count no Diff 3 Months N18.4 - Chronic kidney disease, stage 4 (severe) Total Protein Urine Random 3 Months N18.4 - Chronic kidney disease, stage 4 (severe) UA and rflx microscopic 3 Months N18.4 - Chronic kidney disease, stage 4 (severe) Medications: Discontinued levofloxacin Take one tablet daily for the next three days, ending on 05/16 Discontinued Reason: Patient no longer taking 250 mg PO Q24H 3 tabs 0RF Coding Level of Care Code Est Pt Level 4 (06561) Diagnoses CKD (chronic kidney disease) stage 4, GFR 15-29 ml/min N18.4
--- OUTSIDE RECORDS SUMMARY | 2025-07-05 15:46 | XMS_ITS | Clinical Summary ---
Author Organization [facility] Address [address] [place], [place] [id number] Phone Care Team Providers Care Zig Zag Spring Machine Operator Name Role Phone Abraham Martins CNP Unavailable [phone] Unknown, Unknown Primary Care Provider Elvis shahid [...] Medical Devices Not on file Care Teams Zig Zag Spring Machine Operator Relationship Specialty Start Date End Date Unknown, Unknown, [address] [facility], [address] [place] [address] PCP - General 02/14/20 Abraham Martins CNP [address] [place] [address], [address] [place] [address] Historical LMR Provider 06/22/17 Additional Source Comments The information contained in this document represents components of the legal health record. It is not the complete legal health record.[facility]
--- OUTSIDE RECORDS SUMMARY | 2025-07-05 15:46 | XMS_ITS | Clinical Summary ---
Author Organization Formerly [facility] Address [address] [place] [address] Care Team Providers Care Membership Sales Representative Name Role Phone Tiffani Robison MD Primary Care Provider + [phone] Allergies No known active allergies Medications buPROPion [...] Encounters Date Type Department Care Team Description 04/13/2025 4:07 AM EDT Anesthesia Event [facility] C ICU [address] [place] [address] Ron Duque MD 04/12/2025 1:20 PM EDT Ancillary Procedure [facility] Radiology [address] [place] [phone] Provider, File Room 04/12/2025 1:20 PM EDT Ancillary Procedure [facility] Radiology [address] [place] [phone] Provider, File Room 04/12/2025 1:15 PM EDT Ancillary Procedure [facility] Radiology [address] [place] [phone] Provider, File Room 04/12/2025 1:15 PM EDT Ancillary Procedure [facility] Radiology [address] [place] [phone] Provider, File Room 04/12/2025 6:40 AM EDT Ancillary Procedure [facility] Radiology [address] [place] [phone] Provider, File Room 04/12/2025 2:21 AM EDT - 04/27/2025 4:45 PM EDT Hospital Encounter [facility] E [address] [place] [address] Cristina Greer MD Hemdan, Ali M, MD Khudayar, Humnah, MD Nyanin, Adwoa, MD Pratt, Timothy M, DO Chikoti, Shailaja, MD Madhusudana, MD Payam Whitlock Manjot, MD Metabolic acidosis (Primary Dx); Shock (HCC) Discharge Disposition: Left Against Medical Advice/ AMA 04/12/2025 12:50 AM EDT Ancillary Procedure [facility] Radiology [address] [place] [phone] Provider, File Room 04/12/2025 12:45 AM EDT Ancillary Procedure [facility] Radiology [address] [facility] [place] [address] Provider, File Room 04/12/2025 12:45 AM EDT Ancillary Procedure [facility] Radiology [address] [place] [phone] Provider, File Room 04/12/2025 Travel from Last 3 Months Social History Tobacco Use Types Packs/Day Years Used Date Smoking Tobacco: Former Cigarettes Tobacco Cessation:Counseling Given: Not Answered [facility] Utilities Answer Date Recorded In the past 12 months has th e [employer] gas, oil, or water company threatened to shut off services in your [...] any time in the past 12 m [facility], were you homeless or living in a long-term (including now)? No 04/13/2025 Comments Unknown Sex [...] Influenza Vaccine 04/01/2025 COVID-19 Vaccine (3 - 2024- season) 2025, 04/23/2021 RSV Vaccine 50 years [...] AM EDT Ordered by an unspecified provider. Generic Provider HX AMB PROCEDURES Final Result [...] - 11.0 Thou/uL 04/27/2025 7:13 AM EDT [facility] Platelet Count 247 150 - 450 Thou/uL 04/27/2025 7:13 AM EDT [facility] Hemoglobin 6.2(LL) 11.7 - 15.7 g/dL 04/27/2025 7:13 AM EDT [facility] Hematocrit 20.7(L) 35.0 - 47.0 % 04/27/2025 7:13 AM EDT [facility] Red Blood Cell Count 2.11(L) 4.00 - 5.40 Mil/uL 04/27/2025 7:13 AM EDT [facility] MCV 98 80 - 100 fL 04/27/2025 7:13 AM EDT [facility] MCH 29.4 27.0 - 31.0 pg 04/27/2025 7:13 AM EDT [facility] MCHC 30.0 30.0 - 36.0 g/dL 04/27/2025 7:13 AM EDT [facility] RDW 16.7(H) 11.5 - 14.5 % 04/27/2025 7:13 AM EDT [facility] MPV 10.6 7.5 - 12.5 fL 04/27/2025 7:13 AM EDT [facility] Blood Blood specimen / Unknown 04/27/2025 6:19 AM EDT 04/27/2025 6:35 AM EDT Rodrigo Hare MD LAB BLOOD ORDERABLES Final Resul t Performing Organization Address City/State/[facility] Co de Phone Number [facility] [address] [place] [address] [place] [address], [facility] [address] [place] [address].[address] [place] [address] * Magnesium (AM) (04/27/2025 6:19 AM EDT) Only the most recent of13 resultswithin the time period is included. Magnesium 1.7 1.6 - 2.7 mg/dL 04/27/2025 7:02 AM EDT [facility] Blood Blood specimen / Unknown 04/27/2025 6:19 AM EDT 04/27/2025 6:35 AM EDT Rodrigo Hare MD LAB BLOOD ORDERABLES Final Resul t [facility] [address] [facility] [address] [place] [address], [facility] [address] [facility] [address] [place] [address] * (ABNORMAL) Basic Metabolic Panel (AM) (04/27/2025 6:19 AM EDT) Only the most recent of19 resultswithin the time period is included. Glucose 96 65 - 99 mg/dL 04/27/2025 7:02 AM [facility] Comment:Fasting: <100 mg/dL, Non-Fasting: <200 mg/dL (ADA 2004) Blood Urea Nitrogen (BUN) 18 8 - 21 mg/dL 04/27/2025 7:02 AM [facility] Creatinine 2.2(H) 0.4 - 1.1 mg/dL 04/27/2025 7:02 AM [facility] eGFR 25(L) >59 04/27/2025 7:02 AM [facility] Comment:CKD-EPI (2020) in mL /min/1.73 sq meters. Sodium 142 136 - 145 mmol/L 04/27/2025 7:02 AM [facility] Potassium 3.8 3.4 - 5.3 mmol/L 04/27/2025 7:02 AM [facility] Chloride 110(H) 98 - 107 mmol/L 04/27/2025 7:02 AM [facility] CO2 17(L) 22 - 33 mmol/L 04/27/2025 7:02 AM [facility] Anion Gap 15 4 - 16 04/27/2025 7:02 AM [facility] Calcium 8.9 8.7 - 10.5 mg/dL 04/27/2025 7:02 AM [facility] BUN/Creatinine Ratio 8(L) 10.0 - 25.0 Ratio 04/27/2025 7:02 AM [facility] Blood Blood specimen / Unknown 04/27/2025 6:19 AM EDT 04/27/2025 6:35 AM EDT us Rodrigo Hare MD LAB BLOOD ORDERABLES Final Resul t [facility] [address] [facility] [address] [place] [address], [facility] [address] [facility] [address] [place] [address] * POCT Occult Blood, Stool (04/26/2025 11:30 AM EDT) Occult Blood, Stool #1 Negative Negative Lot Number [id number] [employer] [place] Pass Stool 04/26/2025 11:3 0 AM EDT us Rodrigo Hare MD POINT OF CARE TEST ORDERABLES Fi nal Result * Type and Screen (04/26/2025 10:47 AM EDT) Only the most recent of2 resultswithin the time period is included. ABO/Rh O POSITIVE 04/26/2025 11:33 AM EDT [facility] Antibody Screen NEGATIVE 04/26/2025 11:33 AM EDT [facility] Specimen Expiration 04/29/2025 04/26/2025 11:00 AM EDT [facility] Unit Number [id number] 04/26/2025 11:35 AM EDT [facility] Blood Component Type LEUKOREDUCED RED CELLS 04/26/2025 11:35 AM EDT [facility] Unit Division 00 04/26/2025 11:35 AM EDT [facility] Unit Status REL FROM ALLOC 12:50 PM EDT [facility] Transfusion Status OK TO TRANSFUSE 04/26/2025 11:35 AM EDT [facility] Crossmatch Result Electronically Compatible 04/26/2025 11:35 AM EDT [facility] Blood Blood specimen / Unknown 04/26/2025 10:47 AM EDT 04/26/2025 10:52 AM EDT Comment:Blood us Rodrigo Hare MD BLOOD BANK TEST ORDERABLES Final Result Performing Organization Address City/[facility]/ZIP Co de Phone Number HOSPITAL LAB See Below [facility] [address] [facility] [address] [place] [address] * Prepare RBC's:Prepare in: Units; Number of Units: 1; Transfusion Indications: Hemoglobin less than 7 gm/dl or HCT less than 21% (04/26/2025 10:32 AM EDT) Only the most recent of2 resultswithin the time period is included. Units Ordered 1 04/26/2025 10:32 AM EDT [facility] Blood Bank Comment Refer to the most recent Type and Screen for any Available Units 04/26/2025 11:34 AM EDT [facility] 04/26/2025 10:3 2 AM EDT 04/26/2025 11:34 AM EDT Rodrigo Hare MD BLOOD BANK PRODUCT ORDERABLES Fi nal Result Performing Organization Address [facility] Co de Phone Number [facility] [address] [place] [address].[address] [place] [address], [facility] [address] [place], [place] [address]O [address] [place] [address] * (ABNORMAL) Hemoglobin and Hematocrit (04/26/2025 9:41 AM EDT) Only the most recent of2 resultswithin the time period is included. Hematocrit 20.9(L) 35.0 - 47.0 % 04/26/2025 10:30 AM EDT [facility] Hemoglobin 6.4(LL) 11.7 - 15.7 g/dL 04/26/2025 10:30 AM EDT [facility] Blood Blood specimen / Unknown 04/26/2025 9:41 AM EDT 04/26/2025 9:45 AM EDT Rodrigo Hare MD LAB BLOOD ORDERABLES Final Resul t Performing Organization Address City/[facility]/ZIP Co de Phone Number [facility] [address] [place] [address] [address] [place] [address], [facility] [address] [facility] [address] [place] [address] * Urine Culture (04/25/2025 2:35 PM EDT) Only the most recent of2 resultswithin the time period is included. Culture Sterile or less than 1000 col/mL 04/27/2025 2:53 AM EDT [facility] Urine Urine specimen obtained by clean catch procedure / Unknown 04/25/2025 2:35 PM EDT 04/25/2025 9:19 PM EDT Comment:Urine us Rodrigo Hare MD MICROBIOLOGY - GENERAL ORDERABLE S Final Result [facility] [address] [place] [address], [place] * POCT Glucose, Fingerstick (04/25/2025 11:53 AM EDT) Only the most recent of53 resultswithin the time period is included. POC Glucose 95 65 - 99 mg/dL 04/25/2025 11:54 AM EDT [facility] Blood specimen / Unknown 04/25/2025 11:53 AM EDT 04/25/2025 11:54 AM EDT us Cristina Greer MD POINT OF CARE TEST ORDERABLES F inal Result [facility] [address] [facility] [address] [place] [address], [place] * (ABNORMAL) Urinalysis with Reflex to Microscopic (04/24/2025 11:37 PM EDT) Only the most recent of2 resultswithin the time period is included. Color Yellow 04/25/2025 12:13 AM EDT [facility] Clarity Hazy 04/25/2025 12:13 AM EDT [facility] Specific Marion 1.012 1.005 - 1.030 04/25/2025 12:13 AM [facility] pH 6.0 5.0 - 8.0 04/25/2025 12:13 AM [facility] Leukocyte Esterase Large(A) Negative 04/25/2025 12:13 AM [facility] Nitrite Negative Negative 04/25/2025 12:13 AM [facility] Protein Moderate (100 mg/dL)(A) Negative mg/dL 04/25/2025 12:13 AM [facility] Glucose 50(A) NEG^Negative mg/dL 04/25/2025 12:13 AM [facility] Ketones Negative Negative mg/dL 04/25/2025 12:13 AM [facility] Blood Small(A) Negative 04/25/2025 12:13 AM [facility] Bilirubin Negative Negative 04/25/2025 12:13 AM [facility] WBC >25(H) 0 - 4 per hpf 04/25/2025 12:13 AM [facility] RBC 24(H) 0 - 4 per hpf 04/25/2025 12:13 AM [facility] WBC Clumps Present(A) Negative 04/25/2025 12:13 AM [facility] Squamous Epithelial Cells 2 PER HPF 04/25/2025 12:13 AM [facility] Crystals Absent 04/25/2025 12:13 AM [facility] Urine Urine specimen / Unknown 04/24/2025 11:37 PM EDT 04/24/2025 11:54 PM EDT Amadou Badillo MD URINE ORDERABLES Final R esult [facility] [address] [facility] [address] [place] [address], [facility] [address] [place] [address] [address] [place] [address] * Blood Culture (04/24/2025 10:55 AM EDT) Only the most recent of4 resultswithin the time period is included. Culture Sterile after 5 days 04/29/2025 7:33 AM EDT [facility] Blood Blood specimen / Unknown 04/24/2025 10:55 AM EDT 04/24/2025 10:58 AM EDT Comment:Blood us Lorene Chaudhry MD LAB BLOOD ORDERABLES Fin al Result [facility] [address] [place] [address], [place] * US Renal (04/22/2025 5:55 PM [...] 04/22/2025 5:59 PM EDT PROCEDURE: US RENAL ([id number]) EXAM DATE: 04/22/2025 5:31 PM CLINICAL HISTORY: [...] Gupta MD - 04/22/2025 PROCEDURE: US RENAL ([id number]) EXAM DATE: 04/22/2025 5:31 PM CLINICAL HISTORY: [...] ureteral jets visualized. us Laila Borrego MD [facility] US ORDERABLES Final Resu lt * (ABNORMAL) HEPATIC FUNCTION PANEL (04/22/2025 6:43 AM EDT) Only the most recent of2 resultswithin the time period is included. Alkaline Phosphatase 242(H) 32 - 122 U/L 04/22/2025 7:44 AM [facility] Aspartate Aminotrans (AST) 39 10 - 50 U/L 04/22/2025 7:44 AM [facility] Alanine Aminotrans (ALT) 16 10 - 50 U/L 04/22/2025 7:44 AM [facility] Bilirubin, Total 0.7 0.2 - 1.0 mg/dL 04/22/2025 7:44 AM [facility] Protein, Total 5.4(L) 6.3 - 8.3 g/dL 04/22/2025 7:44 AM [facility] Albumin 2.5(L) 3.5 - 5.0 g/dL 04/22/2025 7:44 AM [facility] Bilirubin, Direct 0.4(H) 0.0 - 0.2 mg/dL 04/22/2025 7:44 AM [facility] Globulin 2.9 1.5 - 3.9 g/dL 04/22/2025 7:44 AM [facility] Albumin/Globulin Ratio 0.9(L) 1.0 - 1.8 Ratio 04/22/2025 7:44 AM [facility] Blood Blood specimen / Unknown 04/22/2025 6:43 AM EDT 04/22/2025 7:18 AM EDT Kapil Eduardo DO LAB BLOOD ORDERABLES Final Re sult Performing Organization Address City/[facility]/ZIP Co de Phone Number [facility] [address] [place] [address] [address] [place] [address], [facility] [address] [facility] [address] [place] [address] * Phosphorus (Add-On) (04/21/2025 10:50 AM EDT) Only the most recent of8 resultswithin the time period is included. Phosphorus 3.1 2.7 - 4.5 mg/dL 04/21/2025 11:33 AM EDT [facility] Blood Blood specimen / Unknown 04/21/2025 10:50 AM EDT 04/21/2025 10:55 AM EDT Jeanne Thakkar MD LAB BLOOD ORDERABLES Final Resul t Performing Organization Address [facility]/ZIP Co de Phone Number [facility] [address] [facility] [address] [place] [address], [facility] [address] [facility] [address] [place] [address] * US Venous Duplex Arm - Left [...] - 5.3 mmol/L 04/20/2025 3:02 PM EDT [facility] Blood Blood specimen / Unknown 04/20/2025 2:43 PM EDT 04/20/2025 2:45 PM EDT Melita Kenny MD LAB BLOOD ORDERABLES Final Re sult [facility] [address] [facility] [address] [place] [address], [facility] [address] [facility] [address] [place] [address] * SODIUM, URINE, RANDOM (04/20/2025 10:54 AM EDT) Sodium, Urine Random 85 mmol/L 04/20/2025 11:10 AM EDT [facility] Comment:Reference range not established for random specimen. Urine Urine specimen / Unknown 04/20/2025 10:54 AM EDT 04/20/2025 11:00 AM EDT us Rani Quintanilla MD URINE ORDERABLES Final Resul t Performing Organization Address City/[facility]/ZIP Co de Phone Number [facility] [address] [facility] [address] [place] [address], [facility] [address] [facility] [address] [place] [address] * Potassium, Random Urine (04/20/2025 10:54 AM EDT) Potassium, Urine (Random) 19 mmol/L 04/20/2025 11:10 AM EDT [facility] Comment:Reference range not established for random specimen. Urine Urine specimen / Unknown 04/20/2025 10:54 AM EDT 04/20/2025 11:00 AM EDT us Rani Quintanilla MD URINE ORDERABLES Final Resul t Performing Organization Address [facility] de Phone Number [facility] [address] [place] [address] [address] [place], [place] [address], [facility] [address] [place] [address] [address] [place] [address] * Chloride, Urine, Random (04/20/2025 10:54 AM EDT) Chloride, Urine, Random 67 mmol/L 04/20/2025 11:10 AM EDT [facility] Comment:Reference range not established for random specimen. Urine Urine specimen / Unknown 04/20/2025 10:54 AM EDT 04/20/2025 11:00 AM EDT us Rani Quintanilla MD URINE ORDERABLES Final Resul t Performing Organization Address City/[facility]/ZIP Co de Phone Number [facility] [address] [facility] [address] [place] [address], [facility] [address] [facility] [address] [place] [address] * ECG 12 lead (04/19/2025 1:31 PM EDT) Only the most recent of3 resultswithin the time period is included. Ventricular rate 79 BPM EKG [facility] Atrial rate 79 BPM EKG [facility] P-R interval 130 ms EKG [facility] QRS duration 82 ms EKG [facility] Q-T interval 396 ms EKG [facility] QTC calculation (Bazett) 454 ms EKG [facility] P axis 57 degrees EKG [facility] R axis 54 degrees EKG [facility] T axis 70 degrees EKG [facility] 04/19/2025 1:31 PM EDT Narrative EKG [facility] - 04/19/2025 4:35 PM EDT Normal sinus [...] Hu Kevin (67) on 04/19/2025 4:35:08 PM us Melita Kenny MD ECG ORDERABLES Final Result Performing Organization Address City/[facility]/ZIP Co de Phone Number [facility] * XR Chest 1 view-Portable (04/19/2025 8:50 [...] effusionsimilar to prior. Support apparatus as above. us Amrit Moran PA-C IMG DIAGNOSTIC IMAGING ORDE CADY Final Result * (ABNORMAL) ISTAT Arterial Blood Gas (ABG) (04/19/2025 6:39 AM EDT) Only the most recent of14 resultswithin the time period is included. PH Arterial, I-STAT 7.36 7.35 - 7.45 04/19/2025 6:43 AM [facility] PCO2 Arterial, I-STAT 32.8 32.0 - 45.0 mmHg 04/19/2025 6:43 AM [facility] PO2 Arterial, I-STAT 145(H) 75 - 95 mmHg 04/19/2025 6:43 AM [facility] HCO3 Arterial, I-STAT 18.5(L) 22.0 - 26.0 mmol/L 04/19/2025 6:43 AM [facility] TCO2 Arterial Calc, I-STAT 20(L) 22 - 28 mmol/L 04/19/2025 6:43 AM [facility] Base Excess, I-STAT -6 mmol/L 04/19/2025 6:43 AM [facility] Comment:Reference Range: Neg ative 2 to Positive 3 SO2, I-STAT 99.0(H) 94.0 - 97.0 % 04/19/2025 6:43 AM [facility] FIO2 Arterial 40.00 04/19/2025 6:43 AM [facility] Sample Type, I-STAT Arterial 04/19/2025 6:43 AM [facility] Blood Gas Draw Site, I-STAT Left radial artery 04/19/2025 6:43 AM [facility] Suman's Test, I-STAT Positive 04/19/2025 6:43 AM [facility] Delivery System, I-STAT VENTILATOR 04/19/2025 6:43 AM [facility] Blood Gas Mode, I-STAT CPAP/PS 04/19/2025 6:43 AM [facility] Blood Gas Pressure Support, I-STAT 5 04/19/2025 6:43 AM [facility] Blood Gas PEEP, I-STAT 6 04/19/2025 6:43 AM [facility] MDRN Aware, I-STAT Yes 04/19/2025 6:43 AM [facility] Number of Sticks, I-STAT 1 04/19/2025 6:43 AM [facility] Total Respiration Rate, I-STAT 18 04/19/2025 6:43 AM [facility] Blood specimen / Unknown 04/19/2025 6:39 AM EDT 04/19/2025 6:43 AM EDT Melita Kenny MD POCT ORDERABLES - DEVICE Altagracia l Result [facility] [address] [place] [address], * (ABNORMAL) Hemoglobin A1c with Estimated Average Glucose (Add-On) (04/19/2025 4:04 AM EDT) Hemoglobin A1C 5.7(H) <5.7 % 04/19/2025 8:01 PM EDT [facility] Comment: A1c% Interpretation 5.7 - 6.0 Increase risk of diabetes 6.1 - 6.4 Higher risk of diabetes > or = 6.5 Consistent with diabetes Diabetes Care, 33(Supp 1):S1-S61, 2010 Estimated Average Glucose 117 mg/dL 04/19/2025 8:01 PM EDT [facility] Blood Blood specimen / Unknown 04/19/2025 4:04 AM EDT 04/19/2025 12:04 PM EDT Melita Kenny MD LAB BLOOD ORDERABLES Final Re sult Performing Organization Address [facility]/ZIP Co de Phone Number [address] [address], [address] [address] * (ABNORMAL) Complete Blood Count WITH Differential - in AM (04/19/2025 3:59 AM EDT) Only the most recent of5 resultswithin the time period is included. White Blood Cell Count 14.9(H) 4.0 - 11.0 Thou/uL 04/19/2025 4:58 AM EDT [facility] Platelet Count 56(L) 150 - 450 Thou/uL 04/19/2025 4:58 AM EDT [facility] Comment:Test results repeate d. Hemoglobin 8.2(L) 11.7 - 15.7 g/dL 04/19/2025 4:58 AM [facility] Hematocrit 24.6(L) 35.0 - 47.0 % 04/19/2025 4:58 AM [facility] Red Blood Cell Count 2.74(L) 4.00 - 5.40 Mil/uL 04/19/2025 4:58 AM [facility] MCV 90 80 - 100 fL 04/19/2025 4:58 AM [facility] MCH 29.9 27.0 - 31.0 pg 04/19/2025 4:58 AM [facility] MCHC 33.3 30.0 - 36.0 g/dL 04/19/2025 4:58 AM [facility] RDW 15.9(H) 11.5 - 14.5 % 04/19/2025 4:58 AM [facility] MPV 12.7(H) 7.5 - 12.5 fL 04/19/2025 4:58 AM [facility] nRBC 0.2(H) 0.0 - 0.1 /100 WBC 04/19/2025 4:58 AM [facility] nRBC, Absolute 0.03(H) 0.00 - 0.02 Thou/uL 04/19/2025 4:58 AM [facility] Immature Platelet Fraction 5.4 1.2 - 8.6 % 04/19/2025 4:58 AM [facility] Neutrophils Man 95 % 4:59 AM [facility] Lymphocytes Man 3 % 4:59 AM [facility] Monocytes Man 2 % 04/19/2025 4:59 AM [facility] Abs Neutrophils Count (ANC) 14.2(H) 2.0 - 7.5 Thou/uL 04/19/2025 4:59 AM [facility] Abs Lymphocytes Man 0.5(L) 1.5 - 4.5 Thou/uL 04/19/2025 4:59 AM [facility] Abs Monocytes Man 0.3 0.2 - 1.5 Thou/uL 04/19/2025 4:59 AM EDT [facility] Normocytic Present 04/19/2025 4:59 AM EDT [facility] Macrocytes Occasional 04/19/2025 4:59 AM EDT [facility] Polychromasia Occasional 04/19/2025 4:59 AM EDT [facility] Blood Blood specimen / Unknown 04/19/2025 3:59 AM EDT 04/19/2025 4:26 AM EDT Amrit Moran PA-C LAB BLOOD ORDERABLES Final Result [facility] [address] [facility] [address] [place] [id number], [facility] [address] [facility] [address] [place] [id number] * (ABNORMAL) Triglycerides (04/19/2025 3:59 AM EDT) Only the most recent of3 resultswithin the time period is included. Triglycerides 547(H) <150 mg/dL 04/19/2025 4:47 AM EDT [facility] Blood Blood specimen / Unknown 04/19/2025 3:59 AM EDT 04/19/2025 4:26 AM EDT Heri Becker PA-C LAB BLOOD ORDERABLES Final R esult [facility] [address] [facility] [address] [place] [id number], [facility] [address] [facility] [address] [place] [phone] * (ABNORMAL) Vitamin D 25 Hydroxy (04/16/2025 5:49 AM EDT) Vitamin D, 25-Hydroxy 17(L) 30 - 100 ng/mL 04/16/2025 1:20 PM EDT [facility] Blood Blood specimen / Unknown 04/16/2025 5:49 AM EDT 04/16/2025 6:00 AM EDT us Jeanne Thakkar MD LAB BLOOD ORDERABLES Final Resul t Performing Organization Address City/[facility] [place] [address], [place] [address] * (ABNORMAL) PTH, Intact (04/16/2025 5:49 AM EDT) PTH, Intact 314(H) 15 - 65 pg/mL 04/16/2025 1:08 PM EDT [facility] Blood Blood specimen / Unknown 04/16/2025 5:49 AM EDT 04/16/2025 5:59 AM EDT us Jeanne Thakkar MD LAB BLOOD ORDERABLES Final Resul t Performing Organization Address [facility] [address], [place] [address] * (ABNORMAL) PROTIME-INR (04/15/2025 7:28 PM EDT) Only the most recent of2 resultswithin the time period is included. Anticoagulant NO ANTI COAGULANT MEDS 04/15/2025 2:35 PM EDT [facility] Prothrombin Time (PT) 22.6(H) 10.0 - 13.5 seconds 04/15/2025 8:05 PM EDT [facility] INR 2.1 04/15/2025 8:05 PM EDT [facility] Comment:INR Therapeutic Rang es: Standard dose anticoagulant 2.0 to 3.0, High dose anticoagulant 2.5-3.5. Blood Blood specimen / Unknown 04/15/2025 7:28 PM EDT 04/15/2025 8:05 PM EDT Patti Oliver APRN LAB BLOOD ORDERABLES Fi nal Result Performing Organization Address City/[facility] Co de Phone Number [facility] [address] [place] [address] [address] [place] [phone], [facility] [address] [place] [address] [address] [place] [address] * Transfuse RBC's: (04/15/2025 6:13 PM EDT) [facility] BLOOD TRANSFUSION ORDER CHEY Final Result * (ABNORMAL) High Sensitivity D-Dimer (04/15/2025 11:56 AM EDT) High Sensitivity D-Dimer 2,330(H) <230 ng/mL DDU 04/15/2025 1:08 PM EDT [facility] Comment: The threshold for exclusion of [...] 11:56 AM EDT 04/15/2025 12:15 PM EDT [facility] LAB BLOOD ORDERABLES Fi nal Result [facility] [address] [place] [address] [address] [place], [place] [id number], [facility] [address] [place] [address] [address] [place] [address] * (ABNORMAL) Fibrinogen Level (04/15/2025 11:56 AM EDT) Fibrinogen 725(H) 148 - 435 mg/dL 04/15/2025 1:16 PM EDT [facility] Blood Blood specimen / Unknown 04/15/2025 11:56 AM EDT 04/15/2025 12:15 PM EDT [facility] BLOOD ORDERABLES Fi nal Result [facility] [address] [facility] [address] [place] [address], [facility] [address] [facility] [address] [place] [address] * (ABNORMAL) Iron and Total Iron Binding Capacity (04/15/2025 4:50 AM EDT) Iron 9(L) 59 - 151 ug/dL 04/15/2025 11:27 AM EDT [facility] UIBC 118 112 - 346 ug/dL 04/15/2025 11:27 AM EDT [facility] Total Iron Binding Capacity 127 100 - 400 ug/dL 04/15/2025 11:27 AM EDT [facility] Iron Sat 7(L) 20 - 50 % 04/15/2025 11:27 AM EDT [facility] Blood Blood specimen / Unknown 04/15/2025 4:50 AM EDT 04/15/2025 5:07 AM EDT Manju Rodriguez MD LAB BLOOD ORDERABLES Final Re sult Performing Organization Address [facility]/ZIP Co de Phone Number [address] [address], [address] [address] * ABO Confirmation (04/15/2025 4:50 AM EDT) ABO/Rh O POSITIVE 04/15/2025 2:21 PM EDT [facility] Blood specimen / Unknown 04/15/2025 4:50 AM EDT 04/15/2025 1:34 PM EDT Cristina Greer MD BLOOD BANK TEST ORDERABLES Altagracia l Result [facility] [address] [facility] [address] [place] [address], [facility] [address] [facility] [address] [place] [address] * (ABNORMAL) RETICULOCYTE COUNT (04/15/2025 4:50 AM EDT) [facility] Reticulocyte Count 0.8 0.7 - 2.0 % 04/15/2025 5:50 AM EDT [facility] Reticulocyte, Absolute 19.0(L) 30.0 - 100.0 Thou/uL 04/15/2025 5:50 AM EDT [facility] Retic Hemoglobin Content 18.60(L) 28 - 35 pg 04/15/2025 5:50 AM EDT [facility] Immature Reticulocyte Fraction 7.8 2.3 - 15.9 % 04/15/2025 5:50 AM EDT [facility] Blood Blood specimen / Unknown 04/15/2025 4:50 AM EDT 04/15/2025 5:07 AM EDT Manju Rodriguez MD LAB BLOOD ORDERABLES Final Re sult [facility] [address] [facility] [address] [place] [address], [facility] [address] [facility] [address] [place] [address] * (ABNORMAL) Folate Level (04/15/2025 4:50 AM EDT) Pathologist [facility] Folate, Serum 3.7(L) >7.2 ng/mL 04/15/2025 11:26 AM EDT [facility] Blood Blood specimen / Unknown 04/15/2025 4:50 AM EDT 04/15/2025 5:07 AM EDT Manju Rodriguez MD LAB BLOOD ORDERABLES Final Re sult [address] [address], [address] [address] * FERRITIN (04/15/2025 4:50 AM EDT) [facility] Ferritin 358 30 - 400 ug/L 04/15/2025 11:27 AM EDT [facility] Blood Blood specimen / Unknown 04/15/2025 4:50 AM EDT 04/15/2025 5:07 AM EDT us Manju Rodriguez MD LAB BLOOD ORDERABLES Final Re sult Performing Organization Address City/[facility]/[place] [address], [place] [address] * (ABNORMAL) VITAMIN B12 (04/15/2025 4:50 AM EDT) Vitamin B12 >2,000(H) 243 - 894 pg/mL 04/15/2025 11:31 AM EDT [facility] Blood Blood specimen / Unknown 04/15/2025 4:50 AM EDT 04/15/2025 5:08 AM EDT us Manju Rodriguez MD LAB BLOOD ORDERABLES Final Re sult Performing Organization Address [facility] [place] [address], [place] [address] * (ABNORMAL) Comprehensive Metabolic Panel (04/15/2025 4:50 AM EDT) Only the most recent of3 resultswithin the time period is included. Glucose 158(H) 65 - 99 mg/dL 04/15/2025 5:30 AM EDT [facility] Comment:Fasting: <100 mg/dL, Non-Fasting: <200 mg/dL (ADA 2004) Blood Urea Nitrogen (BUN) 60(H) 8 - 21 mg/dL 04/15/2025 5:30 AM EDT [facility] Creatinine 4.3(H) 0.4 - 1.1 mg/dL 04/15/2025 5:30 AM EDT [facility] eGFR 11(L) >59 04/15/2025 5:30 AM EDT [facility] Comment:CKD-EPI (2020) in mL /min/1.73 sq meters. Sodium 131(L) 136 - 145 mmol/L 04/15/2025 5:30 AM [facility] Potassium 3.1(L) 3.4 - 5.3 mmol/L 04/15/2025 5:30 AM [facility] Chloride 92(L) 98 - 107 mmol/L 04/15/2025 5:30 AM [facility] CO2 22 22 - 33 mmol/L 04/15/2025 5:30 AM [facility] Calcium 6.9(LL) 8.7 - 10.5 mg/dL 04/15/2025 5:30 AM [facility] Alkaline Phosphatase 247(H) 32 - 122 U/L 04/15/2025 5:30 AM [facility] Aspartate Aminotrans (AST) 45 10 - 50 U/L 04/15/2025 5:30 AM [facility] Alanine Aminotrans (ALT) 53(H) 10 - 50 U/L 04/15/2025 5:30 AM [facility] Bilirubin, Total 0.2 0.2 - 1.0 mg/dL 04/15/2025 5:30 AM [facility] Protein, Total 5.0(L) 6.3 - 8.3 g/dL 04/15/2025 5:30 AM [facility] Albumin 2.1(L) 3.5 - 5.0 g/dL 04/15/2025 5:30 AM [facility] BUN/Creatinine Ratio 14 10.0 - 25.0 Ratio 04/15/2025 5:30 AM [facility] Globulin 2.9 1.5 - 3.9 g/dL 04/15/2025 5:30 AM [facility] Albumin/Globulin Ratio 0.7(L) 1.0 - 1.8 Ratio 04/15/2025 5:30 AM [facility] Anion Gap 17(H) 4 - 16 04/15/2025 5:30 AM [facility] Blood Blood specimen / Unknown 04/15/2025 4:50 AM EDT 04/15/2025 5:07 AM EDT [facility] LAB BLOOD ORDERABLES Final Result [facility] [address] [facility] [address] [place] [address], [facility] [address] [facility] [address] [place] [address] * (ABNORMAL) LACTATE DEHYDROGENASE (LDH) (04/14/2025 12:04 PM EDT) Lactate Dehydrogenase (LDH) 773(H) 120 - 260 U/L 04/14/2025 1:01 PM EDT [facility] Blood Blood specimen / Unknown 04/14/2025 12:04 PM EDT 04/14/2025 12:11 PM EDT [facility] LAB BLOOD ORDERABLES Final Result Performing Organization Address City/[facility] Co de Phone Number [facility] [address] [facility] [address] [place] [address], [facility] [address] [facility] [address] [place] [address] * (ABNORMAL) HAPTOGLOBIN (04/14/2025 12:04 PM EDT) Haptoglobin 264(H) 30 - 200 mg/dL 04/14/2025 9:22 PM EDT [facility] Comment:Specimen hemolyzed. Results may be artifactually elevated. Blood Blood specimen / Unknown 04/14/2025 12:04 PM EDT 04/14/2025 12:11 PM EDT [facility] LAB BLOOD ORDERABLES Final Result Performing Organization Address City/[facility]/ZIP Co de Phone Number [address] [address], [address] [address] * Respiratory Culture (aerobic and gram stain) (04/14/2025 8:02 AM EDT) Pathologist [facility] Gram stain suggestive of Few neutrophils No squamous cells No organisms seen 04/14/2025 4:38 PM EDT [facility] Culture Mixed normal amador 04/15/2025 2:13 PM EDT [facility] Sputum Specimen from trachea / Unknown 04/14/2025 8:02 AM EDT 04/14/2025 8:51 AM EDT Comment:Sputum Marcelina Gimenez [facility] MICROBIOLOGY - GENERAL ORD ERABLES Final Result [facility] [address] [place] [address], * (ABNORMAL) High Sensitivity Troponin T (Once) (04/14/2025 7:22 AM EDT) Only the most recent of5 resultswithin the time period is included. [facility] High Sensitivity Troponin T 147(HH) <15 ng/L 04/14/2025 8:01 AM EDT [facility] Comment:Recurring Critical R esult. Previously phoned. Delta (Change) 18(H) <3 04/14/2025 8:01 AM EDT [facility] Comment:Decreased Blood Blood specimen / Unknown 04/14/2025 7:22 AM EDT 04/14/2025 7:31 AM EDT Melia Borjas [facility] BLOOD ORDERABLES Final Result [facility] [address] [facility] [address] [place] [address], [facility] [address] [facility] [address] [place] [address] * (ABNORMAL) Lipase (04/14/2025 4:15 AM EDT) Pathologist [facility] Lipase 10(L) 13 - 60 U/L 04/14/2025 6:45 AM EDT [facility] Blood Blood specimen / Unknown 04/14/2025 4:15 AM EDT 04/14/2025 6:35 AM EDT Amrit Moran PA-C LAB BLOOD ORDERABLES Final Result [facility] [address] [facility] [address] [place] [address], [facility] [address] [facility] [address] [place] [address] * Lactic Acid, Plasma (STAT) (04/13/2025 11:53 PM EDT) Only the most recent of3 resultswithin the time period is included. Lactic Acid 1.4 0.5 - 1.9 mmol/L 04/14/2025 12:18 AM EDT [facility] Blood Blood specimen / Unknown 04/13/2025 11:53 PM EDT 04/13/2025 11:54 PM EDT Melia Borjas APRN LAB BLOOD ORDERABLES Final Result [facility] [address] [facility] [address] [place] [address], [facility] [address] [facility] [address] [place] [address] * Legionella & Streptococcus Pneumoniae Antigen, Urine (04/13/2025 6:44 PM EDT) Legionella Antigen EIA, Urine Presumptive Negative Presumptive Negative 04/14/2025 8:47 AM EDT [facility] Comment: Presumptive Negative for [...] Negative Presumptive Negative 04/14/2025 8:47 AM EDT [facility] Comment:Presumptive Negative for Pneumococcal Pneumonia, suggesting no recent or current Pneumococcal Infection. Infection due to S.pneumoniae cannot be ruled out since the antigen level present in the specimen may be below the detection limit of the test. Urine Urine specimen / Unknown 04/13/2025 6:44 PM EDT 04/13/2025 6:51 PM EDT us Amrit Dean DAVILA URINE ORDERABLES Final Resu lt [facility] [address] [place] [address], [place] * CT Chest/abdomen+pelvis w/o contrast w/po [...] left ventricular wall motion is globally hypokinetic. Amrit Moran PA-C CV ECHO ORDERABLES Final Re sult * ANES INTUBATION (04/13/2025 4:21 AM EDT) Narrative Ron Duque MD - 04/13/2025 4:21 AM EDT Ron [...] baseline Complications: no complications Ron Duque MD [place] ANESTHESIA Final Result * (ABNORMAL) Calcium, Ionized (04/13/2025 12:23 AM EDT) [facility] Calcium, Ionized 0.80(L) 1.17 - 1.33 mmol/L 04/13/2025 11:33 AM EDT [facility] Comment:Estimated result due to low pH. Measured pH of specimen is less than or equal to 7.20. Blood Blood specimen / Unknown 04/13/2025 12:23 AM EDT 04/13/2025 12:28 AM EDT Jad Jaimes PA-C LAB BLOOD ORDERABLES Fi nal Result [address] [address], [address] [address] * (ABNORMAL) GI PCR Panel (04/13/2025 12:20 AM EDT) Pathologist [facility] Campylobacter Not Detected Not Detected 04/13/2025 7:11 PM EDT [facility] Plesiomonas shigelloides Not Detected Not Detected 04/13/2025 7:11 PM [facility] Salmonella Not Detected Not Detected 04/13/2025 7:11 PM [facility] Yersinia enterocolitica Not Detected Not Detected 04/13/2025 7:11 PM [facility] Vibrio Not Detected Not Detected 04/13/2025 7:11 PM [facility] Vibrio cholerae Not Detected Not Detected 04/13/2025 7:11 PM [facility] Adenovirus F 40/41 Not Detected Not Detected 04/13/2025 7:11 PM [facility] Astrovirus Not Detected Not Detected 04/13/2025 7:11 PM [facility] Rotavirus A Not Detected Not Detected 04/13/2025 7:11 PM [facility] Sapovirus Not Detected Not Detected 04/13/2025 7:11 PM [facility] Cryptosporidium Not Detected Not Detected 04/13/2025 7:11 PM [facility] Cyclospora cayetanensis Not Detected Not Detected 04/13/2025 7:11 PM [facility] Entamoeba histolytica Not Detected Not Detected 04/13/2025 7:11 PM [facility] Giardia lamblia Not Detected Not Detected 04/13/2025 7:11 PM [facility] Enterotoxigenic E.coli (ETEC) Not Detected Not Detected 04/13/2025 7:11 PM [facility] Enteropathogenic E.coli (EPEC) Detected(A) Not Detected 04/13/2025 7:11 PM [facility] Shiga toxin producing E.coli (STEC) stx1/stx2 Not Detected Not Detected 04/13/2025 7:11 PM [facility] Shigella/Enteroinva sive E.coli (EIEC) Not Detected Not Detected 04/13/2025 7:11 PM [facility] Enteroaggregative E.coli (EAEC) Not Detected Not Detected 04/13/2025 7:11 PM [facility] Norovirus GI/GII Norovirus is no longer tested by the GIPCR panel due to low specificity and a high false positive rate. Order the Norovirus PCR specifically if clinically indicated. 04/13/2025 7:11 PM EDT [facility] Stool Stool specimen / Unknown 04/13/2025 12:20 AM EDT 04/13/2025 12:30 AM EDT Jad Jaimes PA-C MICROBIOLOGY - GENERAL ORDERABLES Final Result Performing Organization Address [facility]/ZIP Co de Phone Number [facility] [address] [place] [address], * C. difficile Toxin and NAP1 PCR with reflex to C. diff Ag/Toxin EIA (04/13/2025 12:20 AM EDT) C. difficile Toxin Gene Negative Negative 04/13/2025 11:41 AM EDT [facility] Comment:Performed by the Xpe rt C. difficile/Epi Assay NAP1 Presumptive Negative Presumptive Negative 04/13/2025 11:41 AM EDT [facility] Comment:Performed by the Xpe rt C. difficile/Epi Assay Stool Stool specimen / Unknown 04/13/2025 12:20 AM EDT 04/13/2025 12:29 AM EDT Amrit Moran PA-C MICROBIOLOGY - GENERAL ORDE RABLES Final Result Performing Organization Address [facility] Co de Phone Number [facility] [address] [place] [address], * (ABNORMAL) ISTAT Venous Blood Gas (VBG) (04/12/2025 8:29 PM EDT) Only the most recent of3 resultswithin the time period is included. PH Venous, I-STAT 7.28(L) 7.33 - 7.43 04/12/2025 8:32 PM EDT [facility] PCO2 Venous, I-STAT 33.9(L) 35.0 - 50.0 mmHg 04/12/2025 8:32 PM EDT [facility] PO2 Venous, I-STAT 35 0 - 60 mmHg 04/12/2025 8:32 PM EDT [facility] HCO3 Venous, I-STAT 15.9(L) 23.0 - 28.0 mmol/L 04/12/2025 8:32 PM EDT [facility] TCO2 Venous Calc, I-STAT 17(L) 23 - 29 mmol/L 04/12/2025 8:32 PM EDT [facility] Base Excess, I-STAT -10 mmol/L 04/12/2025 8:32 PM EDT [facility] Comment:Reference Range: Neg ative 2 to Positive 3 SO2 Venous, I-STAT 61 60 - 75 % 04/12/2025 8:32 PM EDT [facility] FIO2 Venous 21.00 04/12/2025 8:32 PM EDT [facility] Sample Type, I-STAT VENOUS 04/12/2025 8:32 PM EDT [facility] Blood Gas Draw Site, I-STAT VENOUS 04/12/2025 8:32 PM EDT [facility] Delivery System, I-STAT ROOM AIR 04/12/2025 8:32 PM EDT [facility] Suman's Test, I-STAT NA 04/12/2025 8:32 PM EDT [facility] MDRN Aware, I-STAT Yes 04/12/2025 8:32 PM EDT [facility] Blood specimen / Unknown 04/12/2025 8:29 PM EDT 04/12/2025 8:32 PM EDT us Sebastián Mtz MD POCT ORDERABLES - DEVICE Final R esult [facility] [address] [place] [address], [place] * CR Chest Archive for Reference only (04/12/2025 1:12 PM EDT) Only the most recent of4 resultswithin the time period is included. Narrative [place] - 04/12/2025 1:12 PM EDT This study has been auto finalized and does not contain a result. File Room Provider IMG DIGITIZE FILMS Final Resu lt Performing Organization Address [facility] Co de Phone Number [place] [phone] * CT Chest Archive for Reference Only (04/12/2025 1:12 PM EDT) Only the most recent of2 resultswithin the time period is included. Narrative [place] - 04/12/2025 1:12 PM EDT This study has been auto finalized and does not contain a result. File Room Provider IMG DIGITIZE FILMS Final Resu lt Performing Organization Address [facility]/[place] de Phone Number [place] [phone] * CT Abdomen Archive for Reference Only (04/12/2025 1:11 PM EDT) Only the most recent of2 resultswithin the time period is included. Narrative [place] - 04/12/2025 1:11 PM EDT This study has been auto finalized and does not contain a result. File Room Provider IMG DIGITIZE FILMS Final Resu lt Performing Organization Address [facility] de Phone Number [place] [phone] * Vancomycin Level, Random (04/12/2025 5:12 AM EDT) Vancomycin, Random 43 mg/L 04/12/2025 5:52 AM EDT [facility] Comment:No reference range e stablished for random levels. Time of Last Dose Information not given 04/12/2025 5:07 AM EDT [facility] Blood Blood specimen / Unknown 04/12/2025 5:12 AM EDT 04/12/2025 5:29 AM EDT Jad Jaimes PA-C LAB BLOOD ORDERABLES Fi nal Result Performing Organization Address City/[facility] Co de Phone Number [facility] [address] [facility] [address] [place] [address], [facility] [address] [facility] [address] [place] [address] * Nasal MRSA Screen, PCR (04/12/2025 2:55 AM EDT) MRSA Result Not Detected Not Detected 11:10 AM EDT [facility] Comment:Performed by the Xpe rt MRSA NxG Assay Swab, Anterior Nares Specimen from nose / Unknown 04/12/2025 2:55 AM EDT 04/12/2025 3:19 AM EDT us Jad Jaimes PA-C MICROBIOLOGY - GENERAL ORDERABLES Final Result [facility] [address] [place] [address], from Last 3 Months Advance Directives * Full Code (Latest Code Status on File) Date Activated Date Inactivated Comments 04/12/2025 2:27 AM Healthcare Agents on File Name Relationship Healthcare Agent [facility] [place] Adult child 1. Health Care Representativ e Care Teams Membership Sales Representative Relationship Specialty Start Date End Date Tiffani Robison MD [address] [place] [phone] PCP - General Internal Medicine 04/12/25
== END 2025-07-05 14:45 | disposition home or self-care (01) ==
LOC: HO.HKA 13:03
PROVIDERS: PCP Internal Medicine; Visit Provider Internal Medicine Hypertension Specialist
DX: N18.4 Chronic kidney disease, stage 4 (severe) (principal)
CPT/HCPCS: 99214

== ENCOUNTER → 2025-07-05 13:03 | Outpatient (BNVA) | payer OTHER, SELFPAY | PROVIDERS: PCP Internal Medicine; Visit Provider Internal Medicine Hypertension Specialist | DX: N18.9 Chronic kidney disease, unspecified (principal); D63.1 Anemia in chronic kidney disease; Z87.448 Personal history of other diseases of urinary system; Z85.118 Personal history of other malignant neoplasm of bronchus and lung | CPT/HCPCS: 99212 ==